=== PATIENT | female | born 1945 | race Caucasian/White ===

== ENCOUNTER 2017-01-15 11:39 | Emergency (ER) | payer OTHER ==
[~2017-01-15] VITALS: Ht 152.4 cm; Wt 73.0 kg
[~2017-01-15 11:39] MED LIST: ATOR-54 PO; BUPR100T13 PO; HYDR25TA4 PO; IBUP600T44 PO; LEVO50TA6 PO; LORA-741 PO; MAGNTAB17 PO; METHPOW PO; MULTTAB58 PO; OMEP20TA PO; POLY335040 PO; RANI150C4 PO
[2017-01-15 11:44] VITALS: TEMP 36.6; Ht 152.4 cm; Wt 73.0 kg
[2017-01-15] MEDS ORDERED: SODIUM CHLORIDE 0.9% 1000ML 1,000 ML IV ONE (12:02)
[2017-01-15] MEDS ORDERED: SODIUM CHLORIDE 0.9% 1000ML 1,000 ML IV STA (12:02)
[2017-01-15] MEDS ORDERED: MECLIZINE HCL 25 MG TAB PO STA (12:07)
[2017-01-15 12:15] LABS: HEMATOCRIT 42.7 % (37-47); MEAN CELL VOLUME 91.2 fL (80-100); MEAN CORPUSCULAR HEMOGLOBIN 31.6 pg (25-34); MEAN CORPUSCULAR HGB CONC 34.7 g/dl (32-36); MEAN PLATELET VOLUME 9.7 fL (7.4-10.4); PLATELET COUNT 268 K/uL (130-400); RED BLOOD COUNT 4.68 M/uL (4.2-5.4); WHITE BLOOD COUNT 12.31 K/uL (4.8-10.8)
[2017-01-15 12:22] LABS: PROTHROMBIN TIME (PATIENT) 10.3 SECONDS (9.0-12.0)
--- NOTE | 2017-01-15 12:23 | DIAGNOSTIC IMAGING REPORT ---
CHEST ONE VIEW PORTABLE CLINICAL HISTORY: CHEST PAIN dyspnea COMPARISON STUDY: No previous studies for comparison. FINDINGS: Fixed lateral hernia. Diaphragms smooth. Lungs are clear. IMPRESSION: Fixed hiatal hernia. Otherwise negative study Electronically signed by: Ángel Lundberg M.D. 01/15/2017 12:21 PM Dictated Date/Time: 01/15/2017 12:20 PM
--- NOTE | 2017-01-15 12:54 | DIAGNOSTIC IMAGING REPORT ---
HEAD CT NONCONTRAST CT DOSE: 614.27 mGy.cm HISTORY: Mental status change castellanos, dizzy TECHNIQUE: Multiaxial CT images of the head were performed without the use of intravenous contrast. Comparison: None. Findings: The paranasal sinuses and mastoid air cells are clear. The calvarium and skull base are intact. The ventricles and sulci are within normal limits. There is no mass, hematoma, midline shift, or acute infarct. Moderate chronic small vessel change in the periventricular and deep white matter regions. Impression: Chronic small vessel change. No acute intracranial abnormality. Electronically signed by: Ángel Lundberg M.D. 01/15/2017 12:52 PM Dictated Date/Time: 01/15/2017 12:51 PM
[2017-01-15 13:01] LABS: ALKALINE PHOSPHATASE 110 U/L (45-117); ALT/SGPT 29 U/L (12-78); BLOOD UREA NITROGEN 16 mg/dl (7-18); BUN/CREATININE RATIO 19.1 (10-20); CALCIUM 9.2 mg/dl (8.5-10.1); CARBON DIOXIDE 28 mmol/L (21-32); CHLORIDE 102 mmol/L (98-107); CREATININE 0.86 mg/dl (0.60-1.20); GLUCOSE 110 mg/dl (70-99)
[2017-01-15 13:05] LABS: POTASSIUM 3.8 mmol/L (3.5-5.1); SODIUM 141 mmol/L (136-145)
[2017-01-15] MEDS ORDERED: ACETAMINOPHEN 325 MG TAB PO STA (13:10)
[2017-01-15 13:14] LABS: AST/SGOT 26 U/L (15-37); CKMB/CK RATIO 1.8 (0-3.0)
[2017-01-15 14:19] LABS: BASO % 0.3 %; BASO ABS # 0.04 K/uL (0-0.2); COMPLETE YES; EOS % 1.3 %; IG% 0.3 %; LYMPH % 50.9 %; LYMPH ABS # 6.27 K/uL (1.2-3.4); NEUT % 42.2 %
[2017-01-15 14:22] LABS: SMUDGE CELLS PRESENT
[2017-01-15] MEDS ORDERED: MECL1TAB42 PO (15:13)
[2017-01-15 15:26] VITALS: BP 131/81; PULSE 92; O2SAT 93
--- NOTE | 2017-01-15 16:11 | EMERGENCY ROOM VISIT NOTE ---
History Report prepared by Sean: Debbie Clark Under the Supervision of: Dr. Jose Hinton M.D. First contact with patient: 11:51 Chief Complaint: NAUSEA Stated Complaint: SWEATING,NAUSEA,EAR RINGING,HEADACHE,DIZZY,SHAKY History of Present Illness The patient is a 71 year old female who presents to the Emergency Room with complaints of persistent dizziness starting earlier today. She states that she was sitting in the waiting room to her doctor's office when the room started distorting visually. She started experiencing diaphoresis. She has not experienced these symptoms before. She reports that her ears have been ringing for several days. She currently has a headache. Yesterday she felt slightly dizzy and had trouble standing up. The dizziness worsens when she bends over. She reports chills. She denies any chest pain, SOB, fever, or urinary symptoms. She denies any history of vertigo. She is not on any blood thinners. Source of History: patient Onset: earlier today Position: other (global) Quality: other (dizziness) Timing: other (persistent) Modifying Factors (Worsening): other (bending over) Associated Symptoms: + chills, + diaphoresis, No SOB, No chest pain, No fevers, No urinary symptoms Note: Pt reports vision changes. Review of Systems See HPI for pertinent positives & negatives. A total of 10 systems reviewed and were otherwise negative. 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 Nurse's notes were reviewed and I agree with. Family History FH: gallbladder disease FH: heart attack FH: heart disease FHx: lung disease Hypertension Social History Smoking Status: Never Smoker Alcohol Use: none Marital Status: Housing Status: lives with significant other Occupation Status: retired Current/Historical Medications Scheduled Atorvastatin (Lipitor), 20 MG PO QPM Bupropion Hcl (Wellbutrin), 100 MG PO BID Hydrochlorothiazide (Hctz), 25 MG PO DAILY Levothyroxine Sodium (Levothyroxine Sodium), 50 MCG PO DAILY Multiple Vitamin (Multivitamin), 1 TAB PO DAILY Omeprazole (Omeprazole), 40 MG PO BID Ranitidine Hcl (Ranitidine Hcl), 150 MG PO QPM Scheduled PRN Ibuprofen (Motrin), 600 MG PO TID PRN for Pain Lorazepam (Ativan), 0.5 MG PO BID PRN Meclizine Hcl (Meclizine Hcl), 1 TAB PO TID PRN for Dizziness or Vertigo Allergies Coded Allergies: Codeine (Verified Adverse Reaction, Unknown, GI UPSET, 01/15/17) Lisinopril (Verified Adverse Reaction, Unknown, COUGH, 01/15/17) Physical Exam Vital Signs Date Time Temp Pulse Resp B/P Pulse Ox O2 Delivery O2 Flow Rate FiO2 01/15/17 15:26 92 18 131/81 93 Room Air 01/15/17 14:47 92 128/76 94 01/15/17 11:44 36.6 106 18 154/90 97 Physical Exam General: Non ill-appearing older female. Well developed well nourished in no acute distress, breathing comfortably on room air. Normal speech HEENT: Normal cephalic atraumatic. Pupils are equal round and reactive to light. Sclera anicteric. Extraocular movements are intact. Oropharynx is pink with moist mucous membranes. No swelling of the mouth lips or tongue. Neck: Supple with a midline trachea. No meningeal signs or stiffness, no JVD or bruits. No Stridor. Chest: Clear to auscultation bilaterally. No wheezes or rhonchi. No increased work of breathing. Heart: regular rate and rhythm. Abdomen: Soft nontender, nondistended without rebound guarding or rigidity. Extremities: No cyanosis clubbing or edema. No calf tenderness or assymetry Spine/Back. Non tender to palpation. No CVA tenderness Skin: Good turgor without rashes. Neurologic exam: Cranial nerves two through 12 are intact. Motor and sensation are intact and symmetrical throughout. Finger to nose intact. No tremor. Medical Decision & Procedures ER Provider Diagnostic Interpretation: X-ray results as stated below per interpretation by me and the radiologist. Radiology results as stated below per my review and radiologist interpretation: CHEST ONE VIEW PORTABLE CLINICAL HISTORY: CHEST PAIN dyspnea COMPARISON STUDY: No previous studies for comparison. FINDINGS: Fixed lateral hernia. Diaphragms smooth. Lungs are clear. IMPRESSION: Fixed hiatal hernia. Otherwise negative study Electronically signed by: Ángel Lundberg M.D. 01/15/2017 12:21 PM Dictated Date/Time: 01/15/2017 12:[address] CT DOSE: 614.27 mGy.cm HISTORY: Mental status change castellanos, dizzy TECHNIQUE: Multiaxial CT images of the head were performed without the use of intravenous contrast. Comparison: None. Findings: The paranasal sinuses and mastoid air cells are clear. The calvarium and skull base are intact. The ventricles and sulci are within normal limits. There is no mass, hematoma, midline shift, or acute infarct. Moderate chronic small vessel change in the periventricular and deep white matter regions. Impression: Chronic small vessel change. No acute intracranial abnormality. Electronically signed by: Ángel Lundberg M.D. 01/15/2017 12:52 PM Dictated Date/Time: 01/15/2017 12:51 PM Laboratory Results 01/15/17 12:00 Red Blood Count 4.68, Mean Corpuscular Volume 91.2, Mean Corpuscular Hemoglobin 31.6, Mean Corpuscular Hemoglobin Concent 34.7, Mean Platelet Volume 9.7, Neutrophils (%) (Auto) 42.2, Lymphocytes (%) (Auto) 50.9, Monocytes (%) (Auto) 5.0, Eosinophils (%) (Auto) 1.3, Basophils (%) (Auto) 0.3, Neutrophils # (Auto) 5.18, Lymphocytes # (Auto) 6.27, Monocytes # (Auto) 0.62, Eosinophils # (Auto) 0.16, Basophils # (Auto) 0.04 01/15/17 12:00 Test 01/15/17 12:00 01/15/17 12:02 White Blood Count 12.31 K/uL (4.8-10.8) Red Blood Count 4.68 M/uL (4.2-5.4) Hemoglobin 14.8 g/dL (12.0-16.0) Hematocrit 42.7 % (37-47) Mean Corpuscular Volume 91.2 fL (80-100) Mean Corpuscular Hemoglobin 31.6 pg (25-34) Mean Corpuscular Hemoglobin Concent 34.7 g/dl (32-36) Platelet Count 268 K/uL (130-400) Mean Platelet Volume 9.7 fL (7.4-10.4) Neutrophils (%) (Auto) 42.2 % Lymphocytes (%) (Auto) 50.9 % Monocytes (%) (Auto) 5.0 % Eosinophils (%) (Auto) 1.3 % Basophils (%) (Auto) 0.3 % Neutrophils # (Auto) 5.18 K/uL (1.4-6.5) Lymphocytes # (Auto) 6.27 K/uL (1.2-3.4) Monocytes # (Auto) 0.62 K/uL (0.11-0.59) Eosinophils # (Auto) 0.16 K/uL (0-0.5) Basophils # (Auto) 0.04 K/uL (0-0.2) RDW Standard Deviation 45.2 fL (36.4-46.3) RDW Coefficient of Variation 13.6 % (11.5-14.5) Immature Granulocyte % (Auto) 0.3 % Immature Granulocyte # (Auto) 0.04 K/uL (0.00-0.02) Smudge Cells PRESENT Blood Smear Review Prothrombin Time 10.3 SECONDS (9.0-12.0) Prothromb Time International Ratio 1.0 (0.9-1.1) Activated Partial Thromboplast Time 25.2 SECONDS (21.0-31.0) Partial Thromboplastin Ratio 1.0 Anion Gap 11.0 mmol/L (3-11) Est Creatinine Clear Calc Drug Dose 52.0 ml/min Estimated GFR () 77.7 Estimated GFR (Non- 67.0 BUN/Creatinine Ratio 19.1 (10-20) Calcium Level 9.2 mg/dl (8.5-10.1) Total Bilirubin 0.6 mg/dl (0.2-1) Direct Bilirubin 0.2 mg/dl (0-0.2) Aspartate Amino Transf (AST/SGOT) 26 U/L (15-37) Alanine Aminotransferase (ALT/SGPT) 29 U/L (12-78) Alkaline Phosphatase 110 U/L (45-117) Total Creatine Kinase 103 U/L (26-192) Creatine Kinase MB 1.9 ng/ml (0.5-3.6) Troponin I < 0.015 ng/ml (0-0.045) Total Protein 7.6 gm/dl (6.4-8.2) Albumin 3.9 gm/dl (3.4-5.0) Lipase 224 U/L (73-393) Thyroid Stimulating Hormone (TSH) 4.430 uIu/ml (0.300-4.500) Creatine Kinase MB Ratio (0-3.0) Laboratory studies as stated above per my review. Medications Administered Medications (Trade) Dose Ordered Sig/Shashank Route Start Time Stop Time Status Last Admin Dose Admin Sodium Chloride 1,000 ml @ 999 mls/hr Q1H1M STAT IV 01/15/17 12:02 01/15/17 13:02 DC 01/15/17 12:15 999 MLS/HR Sodium Chloride (Nss 1000ml) 1,000 ml @ 150 mls/hr Q6H40M ONCE IV 01/15/17 12:02 01/15/17 15:51 DC 01/15/17 12:15 150 MLS/HR Meclizine HCl (Antivert Tab) 12.5 mg NOW STAT PO 01/15/17 12:07 01/15/17 12:09 DC 01/15/17 12:13 12.5 MG Acetaminophen (Tylenol Tab) 650 mg NOW STAT PO 01/15/17 13:10 01/15/17 13:11 DC 01/15/17 13:27 650 MG ECG Indication: weakness Rate (beats per minute): 77 Rhythm: normal sinus Findings: no acute ischemic change, no ectopy, other (LVH) Comparison ECG Date: no prior available ED Course 1159: Past medical records reviewed. The patient was evaluated in room B4, and a complete history and physical examination were performed. 1202: NSS 1000 ml @ 150 mls/hr IV, NSS 1000 ml @ 999 mls/hr IV. 1207: Antivert Tab 12.5 mg PO. 1308: I reevaluated the patient. She has a headache. She will be getting some Tylenol. 1310: Acetaminophen 650 mg PO. 1503: Upon reevaluation, the patient is resting comfortably. I discussed the results and treatment plan with her. She verbalized agreement of the treatment plan. The patient was discharged home. Medical Decision Differential diagnoses: vertigo, CVA, intracranial process, electrolyte or metabolic abnormality. This patient comes in as described above. She was placed in room B4. She is here for treatment and evaluation of dizziness. It is worse with movement and bending over. She's also been having a ringing in her ears for couple days. She has a normal ear exam. She has a normal neurologic exam. IV access established and she was hydrated IV normal saline here and she was given meclizine 12.5 mg by mouth resting comfortably. EKG does not suggest acute or syndrome or arrhythmia. She's had no significant electrolyte or metabolic abnormality. She has nothing to suggest infection. She's had nothing to suggest acute neurologic central process. CAT scan of her head is unremarkable. She is feeling good and desires to go home. Most likely this is peripheral vertigo and it may be related to Mnire's disease with the ear ringing. I will give her a prescription for meclizine 25 mg that she can use every 8 hours as needed she was warned that this can make her drowsy do not take before drinking abdomen, working. She is encouraged to be careful getting up and down follow-up with her regular doctor next 1-2 days for recheck. Family was happy with the plan and she was discharged home Impression Primary Impression: Dizziness Scribe Attestation The scribe's documentation has been prepared under my direction and personally reviewed by me in its entirety. I confirm that the note above accurately reflects all work, treatment, procedures, and medical decision making performed by me. Departure Information Dispostion Home / Self-Care Prescriptions Meclizine Hcl (MECLIZINE HCL) 25 Mg Tab 1 TAB PO TID Y for Dizziness or Vertigo for 4 Days, #12 TAB Prov: Jose Hinton M.D. 01/15/17 Referrals Lucas Mendez M.D. (PCP) Forms HOME CARE DOCUMENTATION FORM, IMPORTANT VISIT INFORMATION Patient Instructions My [facility] Additional Instructions Rest. Drink plenty of fluids. Return if: worsening of symptoms, not tolerating fluids, fever or chills, chest pain, shortness of breath, numbness or weakness, any new problems or concerns. For dizziness if needed may use meclizine 25 mg every 8 hours if needed Meclizine may make you drowsy be careful getting up and down. Follow-up with your doctor in the next couple of days for recheck.
== END 2017-01-15 15:27 | disposition home or self-care (01) ==
LOC: C.EDB 11:41
DX: R42 Dizziness and giddiness (principal); I10 Essential (primary) hypertension; K21.9 Gastro-esophageal reflux disease without esophagitis; K58.9 Irritable bowel syndrome, unspecified; K31.84 Gastroparesis; G47.33 Obstructive sleep apnea (adult) (pediatric); Z85.3 Personal history of malignant neoplasm of breast; Z86.718 Personal history of other venous thrombosis and embolism; Z90.710 Acquired absence of both cervix and uterus; Z98.51 Tubal ligation status; Z88.5 Allergy status to narcotic agent; Z88.8 Allergy status to other drugs, medicaments and biological substances; Z83.79 Family history of other diseases of the digestive system; Z82.49 Family history of ischemic heart disease and other diseases of the circulatory system

== ENCOUNTER → 2018-05-20 | Day surgery (SDC) | payer OTHER ==
[2018-05-03 07:53] VITALS: Ht 152.4 cm; Wt 75.9 kg
[~2018-05-20] VITALS: Ht 152.4 cm; Wt 75.9 kg
[~2018-05-20] MED LIST changes: +500ML BSS 0.3ML EPI 1:1000PF IRRIG ONE; +ACETAMINOPHEN 325 MG TAB PO PRN; +AMVISC PLUS 0.8ML SYRINGE INT OCU ONE; +ATROPINE SULFATE 0.1 MG/ML 5ML SYR IV PRN; +BSS FLUSH ONE; +DIPH1TAB87 PO; +EpINEphrine INJ 1MG/ML AMP 1 MG/ML AMP ONE; +LACTATED RINGER'S 1000ML 500 ML IV SCH; +LIDOCAINE 3.5% OPH GEL PER APPLICATION CHARGE ONE; +LIDOCAINE HCL 1% MPF 2 ML VIAL ONE; -MAGNTAB17 PO; +MECL1TAB40 PO; -METHPOW PO; +MIDAZOLAM HCL 1 MG/ML 2ML VIAL ONE; +OMEP-334 PO; -OMEP20TA PO; -POLY335040 PO; +POVIDONE-IODINE OP SOLN 30 ML BTL ONE; +PROPARACAINE 0.5% OP SOLN PER DROP CHARGE OPR SCH; +TOBRAMYCIN/DEXAMETHASONE OPH OINT PER APPLN CHARGE ONE
[2018-05-20] MEDS: PHENYLEPHRINE HCL 2.5% OP SOLN PER DROP CHARGE OPR SCH ×2 (08:38→08:43)
[2018-05-20] MEDS: TROPICAMIDE 1% OP SOLN PER DROP CHARGE OPR SCH ×2 (08:39→08:44)
[2018-05-20] MEDS: CYCLOPENTOLATE HCL 1% OP SOLN PER DROP CHARGE OPR SCH ×2 (08:40→08:45)
[2018-05-20] MEDS: KETOROLAC 0.5% OP SOLN PER DROP CHARGE OPR SCH ×2 (08:41→08:46)
[2018-05-20] MEDS: GATIFLOXACIN OP SOLN PER DROP CHARGE OPR SCH ×2 (08:42→08:52)
--- NOTE | 2018-05-20 09:14 | History & Physical Bridge - SC ---
H&P Re-Evaluation Bridge Note: I have examined the patient, reviewed the History & Physical and in the interval since the performance of the History & Physical I have noted the following changes of clinical significance: No changes noted
--- NOTE | 2018-05-20 10:03 | [facility] Operative Report ---
Operative Report Date of Service May 20, 2018. Operative Report 1. PREOPERATIVE DIAGNOSIS: Cataract of the right eye. 2. POSTOPERATIVE DIAGNOSIS: Same. 3. PROCEDURE: Phacoemulsification with intraocular lens implantation of the right eye. SURGEON: Dr. Bishop Luna. ANESTHESIA: Topical Lidocaine gel, 1% Non- Preserved intracameral Lidocaine, and monitored intravenous sedation. INDICATIONS FOR THE PROCEDURE: The patient is a 72 - year-old female with a history of cataract of the right eye causing significant visual impairment. The details of the proposed procedure were explained to the patient who asked appropriate questions and following discussion of all risks, benefits and alternatives agreed to have the procedure done. 4. OPERATION AND FINDINGS: DESCRIPTION OF PROCEDURE: After informed consent was obtained, the patient was brought to the Operating Room at the [facility]. The patient was placed in a supine position and then the right eye was prepped and draped in the usual sterile fashion for intraocular surgery. A drop of topical Lidocaine gel was placed in the operative eye. A wire lid speculum was then placed in the fornices. A corneal paracentesis was then created temporally. The Non-Preserved Lidocaine was then instilled into the anterior chamber. The anterior chamber was then pressurized with viscoelastic. A 2.0 mm clear corneal incision was then created temporally. A cystotome was inserted into the anterior chamber and used to create a tear in the anterior lens capsule. This capsular tear was then used to create a small flap and the flap was dragged in a counterclockwise direction in order to create a continuous curvilinear capsulorrhexis. Hydrodissection was accomplished with balanced salt solution. Phacoemulsification of the lens nucleus was then performed in a standard [id number] technique. The phaco time was 17 seconds with an average power of 11 %. The remaining cortical material was removed using irrigation aspiration. The capsular bag was then filled with viscoelastic. A [employer] MI60L +24.5 diopters lens was then loaded into the injector and injected into the capsular bag. The remaining viscoelastic was removed with the irrigation aspiration handpiece. The wound was hydrated and then checked and found to be watertight. The intraocular pressure was checked and found to be adequate. The wire lid speculum was removed and the patient's face was cleaned and dried. TobraDex ointment was placed in the inferior fornix. The patient was discharged to the Recovery Room having tolerated the procedure well. There were no complications. The patient will be seen tomorrow in the office for follow-up. I attest to the content of the Intraoperative Record and any orders documented therein. Any exceptions are noted below.
--- NOTE | 2018-05-20 10:04 | Discharge Instructions-SurgCtr ---
Discharge Instructions Date of Service May 20, 2018. Visit Reason for Visit: Cataract Right Eye Discharge Discharge Diagnosis / Problem: cataract Discharge Goals Goal(s): Improve function Activity Recommendations Activity Limitations: per Instructions/Follow-up section Anesthesia . Post Anesthesia Instructions: If you have had General Anesthesia or IV Sedation: * Do not drive today. * Resume driving when surgeon permits. * Do not make important decisions or sign legal documents today. * Call surgeon for: 1. Temperature elevations greater than 101 degrees F. 2. Uncontrollable pain. 3. Excessive bleeding. 4. Persistent nausea and vomiting. 5. Medication intolerance (nausea, vomiting or rash). * For nausea and vomiting use only clear liquids such as: tea, soda, bouillon until nausea subsides, then gradually increase diet as tolerated. * If you have any concerns or questions, call your surgeon's office. If physician is unavailable and it is an emergency, call 911 or go to the nearest emergency room. . Diet Recommendations Home Diet: resume previous diet Procedures Procedures Performed: Right Cataract Phacoemulsification With Intraocular Lens Implant Pending Studies Studies pending at discharge: no Medical Emergencies . Who to Call and When: Medical Emergencies: If at any time you feel your situation is an emergency, please call 911 immediately. . Non-Emergent Contact Non-Emergency issues call your: [employer] . . "Provider Documentation" section prepared by Bishop Luna. .
[2018-05-20 10:05] VITALS: TEMP 36.5
[2018-05-20 10:35] VITALS: BP 118/75; PULSE 80; O2SAT 95
--- NOTE | 2018-05-20 10:41 | Anesthesia Progress Nt - [facility] ---
Anesthesia Post Op Note Date & Time May 20, 2018 at 10:41 Vital Signs Pain Intensity: 0 Vital Signs Past 12 Hours Date Time Temp Pulse Resp B/P (MAP) Pulse Ox O2 Delivery O2 Flow Rate FiO2 05/20/18 10:35 80 16 118/75 (89) 95 Room Air 05/20/18 10:05 36.5 74 16 132/79 (96) 95 Room Air 05/20/18 08:30 36.8 78 16 141/87 (105) 94 Room Air Notes Mental Status: alert / awake / arousable, participated in evaluation Pt Amnestic to Procedure: Yes Nausea / Vomiting: adequately controlled Pain: adequately controlled Airway Patency, RR, SpO2: stable & adequate BP & HR: stable & adequate Hydration State: stable & adequate Anesthetic Complications: no major complications apparent
== END | disposition home or self-care (01) ==
LOC: X.SURG 08:15
PROVIDERS: ATTEND Ophthalmology
DX: H26.9 Unspecified cataract (principal); E03.9 Hypothyroidism, unspecified; I10 Essential (primary) hypertension; Z79.899 Other long term (current) drug therapy; G47.33 Obstructive sleep apnea (adult) (pediatric); K21.9 Gastro-esophageal reflux disease without esophagitis; F41.9 Anxiety disorder, unspecified; F32.9 Major depressive disorder, single episode, unspecified

== ENCOUNTER 2021-05-03 16:15 | Inpatient (IN) ==
[2021-05-03] MEDS ORDERED: ASPIRIN CHEW 324 MG PO STA (18:29)
--- NOTE | 2021-05-03 18:40 | Emergency Department Note ---
History of Present Illness General Chief Complaint: Shortness of Breath/Dyspnea Stated Complaint: SEVERE ON GOING HEADACHE, SOB Time Seen by Provider: 05/03/21 18:21 History of Present Illness Provider Complaint: shortness of breath Onset (ago): day(s) (3) Severity: moderate Consistency/Duration: + progressively worsening Current Pain Intensity: 0 Relieved By: + other (CPAP) Exacerbated By: not by lying flat, not by exertion, not by new medication, not by movement, not by coughing, not by inspiration, not by stress, not by talking, not by allergies, not by cold air, not by warm air, not by humidity, not by strong odors, not by smoke or not by deep breaths Context: no recent illness, no occurred during exertion, no choking/aspiration, no medication noncompliance, no allergen exposure, no recent travel, no smoke/fume exposure, no anxiety, no trauma/injury, no elevated blood glucose or no CO exposure Known history of: DVT Associated symptoms: no chest pain, no pain with inspiration, no fever, no cough, no wheezing, no sputum production, no orthopnea, no lower extremity pain, no polyuria, no polydipsia, no paresthesias, no palpitations, no carpopedal spasm, no hemoptysis, no diaphoresis, no nausea/vomiting, no syncope, no abdominal pain, no rash, no sense of impending doom or no lightheadedness HPI Narrative: Patient was seen by [facility] and referred to the emergency department due to her symptoms as well as a new left bundle branch block on EKG. Patient also reported having a headache that began 3 days ago and has since resolved. Home Medications Medication Instructions Recorded Confirmed Type atorvastatin 20 mg tablet (Lipitor) 20 mg PO HS 06/29/18 05/03/21 History bupropion HCl 100 mg tablet 100 mg PO BID 06/29/18 05/03/21 History meclizine 25 mg tablet (Motion 25 mg PO TID PRN 06/29/18 05/03/21 History Sickness (meclizine)) multivitamin (Daily Multi-Vitamin) 1 tab PO QAM 06/29/18 05/03/21 History cyclosporine 0.05 % eye drops in a 1 drp OPB Q12H 05/03/21 05/03/21 History dropperette (Restasis) levothyroxine 75 mcg tablet 75 mcg PO DAILYBB 05/03/21 05/03/21 History (Synthroid) Allergies Allergy/AdvReac Type Severity Reaction Status Date / Time codeine AdvReac Unknown GI UPSET Verified 05/03/21 20:14 lisinopril AdvReac Unknown COUGH Verified 05/03/21 20:14 Past Med/Surg History Medical History (Updated 05/03/21 @ 23:43 by Phill Javier) Closed left clavicular fracture DVT (deep venous thrombosis) Zoster Surgical History History of hysterectomy History of tubal ligation Social History Smoking Status: Never smoker Preferred Language: Tajik Feels Safe at Home: Yes Review of Systems A total of 10 systems reviewed and were otherwise negative Physical Exam Vital Signs: Vital Signs - 24 hr 05/03/21 16:32 05/03/21 16:35 05/03/21 18:18 Temperature 36.3 C L Temperature Source Temporal Artery Sc an Pulse Rate 99 H 96 H Pulse Rate [Apical ] Pulse Rate from Sp O2 Sensor 97 H Respiratory Rate 20 21 Respiratory Effort / Characteristics Non-Labored Non-Labored Sponta neous Respiratory Depth Normal Blood Pressure 117/74 132/90 Blood Pressure [Ri ght Arm] Blood Pressure Pau n 88 104 Blood Pressure Pau n [Right Arm] Pulse Oximetry 96 98 Oxygen Delivery Me thod Room Air Room Air Oxygen Flow Rate Sepsis Recent Feve r Within 48 Hours No Sepsis New/Unexpla ined Change in Men bailey Status No Sepsis Action Take n by Nursing No Action Required Oxygen Flow Rate - Titration Pulse Oximetry Pos t Tiitration 05/03/21 18:47 05/03/21 18:48 05/03/21 18:50 Temperature Temperature Source Pulse Rate Pulse Rate [Apical ] 89 Pulse Rate from Sp O2 Sensor Respiratory Rate 18 Respiratory Effort / Characteristics Respiratory Depth Blood Pressure Blood Pressure [Ri ght Arm] 132/90 Blood Pressure Pau n Blood Pressure Pau n [Right Arm] 104 Pulse Oximetry 98 99 95 Oxygen Delivery Me thod Room Air Room Air Room Air Oxygen Flow Rate Sepsis Recent Feve r Within 48 Hours Sepsis New/Unexpla ined Change in Men bailey Status Sepsis Action Take n by Nursing Oxygen Flow Rate - Titration Pulse Oximetry Pos t Tiitration 05/03/21 20:33 05/03/21 21:10 05/03/21 21:15 Temperature Temperature Source Pulse Rate 86 112 H Pulse Rate [Apical ] Pulse Rate from Sp O2 Sensor 89 Respiratory Rate 23 35 H Respiratory Effort / Characteristics Respiratory Depth Blood Pressure 124/84 Blood Pressure [Ri ght Arm] Blood Pressure Pau n 97 Blood Pressure Pau n [Right Arm] Pulse Oximetry 94 89 L Oxygen Delivery Me thod Room Air Room Air Oxygen Flow Rate 0 Sepsis Recent Feve r Within 48 Hours Sepsis New/Unexpla ined Change in Men bailey Status Sepsis Action Take n by Nursing Oxygen Flow Rate - Titration 2 Pulse Oximetry Pos t Tiitration 96 05/03/21 21:25 05/03/21 21:30 05/03/21 22:01 Temperature Temperature Source Pulse Rate 95 H 88 91 H Pulse Rate [Apical ] Pulse Rate from Sp O2 Sensor 95 H 88 91 H Respiratory Rate 22 24 20 Respiratory Effort / Characteristics Respiratory Depth Blood Pressure 125/85 126/84 124/82 Blood Pressure [Ri ght Arm] Blood Pressure Pau n 98 98 96 Blood Pressure Pau n [Right Arm] Pulse Oximetry 97 97 96 Oxygen Delivery Me thod Nasal Cannula Nasal Cannula Nasal Cannula Oxygen Flow Rate 2 2 2 Sepsis Recent Feve r Within 48 Hours Sepsis New/Unexpla ined Change in Men bailey Status Sepsis Action Take n by Nursing Oxygen Flow Rate - Titration Pulse Oximetry Pos t Tiitration 05/03/21 22:30 05/03/21 23:00 Temperature Temperature Source Pulse Rate 97 H Pulse Rate [Apical ] Pulse Rate from Sp O2 Sensor 96 H Respiratory Rate 23 Respiratory Effort / Characteristics Respiratory Depth Blood Pressure 124/99 123/82 Blood Pressure [Ri ght Arm] Blood Pressure Pau n 107 95 Blood Pressure Pau n [Right Arm] Pulse Oximetry 98 Oxygen Delivery Me thod Oxygen Flow Rate Sepsis Recent Feve r Within 48 Hours Sepsis New/Unexpla ined Change in Men bailey Status Sepsis Action Take n by Nursing Oxygen Flow Rate - Titration Pulse Oximetry Pos t Tiitration Physical Exam: Physical Exam GENERAL: She is oriented to person, place, and time. She appears well-developed and well-nourished. She does not appear distressed. HENT: Exam performed. -Head: Normocephalic and atraumatic. -Right Ear: External ear normal. No mastoid tenderness. -Left Ear: External ear normal. No mastoid tenderness. -Mouth/Throat: The oropharynx is clear and moist. No trismus in the jaw. No dental abscesses or uvula swelling. No oropharyngeal exudate or tonsillar abscesses. EYES: Conjunctivae and EOM are normal. Pupils are equal, round, and reactive to light. Right eye exhibits no discharge. Left eye exhibits no discharge. No scleral icterus. NECK: Normal range of motion. Neck supple. No JVD present. No spinous process tenderness present. No carotid bruit present. No rigidity. No tracheal deviation and normal range of motion present. No Brudzinski's sign and no Kernig's sign noted. CV: Normal rate, regular rhythm, normal heart sounds and intact distal pulses. There is no peripheral edema. Palpable radial pulses bue. PULM/CHEST: Effort normal and breath sounds normal. No respiratory distress. No stridor. She has no wheezes. She has no rales. -Chest Wall: She exhibits no tenderness. ABD: The abdomen is soft. Bowel sounds are normal. She has no distension. No mass is present. There is no tenderness. There is no rebound, no guarding, no Durant's sign and no tenderness at McBurney's point. Rovsig negative MUSC/SKEL: Normal range of motion. There is no peripheral edema, tenderness or deformity. LYMPH: No cervical adenopathy. NEURO: She is alert and oriented to person, place, and time. She has normal strength. No cranial nerve deficit or sensory deficit. Coordination and gait normal. GCS eye subscore is 4. GCS verbal subscore is 5. GCS motor subscore is 6. Cerebellar tests wnl. SKIN: Skin is warm and dry. She is not diaphoretic. PSYCH: She has a normal mood and affect. Behavior is normal. Judgment and thought content normal. Course Course 182: The patient was evaluated in room A12. A complete history and physical exam was performed Cardiac monitoring: An order was placed for continuous cardiac monitoring. The monitor shows a rate of 100 with sinus rhythm 1837: EMR reviewed. No previous EKGs on file. [employer] caseworker was able to obtain previous EKG from 2017 which showed no bundle branch block. 2200: Patient became hypoxic on room air. 2 L nasal cannula applied which improved the patient's oxygen saturation. Labs show an elevated proBNP and imaging does show findings was consistent with CHF. No PE. Labs show leukocytosis of 31.58. Patient does have a history of CLL. Given the patient's hypoxia new left bundle branch block the [facility]. Patient continues to report no chest pain. Lasix 40 mg ordered for the patient. Discussed case with Dr. [facility] to agreed to evaluate the patient for admission. Administered Medications Discontinued Medications Aspirin (Aspirin Chew 324 Mg) 324 mg PO NOW STA Stop: 05/03/21 18:30 Last Admin: 05/03/21 18:56 Dose: 324 mg Documented by: [id number] Furosemide (Furosemide 40 Mg/4 Ml Vial) 40 mg IV NOW STA Stop: 05/03/21 22:05 Last Admin: 05/03/21 22:13 Dose: 40 mg Documented by: [id number] Ioversol (Optiray 320 125ml) 116 ml IV ONCE ONE Stop: 05/03/21 21:05 Last Admin: 05/03/21 21:04 Dose: 116 ml Documented by: [id number] Medical Decision Making Laboratory Data Result diagrams: 05/03/21 18:41 05/03/21 18:41 Lab Results 05/03/21 05/03/21 05/03/21 Range/Units 18:41 18:41 18:41 WBC 31.58 H* (4.8-10.8) K/uL RBC 4.55 (4.2-5.4) M/uL Hgb 14.5 (12.0-16.0) g/dL Hct 43.1 (37-47) % MCV 94.7 (80-100) fL MCH 31.9 (25-34) pg MCHC 33.6 (32-36) g/dL RDW Std Deviation 49.8 H (36.4-46.3) fL RDW Coeff of Terri 14.4 (11.5-14.5) % Plt Count 220 (130-400) K/uL MPV 10.4 (7.4-10.4) fL Neutrophils % (Manual) 5.0 % Lymphocytes % (Manual) 90.8 % Monocytes % (Manual) 2.5 % Basophils % (Manual) 1.7 % Neutrophils # (Manual) 1.58 (1.4-6.5) K/uL Total Absolute Neuts 1.58 (1.4-6.5) K/uL Lymphocytes # (Manual) 28.67 H (1.2-3.4) K/uL Total Abs Lymphocytes 28.67 H (1.2-3.4) K/uL Monocytes # (Manual) 0.79 H (0.11-0.59) K/uL Basophils # (Manual) 0.54 H (0-0.2) K/uL RBC Morphology Unremarkable PT 10.2 (9.0-12.0) Seconds INR 1.0 (0.9-1.1) APTT 21.8 (21.0-31.0) Seconds PTT Ratio 0.8 D-Dimer 580 H* (0-500) ug/L FEU Sodium 137 (136-145) mmol/L Potassium 4.1 (3.5-5.1) mmol/L Chloride 108 H (98-107) mmol/L Carbon Dioxide 23 (21-32) mmol/L Anion Gap 6.0 (3-11) BUN 17 (7-18) mg/dl Creatinine 1.03 (0.6-1.2) mg/dl Est Cr Clr Drug Dosing Not Reportable Est GFR ( Amer) 60.7 ml/min Est GFR (Non-Af Amer) 52.4 ml/min BUN/Creatinine Ratio 16.5 (10-20) Glucose 88 (70-99) mg/dl Lactate (0.4-2.0) mmol/L Calcium 9.5 (8.5-10.1) mg/dl Magnesium 2.3 (1.8-2.4) mg/dl Troponin I < 0.015 (0-0.045) ng/ml NT-Pro-B Natriuret Pep 7774 H (0-1800) pg/ml Lipase 191 (73-393) U/L Specimen Hemolysis Urine Color Urine Appearance (Clear) Urine pH (4.5-7.5) Ur Specific [place] (1.000-1.030) Urine Protein (Negative) Urine Glucose (UA) (Negative) Urine Ketones (Negative) Urine Blood (Negative) Urine Nitrite (Negative) Urine Bilirubin (Negative) Urine Urobilinogen (Negative) Ur Leukocyte Esterase (Negative) Urine WBC (Auto) (0-5) /hpf Urine RBC (Auto) (0-4) /hpf U Hyaline Cast (Auto) (0-5) /lpf U Epithel Cells (Auto) (0-5) /lpf Urine Bacteria (Auto) (Negative) COVID-19 Eval Order SARS-CoV-2 (PCR) (Negative) 05/03/21 05/03/21 05/03/21 Range/Units 19:44 19:44 20:12 WBC (4.8-10.8) K/uL RBC (4.2-5.4) M/uL Hgb (12.0-16.0) g/dL Hct (37-47) % MCV (80-100) fL MCH (25-34) pg MCHC (32-36) g/dL RDW Std Deviation (36.4-46.3) fL RDW Coeff of Terri (11.5-14.5) % Plt Count (130-400) K/uL MPV (7.4-10.4) fL Neutrophils % (Manual) % Lymphocytes % (Manual) % Monocytes % (Manual) % Basophils % (Manual) % Neutrophils # (Manual) (1.4-6.5) K/uL Total Absolute Neuts (1.4-6.5) K/uL Lymphocytes # (Manual) (1.2-3.4) K/uL Total Abs Lymphocytes (1.2-3.4) K/uL Monocytes # (Manual) (0.11-0.59) K/uL Basophils # (Manual) (0-0.2) K/uL RBC Morphology PT (9.0-12.0) Seconds INR (0.9-1.1) APTT (21.0-31.0) Seconds PTT Ratio D-Dimer (0-500) ug/L FEU Sodium (136-145) mmol/L Potassium (3.5-5.1) mmol/L Chloride (98-107) mmol/L Carbon Dioxide (21-32) mmol/L Anion Gap (3-11) BUN (7-18) mg/dl Creatinine (0.6-1.2) mg/dl Est Cr Clr Drug Dosing Est GFR ( Amer) ml/min Est GFR (Non-Af Amer) ml/min BUN/Creatinine Ratio (10-20) Glucose (70-99) mg/dl Lactate (0.4-2.0) mmol/L Calcium (8.5-10.1) mg/dl Magnesium (1.8-2.4) mg/dl Troponin I (0-0.045) ng/ml NT-Pro-B Natriuret Pep (0-1800) pg/ml Lipase (73-393) U/L Specimen Hemolysis Urine Color Yellow Urine Appearance Clear (Clear) Urine pH 5.5 (4.5-7.5) Ur Specific [place] 1.013 (1.000-1.030) Urine Protein Negative (Negative) Urine Glucose (UA) Negative (Negative) Urine Ketones 1+ H (Negative) Urine Blood Negative (Negative) Urine Nitrite Negative (Negative) Urine Bilirubin Negative (Negative) Urine Urobilinogen Negative (Negative) Ur Leukocyte Esterase 2+ H (Negative) Urine WBC (Auto) 10-30 H (0-5) /hpf Urine RBC (Auto) 0-4 (0-4) /hpf U Hyaline Cast (Auto) 1-5 (0-5) /lpf U Epithel Cells (Auto) 5-10 H (0-5) /lpf Urine Bacteria (Auto) Negative (Negative) COVID-19 Eval Order Covid19 at [facility] SARS-CoV-2 (PCR) NEGATIVE (Negative) 05/03/21 Range/Units 20:22 WBC (4.8-10.8) K/uL RBC (4.2-5.4) M/uL Hgb (12.0-16.0) g/dL Hct (37-47) % MCV (80-100) fL MCH (25-34) pg MCHC (32-36) g/dL RDW Std Deviation (36.4-46.3) fL RDW Coeff of Terri (11.5-14.5) % Plt Count (130-400) K/uL MPV (7.4-10.4) fL Neutrophils % (Manual) % Lymphocytes % (Manual) % Monocytes % (Manual) % Basophils % (Manual) % Neutrophils # (Manual) (1.4-6.5) K/uL Total Absolute Neuts (1.4-6.5) K/uL Lymphocytes # (Manual) (1.2-3.4) K/uL Total Abs Lymphocytes (1.2-3.4) K/uL Monocytes # (Manual) (0.11-0.59) K/uL Basophils # (Manual) (0-0.2) K/uL RBC Morphology PT (9.0-12.0) Seconds INR (0.9-1.1) APTT (21.0-31.0) Seconds PTT Ratio D-Dimer (0-500) ug/L FEU Sodium (136-145) mmol/L Potassium (3.5-5.1) mmol/L Chloride (98-107) mmol/L Carbon Dioxide (21-32) mmol/L Anion Gap (3-11) BUN (7-18) mg/dl Creatinine (0.6-1.2) mg/dl Est Cr Clr Drug Dosing Est GFR ( Amer) ml/min Est GFR (Non-Af Amer) ml/min BUN/Creatinine Ratio (10-20) Glucose (70-99) mg/dl Lactate 1.1 (0.4-2.0) mmol/L Calcium (8.5-10.1) mg/dl Magnesium (1.8-2.4) mg/dl Troponin I (0-0.045) ng/ml NT-Pro-B Natriuret Pep (0-1800) pg/ml Lipase (73-393) U/L Specimen Hemolysis Urine Color Urine Appearance (Clear) Urine pH (4.5-7.5) Ur Specific [place] (1.000-1.030) Urine Protein (Negative) Urine Glucose (UA) (Negative) Urine Ketones (Negative) Urine Blood (Negative) Urine Nitrite (Negative) Urine Bilirubin (Negative) Urine Urobilinogen (Negative) Ur Leukocyte Esterase (Negative) Urine WBC (Auto) (0-5) /hpf Urine RBC (Auto) (0-4) /hpf U Hyaline Cast (Auto) (0-5) /lpf U Epithel Cells (Auto) (0-5) /lpf Urine Bacteria (Auto) (Negative) COVID-19 Eval Order SARS-CoV-2 (PCR) (Negative) Imaging Data Radiologist's Impression: PreliminaryFindingsOnly See Final Report For Complete Findings CTACHEST: No pulmonaryembolism. Evaluation limited byrespiratorymotion artifact. No thoracic aortic aneurysm. Cardiomegalyand coronaryarteryatherosclerosis. No pericardial effusion. Large hiatal hernia. Small pleural effusions, right greater than left. Bibasilar atelectasis. Pulmonarynodule measuring 3 mmin the right middle lobe (series 2, image 43). Reflux of contrast into the hepatic veins compatible with elevated right heart pressure. No acute osseous findings. Radiologist: Roly Ovalle M.D. Study ready at 21:26 and initial results transmitted at 21:55 ECG Data Interpretation: Sinus rhythm with a rate of 100. LA 148 QRS 146 QTC 523. Left bundle branch block present. Sgarbosa negative MDM Narrative 1821: The patient was evaluated in room A12. A complete history and physical exam was performed Cardiac monitoring: An order was placed for continuous cardiac monitoring. The monitor shows a rate of 100 with sinus rhythm 1838: EMR reviewed. No previous EKGs on file. [employer] caseworker was able to obtain previous EKG from 2016 which showed no bundle branch block. 2200: Patient became hypoxic on room air. 2 L nasal cannula applied which impro kayley the patient's oxygen saturation. Labs show an elevated proBNP and imaging does show findings was consistent with CHF. No PE. Labs show leukocytosis of 31.58. Patient does have a history of CLL. Given the patient's hypoxia new left bundle branch block the [facility]. Patient continues to report no chest pain. Lasix 40 mg ordered for the patient. Discussed case with Dr. [facility] to agreed to evaluate the patient for admission. Impression & Plan Hypoxia, CHF (congestive heart failure), LBBB (left bundle branch block) Critical Care Time Critical Care Time: Yes Total Critical Care Time: 42 I have personally spent greater than 42 minutes of critical care time in the direct management of this patient. This includes bedside care, interpretation of diagnostic studies, and testing, discussion with consultants, patient, and family members, and other required patient management activities. This 42 minutes is in excess of all separately billable procedures. Discharge Plan Visit Data Chief Complaint: Shortness of Breath/Dyspnea Stated Complaint: SEVERE ON GOING HEADACHE, SOB Discharge Problem: Hypoxia, CHF (congestive heart failure), LBBB (left bundle branch block) Patient Disposition: Admitted As Inpatient Forms Stand Alone Forms: [facility] Prescriptions Prescriptions: No Action multivitamin [Daily Multi-Vitamin] Tablet 1 tab PO QAM RF: 0 atorvastatin [Lipitor] 20 mg Tablet 20 mg PO HS RF: 0 bupropion HCl 100 mg Tablet 100 mg PO BID RF: 0 meclizine [Motion Sickness (meclizine)] 25 mg Tablet 25 mg PO TID PRN (Reason: Dizziness) RF: 0 levothyroxine [Synthroid] 75 mcg tablet 75 mcg PO DAILYBB RF: 0 Restasis 0.05 % Dropperette 1 drp OPB Q12H RF: 0 Referrals Referrals: Lucas Mendez MD [Primary Care Provider] -
[2021-05-03 19:12] LABS: Partial Thromboplastin Ratio 0.8; Partial Thromboplastin Time 21.8 Seconds (21.0-31.0); Prothrombin Time 10.2 Seconds (9.0-12.0)
[2021-05-03 19:19] LABS: Hematocrit (blood only) 43.1 % (37-47); Hemoglobin 14.5 g/dL (12.0-16.0); Mean Corpuscular Hemoglobin 31.9 pg (25-34); Mean Corpuscular Hgb Conc 33.6 g/dL (32-36); Mean Corpuscular Volume 94.7 fL (80-100); Mean Platelet Volume 10.4 fL (7.4-10.4); Platelet Count 220 K/uL (130-400); RDW Coefficient of Variation 14.4 % (11.5-14.5); RDW Standard Deviation 49.8 fL (36.4-46.3); Red Blood Count 4.55 M/uL (4.2-5.4); White Blood Count 31.58 K/uL (4.8-10.8)
[2021-05-03 19:22] LABS: BUN Creatinine Ratio 16.5 (10-20); Blood Urea Nitrogen 17 mg/dl (7-18); Calcium 9.5 mg/dl (8.5-10.1); Carbon Dioxide 23 mmol/L (21-32); Chloride 108 mmol/L (98-107); Est GFR (African American) 60.7 ml/min; Est GFR (Non-African American) 52.4 ml/min; Glucose 88 mg/dl (70-99); Lipase 191 U/L (73-393); Magnesium 2.3 mg/dl (1.8-2.4); Potassium 4.1 mmol/L (3.5-5.1); Sodium 137 mmol/L (136-145)
[2021-05-03 19:30] LABS: NT Pro B Type Natriuretic Pept 7774 pg/ml (0-1800); Troponin I < 0.015 ng/ml (0-0.045)
[2021-05-03 20:21] LABS: ALC (manual) 28.67 K/uL (1.2-3.4); ANC (manual) 1.58 K/uL (1.4-6.5); Basophils # (manual) 0.54 K/uL (0-0.2); Basophils % (manual) 1.7 %; Lymphocytes # (manual) 28.67 K/uL (1.2-3.4); Lymphocytes % (manual) 90.8 %; Monocytes # (manual) 0.79 K/uL (0.11-0.59); Monocytes % (manual) 2.5 %; Neutrophils # (manual) 1.58 K/uL (1.4-6.5); RBC Morphology Unremarkable
[2021-05-03 20:36] LABS: D Dimer 580 ug/L FEU (0-500)
[2021-05-03 20:58] LABS: Appearance Urine Clear (Clear); Bacteria Urine Automated Negative (Negative); Bilirubin Urine Negative (Negative); Blood Urine Negative (Negative); Color Urine Yellow; Glucose Urine UA Negative (Negative); Ketones Urine 1+ (Negative); Leukocyte Esterase Urine 2+ (Negative); Nitrite Urine Negative (Negative); Protein Urine Negative (Negative); RBC Urine Automated 0-4 /hpf (0-4); Specific Gravity Urine 1.013 (1.000-1.030); Urobilinogen Urine Negative (Negative); pH Urine 5.5 (4.5-7.5)
--- NOTE | 2021-05-03 20:58 | XRay Report ---
XR chest 1V portable CLINICAL HISTORY: Chest Pain COMPARISON STUDY: Chest radiograph January 15, 2017. FINDINGS: There is no pneumothorax. There are small bilateral pleural effusions with bibasilar opacit ies. A large hiatal hernia is present. Mild pulmonary edema is present. IMPRESSION: 1. Mild interstitial pulmonary edema. 2. Small bilateral pleural effusions with bibasilar opacities that likely reflect atelectasis. Radiog raphic follow-up is recommended to ensure resolution. 3. Large hiatal hernia. ACT 112: Negative or not required by law. Electronically signed by: Mick Mtz M.D. 05/03/2021 8:57 PM
[2021-05-03] MEDS ORDERED: OPTIRAY 320 125ml IV ONE (21:04)
--- NOTE | 2021-05-03 21:09 | CT Scan Report ---
CT head/brain wo con CLINICAL HISTORY: castellanos COMPARISON STUDY: March 29, 2020 TECHNIQUE: Axial CT of the brain is performed from the vertex to the skull base. IV contrast was not administered for this examination. A dose lowering technique was utilized adhering to the principles of ALARA. CT DOSE: 537.48 mGy.cm FINDINGS: No intra or extra-axial mass lesions are visualized. There is no CT evidence of acute cortical infarc tion. There is no evidence of midline shift. There is no acute hemorrhage. No acute depressed calvar ial fractures are visualized. There are patchy white matter hypodensities likely on a small vessel basis. Atrophic changes of brain parenchyma are again seen and associated with ex vacuo dilatation of ventri cles. There is no evidence of acute sinusitis IMPRESSION: No acute intracranial hemorrhage, no midline shift or space occupying lesions. Chronic small vessel ischemia. Atrophic changes of brain parenchyma associated with ex vacuo dilatation of ventricles. ACT 112: Negative or not required by law. The above report was generated using voice recognition software. It may contain grammatical, syntax o r spelling errors. Electronically signed by: Juany Younger DO 05/03/2021 9:08 PM
[2021-05-03] MEDS ORDERED: FUROSEMIDE 40 MG/4 ML VIAL IV STA (22:04)
[2021-05-04] MEDS ORDERED: POLYETHYLENE (MIRALAX) 17 GM PACK PO PRN (00:54)
[2021-05-04] MEDS ORDERED: NITROGLYCERIN SL 0.4 MG/TAB TAB SL PRN (00:54)
[2021-05-04] MEDS ORDERED: ACETAMINOPHEN 325 MG TAB PO PRN (00:54)
[2021-05-04] MEDS ORDERED: MECLIZINE HCL 25 MG TAB PO PRN (01:26)
[2021-05-04] MEDS: cefTRIAXone SODIUM 1,000 MG in DEXTROSE 5% 50 ML IV SCH (02:09)
--- NOTE | 2021-05-04 02:32 | History and Physical Report ---
CHIEF COMPLAINT: Shortness of breath and headache. HISTORY OF PRESENT ILLNESS: This is a 75-year-old female with past medical history significant for hypothyroidism, hyperlipidemia, sleep apnea on CPAP, varicose vein of leg, hypertension, irritable bowel syndrome, gastroparesis, GERD, esophageal stricture, stage III chronic kidney disease, CLL, major depression, who presents with shortness of breath. The patient says since last 2-3 days getting short of breath and headache 2-3 days today sob got more worse and came here. Has occasional cough. Denies any blurred visions, no earache, no runny nose, no sore throat. No nausea. Denies any chest pain. She says orthopnea present. No abdominal pain, normal bowel and bladder movements. Denies any blood in stool or black stools. No hematuria, no burning micturition, no swelling in the legs. She lives with her . Ambulates without any support. Currently, resting comfortably and hemodynamically stable. The patient was saturating 89% on room air, requiring 2 liters oxygen. ALLERGIES: CODEINE, LISINOPRIL. PAST MEDICAL HISTORY: As mentioned above. PAST SURGICAL HISTORY: Colonoscopy, EGD with biopsy, ligation of oviducts, total hysterectomy. MEDICATIONS: The patient is on atorvastatin 20 mg p.o. at bedtime, bupropion 100 mg p.o. b.i.d., Restasis 1 drop ophthalmic b.i.d., levothyroxine 75 mcg p.o. daily, meclizine 25 mg p.o. t.i.d. p.r.n., multivitamins one tablet p.o. daily. FAMILY HISTORY: Significant for brother has CAD, sleep apnea. Father has of [place] plus TB; paternal grandmother young of TB. SOCIAL HISTORY: , no smoking, no alcohol, no drug use. REVIEW OF SYSTEMS: As per HPI. Rest of the review of systems is negative. PHYSICAL EXAMINATION: GENERAL: The patient is moderate build, not in acute distress. VITAL SIGNS: Temperature 36.3, pulse 97, respiratory rate 23, blood pressure 123/82, oxygen 98% on 2 liters. HEENT: Pupils equal, round and reactive to light. Oral mucosa moist. NECK: No JVD, no neck masses. CARDIOVASCULAR: S1 and S2 heard. Regular rate and rhythm. No murmur, no gallop. RESPIRATORY: Normal AP diameter. No accessory muscle use. No wheezing, no crackles. ABDOMEN: Soft, bowel sounds present, nontender, no distention. CENTRAL NERVOUS SYSTEM: Cranial nerves II-XII grossly intact, nonfocal. EXTREMITIES: No edema, no erythema. LABORATORY DATA: WBC 31.5, hemoglobin 14.5, hematocrit 43.1, platelets 220. PT 10.2, INR 1, APTT 21.8. D-dimer 580. Sodium 137, potassium 4.1, chloride 108, bicarbonate 23, BUN 17, creatinine 1.03, serum glucose 88, calcium lactate 1.1, calcium 9.5, magnesium 2.0. Troponin I less than 0.015. BNP 7774. Lipase 191. Urinalysis +2 leukocyte esterase, urine bacteria negative. SARS-CoV-2 PCR negative. IMAGING DATA: Chest x-ray: Mild interstitial pulmonary edema, small bilateral pleural effusion, bibasilar opacities, likely atelectasis. CT of the head, no acute findings. CTA of the chest, no PE, no pericardial effusion, small pleural effusions. EKG: Normal sinus rhythm, rate of 100, left bundle-branch block, QTc of 523. ASSESSMENT AND PLAN: This is a 75-year-old female who presents with shortness of breath and headache. 1. Shortness of breath and headache, requiring 2 liters of oxygen. CXR congestion. CT chest shows preliminary report no PE, mild bilateral pleural effusions and increased right ventricular pressures and also patient has new left bundle-branch block on EKG. The patient has no chest pain. Troponins negative BNP is elevated at 7700. Treating for CHF, received a dose of Lasix IV 40 in the ER, which we will continue with iv Lasix 20 b.i.d. We will get an echocardiogram. Daily weights, I's and O's. Monitor in tele floor. Consult cardiology in a.m. We will keep her n.p.o. until seen by cardiology. 2. Possible urinary tract infection, we will start on Rocephin. We will follow the cultures. 3. History of sleep apnea, CPAP. 4. History of hypertension, currently not on any medication. We will monitor the blood pressures. 5. History of hyperlipidemia, on statin. 6. History of depression, bupropion. 7. History of hypothyroidism, Synthroid. 8. History of chronic kidney disease stage III. Presently a creatinine of 1.03. We will monitor while the patient is getting diuretics. 9. History of CLL, recently diagnosed. Follows with heme/onco-plan to followup in 6 month as per epic 10. Prolonged qt. Avoid qt prolonging drugs. follow repeat ekg.. 11. Deep venous thrombosis prophylaxis: We will place her on heparin subcu. DISPOSITION: Closely monitor in tele floor. Level 1 full code. Expect to discharge home and follow up with family doctor. PT/OT prior to discharge. Social service to help with discharge planning. Job ID: [id number] MTDD
[2021-05-04] MEDS: LEVOTHYROXINE SODIUM 75 MCG TABLET PO SCH (05:55)
[2021-05-04] MEDS: HEPARIN SOD 5,000 UNIT/0.5 ML VIAL SQ SCH ×3 (05:55→20:42)
[2021-05-04 06:21] LABS: Hematocrit (blood only) 43.1 % (37-47); Hemoglobin 14.6 g/dL (12.0-16.0); Mean Corpuscular Hemoglobin 31.9 pg (25-34); Mean Corpuscular Hgb Conc 33.9 g/dL (32-36); Mean Corpuscular Volume 94.1 fL (80-100); Mean Platelet Volume 10.3 fL (7.4-10.4); Platelet Count 211 K/uL (130-400); RDW Coefficient of Variation 14.5 % (11.5-14.5); RDW Standard Deviation 49.4 fL (36.4-46.3); Red Blood Count 4.58 M/uL (4.2-5.4); White Blood Count 30.87 K/uL (4.8-10.8)
[2021-05-04 06:37] LABS: Blood Urea Nitrogen 18 mg/dl (7-18); Calcium 9.1 mg/dl (8.5-10.1); Carbon Dioxide 30 mmol/L (21-32); Chloride 104 mmol/L (98-107); Creatinine Clr Calc Pharmacy 37.6 ml/min; Est GFR (African American) 54.3 ml/min; Est GFR (Non-African American) 46.8 ml/min; Glucose 107 mg/dl (70-99); Magnesium 2.4 mg/dl (1.8-2.4); Potassium 3.5 mmol/L (3.5-5.1); Sodium 138 mmol/L (136-145)
[2021-05-04 06:40] LABS: Troponin I < 0.015 ng/ml (0-0.045)
[2021-05-04 06:48] LABS: ALC (manual) 26.05 K/uL (1.2-3.4); ANC (manual) 4.01 K/uL (1.4-6.5); Lymphocytes # (manual) 26.05 K/uL (1.2-3.4); Lymphocytes % (manual) 84.4 %; Monocytes % (manual) 2.6 %; Neutrophils # (manual) 4.01 K/uL (1.4-6.5)
--- NOTE | 2021-05-04 07:14 | CT Scan Report ---
CT ANGIOGRAM OF THE CHEST CLINICAL HISTORY: ro PE COMPARISON STUDY: February 11, 2014 TECHNIQUE: Following the IV administration of 116 mL of Optiray, CT angiogram of the thorax was perfo rmed from the thoracic inlet to the lung bases utilizing the pulmonary embolus protocol. Images are r eviewed in the axial, sagittal, and coronal planes. IV contrast was administered without complication . MIP imaging was performed. A dose lowering technique was utilized adhering to the principles of AL KIMBERLY. CT DOSE: 246.25 mGy.cm FINDINGS: There is adequate opacification within main pulmonary artery. Evaluation of peripheral branches of th e right and left pulmonary arteries is limited due to motion artifact. No acute pulmonary embolus is seen. Main pulmonary artery is normal in size. No evidence of right hea rt strain. Heart is slightly enlarged, mostly due to dilatation of the left ventricle. No pericardial effusion s een. Mild calcifications of aortic valve and severe calcifications of coronary arteries are seen. Axillary, supra clavicle and internal mammary lymph nodes are not enlarged. 1.5 cm pretracheal lymph node is seen. Overall evaluation for mediastinal lymphadenopathy is limited due to beam hardening art ifact from intravenous contrast within adjacent vasculature. There was no evidence of thoracic aortic dilatation. Tracheobronchial tree is patent. Small bilateral pleural effusion is seen, right more than left. Mild compressive atelectasis is seen within bilateral lower lobes adjacent to the large hiatal hernia. Mi nimal septal thickening is seen within lung bases. -5 mm solid nodule is seen within right lower lobe (4/139 and is not significantly changed since prio r study in 2013. Visualized portion of thyroid gland shows no evidence of focal lesions. An esophagus is patulous. Lar ge hiatal hernia is seen with air-fluid level. Limited evaluation of upper abdominal viscera shows no evidence of acute abnormalities. Osseous structures: Osteopenia and mild degenerative changes of the spine. Anterior syndesmophytes ar e seen within mid thoracic level. IMPRESSION: 1. No acute central pulmonary embolus. Evaluation of peripheral branches of pulmonary artery is limi maritza due to motion artifact. No secondary signs of pulmonary embolus are seen. 2. Peripheral septal thickening which was also seen during prior study might represent mild intersti tial lung disease. 3. Bilateral pleural effusion. 4. Mildly dilated left ventricle. Please correlate above-mentioned findings with history of cardiac abnormalities. 5. Large hiatal hernia. 6. The rest of findings as above. ACT 112: Negative or not required by law. The above report was generated using voice recognition software. It may contain grammatical, syntax o r spelling errors. Electronically signed by: Juany Younger DO 05/04/2021 7:12 AM
[2021-05-04] MEDS: *RESTASIS*ORDER AWAITING ACTION SCH ×3 (08:29→22:50)
[2021-05-04] MEDS: MULTIVITAMIN TAB PO SCH (08:32)
[2021-05-04] MEDS: buPROPion HCl 100 MG TABLET PO SCH ×2 (08:32→20:42)
[2021-05-04] MEDS: FUROSEMIDE 20 MG in SYRINGE 0 ML IV SCH ×2 (08:33→20:42)
[2021-05-04] MEDS ORDERED: FUROSEMIDE 40 MG/4 ML VIAL IV SCH (09:00)
--- NOTE | 2021-05-04 09:32 | Electrocardiogram Report ---
Test Reason : Blood Pressure : / mmHG Vent. Rate : 100 BPM Atrial Rate : 100 BPM P-R Int : 148 ms QRS Dur : 146 ms QT Int : 406 ms P-R-T Axes : 054 -29 097 degrees QTc Int : 523 ms Poor data quality, interpretation may be adversely affected Normal sinus rhythm Left bundle branch block Abnormal ECG When compared with ECG of 15-JAN-2017 12:19, Left bundle branch block is now Present Confirmed by Nikhil Spence ([id number]) on 05/04/2021 9:32:47 AM Referred By: REFERRED SELF Confirmed By:Nikhil Spence
--- NOTE | 2021-05-04 11:44 | Cardiology Consultation ---
Date of Consultation May 04, 2021 Assessment & Plan (1) Acute heart failure with reduced ejection fraction and diastolic d ysfunction: This is a new diagnosis. Recommend IV Lasix 20 mg every 12 hours. Monitor fluid balance, daily weight, GFR, and electrolytes. Initiate evidence-based heart failure therapy. We will begin low-dose beta- tita, metoprolol tartrate 12.5 mg twice daily due to soft blood pressure since admission. Plan to add angiotensin receptor tita in a.m. pending c linical response. Consideration for addition of aldosterone antagonist during hospitalization. Continue telemetry monitoring. (2) LBBB (left bundle branch block): Likely a chronic and contributing to underlying left ventricular systolic dysfunction. No evidence of acute coronary syndrome. Continue heart failure treatment as noted above. Further ischemic evaluation pending clinical response to heart failure treatment. History of Present Illness Reason for Consultation: LBBB, SOB Requesting Physician: Dr. Mack Attending Physician: Jadyn Morgan DO History of Present Illness 75-year-old female presents to the emergency department with dyspnea on exertion. Poor historian due to underlying dementia. History of chronic lymphocytic leukemia, however, has not been treated to date. Patient describes breathlessness and decrease in stamina. Notes symptoms primarily when walking. She sleeps with the head of her bed elevated approximately 30 degrees. Denies orthopnea or paroxysmal nocturnal dyspnea. No lower extremity edema, weight gain, palpitations, lightheadedness, dizziness, syncope, or near syncope. ECG performed on admission demonstrating left bundle branch block. Left bundle branch block is new compared to ECG dated 2016 in the [facility] record. Patient denies personal history of coronary disease, congestive heart failure, diabetes, or hypertension. Elevated BNP and interstitial edema noted on chest x-ray. Treated with 2 doses of IV Lasix since admission. Fluid balance negative more than 1 L. Subjectively patient is feeling better. Hypoxic on admission requiring oxygen supplementation. Allergies Allergy/AdvReac Type Severity Reaction Status Date / Time codeine AdvReac Unknown GI UPSET Verified 05/03/21 20:14 lisinopril AdvReac Unknown COUGH Verified 05/03/21 20:14 Home Medications Medication Instructions Recorded Confirmed Type atorvastatin 20 mg tablet (Lipitor) 20 mg PO HS 06/29/18 05/03/21 History bupropion HCl 100 mg tablet 100 mg PO BID 06/29/18 05/03/21 History meclizine 25 mg tablet (Motion 25 mg PO TID PRN 06/29/18 05/03/21 History Sickness (meclizine)) multivitamin (Daily Multi-Vitamin) 1 tab PO QAM 06/29/18 05/03/21 History cyclosporine 0.05 % eye drops in a 1 drp OPB Q12H 05/03/21 05/03/21 History dropperette (Restasis) levothyroxine 75 mcg tablet 75 mcg PO DAILYBB 05/03/21 05/03/21 History (Synthroid) Patient History Medical History (Updated 05/04/21 @ 23:32 by Jadyn Morgan DO) Closed left clavicular fracture DVT (deep venous thrombosis) Zoster Surgical History History of hysterectomy History of tubal ligation Social History Smoking Status: Never smoker Do You Dip or Chew Tobacco: No; Hx Alcohol Use: No Hx Substance Use: No Preferred Language: Bruneian Communication Ability: Effective Food Preparation Supervisor Required: No Beliefs That Will Affect Care: Hinduism Hinduism Beliefs: Jahova's Wittness Current Living Situation: Alone Other Information That Helps Us Care for You: No Feels Safe at Home: Yes Safety Concerns: Feels Safe At This Time Assistive Devices: CPAP, Denture - Upper and Glasses Assistive Devices Comment: reading glasses Review of Systems Review of Systems: All systems reviewed & are unremarkable except as noted in Subjective Physical Exam Constitutional: well developed and well nourished; no acute distress and not ill appearing Respiratory: no respiratory distress and no labored breathing Auscultation: + diminished lung sounds (Bases bilateral) and + rales (Bases bilateral); no crackles, no rhonchi and no wheezes Cardiovascular: Rate/Rhythm: regular rate and regular rhythm Heart Sounds: normal S1, normal S2 and + murmur (Soft, 1/6 systolic ejection murmur heard best at the right second intercost); no gallop and no cardiac rub Gastrointestinal (Abdomen): Inspection/Auscultation: abdomen normal to inspection and normal bowel sounds; abdomen not distended and no abdominal edema Percussion/Palpation: abdomen soft; abdomen nontender, no guarding and abdomen not rigid Neurologic: CN's II-XI intact bilaterally and moves all extremities; no focal motor deficits Motor/Sensory: no tremor Psychiatric: A+Ox3, euthymic affect Insight: + limited insight Results & Data ([facility]) Vital Signs (Past 12 Hours) Vital Signs Temp Pulse Pulse Resp BP BP Pulse Ox 05/04/21 08:00 36.6 C 89 18 114/62 98 05/04/21 04:59 36.6 C 100 H 16 114/78 95 05/04/21 03:07 78 18 92 05/04/21 01:44 102 H 05/04/21 01:14 91 H 20 95 05/04/21 00:54 05/04/21 00:32 36.5 C 98 H 24 112/75 97 05/04/21 00:01 88 18 101/70 95 Pulse Ox 05/04/21 08:00 05/04/21 04:59 05/04/21 03:07 05/04/21 01:44 05/04/21 01:14 05/04/21 00:54 97 05/04/21 00:32 05/04/21 00:01
[2021-05-04] MEDS: METOPROLOL TARTRATE 25 MG TAB PO SCH ×2 (12:34→20:42)
[2021-05-04] MEDS: ATORVASTATIN 20 MG TAB PO SCH (20:42)
--- NOTE | 2021-05-04 23:27 | Hospitalist Progress Note ---
Date of Service May 04, 2021 Assessment & Plan (1) Acute heart failure with reduced ejection fraction and diastolic dysfun ction: Plan: Cont Lasix q12h and start GDMT as able from a hemodynamics standpoint. . (2) LBBB (left bundle branch block): Plan: 7. History of hypothyroidism, Synthroid. 8. History of chronic kidney disease stage III. Presently a creatinine of 1.03. We will monitor while the patient is getting diuretics. 9. History of CLL, recently diagnosed. Follows with heme/onco-plan to followup in 6 month as per [facility] 10. Prolonged qt. Avoid qt prolonging drugs. follow repeat ekg.. 11. Deep venous thrombosis prophylaxis: We will place her on heparin subcu (3) UTI (urinary tract infection): Plan: cover empirically with Rocephin pending culture results. (4) CLARICE (obstructive sleep apnea): Plan: cont CPAP (5) CLL (chronic lymphocytic leukemia): Plan: WBC 30K. Watchful waiting. (6) Depression: Plan: cont Bupropion per home regimen. (7) Hypothyroidism: Plan: cont Synthroid per home regimen. (8) DVT prophylaxis: Plan: Heparin Full Code Dispo-to home when medically stable DO [facility] Admission and Anticipated Discharge Date Admission Date: May 03, 2021 Results & Data Results & Data ([facility]) Vital Signs (Past 12 Hours) Vital Signs Temp Pulse Pulse Resp BP Pulse Ox Pulse Ox 05/04/21 11:49 36.8 C 102 H 18 108/71 96 05/04/21 08:00 36.6 C 89 18 114/62 98 05/04/21 04:59 36.6 C 100 H 16 114/78 95 05/04/21 03:07 78 18 92 05/04/21 01:44 102 H 05/04/21 01:14 91 H 20 95 05/04/21 00:54 97 Laboratory Results Short CBC 05/04/21 Range/Units 05:28 WBC 30.87 H* (4.8-10.8) K/uL Hgb 14.6 (12.0-16.0) g/dL Hct 43.1 (37-47) % Plt Count 211 (130-400) K/uL BMP 05/04/21 05:28 Sodium 138 Potassium 3.5 Chloride 104 Carbon Dioxide 30 BUN 18 Creatinine 1.13 Glucose 107 H Calcium 9.1 Cardiac Enzymes 05/04/21 Range/Units 05:28 Troponin I < 0.015 (0-0.045) ng/ml Medications Administered Current Inpatient Medications Acetaminophen (Acetaminophen 325 Mg Tab) 650 mg PO Q4H PRN PRN Reason: Pain or Fever Stop: 06/03/21 00:53 Atorvastatin Calcium (Atorvastatin 20 Mg Tab) 20 mg PO HS [facility] Stop: 06/03/21 20:59 Last Admin: 05/04/21 20:42 Dose: 20 mg Documented by: Bupropion HCl (Bupropion Hcl 100 Mg Tablet) 100 mg PO BID [facility] Stop: 06/03/21 08:59 Last Admin: 05/04/21 20:42 Dose: 100 mg Documented by: Heparin Sodium (Porcine) (Heparin Sod 5,000 Unit/0.5 Ml Vial) 5,000 units SQ Q8 [facility] Stop: 06/03/21 05:59 Last Admin: 05/04/21 20:42 Dose: 5,000 units Documented by: Ceftriaxone Sodium 1,000 mg/ (Dextrose) 50 mls @ 100 mls/hr IV Q24H [facility]; Protocol Stop: 05/14/21 01:59 Last Infusion: 05/04/21 03:10 Dose: Infused Documented by: Furosemide 20 mg/ Syringe 2 mls @ 4 mls/min IV BID [facility] Stop: 06/03/21 08:59 Last Admin: 05/04/21 20:42 Dose: 4 mls/min Documented by: Levothyroxine Sodium (Levothyroxine Sodium 75 Mcg Tablet) 75 mcg PO DAILYBB [facility] Stop: 06/03/21 06:29 Last Admin: 05/04/21 05:55 Dose: 75 mcg Documented by: Meclizine HCl (Meclizine Hcl 25 Mg Tab) 25 mg PO TID PRN PRN Reason: Dizziness Stop: 06/03/21 01:25 Metoprolol Tartrate (Metoprolol Tartrate 25 Mg Tab) 12.5 mg PO BID [facility] Stop: 06/03/21 11:44 Last Admin: 05/04/21 20:42 Dose: 12.5 mg Documented by: Miscellaneous (*Restasis*Order Awaiting Action) 1 ea N/A QS [facility] Stop: 06/03/21 07:59 Last Admin: 05/04/21 22:50 Dose: Not Given Documented by: Multivitamins (Multivitamin Tab) 1 tab PO QAM [facility] Stop: 06/03/21 08:59 Last Admin: 05/04/21 08:32 Dose: Not Given Documented by: Nitroglycerin (Nitroglycerin Sl 0.4 Mg/Tab Tab) 0.4 mg SL UD PRN PRN Reason: Chest Pain Stop: 06/03/21 00:53 Polyethylene Glycol (Polyethylene (Miralax) 17 Gm Pack) 17 gm PO DAILY PRN PRN Reason: Constipation Stop: 06/03/21 00:53
[2021-05-05] MEDS: cefTRIAXone SODIUM 1,000 MG in DEXTROSE 5% 50 ML IV SCH (03:14)
[2021-05-05] MEDS: HEPARIN SOD 5,000 UNIT/0.5 ML VIAL SQ SCH ×3 (06:02→20:45)
[2021-05-05] MEDS: LEVOTHYROXINE SODIUM 75 MCG TABLET PO SCH (06:02)
[2021-05-05] MEDS: MULTIVITAMIN TAB PO SCH (07:53)
[2021-05-05 07:54] LABS: BUN Creatinine Ratio 18.7 (10-20); Calcium 8.8 mg/dl (8.5-10.1); Creatinine Clr Calc Pharmacy 31.8 ml/min; Est GFR (Non-African American) 38.8 ml/min; Hemoglobin 14.2 g/dL (12.0-16.0); Mean Corpuscular Hemoglobin 31.6 pg (25-34); Mean Corpuscular Hgb Conc 33.8 g/dL (32-36); Mean Corpuscular Volume 93.5 fL (80-100); Mean Platelet Volume 10.3 fL (7.4-10.4); Platelet Count 208 K/uL (130-400); Potassium 3.4 mmol/L (3.5-5.1); RDW Coefficient of Variation 14.4 % (11.5-14.5); RDW Standard Deviation 48.6 fL (36.4-46.3); Red Blood Count 4.49 M/uL (4.2-5.4); White Blood Count 33.82 K/uL (4.8-10.8)
[2021-05-05] MEDS: buPROPion HCl 100 MG TABLET PO SCH ×2 (07:54→20:45)
[2021-05-05 08:28] LABS: ANC (manual) 2.91 K/uL (1.4-6.5); Eosinophils % (manual) 0.9 %; Lymphocytes % (manual) 89.6 %; Monocytes % (manual) 0.9 %; Neutrophils # (manual) 2.91 K/uL (1.4-6.5); Neutrophils % (manual) 8.6 %; Smudge Cells Present
[2021-05-05] MEDS ORDERED: POTASSIUM CHLORIDE PWD 20 MEQ PACK PO ONE (08:30)
[2021-05-05] MEDS: METOPROLOL TARTRATE 25 MG TAB PO SCH ×3 (08:40→20:45)
--- NOTE | 2021-05-05 11:14 | Electrocardiogram Report ---
Test Reason : Blood Pressure : / mmHG Vent. Rate : 081 BPM Atrial Rate : 081 BPM P-R Int : 152 ms QRS Dur : 158 ms QT Int : 460 ms P-R-T Axes : 044 -26 102 degrees QTc Int : 534 ms Normal sinus rhythm Left bundle branch block Abnormal ECG When compared with ECG of 03-MAY-2021 18:23, No significant change was found Confirmed by Nikhil Spence ([id number]) on 05/05/2021 11:13:33 AM Referred By: REFERRED SELF Confirmed By:Nikhil Spence
[2021-05-05] MEDS: *RESTASIS*ORDER AWAITING ACTION SCH ×2 (11:42→15:11)
--- NOTE | 2021-05-05 13:08 | Cardiology Progress Note ---
Date of Service May 05, 2021 Assessment & Plan (1) Acute heart failure with reduced ejection fraction and diastolic dysfun ction: Plan: Volume and respiratory status improved. Discontinue IV Lasix due to evidence of azotemia and hypotension. Nursing instructed to give patient a.m. dose of metoprolol. Plan addition of low-dose losartan, 12.5 mg daily in the a.m. pending review of basic metabolic panel. Consider addition of aldosterone antagonist during hospital station if blood pressure tolerates. Due to underlying dementia, conservative management recommended at this time. Consideration for outpatient noninvasive ischemic stress testing pending clinical response to medical therapy. Diagnosis, and recommendations discussed at length with patient's daughter, Kiara, via telephone. (2) LBBB (left bundle branch block): Plan: Likely a chronic and contributing to underlying left ventricular systolic dysfunction. No evidence of acute coronary syndrome. Heart failure treatment as noted above. Further ischemic evaluation pending clinical response to heart failure treatment. (3) Acute renal insufficiency: Plan: Likely secondary to diuretic therapy. Discontinue IV Lasix. Hold on addition of ARB today. Consider losartan in a.m. pending review of labs. Admission and Anticipated Discharge Date Admission Date: May 03, 2021 Subjective Patient seen and examined the bedside. Denies chest pain or shortness of breath. Telemetry reveals sinus rhythm with a heart rate ranging from 60-70 bpm. Lasix dose held this a.m. due to elevated creatinine hypotension. Her a.m. dose of metoprolol was also held. Patient is a poor historian due to underlying dementia. She does not recall meeting me yesterday nor does she recall a discussion regarding cardiomyopathy and congestive heart failure. She is pleasant and cooperative. She is no longer wearing supplemental oxygen with adequate room air saturation of 99%. Denies orthopnea or PND. No lower extremity edema. Review of Systems Review of Systems: All systems reviewed & are unremarkable except as noted in Subjective (Poor historian due to dementia) Physical Exam Constitutional: well developed and well nourished; no acute distress and not ill appearing Respiratory: no respiratory distress and no labored breathing Auscultation: + diminished lung sounds (Bases bilateral); no crackles, no rales (Bases bilateral), no rhonchi and no wheezes Cardiovascular: Rate/Rhythm: regular rate and regular rhythm Heart Sounds: normal S1, normal S2 and + murmur (Soft, 1/6 systolic ejection murmur heard best at the right second intercost); no gallop and no cardiac rub Gastrointestinal (Abdomen): Inspection/Auscultation: abdomen normal to inspection and normal bowel sounds; abdomen not distended and no abdominal edema Percussion/Palpation: abdomen soft; abdomen nontender, no guarding and abdomen not rigid Neurologic: CN's II-XI intact bilaterally and moves all extremities; no focal motor deficits Motor/Sensory: no tremor Psychiatric: A+Ox3, euthymic affect Insight: + limited insight Results & Data ([facility]) Vital Signs (Past 12 Hours) Vital Signs Temp Pulse Pulse Resp BP Pulse Ox 05/05/21 12:00 36.8 C 69 18 109/74 99 05/05/21 10:18 69 05/05/21 08:40 95/62 L 05/05/21 07:58 37.0 C 72 18 100 05/05/21 04:00 36.6 C 66 20 84/54 L 92
--- NOTE | 2021-05-05 15:46 | Hospitalist Progress Note ---
Date of Service May 05, 2021 Assessment & Plan (1) Acute heart failure with reduced ejection fraction and diastolic dysfun ction: Plan: Lasix held this morning in light of hypotension and an increased creatinine from 1.13 to 1.32. BNP trended from 7774-->4389. Low dose metoprolol started this admission. Plan for addition of losartan as kidney function allows. BMP in am. (2) LBBB (left bundle branch block): Plan: Per cardiology, this is likely chronic and contributing to her underlying left ventricular systolic dysfunction. There is no evidence of acute coronary syndrome and it is uncertain if further ischemic workup will be considered at this time. Cont to monitor response to therapies. (3) UTI (urinary tract infection): Plan: ruled out, ceftriaxone was stopped. (4) CLARICE (obstructive sleep apnea): Plan: cont CPAP (5) CLL (chronic lymphocytic leukemia): Plan: WBC 33K. Watchful waiting. (6) Depression: Plan: cont Bupropion per home regimen. (7) Hypothyroidism: Plan: cont Synthroid per home regimen. (8) DVT prophylaxis: Plan: Heparin Full Code Dispo-to home when medically stable Jadyn Morgan DO [place] Hospitalist Admission and Anticipated Discharge Date Admission Date: May 03, 2021 Subjective 75 yo F presented with new onset systolic heart failure she is reporting stable breathing at this time and she is up and ambulating about the room independently She is expressing an interest in going home as soon as able. denies chest pain reports tolerating PO Review of Systems Review of Systems: All systems were reviewed and negative except as indicated in HPI above. Physical Exam Physical Exam: CONSTITUTIONAL: WNWD, vitals as above, generally well- appearing EYES: normal conjunctivae, no scleral icterus ENT: external ear and nose normal, MMM RESPIRATORY: clear to auscultation bilaterally, no crackles, rales or wheezes, normal respiratory effort CARDIOVASCULAR: regular rate and rhythm, S1 and 2 heard without murmurs, gallops or rubs, no JVD, no peripheral edema GASTROINTESTINAL: soft, nontender, nondistended MUSCULOSKELETAL: strength 5/5 throughout, head is normocephalic and atraumatic SKIN: warm and dry NEUROLOGIC: CN 2-12 grossly intact, no sensory deficit, normal cognition, normal speech, no tremor PSYCHIATRIC: alert cooperative and oriented to person, place and time. Results & Data Results & Data ([facility]) Vital Signs (Past 12 Hours) Vital Signs Temp Pulse Pulse Resp BP Pulse Ox 05/05/21 15:18 82 05/05/21 12:00 36.8 C 69 18 109/74 99 05/05/21 10:18 69 05/05/21 08:40 95/62 L 05/05/21 07:58 37.0 C 72 18 100 05/05/21 04:00 36.6 C 66 20 84/54 L 92 Laboratory Results Short CBC 05/05/21 Range/Units 07:18 WBC 33.82 H* (4.8-10.8) K/uL Hgb 14.2 (12.0-16.0) g/dL Hct 42.0 (37-47) % Plt Count 208 (130-400) K/uL BMP 05/05/21 07:18 Sodium 137 Potassium 3.4 L Chloride 104 Carbon Dioxide 27 BUN 25 H Creatinine 1.32 H Glucose 97 Calcium 8.8 Medications Administered Current Inpatient Medications Acetaminophen (Acetaminophen 325 Mg Tab) 650 mg PO Q4H PRN PRN Reason: Pain or Fever Stop: 06/03/21 00:53 Atorvastatin Calcium (Atorvastatin 20 Mg Tab) 20 mg PO HS EJ Stop: 06/03/21 20:59 Last Admin: 05/04/21 20:42 Dose: 20 mg Documented by: Bupropion HCl (Bupropion Hcl 100 Mg Tablet) 100 mg PO BID EJ Stop: 06/03/21 08:59 Last Admin: 05/05/21 07:54 Dose: 100 mg Documented by: Heparin Sodium (Porcine) (Heparin Sod 5,000 Unit/0.5 Ml Vial) 5,000 units SQ Q8 EJ Stop: 06/03/21 05:59 Last Admin: 05/05/21 13:30 Dose: 5,000 units Documented by: Ceftriaxone Sodium 1,000 mg/ (Dextrose) 50 mls @ 100 mls/hr IV Q24H EJ; Protocol Stop: 05/14/21 01:59 Last Infusion: 05/05/21 04:21 Dose: Infused Documented by: Furosemide 20 mg/ Syringe 2 mls @ 4 mls/min IV BID EJ Stop: 06/03/21 08:59 Last Admin: 05/04/21 20:42 Dose: 4 mls/min Documented by: Levothyroxine Sodium (Levothyroxine Sodium 75 Mcg Tablet) 75 mcg PO DAILYBB [facility] Stop: 06/03/21 06:29 Last Admin: 05/05/21 06:02 Dose: 75 mcg Documented by: Meclizine HCl (Meclizine Hcl 25 Mg Tab) 25 mg PO TID PRN PRN Reason: Dizziness Stop: 06/03/21 01:25 Last Admin: 05/05/21 07:53 Dose: 25 mg Documented by: Metoprolol Tartrate (Metoprolol Tartrate 25 Mg Tab) 12.5 mg PO BID [facility] Stop: 06/03/21 11:44 Last Admin: 05/05/21 11:43 Dose: 12.5 mg Documented by: Miscellaneous (*Restasis*Order Awaiting Action) 1 ea N/A QS [facility] Stop: 06/03/21 07:59 Last Admin: 05/05/21 15:11 Dose: Not Given Documented by: Multivitamins (Multivitamin Tab) 1 tab PO QAM [facility] Stop: 06/03/21 08:59 Last Admin: 05/05/21 07:53 Dose: 1 tab Documented by: Nitroglycerin (Nitroglycerin Sl 0.4 Mg/Tab Tab) 0.4 mg SL UD PRN PRN Reason: Chest Pain Stop: 06/03/21 00:53 Polyethylene Glycol (Polyethylene (Miralax) 17 Gm Pack) 17 gm PO DAILY PRN PRN Reason: Constipation Stop: 06/03/21 00:53
[2021-05-05] MEDS: ATORVASTATIN 20 MG TAB PO SCH (20:45)
[2021-05-06] MEDS: HEPARIN SOD 5,000 UNIT/0.5 ML VIAL SQ SCH ×3 (06:25→22:00)
[2021-05-06] MEDS: LEVOTHYROXINE SODIUM 75 MCG TABLET PO SCH (06:26)
[2021-05-06] MEDS: MULTIVITAMIN TAB PO SCH (08:02)
[2021-05-06] MEDS: buPROPion HCl 100 MG TABLET PO SCH ×2 (08:02→21:59)
[2021-05-06] MEDS: METOPROLOL TARTRATE 25 MG TAB PO SCH ×2 (08:02→21:59)
[2021-05-06 09:46] LABS: BUN Creatinine Ratio 19.6 (10-20); Creatinine Clr Calc Pharmacy 30.7 ml/min; Est GFR (African American) 42.6 ml/min; Est GFR (Non-African American) 36.8 ml/min; Magnesium 2.2 mg/dl (1.8-2.4); Phosphorus 3.3 mg/dl (2.5-4.9); Potassium 3.7 mmol/L (3.5-5.1)
--- NOTE | 2021-05-06 11:16 | Cardiology Progress Note ---
Date of Service May 06, 2021 Assessment & Plan (1) Acute heart failure with reduced ejection fraction and diastolic dysfun ction: Plan: Volume and respiratory status improved. Appears normovolemic this AM. IV furosemide previously discontinued. Add low dose losartan, 12.5 mg/day this PM. Change metoprolol tartrate to metoprolol succinate. Patient will probably need low dose oral furosemide (20 mg MWF) with supplemental potassium a couple of days per week. Conservative management recommended. Consideration for outpatient noninvasive ischemic stress testing pending clinical response to medical therapy. (2) LBBB (left bundle branch block): Plan: Likely a chronic and contributing to underlying left ventricular systolic dysfunction. No evidence of acute coronary syndrome. Heart failure treatment as noted above. Further ischemic evaluation pending clinical response to heart failure treatment. (3) Acute renal insufficiency: Plan: Stable. See above. Admission and Anticipated Discharge Date Admission Date: May 03, 2021 Supervising Physician Co-Signing Physician Notes Patient was seen and examined, chart, medications, telemetry reviewed. Full assessment and plan as well outlined above. Patient feels notably improved Ultimate goals guideline directed optimal medical regimen Subjective Patient seen and examined in bed. Chart, medications, and telemetry reviewed, revealing sinus in the 60's to 80's. Dyspnea ("I'm no longer panting.") has improved. No chest pain. No orthopnea or PND. No palpitations. No edema. Review of Systems Review of Systems: Chart history of dementia. Complete Review of Systems not obtained. Physical Exam Physical Exam: General: A&O to person and place but not to time. Laying nearly flat. NAD. HENT: Normocephalic. Atraumatic. Eyes: PER. Conjunctiva pink, sclera clear. Neck: No carotid bruits. No JVD. No HJR. Heart: RRR. Soft systolic murmur. No disatolic murmur. No rub. No gallop. Lungs: Clear to auscultation. Abdomen: +BS. Soft. Nontender. No masses or organomegaly. Extremities: No clubbing, cyanosis, or edema. Limited neurological examination is without focal deficits. Pulses: radial=2/4, posterior tibial=2/4. Results & Data ([facility]) Vital Signs (Past 12 Hours) Vital Signs Temp Pulse Pulse Resp BP Pulse Ox 05/06/21 09:00 64 05/06/21 08:00 36.5 C 78 22 121/68 95 05/06/21 03:48 80 22 97 05/06/21 03:46 36.3 C L 80 18 105/78 96 Laboratory Results Laboratory Results - last 24 hr 05/06/21 09:15 Sodium 137 Potassium 3.7 Chloride 104 Carbon Dioxide 28 Anion Gap 5.0 BUN 27 H Creatinine 1.38 H Est Cr Clr Drug Dosing 30.7 Est GFR ( Amer) 42.6 Est GFR (Non-Af Amer) 36.8 BUN/Creatinine Ratio 19.6 Glucose 93 Calcium 9.0 Phosphorus 3.3 Magnesium 2.2
--- NOTE | 2021-05-06 14:18 | Hospitalist Progress Note ---
Date of Service May 06, 2021 Assessment & Plan (1) Acute heart failure with reduced ejection fraction and diastolic dysfun ction: Plan: Compensated and appears euvolemic. Lopressor 12.5mg PO BID chaged to metoprolol succinate per heart failure guidelines. Losartan added. Trend vitals and BMP in am. Consideration given to furosemide MWF on discharge. (2) LBBB (left bundle branch block): Plan: Per cardiology, this is likely chronic and contributing to her underlying left ventricular systolic dysfunction. There is no evidence of acute coronary syndrome and it is uncertain if further ischemic workup will be considered at this time. Cont to monitor response to therapies. (3) CLARICE (obstructive sleep apnea): Plan: cont CPAP (4) CLL (chronic lymphocytic leukemia): Plan: WBC 33K. Watchful waiting. (5) Depression: Plan: cont Bupropion per home regimen. (6) Hypothyroidism: Plan: cont Synthroid per home regimen. (7) DVT prophylaxis: Plan: Heparin Full Code Dispo-to home when medically stable and cleared by Cardiology. [facility] and Anticipated Discharge Date Admission Date: May 03, 2021 Subjective 75 yo F presented with new onset systolic heart failure she is reporting stable breathing at this time and she is up and ambulating about the room independently denies chest pain but reports an episode of chest pressure last night after eating that resolved when she repositioned her bed in a reclined head position. reports tolerating PO Review of Systems Review of Systems: All systems were reviewed and negative except as indicated in HPI above. Physical Exam Physical Exam: CONSTITUTIONAL: WNWD, vitals as above, generally well- appearing EYES: normal conjunctivae, no scleral icterus ENT: external ear and nose normal, MMM RESPIRATORY: clear to auscultation bilaterally, no crackles, rales or wheezes, normal respiratory effort CARDIOVASCULAR: regular rate and rhythm, S1 and 2 heard without murmurs, gallops or rubs, no JVD, no peripheral edema GASTROINTESTINAL: soft, nontender, nondistended MUSCULOSKELETAL: strength 5/5 throughout, head is normocephalic and atraumatic SKIN: warm and dry NEUROLOGIC: CN 2-12 grossly intact, no sensory deficit, normal cognition, normal speech, no tremor PSYCHIATRIC: alert cooperative and oriented to person, place and time. Results & Data Results & Data ([facility]) Vital Signs (Past 12 Hours) Vital Signs Temp Pulse Pulse Resp BP Pulse Ox 05/06/21 12:00 36.5 C 73 16 98/67 L 98 05/06/21 09:00 64 05/06/21 08:00 36.5 C 78 22 121/68 95 05/06/21 03:48 80 22 97 05/06/21 03:46 36.3 C L 80 18 105/78 96 Laboratory Results BMP 05/06/21 09:15 Sodium 137 Potassium 3.7 Chloride 104 Carbon Dioxide 28 BUN 27 H Creatinine 1.38 H Glucose 93 Calcium 9.0 Medications Administered Current Inpatient Medications Acetaminophen (Acetaminophen 325 Mg Tab) 650 mg PO Q4H PRN PRN Reason: Pain or Fever Stop: 06/03/21 00:53 Atorvastatin Calcium (Atorvastatin 20 Mg Tab) 20 mg PO HS [facility] Stop: 06/03/21 20:59 Last Admin: 05/05/21 20:45 Dose: 20 mg Documented by: Bupropion HCl (Bupropion Hcl 100 Mg Tablet) 100 mg PO BID EJ Stop: 06/03/21 08:59 Last Admin: 05/06/21 08:02 Dose: 100 mg Documented by: Heparin Sodium (Porcine) (Heparin Sod 5,000 Unit/0.5 Ml Vial) 5,000 units SQ Q8 EJ Stop: 06/03/21 05:59 Last Admin: 05/06/21 06:25 Dose: 5,000 units Documented by: Levothyroxine Sodium (Levothyroxine Sodium 75 Mcg Tablet) 75 mcg PO DAILYBB EJ Stop: 06/03/21 06:29 Last Admin: 05/06/21 06:26 Dose: 75 mcg Documented by: Losartan Potassium (Losartan Potassium 25 Mg Tab) 12.5 mg PO QPM [facility] Stop: 06/05/21 20:59 Meclizine HCl (Meclizine Hcl 25 Mg Tab) 25 mg PO TID PRN PRN Reason: Dizziness Stop: 06/03/21 01:25 Last Admin: 05/05/21 07:53 Dose: 25 mg Documented by: Metoprolol Succinate (Metoprolol Succ 25mg Ext Rel Tab) 25 mg PO QAM [facility] Stop: 06/06/21 08:59 Metoprolol Tartrate (Metoprolol Tartrate 25 Mg Tab) 12.5 mg PO BID [facility] Stop: 06/03/21 11:44 Last Admin: 05/06/21 08:02 Dose: 12.5 mg Documented by: Multivitamins ([facility]ivitamin Tab) [facility] Stop: 06/03/21 08:59 Last Admin: 05/06/21 08:02 Dose: 1 tab Documented by: Nitroglycerin (Nitroglycerin Sl 0.4 Mg/Tab Tab) 0.4 mg SL UD PRN PRN Reason: Chest Pain Stop: 06/03/21 00:53 Polyethylene Glycol (Polyethylene (Miralax) 17 Gm Pack) 17 gm PO DAILY PRN PRN Reason: Constipation Stop: 06/03/21 00:53
[2021-05-06] MEDS ORDERED: LOSARTAN POTASSIUM 25 MG TAB PO SCH (21:00)
[2021-05-06] MEDS: ATORVASTATIN 20 MG TAB PO SCH (22:00)
[2021-05-07] MEDS: HEPARIN SOD 5,000 UNIT/0.5 ML VIAL SQ SCH ×2 (05:34→14:01)
[2021-05-07] MEDS: LEVOTHYROXINE SODIUM 75 MCG TABLET PO SCH (05:53)
[2021-05-07 06:20] LABS: Calcium 8.5 mg/dl (8.5-10.1); Creatinine Clr Calc Pharmacy 37.5 ml/min; Est GFR (African American) 54.3 ml/min; Est GFR (Non-African American) 46.8 ml/min; Potassium 3.9 mmol/L (3.5-5.1)
[2021-05-07] MEDS: MULTIVITAMIN TAB PO SCH (08:17)
[2021-05-07] MEDS: buPROPion HCl 100 MG TABLET PO SCH (08:17)
[2021-05-07] MEDS ORDERED: METOPROLOL SUCC 25MG EXT REL TAB PO SCH (09:00)
--- NOTE | 2021-05-07 11:13 | Cardiology Progress Note ---
Date of Service May 07, 2021 Assessment & Plan (1) Acute heart failure with reduced ejection fraction and diastolic dysfun ction: Plan: Normovolemic. Continue metoprolol succinate and low dose losartan. Would discharge without oral diuretic though with close outpatient cardiology follow- up, consideration for the initiation of low dose spironolactone versus oral furosemide (20 mg a couple of days per week along with supplemental potassium). Conservative management recommended. Consideration for outpatient noninvasive ischemic stress testing pending clinical response to medical therapy. [facility] is aware of the need for close hospital discharge following and will make the arrangements as requested. (2) LBBB (left bundle branch block): Plan: Likely a chronic and contributing to underlying left ventricular systolic dysfunction. No evidence of acute coronary syndrome. Heart failure treatment as noted above. Further ischemic evaluation pending clinical response to heart failure treatment. (3) Acute renal insufficiency: Plan: Improved. Follow. Admission and Anticipated Discharge Date Admission Date: May 03, 2021 Supervising Physician Co-Signing Physician Notes Patient was seen and examined, chart, medications, telemetry reviewed. Full assessment and plan as well outlined above. Patient feels notably improved Ultimate goals guideline directed optimal medical regimen but pressures trending lower on losartan will hold and reinstitute as an outpatient. Patient anticipates discharge today Subjective Patient seen and examined in bed. Chart, medications, and telemetry reviewed. Telemetry with sinus in the 60's an 70's. Not the best historian. Able to lay relatively flat. Denies dyspnea, cough, congestion, chest pain, orthopnea or PND. No palpitations. No edema. Mild hypotension observed, asymptomatic. Creatinine improved. Review of Systems Review of Systems: Chart history of dementia. Complete Review of Systems not obtained. Physical Exam Physical Exam: General: A&O to person and place but not to time. Laying nearly flat. NAD. HENT: Normocephalic. Atraumatic. Eyes: PER. Conjunctiva pink, sclera clear. Neck: No carotid bruits. No JVD. No HJR. Heart: RRR. Soft systolic murmur. No disatolic murmur. No rub. No gallop. Lungs: Clear to auscultation. Abdomen: +BS. Soft. Nontender. No masses or organomegaly. Extremities: No clubbing, cyanosis, or edema. Limited neurological examination is without focal deficits. Pulses: radial=2/4, posterior tibial=2/4. Results & Data ([facility]) Vital Signs (Past 12 Hours) Vital Signs Temp Pulse Pulse Pulse Resp BP Pulse Ox 05/07/21 08:00 64 05/07/21 07:34 36.3 C L 68 17 93/61 L 95 05/07/21 03:07 36.3 C L 67 18 91/60 L 96 05/07/21 03:00 67 18 96 05/06/21 23:47 36.1 C L 69 18 100/66 96 Laboratory Results Laboratory Results - last 24 hr 05/03/21 05/07/21 18:41 05:48 Blood Smear Review Sodium 137 Potassium 3.9 Chloride 106 Carbon Dioxide 27 Anion Gap 4.0 BUN 26 H Creatinine 1.13 Est Cr Clr Drug Dosing 37.5 Est GFR ( Amer) 54.3 Est GFR (Non-Af Amer) 46.8 BUN/Creatinine Ratio 23.0 H Glucose 90 Calcium 8.5
--- NOTE | 2021-05-07 14:13 | Discharge Summary ---
Date of Service May 07, 2021 Admission HPI Per Admitting Provider HISTORY OF PRESENT ILLNESS: This is a 75-year-old female with past medical history significant for hypothyroidism, hyperlipidemia, sleep apnea on CPAP, varicose vein of leg, hypertension, irritable bowel syndrome, gastroparesis, GERD, esophageal stricture, stage III chronic kidney disease, CLL, major depression, who presents with shortness of breath. The patient says since last 2-3 days getting short of breath and headache 2-3 days today sob got more worse and came here. Has occasional cough. Denies any blurred visions, no earache, no runny nose, no sore throat. No nausea. Denies any chest pain. She says orthopnea present. No abdominal pain, normal bowel and bladder movements. Denies any blood in stool or black stools. No hematuria, no burning micturition, no swelling in the legs. She lives with her . Ambulates without any support. Currently, resting comfortably and hemodynamically stable. The patient was saturating 89% on room air, requiring 2 liters oxygen. Admission Exam Per Admitting Provider PHYSICAL EXAMINATION: GENERAL: The patient is moderate build, not in acute distress. VITAL SIGNS: Temperature 36.3, pulse 97, respiratory rate 23, blood pressure 123/82, oxygen 98% on 2 liters. HEENT: Pupils equal, round and reactive to light. Oral mucosa moist. NECK: No JVD, no neck masses. CARDIOVASCULAR: S1 and S2 heard. Regular rate and rhythm. No murmur, no gallop. RESPIRATORY: Normal AP diameter. No accessory muscle use. No wheezing, no crackles. ABDOMEN: Soft, bowel sounds present, nontender, no distention. CENTRAL NERVOUS SYSTEM: Cranial nerves II-XII grossly intact, nonfocal. EXTREMITIES: No edema, no erythema. Principal Diagnosis Acute heart failure with reduced ejection fraction and diastolic dysfunction Left bundle branch block Acute renal insufficiency-resolved CLL Discharge Exam CONSTITUTIONAL: WNWD, vitals as above, generally well-appearing EYES: normal conjunctivae, no scleral icterus ENT: external ear and nose normal, MMM RESPIRATORY: clear to auscultation bilaterally, no crackles, rales or wheezes, normal respiratory effort CARDIOVASCULAR: regular rate and rhythm, S1 and 2 heard without murmurs, gallops or rubs, no JVD, no peripheral edema GASTROINTESTINAL: soft, nontender, nondistended MUSCULOSKELETAL: strength 5/5 throughout, head is normocephalic and atraumatic SKIN: warm and dry NEUROLOGIC: CN 2-12 grossly intact, no sensory deficit, normal cognition, normal speech, no tremor PSYCHIATRIC: alert cooperative and oriented to person, place and time. Discharge Data Allergies Allergy/AdvReac Type Severity Reaction Status Date / Time codeine AdvReac Unknown GI UPSET Verified 05/03/21 20:14 lisinopril AdvReac Unknown COUGH Verified 05/03/21 20:14 Consultations 05/03/21 22:04 ED Decision to Admit Stat 05/04/21 08:00 Consult Cardiology Routine Ordered Studies Laboratory Results WBC 33.82 K/uL (4.8-10.8) H* 05/05/21 07:18 RBC 4.49 M/uL (4.2-5.4) 05/05/21 07:18 Hgb 14.2 g/dL (12.0-16.0) 05/05/21 07:18 Hct 42.0 % (37-47) 05/05/21 07:18 MCV 93.5 fL (80-100) 05/05/21 07:18 MCH 31.6 pg (25-34) 05/05/21 07:18 MCHC 33.8 g/dL (32-36) 05/05/21 07:18 RDW Std Deviation 48.6 fL (36.4-46.3) H 05/05/21 07:18 RDW Coeff of Terri 14.4 % (11.5-14.5) 05/05/21 07:18 Plt Count 208 K/uL (130-400) 05/05/21 07:18 MPV 10.3 fL (7.4-10.4) 05/05/21 07:18 Neutrophils % (Manual) 8.6 % 05/05/21 07:18 Lymphocytes % (Manual) 89.6 % 05/05/21 07:18 Monocytes % (Manual) 0.9 % 05/05/21 07:18 Eosinophils % (Manual) 0.9 % 05/05/21 07:18 Basophils % (Manual) 1.7 % 05/03/21 18:41 Neutrophils # (Manual) 2.91 K/uL (1.4-6.5) 05/05/21 07:18 Total Absolute Neuts 2.91 K/uL (1.4-6.5) 05/05/21 07:18 Lymphocytes # (Manual) 30.30 K/uL (1.2-3.4) H 05/05/21 07:18 Total Abs Lymphocytes 30.30 K/uL (1.2-3.4) H 05/05/21 07:18 Monocytes # (Manual) 0.30 K/uL (0.11-0.59) 05/05/21 07:18 Eosinophils # (Manual) 0.30 K/uL (0-0.5) 05/05/21 07:18 Basophils # (Manual) 0.54 K/uL (0-0.2) H 05/03/21 18:41 Smudge Cells Present 05/05/21 07:18 Blood Smear Review 05/03/21 18:41 RBC Morphology Unremarkable 05/03/21 18:41 PT 10.2 Seconds (9.0-12.0) 05/03/21 18:41 INR 1.0 (0.9-1.1) 05/03/21 18:41 APTT 21.8 Seconds (21.0-31.0) 05/03/21 18:41 PTT Ratio 0.8 05/03/21 18:41 D-Dimer 580 ug/L FEU (0-500) H* 05/03/21 18:41 Sodium 137 mmol/L (136-145) 05/07/21 05:48 Potassium 3.9 mmol/L (3.5-5.1) 05/07/21 05:48 Chloride 106 mmol/L (98-107) 05/07/21 05:48 Carbon Dioxide 27 mmol/L (21-32) 05/07/21 05:48 Anion Gap 4.0 (3-11) 05/07/21 05:48 BUN 26 mg/dl (7-18) H 05/07/21 05:48 Creatinine 1.13 mg/dl (0.6-1.2) 05/07/21 05:48 Est Cr Clr Drug Dosing 37.5 ml/min 05/07/21 05:48 Est GFR ( Amer) 54.3 ml/min 05/07/21 05:48 Est GFR (Non-Af Amer) 46.8 ml/min 05/07/21 05:48 BUN/Creatinine Ratio 23.0 (10-20) H 05/07/21 05:48 Glucose 90 mg/dl (70-99) 05/07/21 05:48 Lactate 1.1 mmol/L (0.4-2.0) 05/03/21 20:22 Calcium 8.5 mg/dl (8.5-10.1) 05/07/21 05:48 Phosphorus 3.3 mg/dl (2.5-4.9) 05/06/21 09:15 Magnesium 2.2 mg/dl (1.8-2.4) 05/06/21 09:15 Troponin I < 0.015 ng/ml (0-0.045) 05/04/21 05:28 NT-Pro-B Natriuret Pep 4389 pg/ml (0-1800) H 05/05/21 07:18 Lipase 191 U/L (73-393) 05/03/21 18:41 Specimen Hemolysis 05/03/21 18:41 Urine Color Yellow 05/03/21 20:12 Urine Appearance Clear (Clear) 05/03/21 20:12 Urine pH 5.5 (4.5-7.5) 05/03/21 20:12 Ur Specific [place] 1.013 (1.000-1.030) 05/03/21 20:12 Urine Protein Negative (Negative) 05/03/21 20:12 Urine Glucose (UA) Negative (Negative) 05/03/21 20:12 Urine Ketones 1+ (Negative) H 05/03/21 20:12 Urine Blood Negative (Negative) 05/03/21 20:12 Urine Nitrite Negative (Negative) 05/03/21 20:12 Urine Bilirubin Negative (Negative) 05/03/21 20:12 Urine Urobilinogen Negative (Negative) 05/03/21 20:12 Ur Leukocyte Esterase 2+ (Negative) H 05/03/21 20:12 Urine WBC (Auto) 10-30 /hpf (0-5) H 05/03/21 20:12 Urine RBC (Auto) 0-4 /hpf (0-4) 05/03/21 20:12 U Hyaline Cast (Auto) 1-5 /lpf (0-5) 05/03/21 20:12 U Epithel Cells (Auto) 5-10 /lpf (0-5) H 05/03/21 20:12 Urine Bacteria (Auto) Negative (Negative) 05/03/21 20:12 COVID-19 Eval Order Covid19 at [facility] 05/03/21 19:44 SARS-CoV-2 (PCR) NEGATIVE (Negative) 05/03/21 19:44 Impressions Chest X-Ray 05/03/21 18:29 XR chest 1V portable CLINICAL HISTORY: Chest Pain COMPARISON STUDY: Chest radiograph January 15, 2017. FINDINGS: There is no pneumothorax. There are small bilateral pleural effusions with bibasilar opacities. A large hiatal hernia is present. Mild pulmonary edema is present. IMPRESSION: 1. Mild interstitial pulmonary edema. 2. Small bilateral pleural effusions with bibasilar opacities that likely reflect atelectasis. Radiographic follow-up is recommended to ensure resolution. 3. Large hiatal hernia. ACT 112: Negative or not required by law. Electronically signed by: Mick Mtz M.D. 05/03/2021 8:[address] 05/03/21 18:29 CT head/brain wo con CLINICAL HISTORY: castellanos COMPARISON STUDY: March 29, 2020 TECHNIQUE: Axial CT of the brain is performed from the vertex to the skull base. IV contrast was not administered for this examination. A dose lowering technique was utilized adhering to the principles of ALARA. CT DOSE: 537.48 mGy.cm FINDINGS: No intra or extra-axial mass lesions are visualized. There is no CT evidence of acute cortical infarction. There is no evidence of midline shift. There is no acute hemorrhage. No acute depressed calvarial fractures are visualized. There are patchy white matter hypodensities likely on a small vessel basis. Atrophic changes of brain parenchyma are again seen and associated with ex vacuo dilatation of ventricles. There is no evidence of acute sinusitis IMPRESSION: No acute intracranial hemorrhage, no midline shift or space occupying lesions. Chronic small vessel ischemia. Atrophic changes of brain parenchyma associated with ex vacuo dilatation of ventricles. ACT 112: Negative or not required by law. The above report was generated using voice recognition software. It may contain grammatical, syntax or spelling errors. Electronically signed by: Juany Younger DO 05/03/2021 9:08 PM Chest CTA 05/03/21 20:37 CT ANGIOGRAM OF THE CHEST CLINICAL HISTORY: ro PE COMPARISON STUDY: February 11, 2014 TECHNIQUE: Following the IV administration of 116 mL of Optiray, CT angiogram of the thorax was performed from the thoracic inlet to the lung bases utilizing the pulmonary embolus protocol. Images are reviewed in the axial, sagittal, and coronal planes. IV contrast was administered without complication. MIP imaging was performed. A dose lowering technique was utilized adhering to the principles of ALARA. CT DOSE: 246.25 mGy.cm FINDINGS: There is adequate opacification within main pulmonary artery. Evaluation of peripheral branches of the right and left pulmonary arteries is limited due to motion artifact. No acute pulmonary embolus is seen. Main pulmonary artery is normal in size. No evidence of right heart strain. Heart is slightly enlarged, mostly due to dilatation of the left ventricle. No pericardial effusion seen. Mild calcifications of aortic valve and severe calcifications of coronary arteries are seen. Axillary, supra clavicle and internal mammary lymph nodes are not enlarged. 1.5 cm pretracheal lymph node is seen. Overall evaluation for mediastinal lymphadenopathy is limited due to beam hardening artifact from intravenous contrast within adjacent vasculature. There was no evidence of thoracic aortic dilatation. Tracheobronchial tree is patent. Small bilateral pleural effusion is seen, right more than left. Mild compressive atelectasis is seen within bilateral lower lobes adjacent to the large hiatal hernia. Minimal septal thickening is seen within lung bases. -5 mm solid nodule is seen within right lower lobe (4/139 and is not significantly changed since prior study in 2013. Visualized portion of thyroid gland shows no evidence of focal lesions. An esophagus is patulous. Large hiatal hernia is seen with air-fluid level. Limited evaluation of upper abdominal viscera shows no evidence of acute ab normalities. Osseous structures: Osteopenia and mild degenerative changes of the spine. Anterior syndesmophytes are seen within mid thoracic level. IMPRESSION: 1. No acute central pulmonary embolus. Evaluation of peripheral branches of pulmonary artery is limited due to motion artifact. No secondary signs of pulmonary embolus are seen. 2. Peripheral septal thickening which was also seen during prior study might represent mild interstitial lung disease. 3. Bilateral pleural effusion. 4. Mildly dilated left ventricle. Please correlate above-mentioned findings with history of cardiac abnormalities. 5. Large hiatal hernia. 6. The rest of findings as above. ACT 112: Negative or not required by law. The above report was generated using voice recognition software. It may contain grammatical, syntax or spelling errors. Electronically signed by: Juany Younger DO 05/04/2021 7:12 AM Hospital Course (1) Acute heart failure with reduced ejection fraction and diastolic dysfunction: Compensated and appears euvolemic after intravenous diuretic therapy and optimization with medications. Lopressor 12.5mg PO BID chaged to metoprolol succinate per heart failure guidelines. Losartan added, however, she developed hypotension. Will likely need low dose diuretic which may be added during clinic follow-up pending improvement in blood pressure. (2) LBBB (left bundle branch block): Per cardiology, this is likely chronic and contributing to her underlying left ventricular systolic dysfunction. There is no evidence of acute coronary syndrome and it is uncertain if further ischemic workup will be considered at this time. Cont to monitor response to therapies. (3) CLARICE (obstructive sleep apnea): cont CPAP (4) CLL (chronic lymphocytic leukemia): WBC 33K. Watchful waiting. (5) Depression: cont Bupropion per home regimen. (6) Hypothyroidism: cont Synthroid per home regimen. Total Time Total Time Spent Total Time Spent (In Minutes): 60 Discharge Plan Discharge Items Patient Disposition: Home - Self-Care Reason For Visit: SOB Discharge Diagnosis: Acute heart failure with reduced ejection fraction and diastolic dysfunction Left bundle branch block Acute renal insufficiency-resolved CLL Condition on Discharge: Good Activity: Resume your previous activity Non-emergency contact: Primary Care Provider and Arboriculture Teacher Call non-emergency contact if: you have any medication questions and your symptoms worsen Follow-up/Referrals: Lucas Mendez MD [Primary Care Provider] - (Date & Time 05/10/2021 11:00 AM Provider Kristi Meade DO Department [facility] ) Tari Sutherland CRNP [Nurse Practitioner] - (Date & Time 05/14/2021 11:00 AM Provider MELISSA Crowder Department Cardiology, [facility] ) Diet: Low Sodium (2gm) Addtl Attending Provider Instructions: Please take all medications as instructed on discharge list below. You will need additional medical therapy as tolerated, however, only one medication was added to your regimen at this time because your blood pressure was low. A close follow-up in the [facility] Cardiology clinic is recommended for re-evaluation after the hospital stay and consideration of additional medical therapy as tolerated which will help improve your heart's ability to pump well. Please follow all instructions given below regarding heart failure, including checking your weight every day. Close follow-up with your primary care physician in one week is recommended to ensure you are doing well coming out of the hospital and monitor your progress on the new medication. It was a pleasure taking care of you! Please call if you have any questions or problems. You can reach a [facility] hospitalist on duty at [facility] 24 hours a day by calling [phone]. Take care of yourself. Jadyn Morgan, DO [facility] Addtl [employer] Tender Provider Instructions: Call [phone] and go to the Emergency Room if: * You have tightness or pain in your chest that does not go away with rest or Nitroglycerin * You are very short of breath even with rest Call your doctor if any of the following symptoms or problems start or get worse: * Shortness of breath or difficulty breathing * Wake up at night short of breath * Chest pain * Cough * Swelling of your hands, fee, or legs * More fatigued or tired with your normal activity * Palpitations - sudden fast heart beats WEIGHT * Weigh yourself every morning after using the bathroom. * Use the same scale. * Wear the same amount of clothing. * Write your weight down on your chart. * Call your doctor if you gain more than 2-3 pounds in 1-2 days. MEDICATIONS * Use this discharge instruction sheet for instructions. * Take your medications at the time your doctor ordered. * Do not skip a dose of your medicines. * If you miss a dose of medicine, take as soon as possible, but DO NOT DOUBLE A DOSE. * Read your medicine information when you get home. * Know all of the side effects of your medicine. * Call your doctor's office if you have any side effects. * Be sure all of your doctors know what medicine and herbs you take (including cold, flu, and herbal medicine). * Pain Medicine: If you do not get relief from your pain, please call your doctor for help. Take the following with you to your follow-up doctor appointments: * Weight Chart * Medication List * List of questions Do not drink excessive alcohol, beer or wine. Pending Studies at Discharge: No Stand-Alone Forms: My [facility] Medications and DC Order Prescriptions: New metoprolol succinate 25 mg Tablet Extended Release 24 Hr 25 mg PO QAM Qty: 30 RF: 0 Continued multivitamin [Daily Multi-Vitamin] Tablet 1 tab PO QAM RF: 0 atorvastatin [Lipitor] 20 mg Tablet 20 mg PO HS RF: 0 bupropion HCl 100 mg Tablet 100 mg PO BID RF: 0 meclizine [Motion Sickness (meclizine)] 25 mg Tablet 25 mg PO TID PRN (Reason: Dizziness) RF: 0 levothyroxine [Synthroid] 75 mcg tablet 75 mcg PO DAILYBB RF: 0 Restasis 0.05 % Dropperette 1 drp OPB Q12H RF: 0 Discharge Orders: Discharge Order (Routine); Ordered 05/07/21 Ordered By: Jadyn Morgan Admission Data Admit Date/Time: 05/03/21 23:49 Attending Provider: Jadyn Morgan Admit Provider: Ramiro Mack Primary Care Provider: Lucas Mendez Other Providers: Ramiro Mack ; Anirudh Sims ; Shaka Hennessy ; Lalito Sheets ; Nithin Smith ; Alvin Velazquez ; Ángel Vigil ; Deb Martinez ; Kadie Gongora ; Tari Sutherland ; Bart Doyle Other Interventions: Discharge Summary Assessment (RN) Last Done: 05/07/21 14:58
== END 2021-05-07 16:44 | disposition home or self-care (01) | DRG 291 ==
LOC: ED 16:15 → 2S 23:49 → SUATTDRO 23:49 → 2S 05-04 00:13
DX: E78.5 Hyperlipidemia, unspecified; Z88.5 Allergy status to narcotic agent; R09.02 Hypoxemia; Z82.49 Family history of ischemic heart disease and other diseases of the circulatory system; F03.90 Unspecified dementia, unspecified severity, without behavioral disturbance, psychotic disturbance, mood disturbance, and anxiety; G47.33 Obstructive sleep apnea (adult) (pediatric); C91.10 Chronic lymphocytic leukemia of B-cell type not having achieved remission; C91.90 Lymphoid leukemia, unspecified not having achieved remission; I44.7 Left bundle-branch block, unspecified; I50.21 Acute systolic (congestive) heart failure; E03.9 Hypothyroidism, unspecified; N39.0 Urinary tract infection, site not specified; Z86.718 Personal history of other venous thrombosis and embolism; N18.30 Chronic kidney disease, stage 3 unspecified; I13.0 Hypertensive heart and chronic kidney disease with heart failure and stage 1 through stage 4 chronic kidney disease, or unspecified chronic kidney disease

== ENCOUNTER 2023-08-20 13:46 | Inpatient (IN) ==
[2023-08-20 14:40] LABS: Hematocrit (blood only) 30.8 % (37.0-47.0); Hemoglobin 9.9 g/dl (12.0-16.0); Mean Corpuscular Hemoglobin 31.3 pg (25.0-34.0); Mean Corpuscular Hgb Conc 32.1 g/dL (32.0-36.0); Mean Corpuscular Volume 97.5 fL (80.0-100.0); Mean Platelet Volume 10.6 fL (9.4-12.4); Nucleated RBC # (auto) 0.03 K/uL (0.00-0.12); Platelet Count 127 K/uL (130-400); RDW Coefficient of Variation 15.1 % (11.5-14.5); RDW Standard Deviation 52.3 fL (36.4-46.3); Red Blood Count 3.16 M/uL (4.20-5.40); White Blood Count 129.54 K/ul (4.8-10.8)
--- NOTE | 2023-08-20 14:54 | Emergency Department Note ---
Impression & Plan Closed fracture of left hip ED Provider Note NAME: SAMSON ELLISON AGE: 77 SEX: F : 1945 ARRIVES VIA: Ambulance INFORMANT: Patient, ED PROVIDER(S): Adria Castillo MD CHIEF COMPLAINT: Hip pain HPI: This is a 77-year-old female presenting for hip pain. Patient fell after getting out of bed last night on the way to the bathroom. She was picked up by her son and brought back to bed. Today was noticed that her left leg was shortened and rotated. Patient is demented and currently on hospice. Patient notes no current pain. She does not member falling. Unclear if she hit her head. ROS: See above HPI for pertinent positives & negatives. A total of 10 systems reviewed and were otherwise negative. PAST MEDICAL HISTORY: See Below PAST SURGICAL HISTORY: See Below FAMILY HISTORY: See Below SOCIAL HISTORY: See Below HOME MEDICATIONS: See Below ALLERGIES: See Below VITALS: See Below PHYSICAL EXAMINATION: General: Resting comfortable Head: Normocephalic and atraumatic Eyes: Normal inspection, extraocular muscles intact, no conjunctival pallor Ear, nose, throat: Normal external exam Neck: Normal range of motion Respiratory: Patient is in no respiratory distress, lungs clear to auscultation bilaterally Cardiovascular: RRR without murmur appreciated GI: soft, nontender, no guarding or rebound Extremities: Left hip pain to palpation, leg shortened, rotated, 2+ pulses Neuro: The patient awake and alert, appropriately conversive,no focal decifits Skin: Warm, dry, and intact MEDICAL DECISION MAKING: This is a 77-year-old male presenting for hip pain. Patient likely has a hip fracture based on clinical exam, shortened left lower extremity. Hip pain. Could also represent dislocation. Will get x-ray. X-ray reveals a left femoral neck fracture. Discussed this with Dr. Loomis, orthopedic surgery who would operate on this as long as family is comfortable with the risks. Patient does have a leukocytosis to 129 consistent with her leukemia. After extensive conversation with the family, they are leaning towards operation as it would allow her to walk at some point which would be important for quality of life. Otherwise interstimulus will take her off of hospice. Initial comfortable with this plan. Discussed with hospitalist who are will admit the patient for Chest Xray independently interpreted by me showing no pneumothorax, focal opacity, or pleural effusions. Triage Nursing notes reviewed. Prior medical records reviewed Vital Signs: reviewed and remarkable for no significant abnormalities Differential diagnosis: Hip fracture, dislocation ER treatment provided: See below Diagnostics interpreted by me: ECG: ECG independently interpreted by me with atrially paced rhythm at 68, normal AL, left bundle branch block normal QTc, no ST segment elevations consistent with STEMI criteria Cardiac Monitoring: An order was placed for continuous cardiac monitoring. The monitor shows a rate of 64 sinus rhythm Laboratory studies: As stated above and show below. Imaging studies: See below. Radiographic imaging was reviewed by myself Consultation(s): None Past Med/Surg History Medical History (Updated 08/20/23 @ 19:11 by Adria Castillo MD) CAD (coronary artery disease) Presumed prior DC by nuclear stress test 05/2021 Aortic valve stenosis Moderate with moderate MR per recent ECHO and records LBBB (left bundle branch block) CLL (chronic lymphocytic leukemia) Per records Follows with heme- per 08/19/21 office visit- recent WBC ct 36.47- "There is slowly rise in the WBC count which is expected from this disease. Clinically she has no other symptoms" CKD (chronic kidney disease) stage 3, GFR 30-59 ml/min Per records Esophageal stricture Per records Gastroparesis Per records IBS (irritable bowel syndrome) Per records Stress incontinence GERD (gastroesophageal reflux disease) Hypertension Hypothyroidism Dementia Hyperlipidemia Sleep apnea CPAP per records Acute renal insufficiency CLL (chronic lymphocytic leukemia) Hypothyroidism Depression CLARICE (obstructive sleep apnea) UTI (urinary tract infection) DVT prophylaxis LBBB (left bundle branch block) Acute heart failure with reduced ejection fraction and diastolic dysfunction CHF (congestive heart failure) EF 25-29% per 07/2021 ECHO - reason for procedure Ischemic CM per records DVT (deep venous thrombosis) ? DETAILS/"CAN'T REMEMBER" Surgical History History of esophagogastroduodenoscopy (EGD) History of colonoscopy History of herniorrhaphy History of tooth extraction History of cataract surgery RT/LEFT H/O vascular surgery SURGERY FOR VARICOSE VEINS History of tubal ligation History of hysterectomy Family History Other No family history of adverse response to anesthesia Social History (Reviewed 05/04/21 @ 11:39 by VINCENT Young Smoking Status: Never smoker Second Hand Exposure: No; Do You Dip or Chew Tobacco: No; Hx Alcohol Use: No Hx Substance Use: No Preferred Language: Danish Communication Ability: Effective Outcomes Analyst Required: No Beliefs That Will Affect Care: None Current Living Situation: Spouse Feels Safe at Home: Yes Assistive Devices: Denture - Upper, Denture - Lower and Glasses Allergies Allergies Allergy/AdvReac Type Severity Reaction Status Date / Time codeine AdvReac Mild GI UPSET Verified 09/23/21 15:25 lisinopril AdvReac Mild COUGH Verified 09/23/21 15:25 Home Meds Home Medications Medication Instructions Recorded Confirmed atorvastatin 20 mg tablet (Lipitor) 20 mg PO HS 06/29/18 08/20/23 bupropion HCl 100 mg tablet 100 mg PO BID 06/29/18 08/20/23 acetaminophen 325 mg capsule 325 mg PO QID PRN Pain 09/23/21 08/20/23 (Tylenol) metoprolol succinate 50 mg 25 mg PO QAM 09/23/21 08/20/23 tablet,extended release 24 hr baclofen 10 mg PO HS 08/20/23 08/20/23 paroxetine HCl 10 mg tablet 10 mg PO QAM 08/20/23 08/20/23 Results & Data (ED) Vital Signs Vital Signs - 24 hr 08/20/23 13:57 08/20/23 13:57 08/20/23 14:03 Temperature 37 C 37 C Temperature Source Oral Oral Pulse Rate 66 66 Pulse Rate [Right Finger] 66 Pulse Rhythm Regular Pulse Rhythm [Right Finger] Regular Pulse Strength Normal Pulse Strength [Right Finger] Normal Respiratory Rate 16 20 Respiratory Effort / Characteristics Non-Labored Non-Labored Respiratory Depth Normal Normal Respiratory Pattern Regular Regular Blood Pressure 123/64 Blood Pressure [Left Arm] 123/64 Blood Pressure Mean 83 Blood Pressure Mean [Left Arm] 83 Blood Pressure Position [Left Arm] Lying Pulse Oximetry 93 93 Oxygen Delivery Method Room Air Room Air Sepsis Recent Fever Within 48 Hours No Sepsis New/Unexplained Change in Mental Status N/A Sepsis Action Taken by Nursing No Action Required 08/20/23 16:09 Temperature Temperature Source Pulse Rate Pulse Rate [Right Finger] 63 Pulse Rhythm Pulse Rhythm [Right Finger] Regular Pulse Strength Pulse Strength [Right Finger] Normal Respiratory Rate 18 Respiratory Effort / Characteristics Non-Labored Respiratory Depth Normal Respiratory Pattern Regular Blood Pressure Blood Pressure [Left Arm] 121/62 Blood Pressure Mean Blood Pressure Mean [Left Arm] 81 Blood Pressure Position [Left Arm] Lying Pulse Oximetry 94 Oxygen Delivery Method Room Air Sepsis Recent Fever Within 48 Hours Sepsis New/Unexplained Change in Mental Status Sepsis Action Taken by Nursing Laboratory Data 08/20/23 14:12 08/20/23 14:12 Lab Results 08/20/23 Range/Units 14:12 WBC 129.54 H* (4.8-10.8) K/ul RBC 3.16 L (4.20-5.40) M/uL Hgb 9.9 L (12.0-16.0) g/dl Hct 30.8 L (37.0-47.0) % MCV 97.5 (80.0-100.0) fL MCH 31.3 (25.0-34.0) pg MCHC 32.1 (32.0-36.0) g/dL RDW Std Deviation 52.3 H (36.4-46.3) fL RDW Coeff of Terri 15.1 H (11.5-14.5) % Plt Count 127 L (130-400) K/uL MPV 10.6 (9.4-12.4) fL Immature Gran % (Auto) 0.2 % Neut % (Auto) 3.3 % Lymph % (Auto) 89.7 % [place] % (Auto) 6.7 % Eos % (Auto) 0.0 % Baso % (Auto) 0.1 % Neut # (Auto) 4.31 (1.40-6.50) K/uL Lymph # (Auto) 116.26 H (1.20-3.40) K/uL [place] # (Auto) 8.63 H (0.11-0.59) K/uL Eos # (Auto) 0.02 (0.00-0.50) K/uL Baso # (Auto) 0.08 (0.00-0.20) K/uL Immature Gran # (Auto) 0.24 H (0.01-0.20) K/uL Absolute Nucleated RBC 0.03 (0.00-0.12) K/uL Blood Smear Review Cancelled Polychromasia 1+ Ovalocytes 1+ Sodium 137 (136-145) mmol/L Potassium 3.8 (3.5-5.1) mmol/L Chloride 105 (98-107) mmol/L Carbon Dioxide 25 (21-32) mmol/L Anion Gap 7 (3-11) BUN 28 H (6-23) mg/dl Creatinine 1.04 (0.6-1.2) mg/dl Est Cr Clr Drug Dosing 34.7 ml/min Est GFR ( Amer) 59.2 ml/min Est GFR (Non-Af Amer) 51.1 ml/min BUN/Creatinine Ratio 26.9 H (10-20) Glucose 144 H (70-99(Fasting)) mg/dl Calcium 9.3 (8.6-10.3) mg/dl Imaging Data Radiologist's Impression: Hip/Pelvis X-Ray 08/20/23 14:05 XR hip LT 2V w pelvis CLINICAL HISTORY: fall, hip pain, leg shortening TECHNIQUE: 2 views of the left hip and single frontal view of the pelvis were obtained. Comparison: Comparison is made to CT abdomen pelvis 07/11/2023 FINDINGS: There is a fracture of the left femoral neck with overriding of fragments. Soft tissue swelling is seen. IMPRESSION: Left femoral neck fracture with associated soft tissue swelling. ACT 112: Negative or not required by law. Electronically signed by: Francois Johnson M.D. 08/20/2023 3:28 PM Chest X-Ray 08/20/23 14:06 XR chest 1V not portable HISTORY: 77 years-old Female pre-op preoperative exam COMPARISON: Chest CT 07/11/2023 TECHNIQUE: AP view of the chest FINDINGS: Cardiac silhouette is enlarged. Left subclavian pacer/AICD. Large hiatal hernia. No pneumothorax, pleural effusion or overt pulmonary edema. The patient is rotated towards the left. Degenerative changes of the shoulders and spine. IMPRESSION: 1. Cardiomegaly without acute process. 2. Large hiatal hernia. ACT 112: Negative or not required by law. The above report was generated using voice recognition software. It may contain grammatical, syntax or spelling errors. Electronically signed by: Buddy Granados M.D. 08/20/2023 4:04 PM Discharge Plan Visit Data Chief Complaint: Hip Pain ED Provider: Adria Castillo Discharge Problem: Closed fracture of left hip Patient Disposition: Admitted As Inpatient Discharge Instructions Interventions: ED Discharge Assessment Last Done: 08/20/23 18:09
[2023-08-20 14:55] LABS: BUN Creatinine Ratio 26.9 (10-20); Calcium 9.3 mg/dl (8.6-10.3); Creatinine Clr Calc Pharmacy 34.7 ml/min; Est GFR (African American) 59.2 ml/min; Est GFR (Non-African American) 51.1 ml/min; Potassium 3.8 mmol/L (3.5-5.1)
[2023-08-20 15:24] LABS: Basophils # (auto) 0.08 K/uL (0.00-0.20); Basophils % (auto) 0.1 %; Eosinophils # (auto) 0.02 K/uL (0.00-0.50); Immature Granulocytes # (auto) 0.24 K/uL (0.01-0.20); Immature Granulocytes % (auto) 0.2 %; Lymphocytes # (auto) 116.26 K/uL (1.20-3.40); Lymphocytes % (auto) 89.7 %; Monocytes # (auto) 8.63 K/uL (0.11-0.59); Monocytes % (auto) 6.7 %; Neutrophils # (auto) 4.31 K/uL (1.40-6.50); Neutrophils % (auto) 3.3 %; Ovalocytes 1+; Polychromasia 1+
--- NOTE | 2023-08-20 15:29 | XRay Report ---
XR hip LT 2V w pelvis CLINICAL HISTORY: fall, hip pain, leg shortening TECHNIQUE: 2 views of the left hip and single frontal view of the pelvis were obtained. Comparison: Comparison is made to CT abdomen pelvis 07/11/2023 FINDINGS: There is a fracture of the left femoral neck with overriding of fragments. Soft tissue swelling is se en. IMPRESSION: Left femoral neck fracture with associated soft tissue swelling. ACT 112: Negative or not required by law. Electronically signed by: Francois Johnson M.D. 08/20/2023 3:28 PM
--- NOTE | 2023-08-20 16:06 | XRay Report ---
XR chest 1V not portable HISTORY: 77 years-old Female pre-op preoperative exam COMPARISON: Chest CT 07/11/2023 TECHNIQUE: AP view of the chest FINDINGS: Cardiac silhouette is enlarged. Left subclavian pacer/AICD. Large hiatal hernia. No pneumothorax, ple ural effusion or overt pulmonary edema. The patient is rotated towards the left. Degenerative changes of the shoulders and spine. IMPRESSION: 1. Cardiomegaly without acute process. 2. Large hiatal hernia. ACT 112: Negative or not required by law. The above report was generated using voice recognition software. It may contain grammatical, syntax o r spelling errors. Electronically signed by: Buddy Granados M.D. 08/20/2023 4:04 PM
--- NOTE | 2023-08-20 16:31 | History & Physical Report ---
Date of Service August 20, 2023 Assessment & Plan (1) Left displaced femoral neck fracture: Plan: -Admit to MedSurg -EKG for preop clearance -CXR reviewed which is negative for acute findings -Geriatric hip fracture order set completed -Orthopedics consulted, Dr. Maria Guadalupe silva, discussed with him at bedside regarding the plan to proceed with setting up the patient for surgical fixation tomorrow, risks and benefits of proceeding with surgery versus not were discussed at bedside at length. Patient and family expressed understanding that if we did not proceed with surgical fixation that she would suffer reduced quality of life compared to prior to hip fracture as she would not be able to walk, be bedbound, require symptom control with pain medication, versus the intraoperative risks as well as the postoperative risks including but not limited to possible hip dislocation. Patient and family are in agreement to plan for surgery tomorrow. -Type and screen ordered, patient has not previously required blood transfusions -Recent loose stools, history of IBS, bowel regimen -Insert [place], strict I's and O's -Allow diet this evening, n.p.o. at midnight -LR at 80 mL/h now, pt had poor po intake earlier today, MM appear dry. Encourage oral hydration. (2) CLL (chronic lymphocytic leukemia): Plan: -Elevated WBC and lymphocytic count secondary to CLL, Bchronic lymphocytic leukemia, poor prognostic markers, follows with Dr. Rajan with oncology as outpatient -Patient is being treated symptomatically, no current chemotherapy, elected hospice, family is electing to proceed with surgical procedure for the above. -CM to assist with discharge planning, reinitiation of hospice? (3) CAD (coronary artery disease): Plan: -Hx of AICD placement in 2021, - Last Echo from Nov 2022 reviewed showing LVEF of 52%, normal, mild to moderate aortic stenosis, mild MR and TR. -Continue metoprolol succinate 25 mg daily (4) IBS (irritable bowel syndrome): Plan: - Chronically loose stools intermittently - Add probiotic (5) CKD (chronic kidney disease) stage 3, GFR 30-59 ml/min: Plan: - Cr. and BUN appear to be at baseline chronic, stable (6) Hypothyroidism: Plan: - Pt is not longer on levothyroxine due to hospice - Chronic, stable DVT ppx: teds, scds, heparin subq tonight then hold for surgical procedure. Resume 24 hrs after surgical procedure. Lines: 2 PIV FEN/GI: Regular diet, NPO at midnight CODE: Dispo: From home, likely to remain in the hospital x 2 days, CM to assist with dc planning as she was previously on hospice and will need rehab after surgical fixation. History of Present Illness Chief Complaint: fall, hip fx Primary Care Provider: Lucas Mendez MD This is a 77-year-old female with history of CLL currently not on therapy, elected for hospice, dementia, gait disturbance, hypothyroidism, IBS and depression who presents to the hospital after an acute fall she sustained today. Imaging reveals a left femoral neck fracture. The patient , her and daughter are present at bedside. Patient has difficulty explaining how she sustained a fall. Her reports that she was in the bathroom and that he left to go warm up something for supper, and 1 he was in the kitchen and heard a thud, and came back to the bathroom she was on the floor. Denies any injury to the head or LOC. Patient states that her feet just slipped out from underneath her. She does ambulate and uses a walker at baseline. Patient's pain is well controlled presently when she is not moving, however with minimal movement it is significantly painful. Daughter manages her medications and states that she took all her routine things this morning. She also notes that she has not eaten much today, and was not interested in drinking after the fall today. DNR/DNI was discussed and they are in agreement that she is a no code except for within the surgical suite during hip fracture fixation. Allergies Allergy/AdvReac Type Severity Reaction Status Date / Time codeine AdvReac Mild GI UPSET Verified 09/23/21 15:25 lisinopril AdvReac Mild COUGH Verified 09/23/21 15:25 Home Medications Medication Instructions Recorded Confirmed Type atorvastatin 20 mg tablet (Lipitor) 20 mg PO HS 06/29/18 08/20/23 History bupropion HCl 100 mg tablet 100 mg PO BID 06/29/18 08/20/23 History acetaminophen 325 mg capsule 325 mg PO QID PRN Pain 09/23/21 08/20/23 History (Tylenol) metoprolol succinate 50 mg 25 mg PO QAM 09/23/21 08/20/23 History tablet,extended release 24 hr baclofen 10 mg PO HS 08/20/23 08/20/23 History paroxetine HCl 10 mg tablet 10 mg PO QAM 08/20/23 08/20/23 History Past Med/Surg History Medical History (Updated 08/20/23 @ 16:27 by Nadege Granados PA-C) CAD (coronary artery disease) Presumed prior HI by nuclear stress test 05/2021 Aortic valve stenosis Moderate with moderate MR per recent ECHO and records LBBB (left bundle branch block) CLL (chronic lymphocytic leukemia) Per records Follows with heme- per 08/19/21 office visit- recent WBC ct 36.47- "There is slowly rise in the WBC count which is expected from this disease. Clinically she has no other symptoms" CKD (chronic kidney disease) stage 3, GFR 30-59 ml/min Per records Esophageal stricture Per records Gastroparesis Per records IBS (irritable bowel syndrome) Per records Stress incontinence GERD (gastroesophageal reflux disease) Hypertension Hypothyroidism Dementia Hyperlipidemia Sleep apnea CPAP per records Acute renal insufficiency CLL (chronic lymphocytic leukemia) Hypothyroidism Depression CLARICE (obstructive sleep apnea) UTI (urinary tract infection) DVT prophylaxis LBBB (left bundle branch block) Acute heart failure with reduced ejection fraction and diastolic dysfunction CHF (congestive heart failure) EF 25-29% per 07/2021 ECHO - reason for procedure Ischemic CM per records DVT (deep venous thrombosis) ? 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 Beliefs That Will Affect Care: None Current Living Situation: Spouse Feels Safe at Home: Yes Assistive Devices: Denture - Upper, Denture - Lower and Glasses Review of Systems Review of Systems: Constitutional: No fever, sweats or chills Eyes: No diplopia, no worsening or blurred vision ENT: normal hearing, no trouble swallowing Respiratory: No cough, sputum, dyspnea at rest or on exertion Cardiovascular: No chest pain, tightness or palpitations Abdomen: No pain, nausea, vomiting, diarrhea or constipation Musculoskeletal: As per HPI, Lef hip pain with movement, otherwise no joint pain, calf pain, swelling Neurologic: No weakness, numbness/tingling, or balance problems Psychiatric: No anxiety or depression Skin: No rash or itch Physical Exam Physical Exam: General: awake, alert, no apparent distress, elderly white female with BMI of 23 Head: Normocephalic, atraumatic ENT: PERRL, EOMI, no pharyngeal exudate, mucous membranes appear dry Chest: Clear to auscultation, on room air, no adventitious breath sounds Cardiac: Regular rate and rhythm, + loud systolic murmur, no JVD, normal peripheral pulses, good capillary refill Abdominal: NABS x 4 quadrants, soft, nondistended, nontender to palpation, no rebound or guarding Extremities: LLE shortened and externally rotated, normal inspection, no peripheral edema or erythema, calfs nontender to palpation Psych: Normal mood and affect Neuro: AAO x 3, strength intact bilaterally and rated 5/5, no motor deficits, speech is clear, no peripheral sensory deficits Results & Data Results & Data Vital Signs (Past 12 Hours) Vital Signs Temp Pulse Pulse Resp BP BP Pulse Ox 08/20/23 16:09 63 18 121/62 94 08/20/23 14:03 66 08/20/23 13:57 37 C 66 20 123/64 93 08/20/23 13:57 37 C 66 16 123/64 93 O2 Del Method 08/20/23 16:09 Room Air 08/20/23 14:03 08/20/23 13:57 Room Air 08/20/23 13:57 Room Air Laboratory Results 08/20/23 14:12 WBC 129.54 H* RBC 3.16 L Hgb 9.9 L Hct 30.8 L MCV 97.5 MCH 31.3 MCHC 32.1 RDW Std Deviation 52.3 H RDW Coeff of Terri 15.1 H Plt Count 127 L MPV 10.6 Immature Gran % (Auto) 0.2 Neut % (Auto) 3.3 Lymph % (Auto) 89.7 [place] % (Auto) 6.7 Eos % (Auto) 0.0 Baso % (Auto) 0.1 Neut # (Auto) 4.31 Lymph # (Auto) 116.26 H [place] # (Auto) 8.63 H Eos # (Auto) 0.02 Baso # (Auto) 0.08 Immature Gran # (Auto) 0.24 H Absolute Nucleated RBC 0.03 Blood Smear Review Cancelled Polychromasia 1+ Ovalocytes 1+ Sodium 137 Potassium 3.8 Chloride 105 Carbon Dioxide 25 Anion Gap 7 BUN 28 H Creatinine 1.04 Est Cr Clr Drug Dosing 34.7 Est GFR ( Amer) 59.2 Est GFR (Non-Af Amer) 51.1 BUN/Creatinine Ratio 26.9 H Glucose 144 H Calcium 9.3 Diagnostic Findings Hip/Pelvis X-Ray 08/20/23 14:05 XR hip LT 2V w pelvis CLINICAL HISTORY: fall, hip pain, leg shortening TECHNIQUE: 2 views of the left hip and single frontal view of the pelvis were obtained. Comparison: Comparison is made to CT abdomen pelvis 07/11/2023 FINDINGS: There is a fracture of the left femoral neck with overriding of fragments. Soft tissue swelling is seen. IMPRESSION: Left femoral neck fracture with associated soft tissue swelling. ACT 112: Negative or not required by law. Electronically signed by: Francois Johnson M.D. 08/20/2023 3:28 PM Chest X-Ray 08/20/23 14:06 XR chest 1V not portable HISTORY: 77 years-old Female pre-op preoperative exam COMPARISON: Chest CT 07/11/2023 TECHNIQUE: AP view of the chest FINDINGS: Cardiac silhouette is enlarged. Left subclavian pacer/AICD. Large hiatal hernia. No pneumothorax, pleural effusion or overt pulmonary edema. The patient is rotated towards the left. Degenerative changes of the shoulders and spine. IMPRESSION: 1. Cardiomegaly without acute process. 2. Large hiatal hernia. ACT 112: Negative or not required by law. The above report was generated using voice recognition software. It may contain grammatical, syntax or spelling errors. Electronically signed by: Buddy Granados M.D. 08/20/2023 4:04 PM ECG Additional Comments: Code Status & VTE Plan Code Status DNR/DNI-discussed with the patient and her family at bedside Supervising Physician Co-Signing Physician Notes Pt seen and examined by me , care coordinated w/ Nina Granados PA-C, pls refer to her note above for further detail. Pt is a 77 yo F with CLL currently not on therapy (follows w/ Dr. Rajan and therapy was discussed in june - 2 months ago) but pt and her opted out, elected for hospice, hx of dementia, gait disturbance, hypothyroidism, IBS and depression who presents to the hospital after a fall. Imaging reveals a left femoral neck fracture. She does ambulate and uses a walker at baseline. Patient's pain is well controlled presently when she is not moving. Daughter and at the bedside and also provide hx. Pt is currently laying in bed in NAD. Awake and alert, answers simple questions appropriately. Lungs are CTAB, heart sounds regular, + syst. murmur. Abdomen soft, nontender, nondistended, + bowel sounds. She is moving extremities, did not try to move LE d/t known fracture. Surgery discussed in detail at the bedside. Pt and family interested in surgery -then likely rehab and reinstate hospice. MD Annette
--- NOTE | 2023-08-20 17:02 | Orthopedic Consultation ---
Date of Consultation August 20, 2023 Assessment & Plan (1) Left displaced femoral neck fracture: Dr. Chauhan present during the exam and discussed with family findings on imaging as well as prognosis and treatment. Surgical intervention versus nonsurgical management was discussed with patient and family. Surgical option would be a left hip hemiarthroplasty. We discussed risks and benefits including but not limited to bleeding, infection, fracture, implant rejection, wound problems, scarring, neurovascular damage to limb, tendon or ligament damage, dislocation of implant, leg length inequality, wound dehiscence, pulmonary embolism, heart attack, stroke or even . Consent was obtained by patient and spouse. Patient is considering surgical intervention but has some reservations, understandably. Family is agreeable to schedule surgery and if the decision is change they will notify us tomorrow. We discussed post operative care and she will need placement for rehabilitation. Patient will be admitted to hospitalist services She will be n.p.o. at midnight tonight for anticipated surgical procedure tomorrow afternoon. She will be nonweightbearing on the left lower extremity Ancef will be ordered for antibiotic prophylaxis Pain control by medicine Discussed with Dr. Loomis. Internal medicine will be placing her on heparin drip and stopped tonight. Patient and family's questions were answered to their satisfaction and are agreeable with plan. Present on Admission?: Yes Supervising Physician Co-Signing Physician Notes I saw and examined the patient, reviewed her x-rays, conducted the discussion about treatment options and risks and benefits of surgery with the patient and her family members constituting the substantial portion of the visit. Agree with the above note. Patient is on the operating room schedule tomorrow for a left hip cemented hemiarthroplasty. Should she change her mind and decide to pursue nonsurgical management we will respect her wishes and treat her accordingly. History of Present Illness Reason for Consultation: Left femoral neck fracture History of Present Illness Patient is a 77-year-old female who has a history of dementia and chronic lymphocyte leukemia she was seen bedside today with her and daughter present. Orthopedics were asked to consult due to a left femoral neck fracture. Patient's history was obtained from family and ER documentation due to cognitive status. She has the history of being ambulatory and yesterday she had fallen when she was getting out of bed and walking. She was placed back into her bed by her son and in the morning they realized her left leg had been rotated and shortened with complaints of pain which prompted them to bring her to the ER. Family reports prior to the fall she is ambulatory with a walker.. They reports she has a defibrillator/pacemaker. She has been placed on hospice. Per her history she has congestive heart failure, left bundle branch block, Aortic valve stenosis. She has a history of chronic kidney disease hypertension hypothyroidism and hyperlipidemia. She does have a history of sleep apnea and repetitive UTI infections. It is noted that she has a history of a DVT however the history is unsure. and she has a patient reports she is not having any numbness or tingling in the leg or pain anywhere else. She denies hitting her head or any loss of consciousness. Patient and family denies being on any anticoagulation Allergies Allergy/AdvReac Type Severity Reaction Status Date / Time codeine AdvReac Mild GI UPSET Verified 09/23/21 15:25 lisinopril AdvReac Mild COUGH Verified 09/23/21 15:25 Home Medications Medication Instructions Recorded Confirmed Type atorvastatin 20 mg tablet (Lipitor) 20 mg PO HS 06/29/18 08/20/23 History bupropion HCl 100 mg tablet 100 mg PO BID 06/29/18 08/20/23 History acetaminophen 325 mg capsule 325 mg PO QID PRN Pain 09/23/21 08/20/23 History (Tylenol) metoprolol succinate 50 mg 25 mg PO QAM 09/23/21 08/20/23 History tablet,extended release 24 hr baclofen 10 mg PO HS 08/20/23 08/20/23 History paroxetine HCl 10 mg tablet 10 mg PO QAM 08/20/23 08/20/23 History Patient History Medical History (Updated 08/20/23 @ 19:11 by Adria Castillo MD) CAD (coronary artery disease) Presumed prior [place] by nuclear stress test 05/2021 Aortic valve stenosis Moderate with moderate MR per recent ECHO and records LBBB (left bundle branch block) CLL (chronic lymphocytic leukemia) Per records Follows with heme- per 08/19/21 office visit- recent WBC ct 36.47- "There is slowly rise in the WBC count which is expected from this disease. Clinically she has no other symptoms" CKD (chronic kidney disease) stage 3, GFR 30-59 ml/min Per records Esophageal stricture Per records Gastroparesis Per records IBS (irritable bowel syndrome) Per records Stress incontinence GERD (gastroesophageal reflux disease) Hypertension Hypothyroidism Dementia Hyperlipidemia Sleep apnea CPAP per records Acute renal insufficiency CLL (chronic lymphocytic leukemia) Hypothyroidism Depression CLARICE (obstructive sleep apnea) UTI (urinary tract infection) DVT prophylaxis LBBB (left bundle branch block) Acute heart failure with reduced ejection fraction and diastolic dysfunction CHF (congestive heart failure) EF 25-29% per 07/2021 ECHO - reason for procedure Ischemic CM per records DVT (deep venous thrombosis) ? DETAILS/"CAN'T REMEMBER" Surgical History History of esophagogastroduodenoscopy (EGD) History of colonoscopy History of herniorrhaphy History of tooth extraction History of cataract surgery RT/LEFT H/O vascular surgery SURGERY FOR VARICOSE VEINS History of tubal ligation History of hysterectomy Family History Other No family history of adverse response to anesthesia Social History Smoking Status: Never smoker Second Hand Exposure: No; Do You Dip or Chew Tobacco: No; Hx Alcohol Use: No Hx Substance Use: No Preferred Language: Citizen Of [place] Communication Ability: Effective Bow Maker Machine Tender Required: No Beliefs That Will Affect Care: None Current Living Situation: Spouse Feels Safe at Home: Yes Assistive Devices: Denture - Upper, Denture - Lower and Glasses Review of Systems Review of Systems: Unobtainable due to cognitive status Physical Exam Physical Exam: General patient is alert and oriented to person and place. She is able to answer some questions at times when prompted by family she does not appear to be in any distress Integumentary: Skin is normal in color and temperature over the left lower extremity no apparent open areas or ecchymosis at this time no marked edema appreciated Musculoskeletal: Left leg is externally rotated and shortened when compared to the right. She is able to actively dorsiflex and plantarflex ankle. Left hip was not attempted to move. Unable to appreciate dorsal pedis pulse however her posterior tibialis pulse is palpable. Results & Data Vital Signs (Past 12 Hours) Vital Signs Temp Pulse Pulse Resp BP BP Pulse Ox 08/20/23 16:09 63 18 121/62 94 08/20/23 14:03 66 08/20/23 13:57 37 C 66 20 123/64 93 08/20/23 13:57 37 C 66 16 123/64 93 O2 Del Method 08/20/23 16:09 Room Air 08/20/23 14:03 08/20/23 13:57 Room Air 08/20/23 13:57 Room Air Laboratory Results 08/20/23 Range/Units 14:12 WBC 129.54 H* (4.8-10.8) K/ul RBC 3.16 L (4.20-5.40) M/uL Hgb 9.9 L (12.0-16.0) g/dl Hct 30.8 L (37.0-47.0) % MCV 97.5 (80.0-100.0) fL MCH 31.3 (25.0-34.0) pg MCHC 32.1 (32.0-36.0) g/dL RDW Std Deviation 52.3 H (36.4-46.3) fL RDW Coeff of Terri 15.1 H (11.5-14.5) % Plt Count 127 L (130-400) K/uL MPV 10.6 (9.4-12.4) fL Immature Gran % (Auto) 0.2 % Neut % (Auto) 3.3 % Lymph % (Auto) 89.7 % [place] % (Auto) 6.7 % Eos % (Auto) 0.0 % Baso % (Auto) 0.1 % Neut # (Auto) 4.31 (1.40-6.50) K/uL Lymph # (Auto) 116.26 H (1.20-3.40) K/uL [place] # (Auto) 8.63 H (0.11-0.59) K/uL Eos # (Auto) 0.02 (0.00-0.50) K/uL Baso # (Auto) 0.08 (0.00-0.20) K/uL Immature Gran # (Auto) 0.24 H (0.01-0.20) K/uL Absolute Nucleated RBC 0.03 (0.00-0.12) K/uL Blood Smear Review Cancelled Polychromasia 1+ Ovalocytes 1+ Sodium 137 (136-145) mmol/L Potassium 3.8 (3.5-5.1) mmol/L Chloride 105 (98-107) mmol/L Carbon Dioxide 25 (21-32) mmol/L Anion Gap 7 (3-11) BUN 28 H (6-23) mg/dl Creatinine 1.04 (0.6-1.2) mg/dl Est Cr Clr Drug Dosing 34.7 ml/min Est GFR ( Amer) 59.2 ml/min Est GFR (Non-Af Amer) 51.1 ml/min BUN/Creatinine Ratio 26.9 H (10-20) Glucose 144 H (70-99(Fasting)) mg/dl Calcium 9.3 (8.6-10.3) mg/dl Diagnostic Findings Hip/Pelvis X-Ray 08/20/23 14:05 XR hip LT 2V w pelvis CLINICAL HISTORY: fall, hip pain, leg shortening TECHNIQUE: 2 views of the left hip and single frontal view of the pelvis were obtained. Comparison: Comparison is made to CT abdomen pelvis 07/11/2023 FINDINGS: There is a fracture of the left femoral neck with overriding of fragments. Soft tissue swelling is seen. IMPRESSION: Left femoral neck fracture with associated soft tissue swelling. ACT 112: Negative or not required by law. Electronically signed by: Francois Johnson M.D. 08/20/2023 3:28 PM Chest X-Ray 08/20/23 14:06 XR chest 1V not portable HISTORY: 77 years-old Female pre-op preoperative exam COMPARISON: Chest CT 07/11/2023 TECHNIQUE: AP view of the chest FINDINGS: Cardiac silhouette is enlarged. Left subclavian pacer/AICD. Large hiatal hernia. No pneumothorax, pleural effusion or overt pulmonary edema. The patient is rotated towards the left. Degenerative changes of the shoulders and spine. IMPRESSION: 1. Cardiomegaly without acute process. 2. Large hiatal hernia. ACT 112: Negative or not required by law. The above report was generated using voice recognition software. It may contain grammatical, syntax or spelling errors. Electronically signed by: Buddy Granados M.D. 08/20/2023 4:04 PM
[2023-08-20] MEDS ORDERED: LACTATED RINGER'S 1,000 ML IV SCH (17:25)
[2023-08-20] MEDS ORDERED: TRANEXAMIC ACID / 0.7% NACL 1,000 MG/100 ML BAG IV ONE (17:25)
[2023-08-20] MEDS ORDERED: MAGNESIUM HYDROXIDE SUSP 30 ML UDC PO PRN (19:03)
[2023-08-20] MEDS ORDERED: traMADol HCL 50 MG TABLET PO PRN (19:03)
[2023-08-20] MEDS ORDERED: MoRPHine SULFATE 2 MG/ML CARP IV PRN (19:03)
[2023-08-20] MEDS ORDERED: NALOXONE HCL 0.4 MG/1 ML VIAL/CARP IV PRN (19:03)
[2023-08-20] MEDS ORDERED: bisacodyL 10 MG SUPP PR PRN (19:03)
[2023-08-20] MEDS: ATORVASTATIN 20 MG TAB PO SCH (19:40)
[2023-08-20] MEDS: BACLOFEN 10 MG TAB PO SCH (19:40)
[2023-08-20] MEDS: ACETAMINOPHEN 500 MG TAB PO SCH (19:40)
[2023-08-20] MEDS: buPROPion HCl 100 MG TABLET PO SCH (19:40)
[2023-08-20 19:46] LABS: Appearance Urine Turbid (Clear); Bacteria Urine Automated 4+ (Negative); Bilirubin Urine Negative (Negative); Blood Urine 1+ (Negative); Cast Urine Automated 0 /lpf (0-5); Color Urine Dark Yellow; Glucose Urine UA Negative (Negative); Ketones Urine Trace (Negative); Leukocyte Esterase Urine 2+ (Negative); Nitrite Urine Positive (Negative); Protein Urine 1+ (Negative); RBC Urine Automated 0-4 /hpf (0-4); Specific Gravity Urine 1.028 (1.000-1.030); Urobilinogen Urine Negative (Negative); WBC Urine Automated >30 /hpf (0-5); pH Urine 5.5 (4.5-7.5)
[2023-08-20] MEDS ORDERED: HEPARIN SOD 5,000 UNIT/0.5 ML VIAL SQ SCH (21:00)
[2023-08-21] MEDS: ACETAMINOPHEN 500 MG TAB PO SCH ×3 (05:21→22:12)
[2023-08-21] MEDS ORDERED: TRANEXAMIC ACID / 0.7% NACL 1,000 MG/100 ML BAG IV SCH (06:00)
[2023-08-21] MEDS ORDERED: ceFAZolin 2000MG 2,000 MG/15 ML SYR IV SCH ×2 (06:00)
[2023-08-21] MEDS: PARoxetine HCL 10 MG TAB PO SCH (07:30)
[2023-08-21] MEDS: METOPROLOL SUCC 25MG EXT REL TAB PO SCH (07:30)
[2023-08-21] MEDS: buPROPion HCl 100 MG TABLET PO SCH ×3 (07:30→20:08)
--- NOTE | 2023-08-21 09:20 | Orthopedic Progress Note ---
Date of Service August 21, 2023 Assessment & Plan (1) Left displaced femoral neck fracture: Plan: Plan is to perform a left hip cemented hemiarthroplasty later this afternoon. She is n.p.o. currently Due to her history of DVTs we will most likely have her on either Eliquis or Xarelto for prophylaxis Patient will most likely need to be placed for rehab following surgery. Medicine service will serve as the primary provider while in house. Admission and Anticipated Discharge Date Admission Date: August 20, 2023 Subjective This 77-year-old female seen this morning after her initial constant rotation last evening. Patient sustained a left femoral neck fracture after apparently falling on Thursday. She states that yesterday her family took her to the emergency department. Patient is pleasantly confused but understands that her hip is fractured. She would like me to contact her to see if she should have the surgery or not. After speaking with her at [facility], he and his family have agreed for the patient to proceed with surgical intervention to hopefully regain function and ambulatory ability after the surgery. Currently the patient denies chest pain, shortness of breath, chills, sweats, fever, nausea, vomiting or diarrhea. She currently has a urinary catheter in place. Review of Systems Review of Systems: All systems reviewed & are unremarkable except as noted in Subjective Physical Exam Physical Exam: Left lower extremity: Patient has extreme pain with logroll testing. She is able to actively dorsi and plantarflex her foot. She is visibly shortened and externally rotated. She experiences tenderness to palpation in the groin area. She experiences pain with passive extension of her knee to 0 degrees and flexion beyond about 20 degrees. She is neurovascularly intact. Results & Data Vital Signs (Past 12 Hours) Vital Signs Temp Pulse Resp BP Pulse Ox O2 Del Method 08/21/23 07:19 36.8 C 65 16 123/72 93 Room Air Diagnostic Findings Laboratory Results WBC 129.54 K/ul (4.8-10.8) H* 08/20/23 14:12 RBC 3.16 M/uL (4.20-5.40) L 08/20/23 14:12 Hgb 9.9 g/dl (12.0-16.0) L 08/20/23 14:12 Hct 30.8 % (37.0-47.0) L 08/20/23 14:12 MCV 97.5 fL (80.0-100.0) 08/20/23 14:12 MCH 31.3 pg (25.0-34.0) 08/20/23 14:12 MCHC 32.1 g/dL (32.0-36.0) 08/20/23 14:12 RDW Std Deviation 52.3 fL (36.4-46.3) H 08/20/23 14:12 RDW Coeff of Terri 15.1 % (11.5-14.5) H 08/20/23 14:12 Plt Count 127 K/uL (130-400) L 08/20/23 14:12 MPV 10.6 fL (9.4-12.4) 08/20/23 14:12 Immature Gran % (Auto) 0.2 % 08/20/23 14:12 Neut % (Auto) 3.3 % 08/20/23 14:12 Lymph % (Auto) 89.7 % 08/20/23 14:12 [place] % (Auto) 6.7 % 08/20/23 14:12 Eos % (Auto) 0.0 % 08/20/23 14:12 Baso % (Auto) 0.1 % 08/20/23 14:12 Neut # (Auto) 4.31 K/uL (1.40-6.50) 08/20/23 14:12 Lymph # (Auto) 116.26 K/uL (1.20-3.40) H 08/20/23 14:12 Winn # (Auto) 8.63 K/uL (0.11-0.59) H 08/20/23 14:12 Eos # (Auto) 0.02 K/uL (0.00-0.50) 08/20/23 14:12 Baso # (Auto) 0.08 K/uL (0.00-0.20) 08/20/23 14:12 Immature Gran # (Auto) 0.24 K/uL (0.01-0.20) H 08/20/23 14:12 Absolute Nucleated RBC 0.03 K/uL (0.00-0.12) 08/20/23 14:12 Blood Smear Review Cancelled 08/20/23 14:12 Polychromasia 1+ 08/20/23 14:12 Ovalocytes 1+ 08/20/23 14:12 Sodium 137 mmol/L (136-145) 08/20/23 14:12 Potassium 3.8 mmol/L (3.5-5.1) 08/20/23 14:12 Chloride 105 mmol/L (98-107) 08/20/23 14:12 Carbon Dioxide 25 mmol/L (21-32) 08/20/23 14:12 Anion Gap 7 (3-11) 08/20/23 14:12 BUN 28 mg/dl (6-23) H 08/20/23 14:12 Creatinine 1.04 mg/dl (0.6-1.2) 08/20/23 14:12 Est Cr Clr Drug Dosing 34.7 ml/min 08/20/23 14:12 Est GFR ( Amer) 59.2 ml/min 08/20/23 14:12 Est GFR (Non-Af Amer) 51.1 ml/min 08/20/23 14:12 BUN/Creatinine Ratio 26.9 (10-20) H 08/20/23 14:12 Glucose 144 mg/dl (70-99(Fasting)) H 08/20/23 14:12 Calcium 9.3 mg/dl (8.6-10.3) 08/20/23 14:12 Urine Color Dark Yellow 08/20/23 19:25 Urine Appearance Turbid (Clear) A 08/20/23 19:25 Urine pH 5.5 (4.5-7.5) 08/20/23 19:25 Ur Specific [place] 1.028 (1.000-1.030) 08/20/23 19:25 Urine Protein 1+ (Negative) H 08/20/23 19:25 Urine Glucose (UA) Negative (Negative) 08/20/23 19:25 Urine Ketones Trace (Negative) H 08/20/23 19:25 Urine Blood 1+ (Negative) H 08/20/23 19:25 Urine Nitrite Positive (Negative) A 08/20/23 19:25 Urine Bilirubin Negative (Negative) 08/20/23 19:25 Urine Urobilinogen Negative (Negative) 08/20/23 19:25 Ur Leukocyte Esterase 2+ (Negative) H 08/20/23 19:25 Urine WBC (Auto) >30 /hpf (0-5) H 11/09/23 19:25 Urine RBC (Auto) 0-4 /hpf (0-4) 08/20/23 19:25 U Hyaline Cast (Auto) 0 /lpf (0-5) 08/20/23 19:25 U Epithel Cells (Auto) 5-10 /lpf (0-5) H 08/20/23 19:25 Urine Bacteria (Auto) 4+ (Negative) H 08/20/23 19:25 Blood Type A Positive 08/20/23 19:35 Antibody Screen NEGATIVE 08/20/23 19:35 Impressions Hip/Pelvis X-Ray 08/20/23 14:05 XR hip LT 2V w pelvis CLINICAL HISTORY: fall, hip pain, leg shortening TECHNIQUE: 2 views of the left hip and single frontal view of the pelvis were obtained. Comparison: Comparison is made to CT abdomen pelvis 07/11/2023 FINDINGS: There is a fracture of the left femoral neck with overriding of fragments. Soft tissue swelling is seen. IMPRESSION: Left femoral neck fracture with associated soft tissue swelling. ACT 112: Negative or not required by law. Electronically signed by: Francois Johnson M.D. 08/20/2023 3:28 PM Chest X-Ray 08/20/23 14:06 XR chest 1V not portable HISTORY: 77 years-old Female pre-op preoperative exam COMPARISON: Chest CT 07/11/2023 TECHNIQUE: AP view of the chest FINDINGS: Cardiac silhouette is enlarged. Left subclavian pacer/AICD. Large hiatal hernia. No pneumothorax, pleural effusion or overt pulmonary edema. The patient is rotated towards the left. Degenerative changes of the shoulders and spine. IMPRESSION: 1. Cardiomegaly without acute process. 2. Large hiatal hernia. ACT 112: Negative or not required by law. The above report was generated using voice recognition software. It may contain grammatical, syntax or spelling errors. Electronically signed by: Buddy Granados M.D. 08/20/2023 4:04 PM
[2023-08-21] MEDS ORDERED: ROPIVACAINE 0.5% HCL/PF 150 MG, BUPIVACAINE 0.75% MPF 20 ML, EPINEPHrine 0.15 MG, Ketor... INFIL SCH (09:35)
[2023-08-21] MEDS ORDERED: cefTRIAXone SODIUM 2,000 MG in DEXTROSE 5 % MINI-B 50 ML IV SCH (11:30)
--- NOTE | 2023-08-21 12:38 | Anesthesiology Consultation ---
Date of Service August 21, 2023 Assessment & Plan (1) Encounter for pre-operative examination: Chart Review Chart Review: Acceptable Risk for Surgery History Surgery Operation Date: 08/21/23 14:50 Proposed Procedures p Left Femoral Neck Hemiarthroplasty Cemented - Juan Chauhan MD Height/Weight Height: 5 ft 2 in Weight: 58.8 kg Allergies Allergy/AdvReac Type Severity Reaction Status Date / Time codeine AdvReac Mild GI UPSET Verified 09/23/21 15:25 lisinopril AdvReac Mild COUGH Verified 09/23/21 15:25 Medications Home Medications Medication Instructions Recorded Confirmed Last Taken atorvastatin 20 mg tablet (Lipitor) 20 mg PO HS 06/29/18 08/20/23 08/19/23 bupropion HCl 100 mg tablet 100 mg PO BID 06/29/18 08/20/23 08/20/23 acetaminophen 325 mg capsule 325 mg PO QID PRN Pain 09/23/21 08/20/23 Unknown (Tylenol) metoprolol succinate 50 mg 25 mg PO QAM 09/23/21 08/20/23 08/20/23 tablet,extended release 24 hr baclofen 10 mg PO HS 08/20/23 08/20/23 08/19/23 paroxetine HCl 10 mg tablet 10 mg PO QAM 08/20/23 08/20/23 08/19/23 Active Medications Generic Name Dose Route Start Last Admin Trade Name Freq PRN Reason Stop Dose Admin Acetaminophen 1,000 mg 08/20/23 19:30 08/21/23 05:21 Acetaminophen 500 Mg Tab PO 09/19/23 19:29 1,000 mg Q8 EJ Administration Atorvastatin Calcium 20 mg 08/20/23 21:00 08/20/23 19:40 Atorvastatin 20 Mg Tab PO 09/19/23 20:59 20 mg HS EJ Administration Baclofen 10 mg 08/20/23 21:00 08/20/23 19:40 Baclofen 10 Mg Tab PO 09/19/23 20:59 10 mg HS EJ Administration Bupropion HCl 100 mg 08/20/23 21:00 08/21/23 07:38 Bupropion Hcl 100 Mg Tablet PO 09/19/23 20:59 Not Given BID EJ Ceftriaxone Sodium 2,000 mg/ 50 mls @ 100 mls/hr 08/21/23 11:30 08/21/23 12:10 Dextrose IV 08/26/23 11:29 100 mls/hr Q24H EJ Administration Protocol Metoprolol Succinate 25 mg 08/21/23 09:00 08/21/23 07:30 Metoprolol Succ 25mg Ext Rel Tab PO 09/20/23 08:59 25 mg QAM EJ Administration Paroxetine HCl 10 mg 08/21/23 09:00 08/21/23 07:30 Paroxetine Hcl 10 Mg Tab PO 09/20/23 08:59 10 mg QAM EJ Administration Past Medical History Medical History (Updated 08/21/23 @ 12:38 by Silvino Schwartz MD) Hx of cardiac pacemaker AICD CAD (coronary artery disease) Presumed prior [place] by nuclear stress test 05/2021 Aortic valve stenosis Moderate with moderate MR per recent ECHO and records LBBB (left bundle branch block) CLL (chronic lymphocytic leukemia) Per records Follows with heme- per 08/19/21 office visit- recent WBC ct 36.47- "There is slowly rise in the WBC count which is expected from this disease. Clinically she has no other symptoms" CKD (chronic kidney disease) stage 3, GFR 30-59 ml/min Per records Esophageal stricture Per records Gastroparesis Per records IBS (irritable bowel syndrome) Per records Stress incontinence GERD (gastroesophageal reflux disease) Hypertension Hypothyroidism Dementia Hyperlipidemia Sleep apnea CPAP per records Acute renal insufficiency CLL (chronic lymphocytic leukemia) Hypothyroidism Depression CLARICE (obstructive sleep apnea) UTI (urinary tract infection) DVT prophylaxis LBBB (left bundle branch block) Acute heart failure with reduced ejection fraction and diastolic dysfunction CHF (congestive heart failure) EF 25-29% per 07/2021 ECHO - Ischemic CM per records DVT (deep venous thrombosis) ? DETAILS/"CAN'T REMEMBER" Past Family History Family History Other No family history of adverse response to anesthesia Past Surgical History Surgical History (Updated 08/21/23 @ 12:37 by Silvino Schwartz MD) History of automatic internal cardiac defibrillator (AICD) History of esophagogastroduodenoscopy (EGD) History of colonoscopy History of herniorrhaphy History of tooth extraction History of cataract surgery RT/LEFT H/O vascular surgery SURGERY FOR VARICOSE VEINS History of tubal ligation History of hysterectomy Social History Smoking Status: Never smoker Do You Dip or Chew Tobacco: No Hx Alcohol Use: No Hx Substance Use: No substance use type: does not use Physical Exam Vital Signs Last Vital Signs Temp 36.8 C 08/21/23 07:19 Pulse 65 08/21/23 07:19 Resp 16 08/21/23 07:19 BP 123/72 08/21/23 07:19 Pulse Ox 93 08/21/23 07:19 O2 Del Method Room Air 08/21/23 07:19 Testing Laboratory Results 08/20/23 14:12 08/20/23 14:12 Urine Color Dark Yellow 08/20/23 19:25 Urine Appearance Turbid (Clear) A 08/20/23 19:25 Urine pH 5.5 (4.5-7.5) 08/20/23 19:25 Ur Specific [place] 1.028 (1.000-1.030) 08/20/23 19:25 Urine Protein 1+ (Negative) H 08/20/23 19:25 Urine Glucose (UA) Negative (Negative) 08/20/23 19:25 Urine Ketones Trace (Negative) H 08/20/23 19:25 Urine Nitrite Positive (Negative) A 08/20/23 19:25 Ur Leukocyte Esterase 2+ (Negative) H 08/20/23 19:25 Urine WBC (Auto) >30 /hpf (0-5) H 08/20/23 19:25 Urine RBC (Auto) 0-4 /hpf (0-4) 08/20/23 19:25 U Hyaline Cast (Auto) 0 /lpf (0-5) 08/20/23 19:25 U Epithel Cells (Auto) 5-10 /lpf (0-5) H 08/20/23 19:25 Urine Bacteria (Auto) 4+ (Negative) H 08/20/23 19:25 Blood Type A Positive 08/20/23 19:35 Antibody Screen NEGATIVE 08/20/23 19:35 08/20/23 19:25 Urine Culture - Preliminary Urine,Clean Catch Gram negative bacilli Electrocardiogram Date: 08/20/23 paced with rate of 68 Echocardiogram Date: 08/08/21 EF: 25-30% LV Function: dysfunctional (global hypokinesis) Valvular Disease: + (likely moderate) and + MR (moderate) moderate pulmonary htn medicine note describes an echo done in November of 2022 with an EF of 52%, mild to mod but I do not have access to this report
--- NOTE | 2023-08-21 12:58 | Electrocardiogram Report ---
Test Reason : Blood Pressure : / mmHG Vent. Rate : 068 BPM Atrial Rate : 068 BPM P-R Int : 140 ms QRS Dur : 128 ms QT Int : 456 ms P-R-T Axes : 031 007 021 degrees QTc Int : 484 ms Atrial-sensed ventricular-paced rhythm Abnormal ECG When compared with ECG of 11-JUL-2023 20:38, Vent. rate has decreased BY 9 BPM Confirmed by Tom Hanson ([id number]) on 08/21/2023 12:57:40 PM Referred By: REFERRED SELF Confirmed By:Tom Hanson
[2023-08-21] MEDS ORDERED: ORTHO JOINT ANESTHETIC ONE (14:29)
[2023-08-21] MEDS ORDERED: LACTATED RINGER'S 1,000 ML IV SCH (15:00)
[2023-08-21] MEDS ORDERED: fentaNYL citrate PF 100 MCG/2 ML VIAL ONE (15:00)
[2023-08-21] MEDS ORDERED: ePHEDrine sulfate 50 MG/ML AMP IV PRN (15:19)
[2023-08-21] MEDS ORDERED: fentaNYL citrate PF 100 MCG/2 ML VIAL IV PRN (15:19)
[2023-08-21] MEDS ORDERED: ONDANSETRON INJ 2 MG/ML 2 ML VIAL IV PRN ×2 (15:19→18:40)
[2023-08-21] MEDS ORDERED: ATROPINE SULFATE 0.1 MG/ML 10ML SYR IV PRN (15:19)
--- NOTE | 2023-08-21 15:24 | Hospitalist Progress Note ---
Date of Service August 21, 2023 Assessment & Plan (1) Left displaced femoral neck fracture: Plan: Admitted to [facility] Orthopedics consulted, Dr. Chauhan planning for left hip cemented hemiarthroplasty later this afternoon Hernández in place, pre-op abx ordered, IVF, pain control Per ortho for pain control, wound care, anticoagulation and activities post- operatively (2) UTI (urinary tract infection): Plan: UA grossly abnormal, urine cx pending Started on empiric Rocephin, hernández in place for upcoming surgery (3) CLL (chronic lymphocytic leukemia): Plan: Elevated WBC and lymphocytic count secondary to CLL, Bchronic lymphocytic leukemia, poor prognostic markers, follows with Dr. Rajan with oncology as outpatient Patient is being treated symptomatically, no current chemotherapy, elected hospice, family is electing to proceed with surgical procedure for the above CM to assist with discharge planning, reinitiation of hospice following discharge (4) CAD (coronary artery disease): Plan: Hx of AICD placement in 2021 Last Echo from Nov 2022 reviewed showing LVEF of 52%, normal, mild to moderate aortic stenosis, mild MR and TR. Continue metoprolol succinate 25 mg daily (5) IBS (irritable bowel syndrome): Plan: Chronically loose stools intermittently, probiotic added (6) CKD (chronic kidney disease) stage 3, GFR 30-59 ml/min: Plan: Cr. and BUN appear to be at baseline Chronic, stable (7) Hypothyroidism: Plan: Pt is not longer on levothyroxine due to hospice Chronic, stable DVT ppx: teds, scds, post-op anticoag per surgical service CODE: DNR/DNI Dispo:Admitted to [facility] for surgery, then likely rehab and reinstate hospice. Patient seen in collaboration with Dr. Faria. Please see addendum. Admission and Anticipated Discharge Date Admission Date: August 20, 2023 Supervising Physician Co-Signing Physician Notes Patient seen and examined independently. Discussed with the provider. Patient to undergo surgery for hip fracture today. Monitor postop, PT OT. Subjective Seen and examined in [id number]. Denies any pain currently. Alert to person. No F/C, CP, SOB, N/V, abd pain, dysuria, diarrhea or constipation. Review of Systems Review of Systems: At least ten systems reviewed and negative except as noted in the HPI. Physical Exam Physical Exam: Gen: WD/WN, NAD, resting in bed comfortably, A&Ox 1-2 HEENT: Normocephalic, atraumatic, conjunctivae moist, sclerae anicteric, mucous membranes moist Lung: Clear to Auscultation bilaterally, no wheezes/rales/rhonchi Heart: Regular rate, regular rhythm, + systolic murmur Abdomen: Soft, NT, ND +BS x 4 : Hernández Extremities:LLE shortened externally rotated. Some TTP of medial thigh radiating to groin. Distally NVI Skin: Warm, no rash Results & Data Results & Data Vital Signs (Past 12 Hours) Vital Signs Temp Pulse Resp BP Pulse Ox O2 Del Method 08/21/23 14:26 36.3 C L 66 18 126/57 L 95 Room Air 08/21/23 07:19 36.8 C 65 16 123/72 93 Room Air Laboratory Results Urine 08/20/23 Range/Units 19:25 Urine Color Dark Yellow Urine Appearance Turbid A (Clear) Urine pH 5.5 (4.5-7.5) Ur Specific Lyles 1.028 (1.000-1.030) Urine Protein 1+ H (Negative) Urine Glucose (UA) Negative (Negative)
[2023-08-21] MEDS ORDERED: PHENYLEPHRINE 100MCG/ML 10ML SYR IV ONE (15:50)
[2023-08-21] MEDS ORDERED: PROPOFOL IV EMULSION 10 MG/ML 20 ML VIAL IV ONE ×2 (15:50→17:13)
[2023-08-21] MEDS ORDERED: PHENYLEPHRINE HCL 10 MG/ML VIAL ONE (15:50)
[2023-08-21] MEDS ORDERED: LIDOCAINE 2% 2 ML VIAL/AMP(20MG/ML) INFIL ONE (15:50)
--- NOTE | 2023-08-21 17:26 | Operative Report ---
Post Operative Report Pre & Post Diagnosis Operation Date: 08/21/23 14:50 Preoperative diagnosis: Displaced left femoral neck fracture Postoperative diagnosis: displaced Left femoral neck fracture I identified the patient and participated in the time-out.: Yes Procedure Operation Date: 08/21/23 14:50 left hip cemented hemiarthroplasty Surgeon Juan Chauhan MD Traffic Checker Spencer Weaver MD Estimated Blood Loss 100 Findings Consistent with Post-Op Diagnosis Specimens left femoral head Anesthesia Type Spinal MAC Complications none Disposition Disposition: Recovery Room Indications 77-year-old female with medical history significant for leukemia on hospice who fell while at home yesterday. I saw her in the emergency room. She was noted to have a shortened and externally rotated left lower extremity. X-rays demonstrated a displaced left femoral neck fracture. In discussions with the family they are uncertain about how long she has to live, however she has really minimal dementia and does ambulate at baseline. After reviewing the treatment options, risks and benefits of surgery, expected outcomes with surgery, they elected to proceed. All questions were answered. Informed consent was signed. Description of Procedure Patient was identified in the preoperative holding area where her cervix site was marked. She is brought back to the main operating room where anesthesia placed a spinal on the hospital bed. She was then carefully moved onto the operating room table. She was carefully moved into the lateral decubitus position. Axillary roll was placed. All bony promises were padded. Periopera tive antibiotics were administered. She was prepped and draped in the usual sterile fashion. Prior to incision a multidisciplinary timeout was called. All the room were in agreement. I began by making a 10 cm long incision for a posterior approach to the hip. I dissected through subcutaneous tissues to the level of the fascia. The fascia was incised in line with the incision. Charnley bow was placed. Trochanteric bursa was excised. The piriformis and short external rotators were dissected off the posterior aspect of the capsule. A box cut was made in the capsule taking great care to preserve the labrum. The inferior capsule was released off the inferior femoral neck and the extremity was internally rotated to expose the fractured femoral neck. The fracture was quite low on the neck only about 6 to 7 mm above the lesser trochanter. A saw was used to freshen up the femoral neck. Once this was complete we exposed the acetabulum with the fractured femoral head. The femoral head was removed without difficulty. The acetabulum was inspected and her cartilage was in good condition. There were no tears in the labrum. We therefore elected to proceed with a hemiarthroplasty. Next, we reexposed the femur. Box osteotome was used to remove the lateral neck. Intramedullary guide was used followed by the lateralizing reamer. I then sequentially broached her up to a size 3 Hudson cemented stem. We trialed with a +5 head. Her leg lengths were little short and so we atraumatically redislocated her and upsized to a +8.5 head. Now her leg lengths were symmetric. She had a normal shuck test. She was stable in extension and external rotation. Stable in the sleeper position. At 90 degrees hip flexion she could be internally rotated 50 degrees prior to levering out of the acetabulum. I was very happy with the stability exam. Therefore the femoral trial components were removed. The femoral canal was irrigated and dried. A cement restrictor was placed at the appropriate distance from the medial calcar. Cement was mixed on the back table. Once the cement was ready we backfilled the femoral canal starting distally using the cement gun. Once the canal was full I pressurized the cement with my thumbs. the femoral component was then opened up and carefully inserted into the femoral canal. This was situated approximately 15-20 degrees of anteversion, and held there until the cement completely cured. Excess cement was removed. Once the cement was completely hardened we then opened up the bipolar components and impacted these gently onto the trunnion. The hip was atraumatically reduced. The wound was then irrigated out with copious amounts of dilute Betadine solution. this was then irrigated out with normal saline. We then closed the piriformis and short external rotators with the capsule and one flap with #2 Vicryl sutures through bone tunnel in the posterior aspect of the greater trochanter and the proximal limb through the abductor tendon. These were tied down over the bone, Giving us an excellent repair. The Charnley bow was then removed. The fascia was run with a looped #1 PDS. #1 PDS was used for the subcutaneous tissues. 2-0 Vicryl's were used for the deep dermal tissue. A Zipline and Dermabond were used for the skin. Patient was then carefully rolled supine, and transferred to hospital bed. She was then transferred to the recovery room in stable condition. postoperative course: Patient will be readmitted to the internal medicine service. She will be weightbearing as tolerated with posterior hip precautions. Abduction pillow to be worn while she is in bed. Aspirin for DVT prophylaxis. I attest to the content of the Intraoperative Record and any orders documented therein. Any exceptions are noted below.
--- NOTE | 2023-08-21 18:03 | Operative Report ---
Post Operative Report Pre & Post Diagnosis Operation Date: 08/21/23 14:50 Pre-Op Diagnosis: LEFT FEMORAL NECK FRACTURE Post-Op Diagnosis: LEFT FEMORAL NECK FRACTURE I identified the patient and participated in the time-out.: Yes Procedure Operation Date: 08/21/23 14:50 Actual Procedures p Left Femoral Neck Hemiarthroplasty Cemented(Left) - Juan Chauhan MD Surgeon Juan Chauhan MD Senior Sustainability Consultant Spencer Weaver MD Estimated Blood Loss 100 Findings Consistent with Post-Op Diagnosis Same as postoperative diagnosis. Specimens None Description of Procedure Please see detailed operative note. I attest to the content of the Intraoperative Record and any orders documented therein. Any exceptions are noted below.
[2023-08-21] MEDS ORDERED: diphenhydrAMINE Capsule 25 MG CAP PO PRN (18:40)
[2023-08-21] MEDS ORDERED: METOCLOPRAMIDE HCL INJ 5 MG/ML 2 ML VIAL IV PRN (18:40)
[2023-08-21] MEDS ORDERED: HYDROmorphone INJ 1 MG/ML SYRINGE IV PRN (18:40)
[2023-08-21] MEDS ORDERED: bisacodyL 10 MG SUPP PR PRN (18:40)
[2023-08-21] MEDS ORDERED: ALUMINUM/MAGNESIUM SUSP 30 ML UDC PO PRN (18:40)
[2023-08-21] MEDS ORDERED: NALOXONE HCL 0.4 MG/1 ML VIAL/CARP IV PRN (18:40)
[2023-08-21] MEDS ORDERED: MAGNESIUM HYDROXIDE SUSP 30 ML UDC PO PRN (18:40)
--- NOTE | 2023-08-21 18:47 | Anesthesiology Progress Note ---
Date of Service August 21, 2023 Anesthesia Post Procedure Vital Signs Vital Signs: Temp Pulse Pulse Pulse Resp BP BP 08/21/23 18:40 37.3 C 61 18 109/66 08/21/23 18:25 36.6 C 61 17 102/51 L 08/21/23 18:15 60 17 108/57 L 08/21/23 18:05 60 19 112/52 L 08/21/23 17:56 36.9 C 62 12 108/54 L 08/21/23 14:26 36.3 C L 66 18 126/57 L 08/21/23 07:19 36.8 C 65 16 123/72 08/20/23 19:06 36.7 C 64 16 119/66 Pulse Ox O2 Del Method O2 Flow Rate 08/21/23 18:40 94 Room Air 08/21/23 18:25 95 Room Air 08/21/23 18:15 100 Oxymask 2 08/21/23 18:05 100 Oxymask 4 08/21/23 17:56 100 Oxymask 6 08/21/23 14:26 95 Room Air 08/21/23 07:19 93 Room Air 08/20/23 19:06 94 Room Air Pain Intensity Left Leg: Pain Intensity: 8 Transfer of Care Handoff Completed per policy Notes Mental Status: alert / awake / arousable Patient Amnestic to Procedure: Yes Nausea / Vomiting: adequately controlled Pain: adequately controlled Airway Patency, RR, SpO2: stable & adequate BP & HR: stable & adequate Hydration State: stable & adequate Neuraxial Anesthesia: was administered and sensory block is resolving Anesthetic Complications: no major complications apparent and Pt Satisfied with anesthetic care
--- NOTE | 2023-08-21 18:58 | XRay Report ---
SINGLE VIEW PELVIS; SINGLE VIEW LEFT HIP CLINICAL HISTORY: Postoperative examination. FINDINGS: An AP portable view of the hips and pelvis with a crosstable lateral portable view of the l eft hip are compared to study dated 08/20/2023. A left hip arthroplasty is in near-anatomic alignment. No acute fracture is identified. Soft tissue swelling and subcutaneous gas overlying the left hip a re expected postsurgical changes. [id number] arthritic change and joint space narrowing is seen in the right hip. A Kimbrough catheter is in place. IMPRESSION: Expected postoperative findings status post left hip arthroplasty. No acute fracture is s een. ACT 112: Negative or not required by law. Electronically signed by: Baljeet Martini M.D. 08/21/2023 6:57 PM
[2023-08-21] MEDS: SODIUM CHLORIDE 0.9% 1,000 ML IV SCH ×2 (19:31→22:59)
[2023-08-21] MEDS: KETOROLAC TROMETHAMINE 15 MG/ML VIAL IV SCH (19:31)
[2023-08-21] MEDS ORDERED: SODIUM CHLORIDE 0.9% 500 ML IV SCH ×2 (20:00→22:00)
[2023-08-21] MEDS: ATORVASTATIN 20 MG TAB PO SCH (20:08)
[2023-08-21] MEDS: SENNA 8.6 MG TAB PO SCH (22:11)
[2023-08-21] MEDS: DOCUSATE SODIUM 100 MG CAP PO SCH (22:11)
[2023-08-21] MEDS: BACLOFEN 10 MG TAB PO SCH (22:12)
[2023-08-22] MEDS: KETOROLAC TROMETHAMINE 15 MG/ML VIAL IV SCH ×2 (01:02→07:53)
[2023-08-22] MEDS: ceFAZolin 1000MG 1,000 MG/7.5 ML SYR IV SCH ×2 (01:02→07:52)
[2023-08-22] MEDS ORDERED: SODIUM CHLORIDE 0.9% 500 ML IV SCH (03:30)
[2023-08-22] MEDS: ACETAMINOPHEN 500 MG TAB PO SCH ×3 (05:02→19:58)
[2023-08-22] MEDS: PARoxetine HCL 10 MG TAB PO SCH (07:53)
[2023-08-22] MEDS: buPROPion HCl 100 MG TABLET PO SCH ×2 (07:53→19:59)
[2023-08-22] MEDS: DOCUSATE SODIUM 100 MG CAP PO SCH ×2 (07:53→20:00)
[2023-08-22] MEDS: ASCORBIC ACID 500 MG TAB PO SCH ×2 (07:53→17:03)
[2023-08-22] MEDS: FERROUS GLUCONATE 324 MG TAB PO SCH ×2 (07:53→17:04)
[2023-08-22] MEDS: MULTIVITAMIN TAB PO SCH (07:53)
[2023-08-22] MEDS: ASPIRIN 81 MG ECTAB PO SCH ×2 (07:54→19:59)
[2023-08-22 08:50] LABS: BUN Creatinine Ratio 22.9 (10-20); Calcium 8.5 mg/dl (8.6-10.3); Creatinine Clr Calc Pharmacy 37.6 ml/min; Est GFR (African American) 65.2 ml/min; Est GFR (Non-African American) 56.2 ml/min; Potassium 4.1 mmol/L (3.5-5.1)
[2023-08-22 08:55] LABS: Hematocrit (blood only) 23.1 % (37.0-47.0); Hemoglobin 7.3 g/dl (12.0-16.0); Mean Corpuscular Hemoglobin 31.9 pg (25.0-34.0); Mean Corpuscular Hgb Conc 31.6 g/dL (32.0-36.0); Mean Corpuscular Volume 100.9 fL (80.0-100.0); Mean Platelet Volume 10.6 fL (9.4-12.4); Platelet Count 101 K/uL (130-400); RDW Coefficient of Variation 15.6 % (11.5-14.5); RDW Standard Deviation 56.3 fL (36.4-46.3); Red Blood Count 2.29 M/uL (4.20-5.40); White Blood Count 63.71 K/ul (4.8-10.8)
[2023-08-22] MEDS: METOPROLOL SUCC 25MG EXT REL TAB PO SCH (08:58)
[2023-08-22 10:02] LABS: Basophils # (auto) 0.03 K/uL (0.00-0.20); Eosinophils # (auto) 0.02 K/uL (0.00-0.50); Immature Granulocytes # (auto) 0.08 K/uL (0.01-0.20); Immature Granulocytes % (auto) 0.1 %; Lymphocytes # (auto) 57.36 K/uL (1.20-3.40); Monocytes # (auto) 3.08 K/uL (0.11-0.59); Monocytes % (auto) 4.8 %; Neutrophils # (auto) 3.14 K/uL (1.40-6.50); Neutrophils % (auto) 5.1 %; RBC Morphology Unremarkable
--- NOTE | 2023-08-22 12:10 | Hospitalist Progress Note ---
Date of Service August 22, 2023 Assessment & Plan (1) Left displaced femoral neck fracture: Plan: Patient presented to the ED with mechanical fall. Imaging revealed left femoral neck fracture Status post left femoral hemiarthroplasty on August 21, 2023 Continue pain control with Tylenol, oxycodone and Dilaudid PT OT evaluation Aspirin twice daily for DVT prophylaxis Continue Kimbrough for now; trial of void tomorrow as patient is more ambulatory. (2) UTI (urinary tract infection): Plan: UA grossly abnormal, Urine culture growing E. coli; pansensitive Continue Rocephin for next 3 days Blood culture pending (3) CLL (chronic lymphocytic leukemia): Plan: Elevated WBC and lymphocytic count secondary to CLL, Bchronic lymphocytic leukemia, poor prognostic markers, follows with Dr. Rajan with oncology as outpatient Patient is being treated symptomatically, no current chemotherapy, elected hospice, CM to assist with discharge planning, reinitiation of hospice following discharge (4) CAD (coronary artery disease): Plan: Hx of AICD placement in 2021 Last Echo from Nov 2022 reviewed showing LVEF of 52%, normal, mild to moderate aortic stenosis, mild MR and TR. Continue metoprolol succinate 25 mg daily (5) IBS (irritable bowel syndrome): Plan: Chronically loose stools intermittently, probiotic added (6) CKD (chronic kidney disease) stage 3, GFR 30-59 ml/min: Plan: Cr. and BUN appear to be at baseline Chronic, stable (7) Hypothyroidism: Plan: Pt is not longer on levothyroxine due to hospice Chronic, stable DVT ppx: Aspirin twice daily CODE: DNR/DNI Dispo:PT OT eval today; transition over to rehab versus NOE home over the course of next few days. Please note the above document was generated using voice recognition software. It may contain grammatical, syntax or spelling errors. Any formal questions or concerns about the content, text or information contained within the body of this dictation should be directly addressed to the provider for clarification Admission and Anticipated Discharge Date Admission Date: August 20, 2023 Subjective Patient seen and examined. She is lying on the bed comfortably. Denies any ongoing pain on the operated hip. No overnight events. Review of Systems Review of Systems: All systems reviewed & are unremarkable except as noted in Subjective Physical Exam Physical Exam: Gen: WD/WN, NAD, resting in bed comfortably, A&Ox 2 HEENT: Normocephalic, atraumatic, conjunctivae moist, sclerae anicteric, mucous membranes moist Lung: Clear to Auscultation bilaterally, no wheezes/rales/rhonchi Heart: Regular rate, regular rhythm, + systolic murmur Abdomen: Soft, NT, ND +BS x 4 : Kimbrough Kimbrough in place draining clear urine Extremities: Left hip with dressing in place; clean dry and intact. Skin: Warm, no rash Results & Data Results & Data Vital Signs (Past 12 Hours) Vital Signs Temp Pulse Resp BP BP Pulse Ox O2 Del Method 08/22/23 08:58 99/66 L 08/22/23 07:06 36.8 C 62 16 87/52 L 95 Room Air 08/22/23 04:18 95/58 L 08/22/23 03:03 36.8 C 65 14 79/50 L 76/47 L 96 Room Air Laboratory Results Laboratory Results WBC 63.71 K/ul (4.8-10.8) H* 08/22/23 08:05 RBC 2.29 M/uL (4.20-5.40) L 08/22/23 08:05 Hgb 7.3 g/dl (12.0-16.0) L 08/22/23 08:05 Hct 23.1 % (37.0-47.0) L 08/22/23 08:05 MCV 100.9 fL (80.0-100.0) H 08/22/23 08:05 MCH 31.9 pg (25.0-34.0) 08/22/23 08:05 MCHC 31.6 g/dL (32.0-36.0) L 08/22/23 08:05 RDW Std Deviation 56.3 fL (36.4-46.3) H 08/22/23 08:05 RDW Coeff of Terri 15.6 % (11.5-14.5) H 08/22/23 08:05 Plt Count 101 K/uL (130-400) L 08/22/23 08:05 MPV 10.6 fL (9.4-12.4) 08/22/23 08:05 Immature Gran % (Auto) 0.1 % 08/22/23 08:05 Neut % (Auto) 5.1 % 08/22/23 08:05 Lymph % (Auto) 90.0 % 08/22/23 08:05 Preble % (Auto) 4.8 % 08/22/23 08:05 Eos % (Auto) 0.0 % 08/22/23 08:05 Baso % (Auto) 0.0 % 08/22/23 08:05 Neut # (Auto) 3.14 K/uL (1.40-6.50) 08/22/23 08:05 Lymph # (Auto) 57.36 K/uL (1.20-3.40) H 08/22/23 08:05 Preble # (Auto) 3.08 K/uL (0.11-0.59) H 08/22/23 08:05 Eos # (Auto) 0.02 K/uL (0.00-0.50) 08/22/23 08:05 Baso # (Auto) 0.03 K/uL (0.00-0.20) 08/22/23 08:05 Immature Gran # (Auto) 0.08 K/uL (0.01-0.20) 08/22/23 08:05 Absolute Nucleated RBC 0.03 K/uL (0.00-0.12) 08/20/23 14:12 Blood Smear Review Cancelled 08/20/23 14:12 RBC Morphology Unremarkable 08/22/23 08:05 Polychromasia 1+ 08/20/23 14:12 Ovalocytes 1+ 08/20/23 14:12 Sodium 139 mmol/L (136-145) 08/22/23 08:05 Potassium 4.1 mmol/L (3.5-5.1) 08/22/23 08:05 Chloride 109 mmol/L (98-107) H 08/22/23 08:05 Carbon Dioxide 25 mmol/L (21-32) 08/22/23 08:05 Anion Gap 5 (3-11) 08/22/23 08:05 BUN 22 mg/dl (6-23) 08/22/23 08:05 Creatinine 0.96 mg/dl (0.6-1.2) 08/22/23 08:05 Est Cr Clr Drug Dosing 37.6 ml/min 08/22/23 08:05 Est GFR ( Amer) 65.2 ml/min 08/22/23 08:05 Est GFR (Non-Af Amer) 56.2 ml/min 08/22/23 08:05 BUN/Creatinine Ratio 22.9 (10-20) H 08/22/23 08:05 Glucose 115 mg/dl (70-99(Fasting)) H 08/22/23 08:05 Calcium 8.5 mg/dl (8.6-10.3) L 08/22/23 08:05 Urine Color Dark Yellow 08/20/23 19:25 Urine Appearance Turbid (Clear) A 08/20/23 19:25 Urine pH 5.5 (4.5-7.5) 08/20/23 19:25 Ur Specific Dendron 1.028 (1.000-1.030) 08/20/23 19:25 Urine Protein 1+ (Negative) H 08/20/23 19:25 Urine Glucose (UA) Negative (Negative) 08/20/23 19:25 Urine Ketones Trace (Negative) H 08/20/23 19:25 Urine Blood 1+ (Negative) H 08/20/23 19:25 Urine Nitrite Positive (Negative) A 08/20/23 19:25 Urine Bilirubin Negative (Negative) 08/20/23 19:25 Urine Urobilinogen Negative (Negative) 08/20/23 19:25 Ur Leukocyte Esterase 2+ (Negative) H 08/20/23 19:25 Urine WBC (Auto) >30 /hpf (0-5) H 08/20/23 19:25 Urine RBC (Auto) 0-4 /hpf (0-4) 08/20/23 19:25 U Hyaline Cast (Auto) 0 /lpf (0-5) 08/20/23 19:25 U Epithel Cells (Auto) 5-10 /lpf (0-5) H 08/20/23 19:25 Urine Bacteria (Auto) 4+ (Negative) H 08/20/23 19:25 Blood Type A Positive 08/20/23:35 Antibody Screen NEGATIVE 08/20/23 19:35 Impressions Chest X-Ray 08/20/23 14:06 XR chest 1V not portable HISTORY: 77 years-old Female pre-op preoperative exam COMPARISON: Chest CT 07/11/2023 TECHNIQUE: AP view of the chest FINDINGS: Cardiac silhouette is enlarged. Left subclavian pacer/AICD. Large hiatal hernia. No pneumothorax, pleural effusion or overt pulmonary edema. The patient is rotated towards the left. Degenerative changes of the shoulders and spine. IMPRESSION: 1. Cardiomegaly without acute process. 2. Large hiatal hernia. ACT 112: Negative or not required by law. The above report was generated using voice recognition software. It may contain grammatical, syntax or spelling errors. Electronically signed by: Buddy Granados M.D. 08/20/2023 4:04 PM Hip/Pelvis X-Ray 08/21/23 18:13 SINGLE VIEW PELVIS; SINGLE VIEW LEFT HIP CLINICAL HISTORY: Postoperative examination. FINDINGS: An AP portable view of the hips and pelvis with a crosstable lateral portable view of the left hip are compared to study dated 08/20/2023. A left hip arthroplasty is in near-anatomic alignment. No acute fracture is identified. Soft tissue swelling and subcutaneous gas overlying the left hip are expected postsurgical changes. [id number] arthritic change and joint space narrowing is seen in the right hip. A Kimbrough catheter is in place. IMPRESSION: Expected postoperative findings status post left hip arthroplasty. No acute fracture is seen. ACT 112: Negative or not required by law. Electronically signed by: Baljeet Martini M.D. 08/21/2023 6:57 PM
[2023-08-22] MEDS: cefTRIAXone SODIUM 2,000 MG in DEXTROSE 5 % MINI-B 50 ML IV SCH (14:13)
--- NOTE | 2023-08-22 16:06 | Orthopedic Progress Note ---
Date of Service August 22, 2023 Assessment & Plan (1) Left displaced femoral neck fracture: Plan: Ordered nutritional supplements given the patient's age and need for adequate nutrition particularly with her underlying leukemia. Physical therapy and Occupational Therapy daily. May shower with a Silverlon dressing in place. Weightbearing as tolerated with a walker and posterior hip precautions with maximal assist given that she is a fall risk. Pain medications per the internal medicine team. Continue to minimize or eliminate narcotics. DVT prophylaxis per the primary team. Follow-up with GIO De La Rosa PA-C, at [facility] sports medicine 2 weeks after surge ry. Any questions feel free to contact orthopedics. Admission and Anticipated Discharge Date Admission Date: August 20, 2023 Subjective Patient seen and examined on afternoon rounds. She reports her hip pain is well controlled. She worked with physical therapy earlier today and had difficulty getting out of bed. She says she does not have much of an appetite. Denies numbness or tingling in the left lower extremity. Physical Exam Physical Exam: In general she is alert and conversational. No signs of delirium postoperatively. Left hip exam reveals her outer dressing to be clean dry and intact. This is removed and her Silverlon shows no blood through the window. She is distally neurovascularly intact. Results & Data Vital Signs (Past 12 Hours) Vital Signs Temp Pulse Resp BP BP Pulse Ox O2 Del Method 08/22/23 15:07 36.8 C 88 16 116/70 98 Room Air 08/22/23 08:58 99/66 L 08/22/23 07:06 36.8 C 62 16 87/52 L 95 Room Air 08/22/23 04:18 95/58 L Diagnostic Findings Postoperative x-rays show a cemented hemiarthroplasty in good position.
[2023-08-22] MEDS: ATORVASTATIN 20 MG TAB PO SCH (19:58)
[2023-08-22] MEDS: SENNA 8.6 MG TAB PO SCH (19:59)
[2023-08-22] MEDS: BACLOFEN 10 MG TAB PO SCH (20:00)
[2023-08-23] MEDS: ACETAMINOPHEN 500 MG TAB PO SCH ×3 (05:28→23:47)
[2023-08-23] MEDS: buPROPion HCl 100 MG TABLET PO SCH ×2 (08:15→20:40)
[2023-08-23] MEDS: ASPIRIN 81 MG ECTAB PO SCH ×2 (08:15→20:41)
[2023-08-23] MEDS: MULTIVITAMIN TAB PO SCH (08:15)
[2023-08-23] MEDS: DOCUSATE SODIUM 100 MG CAP PO SCH ×2 (08:15→20:40)
[2023-08-23] MEDS: PARoxetine HCL 10 MG TAB PO SCH (08:16)
[2023-08-23] MEDS: ASCORBIC ACID 500 MG TAB PO SCH ×2 (08:16→17:30)
[2023-08-23] MEDS: FERROUS GLUCONATE 324 MG TAB PO SCH ×2 (08:16→17:30)
[2023-08-23 08:26] LABS: Hematocrit (blood only) 21.6 % (37.0-47.0); Hemoglobin 6.8 g/dl (12.0-16.0); Mean Corpuscular Hemoglobin 31.8 pg (25.0-34.0); Mean Corpuscular Hgb Conc 31.5 g/dL (32.0-36.0); Mean Corpuscular Volume 100.9 fL (80.0-100.0); RDW Coefficient of Variation 15.5 % (11.5-14.5); RDW Standard Deviation 56.6 fL (36.4-46.3); Red Blood Count 2.14 M/uL (4.20-5.40); White Blood Count 57.25 K/ul (4.8-10.8)
[2023-08-23] MEDS: METOPROLOL SUCC 25MG EXT REL TAB PO SCH (08:36)
[2023-08-23 08:44] LABS: Mean Platelet Volume 10.3 fL (9.4-12.4); Platelet Count 94 K/uL (130-400)
[2023-08-23 08:46] LABS: BUN Creatinine Ratio 29.9 (10-20); Calcium 8.5 mg/dl (8.6-10.3); Creatinine Clr Calc Pharmacy 41.5 ml/min; Est GFR (African American) 73.4 ml/min; Est GFR (Non-African American) 63.4 ml/min; Potassium 3.6 mmol/L (3.5-5.1)
[2023-08-23] MEDS ORDERED: SODIUM CHLORIDE 0.9% 250 ML IV PRN (09:35)
[2023-08-23] MEDS: PANTOprazole 40 MG TAB PO SCH (11:22)
[2023-08-23] MEDS: cefTRIAXone SODIUM 2,000 MG in DEXTROSE 5 % MINI-B 50 ML IV SCH (14:12)
--- NOTE | 2023-08-23 14:30 | Hospitalist Progress Note ---
Date of Service August 23, 2023 Assessment & Plan (1) Left displaced femoral neck fracture: Plan: Patient presented to the ED with mechanical fall. Imaging revealed left femoral neck fracture Status post left femoral hemiarthroplasty on August 21, 2023 Continue pain control with Tylenol, oxycodone and Dilaudid PT OT evaluation Aspirin twice daily for DVT prophylaxis. Started on Protonix once a day Continue Kimbrough for now; TOV once patient is more ambulatory Acute blood loss anemia Hemoglobin down trended to 6.8. Status post 1 unit of transfusion on August 23, 2023 (2) UTI (urinary tract infection): Plan: UA grossly abnormal, Urine culture growing E. coli; pansensitive Blood culture no growth till date Continue Rocephin for next 3 days (3) CLL (chronic lymphocytic leukemia): Plan: Elevated WBC and lymphocytic count secondary to CLL, Bchronic lymphocytic leukemia, poor prognostic markers, follows with Dr. Rajan with oncology as outpatient Patient is being treated symptomatically, no current chemotherapy, elected hospice, CM to assist with discharge planning, reinitiation of hospice following discharge (4) CAD (coronary artery disease): Plan: Hx of AICD placement in 2021 Last Echo from Nov 2022 reviewed showing LVEF of 52%, normal, mild to moderate aortic stenosis, mild MR and TR. Continue metoprolol succinate 25 mg daily (5) IBS (irritable bowel syndrome): Plan: Chronically loose stools intermittently, probiotic added (6) CKD (chronic kidney disease) stage 3, GFR 30-59 ml/min: Plan: Cr. and BUN appear to be at baseline Chronic, stable (7) Hypothyroidism: Plan: Pt is not longer on levothyroxine due to hospice Chronic, stable DVT ppx: Aspirin twice daily CODE: DNR/DNI Dispo:PT OT eval today; transition over to rehab versus NOE home over the course of next few days. Please note the above document was generated using voice recognition software. It may contain grammatical, syntax or spelling errors. Any formal questions or concerns about the content, text or information contained within the body of this dictation should be directly addressed to the provider for clarification Admission and Anticipated Discharge Date Admission Date: August 20, 2023 Subjective Patient seen and examined at bedside. She is lying in the bed comfortably; not in distress. Reports that pain is well controlled. Review of Systems Review of Systems: All systems reviewed & are unremarkable except as noted in Subjective Physical Exam Physical Exam: Gen: WD/WN, NAD, resting in bed comfortably, A&Ox 2 HEENT: Normocephalic, atraumatic, conjunctivae moist, sclerae anicteric, mucous membranes moist Lung: Clear to Auscultation bilaterally, no wheezes/rales/rhonchi Heart: Regular rate, regular rhythm, + systolic murmur Abdomen: Soft, NT, ND +BS x 4 : Kimbrough Kimbrough in place draining clear urine Extremities: Left hip with dressing in place; clean dry and intact. Skin: Warm, no rash Results & Data Results & Data Vital Signs (Past 12 Hours) Vital Signs Temp Pulse Pulse Resp BP BP Pulse Ox 08/23/23 10:32 36.7 C 92 H 18 96/62 L 95 08/23/23 08:12 36.7 C 93 H 18 98/61 L 95 O2 Del Method 08/23/23 10:32 08/23/23 08:12 Room Air Laboratory Results Laboratory Results WBC 57.25 K/ul (4.8-10.8) H* 08/23/23 08:03 RBC 2.14 M/uL (4.20-5.40) L 08/23/23 08:03 Hgb 6.8 g/dl (12.0-16.0) L* 08/23/23 08:03 Hct 21.6 % (37.0-47.0) L 08/23/23 08:03 MCV 100.9 fL (80.0-100.0) H 08/23/23 08:03 MCH 31.8 pg (25.0-34.0) 08/23/23 08:03 MCHC 31.5 g/dL (32.0-36.0) L 08/23/23 08:03 RDW Std Deviation 56.6 fL (36.4-46.3) H 08/23/23 08:03 RDW Coeff of Terri 15.5 % (11.5-14.5) H 08/23/23 08:03 Plt Count 94 K/uL (130-400) L 08/23/23 08:03 MPV 10.3 fL (9.4-12.4) 08/23/23 08:03 Immature Gran % (Auto) 0.1 % 08/22/23 08:05 Neut % (Auto) 5.1 % 08/22/23 08:05 Lymph % (Auto) 90.0 % 08/22/23 08:05 Vermillion % (Auto) 4.8 % 08/22/23 08:05 Eos % (Auto) 0.0 % 08/22/23 08:05 Baso % (Auto) 0.0 % 08/22/23 08:05 Neut # (Auto) 3.14 K/uL (1.40-6.50) 08/22/23 08:05 Lymph # (Auto) 57.36 K/uL (1.20-3.40) H 08/22/23 08:05 Vermillion # (Auto) 3.08 K/uL (0.11-0.59) H 08/22/23 08:05 Eos # (Auto) 0.02 K/uL (0.00-0.50) 08/22/23 08:05 Baso # (Auto) 0.03 K/uL (0.00-0.20) 08/22/23 08:05 Immature Gran # (Auto) 0.08 K/uL (0.01-0.20) 08/22/23 08:05 Absolute Nucleated RBC 0.03 K/uL (0.00-0.12) 08/20/23 14:12 Blood Smear Review Cancelled 08/20/23 14:12 RBC Morphology Unremarkable 08/22/23 08:05 Polychromasia 1+ 08/20/23 14:12 Ovalocytes 1+ 08/20/23 14:12 Sodium 137 mmol/L (136-145) 08/23/23 08:03 Potassium 3.6 mmol/L (3.5-5.1) 08/23/23 08:03 Chloride 108 mmol/L (98-107) H 08/23/23 08:03 Carbon Dioxide 24 mmol/L (21-32) 08/23/23 08:03 Anion Gap 5 (3-11) 08/23/23 08:03 BUN 26 mg/dl (6-23) H 08/23/23 08:03 Creatinine 0.87 mg/dl (0.6-1.2) 08/23/23 08:03 Est Cr Clr Drug Dosing 41.5 ml/min 08/23/23 08:03 Est GFR ( Amer) 73.4 ml/min 08/23/23 08:03 Est GFR (Non-Af Amer) 63.4 ml/min 08/23/23 08:03 BUN/Creatinine Ratio 29.9 (10-20) H 08/23/23 08:03 Glucose 108 mg/dl (70-99(Fasting)) H 08/23/23 08:03 Calcium 8.5 mg/dl (8.6-10.3) L 08/23/23 08:03 Urine Color Dark Yellow 08/20/23 19:25 Urine Appearance Turbid (Clear) A 08/20/23 19:25 Urine pH 5.5 (4.5-7.5) 08/20/23 19:25 Ur Specific [place] 1.028 (1.000-1.030) 08/20/23 19:25 Urine Protein 1+ (Negative) H 08/20/23 19:25 Urine Glucose (UA) Negative (Negative) 08/20/23 19:25 Urine Ketones Trace (Negative) H 08/20/23 19:25 Urine Blood 1+ (Negative) H 08/20/23 19:25 Urine Nitrite Positive (Negative) A 08/20/23 19: Urine Bilirubin Negative (Negative) 08/20/23 19:25 Urine Urobilinogen Negative (Negative) 08/20/23 19:25 Ur Leukocyte Esterase 2+ (Negative) H 08/20/23 19:25 Urine WBC (Auto) >30 /hpf (0-5) H 08/20/23 19:25 Urine RBC (Auto) 0-4 /hpf (0-4) 08/20/23 19:25 U Hyaline Cast (Auto) 0 /lpf (0-5) 08/20/23 19:25 U Epithel Cells (Auto) 5-10 /lpf (0-5) H 08/20/23 19:25 Urine Bacteria (Auto) 4+ (Negative) H 08/20/23 19:25 Blood Type A Positive 08/20/23 19:35 Blood Type Recheck A Positive 08/23/23 08:03 Antibody Screen NEGATIVE 08/20/23 19:35 Crossmatch See Detail 08/20/23 19:35 Impressions Chest X-Ray 08/20/23 14:06 XR chest 1V not portable HISTORY: 77 years-old Female pre-op preoperative exam COMPARISON: Chest CT 07/11/2023 TECHNIQUE: AP view of the chest FINDINGS: Cardiac silhouette is enlarged. Left subclavian pacer/AICD. Large hiatal hernia. No pneumothorax, pleural effusion or overt pulmonary edema. The patient is rotated towards the left. Degenerative changes of the shoulders and spine. IMPRESSION: 1. Cardiomegaly without acute process. 2. Large hiatal hernia. ACT 112: Negative or not required by law. The above report was generated using voice recognition software. It may contain grammatical, syntax or spelling errors. Electronically signed by: Buddy Granados M.D. 08/20/2023 4:04 PM Hip/Pelvis X-Ray 08/21/23 18:13 SINGLE VIEW PELVIS; SINGLE VIEW LEFT HIP CLINICAL HISTORY: Postoperative examination. FINDINGS: An AP portable view of the hips and pelvis with a crosstable lateral portable view of the left hip are compared to study dated 08/20/2023. A left hip arthroplasty is in near-anatomic alignment. No acute fracture is identified. Soft tissue swelling and subcutaneous gas overlying the left hip are expected postsurgical changes. [id number] arthritic change and joint space narrowing is seen in the right hip. A Kimbrough catheter is in place. IMPRESSION: Expected postoperative findings status post left hip arthroplasty. No acute fracture is seen. ACT 112: Negative or not required by law. Electronically signed by: Baljeet Martini M.D. 08/21/2023 6:57 PM
[2023-08-23] MEDS: oxyCODONE HCL IR 5 MG TAB (IMMEDIATE RELEASE) PO PRN (15:09)
[2023-08-23] MEDS: SENNA 8.6 MG TAB PO SCH (20:40)
[2023-08-23] MEDS: ATORVASTATIN 20 MG TAB PO SCH (20:40)
[2023-08-23] MEDS: BACLOFEN 10 MG TAB PO SCH (20:41)
[2023-08-24] MEDS ORDERED: Nursing to Pharmacy Communication SCH (05:15)
[2023-08-24] MEDS: oxyCODONE HCL IR 5 MG TAB (IMMEDIATE RELEASE) PO PRN (06:31)
[2023-08-24 09:05] LABS: Hematocrit (blood only) 25.8 % (37.0-47.0); Hemoglobin 8.2 g/dl (12.0-16.0); Mean Corpuscular Hemoglobin 31.1 pg (25.0-34.0); Mean Corpuscular Hgb Conc 31.8 g/dL (32.0-36.0); Mean Corpuscular Volume 97.7 fL (80.0-100.0); Mean Platelet Volume 10.2 fL (9.4-12.4); Platelet Count 112 K/uL (130-400); RDW Coefficient of Variation 17.3 % (11.5-14.5); Red Blood Count 2.64 M/uL (4.20-5.40); White Blood Count 79.23 K/ul (4.8-10.8)
[2023-08-24 09:06] LABS: BUN Creatinine Ratio 24.2 (10-20); Calcium 8.6 mg/dl (8.6-10.3); Creatinine Clr Calc Pharmacy 53.9 ml/min; Est GFR (African American) 97.4 ml/min; Potassium 3.9 mmol/L (3.5-5.1)
[2023-08-24] MEDS: ACETAMINOPHEN 500 MG TAB PO SCH ×3 (10:09→22:32)
[2023-08-24] MEDS: buPROPion HCl 100 MG TABLET PO SCH ×2 (10:14→22:31)
[2023-08-24] MEDS: ASCORBIC ACID 500 MG TAB PO SCH ×2 (10:14→17:18)
[2023-08-24] MEDS: FERROUS GLUCONATE 324 MG TAB PO SCH ×2 (10:14→17:18)
[2023-08-24] MEDS: PANTOprazole 40 MG TAB PO SCH (10:14)
[2023-08-24] MEDS: METOPROLOL SUCC 25MG EXT REL TAB PO SCH (10:14)
[2023-08-24] MEDS: ASPIRIN 81 MG ECTAB PO SCH ×2 (10:14→22:33)
[2023-08-24] MEDS: DOCUSATE SODIUM 100 MG CAP PO SCH ×2 (10:15→22:33)
[2023-08-24] MEDS: MULTIVITAMIN TAB PO SCH (10:15)
[2023-08-24] MEDS: PARoxetine HCL 10 MG TAB PO SCH (10:16)
--- NOTE | 2023-08-24 10:39 | Orthopedic Progress Note ---
Date of Service August 24, 2023 Assessment & Plan (1) Left displaced femoral neck fracture: Plan: Mutritional supplements given the patient's age and need for adequate nutrition particularly with her underlying leukemia. Physical therapy and Occupational Therapy daily. May shower with a Silverlon dressing in place. Weightbearing as tolerated with a walker and posterior hip precautions with maximal assist given that she is a fall risk. Pain medications per the internal medicine team. Continue to minimize or eliminate narcotics. DVT prophylaxis per the primary team. Follow-up as scheduled with GIO De La Rosa PA-C, at [facility] sports medicine Any questions feel free to contact orthopedics. Admission and Anticipated Discharge Date Admission Date: August 20, 2023 Yamilka Meredith is sitting up eating breakfast. She says that she is doing okay. She has pain off and on but is manageable. She says that she feels lazy. She says physical therapy has not gotten her up much to move around. She denies any numbness or tingling or any calf pain. She has no further questions or concerns this morning. Physical Exam Physical Exam: Patient is awake, alert and oriented. She is sitting up eating breakfast. Dressing is clean, dry and intact. Thigh and calf are supple. She is able to wiggle her toes and pump her ankle up and down. Results & Data Vital Signs (Past 12 Hours) Vital Signs Temp Pulse Resp BP Pulse Ox O2 Del Method 08/24/23 07:11 36.7 C 77 16 116/64 95 Room Air
[2023-08-24] MEDS: cefTRIAXone SODIUM 2,000 MG in DEXTROSE 5 % MINI-B 50 ML IV SCH (13:56)
--- OUTSIDE RECORDS SUMMARY | 2023-08-24 14:59 | External Medical Summary | Summary of Care ---
Author Name Unknown Organization [facility] Address [address] [place] [address] Phone [phone] Care Team Providers Care Grievance And Appeals Specialist Name Role Phone Lucas Mendez MD Primary Care Provider [phone] Reason for Visit * Reason Comments Status Check Encounter Details Date Type Department Care Team Description 06/19/2023 Office Visit [facility] [address] [place] [address] Lucas Mendez MD [address] [place] [address] Hypothyroidism, unspecified type*; Type 2 diabetes mellitus with hemoglobin A1c goal of less than 7.0% ([facility]); Dyslipidemia, goal LDL below 130; CLARICE on CPAP; Coronary artery disease involving hoopa coronary artery of hoopa heart without angina pectoris; HTN, goal below 140/90; Chronic heart failure with reduced ejection fraction and diastolic dysfunction ([facility]); CLL (chronic lymphocytic leukemia) ([facility]) Allergies Active Allergy Reactions Severity Noted Date Comments Codeine Nausea/vomiting 2011 Empagliflozin 05/27/2023 UTIs Lisinopril 03/07/2008 Cough documented as of this encounter (statuses as of 07/06/2023) Medications Medication Sig Dispensed Refills Start Date End Date Status MULTIPLE VITAMIN PO TABSIndications:Ost eoporosis Take 1 each day 30 11 9 Active Acetaminophen 325 MG Oral Tablet (Tylenol) Take 1 Tablet by mouth every 6 hours as needed for Pain, Mild. 30 Tablet 0 1 Active Levothyroxine Sodium 75 MCG Oral Tablet (Levoxyl)Indication s:Acquired hypothyroidism take one tablet by mouth daily at least 30 minutes before breakfast and other medications 90 Tablet 3 2 Active Atorvastatin Calcium 80 MG Oral Tablet (Lipitor)Indication s:Dyslipidemia, goal LDL below 130 TAKE ONE TABLET BY MOUTH DAILY 90 Tablet 3 2 Active Polyethylene Glycol 3350 17 GM Oral Packet Take 1 Packet by mouth in the morning. 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 90 Tablet 3 3 Active PARoxetine HCl 10 MG Oral Tablet (pAXil)Indications: Poor appetite TAKE 1 TABLET BY MOUTH EVERY MORNING 30 Tablet 3 3 Active Benzonatate 100 MG Oral Capsule (Tessalon Perles)Indications: Bronchitis, complicated Take 1 Capsule by mouth 3 times a day as needed for Cough. Do not cut, crush, or chew. 50 Capsule 1 3 Active buPROPion HCl ER (SR) 100 MG Oral Tablet Extended Release 12 Hour (Wellbutrin SR)Indications:Depr ession with anxiety TAKE 1 TABLET BY MOUTH TWICE DAILY 180 Tablet 3 2 06/20/20 23 Discontinued documented as of this encounter (statuses as of 07/06/2023) Active Problems Problem Noted Date Type 2 diabetes mellitus with hemoglobin A1c goal of less than 7.0% 12/02/2022 AICD (automatic cardioverter/defibrillat or) present 07/24/2022 Chronic kidney disease, stage 3b 022 Overview: Per CKD protocol Ischemic cardiomyopathy 08/15/2021 LBBB (left bundle branch block) 08/15/20 21 Chronic heart failure with r educed ejection fraction and diastolic dysfunction 08/15/2021 Coronary artery disease invo lving hoopa coronary artery of hoopa heart without angina pectoris 08/15/2021 Moderate mitral regurgitation 08/15/2021 Pulmonary HTN 08/15/2021 CLL (chronic lymphocytic leukemia) 05/02 CLARICE on CPAP 08/04/2014 Overview: CPAP 8 cwp 2013 PSG -- AHI 8.7, 15 mins <89% 2009 PSG -- AHI 10.1 AHP Dyslipidemia, goal LDL below 130 013 Esophageal stricture 10/19/2010 GERD (gastroesophageal reflux disease) 1 10/20/2009 Gastroparesis 08/08/2009 HTN, goal below 140/90 10/26/2006 Irritable bowel syndrome 04/30/2004 Hypothyroidism 12/17/1999 Major depressive disorder Overview: ICD-10 update of inactive term Varicose vein of leg documented as of this encounter (statuses as of 07/06/2023) Resolved Problems Problem Noted Date Resolved Date Dementia without behavioral disturbance 10/14/19 22 01/27/2023 Major depressive disorder wi th single episode, in full remission 10/14/2021 01/27/2023 Stage 3a chronic kidney disease 08/20/2020 11/27/2021 Overview: Per CKD protocol - Per CKD protocol Kidney disease, chronic, stage III (GFR 30-59 ml /min) 08/22/2019 08/23/2020 Overview: Per CKD protocol Special screening for malignant neoplasms, colon 2011 08/21/2017 Dysphagia 10/19/2010 08/21/2017 Overview: ICD-10 update of inactive term Esophageal stricture 08/08/2009 08/21/2017 ADVANCE DIRECTIVE INFORMATION 02/02/2006 Overview: Yes, Copy scanned at patient level in the electronic medical record.(Go to Action, Patient File to view) Patient aware they must notify their healthcare provider of changes. 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 02/18/2018 Tension headache 02/11/2000 08/21/2017 Need for prophylactic hormon e replacement therapy (postmenopausal) 08/21/2017 Urinary incontinence 08/21/2017 Overview: ICD-10 update of inactive term documented as of this encounter (statuses as of 07/06/2023) Immunizations Name Administration Dates Next Due Pneumococcal Conjugate Vacc, 13 Valent (Prevnar) 11/07/2015 Pneumococcal Polysaccharide PPV23 (Pneumovax) 10/31/2008 Seasonal Influenza, PF, 6 mo ns & Above, IM , (Flulaval) 08/25/2018,08/21/2017 Seasonal Influenza, Quadriva lent Hd (Fluzone Hd) 08/19/2021 Seasonal Influenza, Quadriva lent, No Preserve, IM 07/26/2016,07/16/2015 Seasonal Influenza, Split, I IV3, With Preserve, Inj 07/29/2014,06/27/2013,08/25/2012,07/12,07/23/2010,08/04/2009,10/31/19 09 07/29/2015 Seasonal Influenza, Trivalen t, Adjuvanted, 65+ yrs 08/30/2019 Varicella Zoster Vaccine (Adult) 02/08/2013 Zoster Vaccine Recombinant (Shingrix) 06/08/2019 ,12/09/2018 documented as of this encounter Social History Tobacco Use Types Packs/Day Years Used Date Smoking Tobacco: Never Smokeless Tobacco: Never Tobacco Cessation:Counseling Given: Not Answered Alcohol Use Standard Drinks/Week Comments No 0 (1 standard drink = 0.6 oz pur e alcohol) Food Insecurity Answer Date Recorded Within the past 12 months, y ou worried that your food would run out before you got money to buy more. Never true 04/11/2020 Within the past 12 months, t he food you bought just didn't last and you didn't have money to get more. Never true 04/11/2020 Sex Assigned at Date Recorded Female 02/24/2019 10:07 AM EDT Job Start Date Occupation Industry Not on file Not on file Not on file documented as of this encounter Last Filed Vital Signs Vital Sign Reading Time Taken Comments Blood Pressure 112/64 06/19/2023 2:41 PM EDT Pulse 69 06/19/2023 2:41 PM EDT Temperature 36.2 C (97.1 F) 06/19/2023 2:41 PM ED T Respiratory Rate 18 06/19/2023 2:41 PM EDT Oxygen Saturation 100% 06/19/2023 2:41 PM EDT Inhaled Oxygen Concentration - - Weight 55.3 kg (122 lb) 06/19/2023 2:41 PM EDT Height - - Body Mass Index 22.31 12/12/2022 11:32 AM EST documented in this encounter Progress Notes * Lucas Mendez MD - 07/06/2023 10:51 PM EDT Subjective: Viri Rose is a 77 year old female here today for Chief Complaint Patient presents with Status Check Past Medical History: Diagnosis Date Depressive disorder, not elsewhere classified Depression Diaphragmatic hernia Dyslipidemia, goal to be determined ESOPHAGEAL REFLUX 02/02/2006 Hypothyroidism Irritable bowel syndrome Need for prophylactic hormone replacement therapy (postmenopausal) Hormone Therapy Relacement Unspecified urinary incontinence Past Surgical History: Procedure Laterality Date COLONOSCOPY, GI REFERRAL OP 01/13 Neg to Hepatic flexure - needs ACBE COLORECTAL CANCER SCREEN; NOT AT RISK 11/21/11 wnl repeat in 10 yrs EGD, FLEXIBLE, DIAGNOSTIC 07/27/2013 UPPER GI ENDOSCOPY DIAGNOSTIC performed by Tom Astudillo MD at ENDOSCOPY [facility] EGD, FLEXIBLE, DIAGNOSTIC 09/08/2018 eso stenosis, hiatal hernia, gastritis/ESOPHAGOGASTRODUODENOSCOPY (EGD), FLEXIBLE, TRANSORAL, DIAGNOSTIC performed by Tom Astudillo MD at ENDOSCOPY [facility] EGD, FLEXIBLE, INSERT WIRE, PASS DILATOR 07/06/09 done hiatal hernia, benign appearing esophageal stricture, dilated to 16 mm EGD, FLEXIBLE, W/BIOPSY 07/06/09 done mild gastric irritation LIGATE/CUT OVIDUCT(S) 1969 Tubal Ligation,Non Laparoscopic TOTAL HYSTERECTOMY 1986 MICHAEL (Total Abdominal Hysterectomy) UPPER ENDOSCOPY GI REFERRAL OP 2002 Felicia Villanueva Review of patient's allergies indicates: Allergen Reactions Codeine Nausea/vomiting Jardiance [Empagliflozin] UTIs Lisinopril Cough Current Outpatient Medications Medication Sig Dispense Refill MULTIPLE VITAMIN PO TABS Take 1 each day 30 11 Acetaminophen 325 MG Oral Tablet (Tylenol) Take 1 Tablet by mouth every 6 hours as needed for Pain,Mild. 30 Tablet 0 Levothyroxine Sodium 75 MCG Oral Tablet (Levoxyl) take one tablet by mouth daily at least 30 minutes before breakfast and other medications 90 Tablet 3 Atorvastatin Calcium 80 MG Oral Tablet (Lipitor) TAKE ONE TABLET BY MOUTH DAILY 90 Tablet 3 Polyethylene Glycol 3350 17 GM Oral Packet Take 1 Packet by mouth in the morning. Metoprolol Succinate ER 50 MG Oral Tablet Extended Release 24 Hour (toPROL XL) Take 0.5 Tablets by mouth in the morning. 90 Tablet 3 PARoxetine HCl 10 MG Oral Tablet (pAXil) TAKE 1 TABLET BY MOUTH EVERY MORNING 30 Tablet 3 Benzonatate 100 MG Oral Capsule (Tessalon Perles) Take 1 Capsule by mouth 3 times a day as needed for Cough. Do not cut, crush, or chew. 50 Capsule 1 buPROPion HCl ER (SR) 100 MG Oral Tablet Extended Release 12 Hour (Wellbutrin SR) TAKE 1 TABLET BY MOUTH TWICE DAILY 180 Tablet 3 No current facility-administered medications for this visit. Objective: BP 112/64 | Pulse 69 | Temp 36.2 C (97.1 F) (Infrared ) | Resp 18 | Wt 55.3 kg (122 lb) | SpO2 100% | BMI 22.31 kg/m | BSA 1.56 m GEN: NAD HEENT: Benign NECK: Supple with no LAD, TM, JVD CHEST: CTA B CV: RRR ABD: Soft, NT/ND, No HSM, NABS EXT: No c,c,e Assessment and Plan: Hypothyroidism, unspecified type (Primary) - TSH WITH FREE T4 IF INDICATED; Future; Expected date: 06/19/2023 Type 2 diabetes mellitus with hemoglobin A1c goal of less than 7.0% (HCC) Dyslipidemia, goal LDL below 130 CLARICE on CPAP Coronary artery disease involving hoopa coronary artery of hoopa heart without angina pectoris HTN, goal below 140/90 Chronic heart failure with reduced ejection fraction and diastolic dysfunction (HCC) CLL (chronic lymphocytic leukemia) (HCC) Follow Up: Return in about 5 months (around 11/19/2023) for recheck. | For: recheck 25 min with pt and chart review Lucas Mendez MD documented in this encounter Nursing Notes * Iveth Cooper LPN - 06/19/2023 2:41 PM EDT The patient has been properly identified by confirmation of name and date of . Chief Complaint Patient presents with Status Check Return visit documented in this encounter Plan of Treatment Upcoming Encounters Date Type Specialty Care Team Description 07/30/2023 Laboratory Laboratory [place] [address] [place] [address] 10/22/2023 Office Visit Cardiology Nithin Smith, DO [address] [place] [address] 12/01/2023 Office Visit Family Medicine Lucas Mendez MD [address], [place] [id number] 12/16/2023 Laboratory Laboratory [place] [address], [place] [id number] 12/23/2023 Office Visit Hematology Oncology Zenia Rajan MD [address] [place] [address] Scheduled Orders Name Type Priority Associated Diagnoses Orde r Schedule TSH WITH FREE T4 IF INDICATED Lab Routine Hypothyroidism, unspecified type Expected: 06/19/2023 (Approximate), Expires: 06/18/2024 Scheduled Procedures Name Priority Associated Diagnoses Date/Ti me COLONOSCOPY FLEXIBLE PROXIMA L DIAGNOSTIC Recall Special screening for malignant neoplasms, colon Health Maintenance Due Date Last Done Comments DIABETES-EYE EXAM 1961 Diabetic Foot Exam 1963 Hepatitis C Screening 1963 DTaP,Tdap,and Td Vaccines (1 - Tdap) 02/13/2004 02/12/2004, 06/12/1994 COVID-19 Vaccine (3 - Pfizer risk series) 01/18/2021 12/21/2020, 11/30/2020 CKD PHOS USE SMARTSET 18650 02/05/2021 02/06/2020, 0 12/20/2008 Depression Screening 04/11/2021 04/11/2020 DXA Scan 04/02/2023 04/02/2016, 04/0 11/2013, 01/11/2014, Additional history exists Influenza Vaccine (FLU shot) (#1) 2023 08/19/2021, 08/30/2019, 08/30/2019, Additional history exists HbA1c 06/14/2023 12/12/2022, 07/12, 01/27/2022 TSH 10/24/2023 10/24/2022, 09/12, 04/11/2020, Additional history exists GFR 12/10/2023 06/09/2023, 04/13, 03/02/2023, Additional history exists Albumin/Creatinine Ratio 12/13/2023 12/12/2022 CKD HGB USE SMARTSET 60570 06/09/202406/09, 06/09/2023, 05/11/2023, Additional history exists Pneumococcal Vaccine: 65+ Years Completed 11/07/2015, 10/31/2008 Zoster Vaccines Completed 06/08/2019, 11/13, 02/08/2013 GARDASIL-HPV IMMUNIZATION SERIES Aged Out No longer eligible based on patient's age to complete this topic Hepatitis B Aged Out No longer eligi ble based on patient's age to complete this topic MENINGOCOCCAL (MENACTRA/MENVEO) Aged Out No longer eligible based on patient's age to complete this topic documented as of this encounter Medical Devices Not on filedocumented as of this encounter Visit Diagnoses Diagnosis Hypothyroidism, unspecified type- Primary Type 2 diabetes mellitus with hemoglobin A1c goal of less than 7.0% (HCC) Dyslipidemia, goal LDL below 130 Other and unspecified hyperlipidemia CALRICE on CPAP Obstructive sleep apnea (adult) (pediatric) Coronary artery disease involving hoopa coronary artery of hoopa heart without angina pectoris HTN, goal below 140/90 Unspecified essential hypertension Chronic heart failure with reduced ejection fraction and diastolic dysfunction (HCC) CLL (chronic lymphocytic leukemia) (HCC) Chronic lymphoid leukemia, without mention of having achieved remission documented in this encounter Care Teams Grievance And Appeals Specialist Relationship Specialty Start Date End Date Lucas Mendez MD [address] [place] [address] PCP - General 07/12/00 documented as of this encounter"
--- OUTSIDE RECORDS SUMMARY | 2023-08-24 14:59 | External Medical Summary | Summary of Care ---
Author Name Unknown Organization [facility] Address [address] [facility] [facility] [place] [address] Phone [phone] Care Team Providers Care Evidence Custodian Name Role Phone Lucas Mendez MD Primary Care Provider [phone]- [phone] Reason for Visit * Reason Comments Follow Up 3m Encounter Details Date Type Department Care Team Description 06/24/2023 Office Visit Hematology/Oncology [place] Faisal Vargas [address] [place] [address] Zenia Rajan MD [address] [place] [address] CLL (chronic lymphocytic leukemia) (FORMERLY [facility])* Allergies Active Allergy Reactions Severity Noted Date Comments Codeine Nausea/vomiting 2011 Empagliflozin 05/27/2023 UTIs Lisinopril 03/07/2008 Cough documented as of this encounter (statuses as of 06/24/2023) Medications Medication Sig Dispensed Refills Start Date End Date Status MULTIPLE VITAMIN PO TABSIndications:Oste oporosis Take 1 each day 30 11 01/09/2009 Active Acetaminophen 325 MG Oral Tablet (Tylenol) Take 1 Tablet by mouth every 6 hours as needed for Pain, Mild. 30 Tablet 0 08/23/2021 Active Levothyroxine Sodium 75 MCG Oral Tablet (Levoxyl)Indications :Acquired hypothyroidism take one tablet by mouth daily at least 30 minutes before breakfast and other medications 90 Tablet 3 12/27/2021 Active Atorvastatin Calcium 80 MG Oral Tablet (Lipitor)Indications :Dyslipidemia, goal LDL below 130 TAKE ONE TABLET BY MOUTH DAILY 90 Tablet 3 09/12/2022 Active Polyethylene Glycol 3350 17 GM Oral Packet Take 1 Packet by mouth in the morning. 0 Active Metoprolol Succinate ER 50 MG Oral Tablet Extended Release 24 Hour (toPROL XL)Indications:Chron ic heart failure with reduced ejection fraction and diastolic dysfunction (HCC),Ischemic cardiomyopathy,Prese nce of automatic cardioverter/defibri llator (AICD),HTN, goal below 140/90,LBBB (left bundle branch block),Dyslipidemia, goal LDL below 70,CLARICE on CPAP,Chronic systolic heart failure (HCC) Take 0.5 Tablets by mouth in the morning. 90 Tablet 3 01/27/2023 Active PARoxetine HCl 10 MG Oral Tablet (pAXil)Indications:P oor appetite TAKE 1 TABLET BY MOUTH EVERY MORNING 30 Tablet 3 05/25/2023 Active Benzonatate 100 MG Oral Capsule (Tessalon Perles)Indications:B ronchitis, complicated Take 1 Capsule by mouth 3 times a day as needed for Cough. Do not cut, crush, or chew. 50 Capsule 1 05/28/2023 Active buPROPion HCl ER (SR) 100 MG Oral Tablet Extended Release 12 Hour (Wellbutrin SR)Indications:Depre ssion with anxiety TAKE 1 TABLET BY MOUTH TWICE DAILY 180 Tablet 3 06/20/2023 Active documented as of this encounter (statuses as of 06/24/2023) Active Problems Problem Noted Date Type 2 diabetes mellitus with hemoglobin A1c goal of less than 7.0% 12/02/2022 AICD (automatic cardioverter/defibrillat or) present 07/24/2022 Chronic kidney disease, stage 3b 022 Overview: Per CKD protocol Ischemic cardiomyopathy 08/15/2021 LBBB (left bundle branch block) 08/15/20 21 Chronic heart failure with r educed ejection fraction and diastolic dysfunction 08/15/2021 Coronary artery disease invo lving [place] coronary artery of [place] heart without angina pectoris 08/15/2021 Moderate mitral [...] as of this encounter (statuses as of 06/24/2023) Resolved Problems Problem Noted Date Resolved Date [...] as of this encounter (statuses as of 06/24/2023) Immunizations Name Administration Dates Next Due Pneumococcal [...] Sign Reading Time Taken Comments Blood Pressure 116/73 06/24/2023 2:48 PM EDT Pulse 79 06/24/2023 2:48 PM EDT Temperature - - Respiratory Rate 16 06/24/2023 2:48 PM EDT Oxygen Saturation 95% 06/24/2023 2:48 PM EDT Inhaled Oxygen Concentration - - Weight 57 kg (125 lb 11.2 oz) 06/24/2023 2:48 PM EDT Height - - Body Mass Index 22.99 12/12/2022 11:32 AM EST documented in this encounter Progress Notes * Zenia Rajan MD - 06/24/2023 3:05 PM EDT Images from the original note were not included. Outpatient Consult Note Data Source: Patient, Epic record. Data Source: Patient, Epic record. 06/24/2023 3:05 PM Viri Rose [id number] 77 year old Patient Encounter: HEMATOLOGY/ONCOLOGY [facility] Cancer Diagnosis: Chronic lymphocytic leukemia Current Treatment: Observation Previous Treatment: None Oncologic History : 77-year-old female was recently found to have leukocytosis. Further workup done and confirmed the diagnosis of chronic lymphocytic leukemia. She was referred to me for further management. Patient denies any fever, chills, night sweats, headache, dizziness, chest pain, palpitation, shortness of breath, abdominal pain or distention, weight loss. Her past medical history significant for depression, hypothyroidism, irritable bowel syndrome. CBC done on 03/25/2019 shows WBC count of 18.10 hemoglobin 14.9 and platelet count 223 differentialshows 38% neutrophil and 57% lymphocytes. Peripheral blood flow cytometry was done and shows: The flow data from the peripheral blood specimen demonstrates a population of monotypic B cells, immunophenotypic features consistent with B-chronic lymphocytic leukemia (CLL) or small lymphocyticlymphoma (SLL) in leukemia phase. The prognostic markers, [place]-70 and CD38, are both positive, which is the least favorable prognosticcategory. CAREN type analysis was done for CLL and shows as follow: Social history patient denies any smoking or drinking. Family history not significant for any hematologic oncology problem Interval History: She denies any fever, night sweats, headache, dizziness, blurred vision, chest pain palpitation pain or distention, bleeding, bruising, nausea, vomiting change in the bowel habits. LABS/IMAGING: Results for orders placed or performed in visit on 06/09/23 COMPREHENSIVE METABOLIC PANEL Result Value Ref Range BUN 23 (H) 6 - 20 mg/dL Creatinine 1.1 (H) 0.5 - 1.0 mg/dL Estimated Glomerular Filtration Rate 49 (L) >=60 mL/min Sodium 142 135 - 146 mmol/L Potassium 3.5 3.5 - 5.1 mmol/L Chloride 107 98 - 107 mmol/L CO2 25 22 - 32 mmol/L Anion Gap 10 7 - 15 mmol/L Glucose 118 70 - 120 mg/dL Albumin 4.3 3.8 - 5.0 g/dL AST 36 (H) 10 - 35 U/L Alkaline Phosphatase 128 35 - 130 U/L Bilirubin, Total 0.4 <=1.2 mg/dL Calcium 9.2 8.4 - 10.2 mg/dL Protein 6.3 6.0 - 8.3 g/dL ALT 27 10 - 35 U/L LD Result Value Ref Range LD 315 (H) <=250 U/L CBC Result Value Ref Range WBC 190.48 (HH) 4.00 - 10.80 K/uL RBC 3.37 3.85 - 5.15 M/uL HGB 10.8 (L) 12.0 - 15.3 g/dL HCT 36.9 36.0 - 45.2 % MCV 109.5 81.5 - 97.5 fL MCH 32.0 27.0 - 34.0 pg MCHC 29.3 32.0 - 36.0 g/dL RDW 15.8 11.5 - 15.5 % PLT 111 (L) 140 - 400 K/uL MPV 10.6 6.6 - 11.1 fL nRBCs 0 <=0 /100 WBCs DIFFERENTIAL, TECHNOLOGIST REVIEW Result Value Ref Range WBC 190.48 (HH) 4.00 - 10.80 K/uL Neutrophils % 4.5 (L) 40.0 - 75.0 % Lymphocytes % 92.5 (H) 18.0 - 42.0 % Monocytes % 3.0 1.0 - 11.0 % Absolute Neutrophils 8.57 (H) 1.80 - 7.70 K/uL Absolute Lymphocytes 176.19 (H) 1.00 - 4.80 K/uL Absolute Monocytes 5.71 (H) 0.00 - 1.10 K/uL Elliptocytes Moderate (A) None Seen Reactive Lymphocytes Present (A) None Seen *Note: Due to a large number of results and/or encounters for the requested time period, some results have not been displayed. A complete set of results can be found in Results Review. There is increase in the WBC count with decreased hemoglobin and platelet counts. LDH is also high. REVIEW OF SYSTEMS: General: No Fever, chills, night sweats HEENT: No change in visual acuity, blurred or double vision. No epistaxis, facial pain, nasal discharge or change in hearing. Denies dysphagia, no muscosal ulceration, or sores noted. Cardiovascular: No chest pain, DUNN, or palpitations Respiratory: No shortness of breath, cough, hemoptysis, or pleuritic chest pain Gastrointestinal: No abdominal pain, nausea, vomiting, diarrhea, rectal pain or bleeding Genitourinary: Denies Hematuria or dysuria Musculoskeletal: Generalized weakness and fatigue Skin: No skin rash or lesions noted Psychiatric: No vegetative signs of depression Endocrine: No symptoms of hypothyroidism or hyperglycemia Hematologic: No bleeding or lymph nodes noted As mentioned above, all of the systems were reviewed in full and are unremarkable. Past Medical History: Diagnosis Date Depressive disorder, not elsewhere classified Depression Diaphragmatic hernia Dyslipidemia, goal to be determined ESOPHAGEAL REFLUX 02/02/2006 Hypothyroidism Irritable bowel syndrome Need for prophylactic hormone replacement therapy (postmenopausal) Hormone Therapy Relacement Unspecified urinary incontinence Current Outpatient Medications Medication Sig Dispense Refill [...] No current facility-administered medications for this visit. Social History Tobacco Use Smoking status: Never Smokeless tobacco: Never Substance Use Topics Alcohol use: No Drug use: No Review of patient's allergies indicates: Allergen Reactions Codeine Nausea/vomiting Jardiance [Empagliflozin] UTIs Lisinopril Cough PHYSICAL EXAMINATION: General Appearance: Healthy appearing patient in no acute distress BP 116/73 (BP Site: Left Arm, BP Position: Sitting, BP Cuff Size: Pediatric) | Pulse 79 | Resp 16 |Wt 57 kg (125 lb 11.2 oz) | SpO2 95% | BMI 22.99 kg/m | BSA 1.58 m Vitals reviewed. HEENT: No oral or pharyngeal masses, ulceration or thrush noted, no sinus tenderness. Neck is supple with no thyromegaly or JVD noted. Lymph Nodes: No lymphadenopathy noted in the occipital, pre and post auricular, cervical, supra andinfraclavicular, axillary, epitrochlear, inguinal, and popliteal region. Lungs/Thorax: Clear to auscultation, no accessory muscles of respiration being used. Heart: Regular rate and rhythm, normal S1, S2 Abdomen: Soft, nontender, bowel sounds present, no appreciable hepatosplenomegaly, no palpable masses Extremeties: Good pulses bilaterally, no peripheral edema. Skin: Normal skin tone with no rash, petechiae, ecchymosis noted. Musculoskeletal: No pain on palpation over bony prominence, no edema, no evidence of gout, no jointor bony deformity ASSESSMENT: 77-year-old female with history of chronic lymphocytic leukemia currently under observation. On the recent blood test there is increase in the WBC count with lymphocytosis and decrease in the hemoglobin and platelet count. Most likely these changes are indicated of disease progression. Overall clinically she is stable without any new symptoms complain. There are no palpable lymph nodes on physical examination. Because of the increasing WBC count, on May 11, 2023 options of treatment were discussed and she agreed to proceed with the acalabrutinib. Subsequently she and her decided against any treatment. She continues to have rise in the WBC count. Reviewed all the available blood test result with the patient and . She is high-risk disease. Discussed with the patient in detail about the diagnosis prognosis again. After detailed discussion they decided against any treatment and want to be followed clinically. They were made aware of the diagnosis and prognosis. PLAN: Return to clinic in 6 months with CBC and CMP. The patient voiced understanding of all of the above. All questions and concerns were addressed in an apparently satisfactory manner. Zenia Rajan MD (This note was completed using the dictation program Fluency Direct. As such, there may be misspellings, word substitutions, or other variations that should not change the essence of the clinical content of this encounter note. If there is need for further clarification, please direct questions to me.) documented in this encounter Nursing Notes * Davina Zambrano CMA - 06/24/2023 2:49 PM EDT Patient identifed by name and birthdate Do you have any concerns about pain management for today's visit? No Living Will or Advance Directive for Health Care as noted on the problem list. [facility] is a way you can talk to your provider on line through e-mail. Would you like to sign up? I can activate it for you? ALREADY ACTIVE Filed Vitals: 06/24/23 1448 BP: 116/73 Pulse: 79 Resp: 16 SpO2: 95% Weight: 57 kg (125 lb 11.2 oz) Patient was instructed to not get up on the exam table/exam chair until directed and assisted by their provider; patient is to remain seated in the chair/ wheelchair/ exam table/ exam chair for fall prevention and safety reasons. Patient is aware to have assistance to step down off exam table/exam chair with personnel. Patient voiced full comprehension of instructions. documented in this encounter Plan of Treatment Upcoming Encounters Date Type Specialty Care Team Description 07/30/2023 Laboratory Laboratory Jasiel Blankenship [address] [place] [place] [address] 10/22/2023 Office Visit Cardiology Nithin Smith DO [address] [place] [address] 12/01/2023 Office Visit Family Medicine Lucas Mendez MD [address] [place] [place] [address] 12/16/2023 Laboratory Laboratory [place] [address] [place] [address] 12/23/2023 Office Visit Hematology Oncology Zenia Rajan MD [address] [place] [address] Scheduled Orders Name Type Priority Associated Diagnoses Orde r Schedule CBC WITH WBC DIFFERENTIAL Lab Routine CLL (chronic lymphocytic leukemia) (HCC) Expected: 12/21/2023, Expires: 06/01/2024 COMPREHENSIVE METABOLIC PANEL Lab Routine CLL (chronic lymphocytic leukemia) (HCC) Expected: 12/21/2023, Expires: 06/01/2024 Scheduled Procedures Name Priority Associated Diagnoses Date/Ti me COLONOSCOPY FLEXIBLE PROXIMA L DIAGNOSTIC Recall Special screening for malignant neoplasms, colon Health Maintenance Due Date Last Done Comments DIABETES-EYE EXAM 1963 Diabetic Foot Exam 1963 Hepatitis C Screening 1963 DTaP,Tdap,and Td Vaccines (1 - Tdap) 02/13/2004 02/12/2004, 06/12/1994 COVID-19 Vaccine (3 - Pfizer risk series) 01/18/2021 12/21/2020, 11/30/2020 CKD PHOS USE SMARTSET 21896 02/05/2021 02/06/2020, 0 12/20/2008 Depression Screening 04/11/2021 04/11/2020 DXA Scan 04/02/2023 04/02/2016, 04/0 11/2013, 01/11/2014, Additional history exists Influenza Vaccine (FLU shot) (#1) 2023 08/19/2021, 08/30/2019, 08/30/2019, Additional history exists HbA1c 06/14/2023 12/12/2022, 07/12, 01/27/2022 TSH 10/24/2023 10/24/2022, 1212/2020, 04/11/2020, Additional history exists GFR 12/10/2023 06/09/2023, 04/13, 03/02/2023, Additional history exists Albumin/Creatinine Ratio 12/13/2023 12/12/2022 CKD HGB USE SMARTSET 61908 06/09/202406/09, 06/09/2023, 05/11/2023, Additional history exists Pneumococcal [...] as of this encounter Visit Diagnoses Diagnosis CLL (chronic lymphocytic leukemia) (HCC)- Primary Chronic lymphoid leukemia, without mention of having achieved remission documented in this encounter Care Teams Evidence Custodian Relationship Specialty Start Date End Date Lucas Mendez MD [address] [place] [address] PCP - General 07/12/00 documented as of this encounter"
--- OUTSIDE RECORDS SUMMARY | 2023-08-24 14:59 | External Medical Summary ---
Author Name Unknown Address Unknown Organization [id number][place] [place] [address] [facility] [place] [address] Laboratory Report Ordering Provider Test Date Status LOU CLAUDIO 06/09/2023 13:48:07 Final Observation Date Value Abnormality Reference (Units ) Status BUN 06/09/2023 13:48:07 23 Above high normal 6-20 (mg/dL) Final Creatinine 06/09/2023 13:48:07 1.1 Above high normal 0.5-1.0 (mg/dL) Final Glomerular filtration rate/1.73 sq M.predicted [Volume Rate/Area] in Serum, Plasma or Blood by Creatinine-based formula (CKD-EPI) 06/09/2023 13:48:07 49 Below low normal >=60 (mL/min) Final eGFR is calculated based on the CKD-EPI 2020 equation SODIUM 06/09/2023 13:48:07 142 135-146 (m mol/L) Final Potassium 06/09/2023 13:48:07 3.5 3.5-5.1 (m mol/L) Final Cl 06/09/2023 13:48:07 107 98-107 (mm ol/L) Final CO2 06/09/2023 13:48:07 25 22-32 (mmo l/L) Final Anion gap 06/09/2023 13:48:07 10 7-15 (mmol /L) Final Glucose 06/09/2023 13:48:07 118 70-120 (mg /dL) Final Albumin 06/09/2023 13:48:07 4.3 3.8-5.0 (g /dL) Final AST (Aspartate aminotransferase) 06/09/2023 13:48:07 36 Above high normal 10-35 (U/L) Final Alk Phos 06/09/2023 13:48:07 128 35-130 (U/ L) Final Bilirubin, Total 06/09/2023 13:48:07 0.4 <=1 .2 (mg/dL) Final Calcium 06/09/2023 13:48:07 9.2 8.4-10.2 ( mg/dL) Final Protein 06/09/2023 13:48:07 6.3 6.0-8.3 (g /dL) Final ALT (Alanine aminotransferase) 06/09/2023 13:48:07 27 10-35 (U/L) Delmer lira Performing Location [facility] [place] [address] [facility] [address]
--- OUTSIDE RECORDS SUMMARY | 2023-08-24 14:59 | External Medical Summary ---
Author Name Unknown Address Unknown Organization K01[place] [place] [address] [place] [address] Laboratory Report Ordering Provider Test Date Status MIRIAM GONZALEZ 07/17/2023 14:13:01 Final Observation Date Value Abnormality Reference (Units ) Status TSH 07/17/2023 14:13:01 8.67 Above high normal 0. 27-4.20 (uIU/mL) Final Performing Location [facility] [place] [address] [place] [address]
--- OUTSIDE RECORDS SUMMARY | 2023-08-24 14:59 | External Medical Summary | Summary of Care ---
Author Name Unknown Organization [facility] Address [address] [facility] [place] [address] Phone [phone] Care Team Providers Care Resource Recovery Specialist Name Role Phone Lucas Mendez MD Primary Care Provider [phone]- [phone] Reason for Visit * Reason Onset Date Comments FYI 07/13/2023 Encounter Details Date Type Department Care Team Description 07/13/[address] [facility] [address] [place] [address] Lucas Mendez MD [address] [place] [address] FYI Allergies Active Allergy Reactions Severity Noted Date Comments Codeine Nausea/vomiting 2011 Empagliflozin 05/27/2023 UTIs Lisinopril 03/07/2008 Cough documented as of this encounter (statuses as of 07/16/2023) Medications Medication Sig Dispensed Refills Start Date End Date Status MULTIPLE VITAMIN PO TABSIndications:Oste oporosis Take 1 each day 30 01/09/2009 Active Acetaminophen 325 MG Oral Tablet [...] as of this encounter (statuses as of 07/16/2023) Active Problems Problem Noted Date Type 2 diabetes mellitus with hemoglobin A1c goal of less than 7.0% 12/02/2022 AICD (automatic cardioverter/defibrillat or) present 07/24/2022 Chronic kidney disease, stage 3b 022 Overview: Per CKD protocol Ischemic cardiomyopathy 08/15/2021 LBBB (left bundle branch block) 08/15/20 Chronic heart failure with r educed ejection fraction and diastolic dysfunction 08/15/2021 Coronary artery disease invo lving [place] coronary artery of [place] heart without angina pectoris 08/15/2021 Moderate mitral [...] as of this encounter (statuses as of 07/16/2023) Resolved Problems Problem Noted Date Resolved Date [...] as of this encounter (statuses as of 07/16/2023) Immunizations Name Administration Dates Next Due Pneumococcal Conjugate Vacc, 13 Valent (Prevnar) 11/07/2015 Pneumococcal Polysaccharide PPV23 (Pneumovax) 10/31/2008 SEASONAL INFLUENZA, PF, 6 M & Above, IM , (FLULAVAL or FLUZONE) 08/25/2018,08/21/2017 Seasonal Influenza, Quadriva lent Hd (Fluzone [...] Date Smoking Tobacco: Never Smokeless Tobacco: Never Alcohol Use Standard Drinks/Week Comments No 0 [...] on file documented as of this encounter Miscellaneous Notes * Telephone Encounter - CLARICE Hughes - 07/16/2023 11:48 AM EDT Scheduled. 07/16/2023 * Telephone Encounter - Mariann Mckeon LPN - 07/16/2023 9:29 AM EDT Called and spoke with pt's spouse - he would like pt to be seen here Scheduling - Please assist pt with scheduling appt * Telephone Encounter - Lucas Mendez MD - 07/15/2023 3:10 PM EDT Given several falls since last ov, can offer return visit here. Can also offer PT eval for ambulatory dysfunction/fall prevention. * Telephone Encounter - CLARICE Matias - 07/13/2023 3:47 PM EDT Notifying pcp that pt had 2 falls on 07/11, 1 on 07/12, and 1 on 07/13. After 2nd fall on 07/11 she was taken to er after hitting her head. documented in this encounter Plan of Treatment Upcoming Encounters Date Type Specialty Care Team Description 07/17/2023 Office Visit Family Medicine Jenn King MD [address] [facility] [place] [address] 07/30/2023 Laboratory Laboratory [facility] [address] [facility] [place] [address] 10/22/2023 Office Visit Cardiology Nithin Smith, DO [address] [place] [address] 12/01/2023 Office Visit Family Medicine Lucas Mendez MD [address] [place] [address] 12/16/2023 Laboratory Laboratory [facility] [address] [place] [facility] [place] [address] 12/23/2023 Office Visit Hematology Oncology Zenia Rajan MD [address] [place] [address] Scheduled Procedures Name Priority Associated Diagnoses Date/Ti me COLONOSCOPY FLEXIBLE PROXIMA L DIAGNOSTIC Recall Special screening for malignant neoplasms, colon Health Maintenance Due Date Last Done Comments DIABETES-EYE EXAM 1961 Diabetic Foot Exam 1961 Hepatitis C Screening 1963 DTaP,Tdap,and Td Vaccines (1 - Tdap) 02/13/2004 02/12/2004, 06/12/1994 COVID-19 Vaccine (3 - Pfizer risk series) 01/18/2021 12/21/2020, 11/30/2020 CKD PHOS USE SMARTSET 03246 02/05/2021 02/06/2020, 0 12/20/2008 Depression Screening 04/11/2021 04/11/2020 DXA Scan 04/02/2023 04/02/2016, 11/2013, 01/11/2014, Additional history exists Influenza Vaccine (FLU shot) (#1) 2023 08/19/2021, 08/30/2019, 08/30/2019, Additional history exists HbA1c 06/14/2023 12/12/2022, 07/12, 01/27/2022 TSH 10/24/2023 10/24/2022, 09/12, 04/11/2020, Additional history exists GFR 12/10/2023 06/09/2023, 04/13, 03/02/2023, Additional history exists Albumin/Creatinine Ratio 12/13/2023 12/12/2022 CKD HGB USE SMARTSET 70405 06/09/202406/09, 06/09/2023, 05/11/2023, Additional history exists Pneumococcal [...] Not on filedocumented as of this encounter Care Teams Resource Recovery Specialist Relationship Specialty Start Date End Date Lucas Mendez MD [address] [place] [address] PCP - General 07/12/00 documented as of this encounter
--- OUTSIDE RECORDS SUMMARY | 2023-08-24 14:59 | External Medical Summary | Summary of Care ---
Author Name Unknown Organization [facility] Address [address] [facility] [place] [address] Phone [phone] Care Team Providers Care Transportation Officer Name Role Phone Lucas Mendez MD Primary Care Provider +1- [phone] Reason for Visit * Reason Comments Outpatient Testing Encounter Details Date Type Department Care Team Description 06/09/2023 Laboratory Laboratory, [place] [address] [place] [address] [place] [address] [place] [address] CLL (chronic lymphocytic leukemia) ([facility]) Allergies Active Allergy Reactions Severity Noted Date Comments Codeine Nausea/vomiting 2011 Empagliflozin 05/27/2023 UTIs Lisinopril 03/07/2008 Cough documented as of this encounter (statuses as of 06/09/2023) Medications Medication Sig Dispensed Refills Start Date [...] other medications 90 Tablet 3 12/27/2021 Active buPROPion HCl ER (SR) 100 MG Oral Tablet Extended Release 12 Hour (Wellbutrin SR)Indications:Depre ssion with anxiety TAKE 1 TABLET BY MOUTH TWICE DAILY 180 Tablet 3 06/19/2022 Active Atorvastatin Calcium 80 MG Oral Tablet [...] or chew. 50 Capsule 1 05/28/2023 Active documented as of this encounter (statuses as of 06/09/2023) Active Problems Problem Noted Date Type 2 diabetes mellitus with hemoglobin A1c goal of less than 7.0% 12/02/2022 AICD (automatic cardioverter/defibrillat or) present 07/24/2022 Chronic kidney disease, stage 3b 022 Overview: Per CKD protocol Ischemic cardiomyopathy 08/15/2021 LBBB (left bundle branch block) 08/15/20 21 Chronic heart failure with r educed ejection fraction and diastolic dysfunction 08/15/2021 Coronary artery disease invo lving [place] coronary artery of [place] heart without angina pectoris 08/15/2021 Moderate mitral [...] as of this encounter (statuses as of 06/09/2023) Resolved Problems Problem Noted Date Resolved Date [...] as of this encounter (statuses as of 06/09/2023) Immunizations Name Administration Dates Next Due Pneumococcal [...] on file documented as of this encounter Plan of Treatment Upcoming Encounters Date Type Specialty Care Team Description 06/19/2023 Office Visit Family Medicine Lucas Mendez MD [address] [facility] [place] [address] 06/24/2023 Office Visit Hematology Oncology Zenia Rajan MD [address] [place], [place] [id number] 07/30/2023 Laboratory Laboratory [place], [facility] [address] [place] [address] 10/22/2023 Office Visit Cardiology Nithin Smith, DO [address] [place] [address] Pending Results Name Type Priority Associated Diagnoses Date /Time CBC WITH WBC DIFFERENTIAL Lab STAT CLL (chronic lymphocytic leukemia) ([facility]) 06/09/2023 1:48 PM EDT COMPREHENSIVE METABOLIC PANEL Lab STAT CLL (chronic lymphocytic leukemia) ([facility]) 06/09/2023 1:48 PM EDT LD Lab STAT CLL (chronic lymphocytic leukemia) ([facility]) 06/09/2023 1:48 PM EDT CBC Lab STAT CLL (chronic lymphocytic leukemia) ([facility]) 06/09/2023 1:48 PM EDT DIFFERENTIAL, AUTOMATED Lab STAT CLL (chronic lymphocytic leukemia) ([facility]) 06/09/2023 1:48 PM EDT Scheduled Procedures Name Priority Associated Diagnoses Date/Ti me COLONOSCOPY FLEXIBLE PROXIMA L DIAGNOSTIC Recall Special screening for malignant neoplasms, colon Health Maintenance Due Date Last Done Comments DIABETES-EYE EXAM 1963 DIABETES-FOOT EXAM 1963 Hepatitis C Screening 1963 DTaP,Tdap,and Td Vaccines (1 - Tdap) 02/13/2004 02/12/2004, 06/12/1994 COVID-19 Vaccine (3 - Pfizer risk series) 01/18/2021 12/21/2020, 11/30/2020 CKD PHOS USE SMARTSET [id number] 02/05/2021 02/06/2020, 0 12/20/2008 Depression Screening, Annual for Pts 12 and Over 04/11/2021 04/11/2020 DXA Scan 04/02/2023 04/02/2016, 04/0 11/2013, 01/11/2014, Additional history exists Influenza Vaccine (FLU shot) (#1) 2023 08/19/2021, 08/30/2019, 08/30/2019, Additional history exists HbA1c 06/14/2023 12/12/2022, 1012/2021, 01/27/2022 TSH 10/24/2023 10/24/2022, 09/12, 04/11/2020, Additional history exists GFR 11/11/2023 05/11/2023, 02/10, 01/28/2023, Additional history exists Albumin/Creatinine Ratio 12/13/2023 12/12/2022 CKD HGB USE SMARTSET [id number] 05/11/202405/11, 05/11/2023, 04/23/2023, Additional history exists Pneumococcal Vaccine: 65+ Years [...] Visit Diagnoses Diagnosis CLL (chronic lymphocytic leukemia) (HCC) Chronic lymphoid leukemia, without mention of having achieved remission documented in this encounter Care Teams Transportation Officer Relationship Specialty Start Date End Date Lucas Mendez MD [address] [place] [address] PCP - General 07/12/00 documented as of this encounter
--- OUTSIDE RECORDS SUMMARY | 2023-08-24 14:59 | External Medical Summary | Summary of Care ---
Author Name Unknown Organization [facility] Address [address] [place] [address] Phone [phone] Care Team Providers Care Light Out Examiner Name Role Phone Lucas Mendez MD Primary Care Provider +1- [phone] Reason for Visit * Reason Comments Emergency Department Follow-Up Encounter Details Date Type Department Care Team Description 07/17/2023 Office Visit [facility] [address] [place] [address] Jenn King MD [address] [place] [address] Injury of head, initial encounter*; Neck pain; Unstable gait; CLL (chronic lymphocytic leukemia) ([facility]); Type 2 diabetes mellitus with hemoglobin A1c goal of less than 7.0% ([facility]) Allergies Active Allergy Reactions Severity Noted Date Comments Codeine Nausea/vomiting 2011 Empagliflozin 05/27/2023 UTIs Lisinopril 03/07/2008 Cough documented as of this encounter (statuses as of 07/17/2023) Medications Medication Sig Dispensed Refills Start Date [...] TWICE DAILY 180 Tablet 3 06/20/2023 Active Baclofen 10 MG Oral Tablet (Lioresal) Take 1 Tablet by mouth in the morning and 1 Tablet before bedtime. 60 Tablet 1 07/17/2023 Active documented as of this encounter (statuses as of 07/17/2023) Active Problems Problem Noted Date Type 2 diabetes mellitus with hemoglobin A1c goal of less than 7.0% 12/02/2022 AICD (automatic cardioverter/defibrillat or) present 07/24/2022 Chronic kidney disease, stage 3b 022 Overview: Per CKD protocol Ischemic cardiomyopathy 08/15/2021 LBBB (left bundle branch block) 08/15/20 21 Chronic heart failure with r educed ejection fraction and diastolic dysfunction 08/15/2021 Coronary artery disease invo lving [place] coronary artery of [place] heart without angina pectoris 08/15/2021 Moderate mitral [...] as of this encounter (statuses as of 07/17/2023) Resolved Problems Problem Noted Date Resolved Date [...] as of this encounter (statuses as of 07/17/2023) Immunizations Name Administration Dates Next Due Pneumococcal [...] Packs/Day Years Used Date Smoking Tobacco: Never Passive Smoke Exposure: Never Smokeless Tobacco: Never Tobacco Cessation:Counseling Given: [...] Sign Reading Time Taken Comments Blood Pressure 98/62 07/17/2023 1:33 PM EDT Pulse 71 07/17/2023 1:33 PM EDT Temperature 35.8 C (96.4 F) 07/17/2023 1:33 PM ED T Respiratory Rate 22 07/17/2023 1:33 PM EDT Oxygen Saturation 98% 07/17/2023 1:33 PM EDT Inhaled Oxygen Concentration - - Weight 55.7 kg (122 lb 14.4 oz) 07/17/2023 1:33 PM EDT Height - - Body Mass Index 22.48 12/12/2022 11:32 AM EST documented in this encounter Progress Notes * Jenn King MD - 07/17/2023 1:51 PM EDT Subjective Viri Rose is a 77 year old female. Chief Complaint Patient presents with Emergency Department Follow-Up HPI: Here for ER f/u - on Jul 11 Fall backward , lost balance Known chronic balance issue with generalized weakness, back , arthritis issues Should use a walker Encouraged to use all the time Wearing back brace currently Fortunately no head injury based on CT , xrays Has soreness pain on neck and upper back , worse at night on the bed Will order baclofen Known CLL - which has been worse F/u with oncology - pt declined treatment but I discussed again about considering CLL treatment WBC 190K in ER Hx of type 2 DM, but recent hba1c 5.6 Weight loss, poor appetite Takign thyroid med, f/u with PCP Will get blood tests PMH: Patient Active Problem List Diagnosis Code Major depressive disorder F32.9 Hypothyroidism E03.9 Varicose vein of leg I83.90 Irritable bowel syndrome K58.9 HTN, goal below 140/90 I10 Gastroparesis K31.84 GERD (gastroesophageal reflux disease) K21.9 Esophageal stricture K22.2 Dyslipidemia, goal LDL below 130 E78.5 CLARICE on CPAP G47.33 CLL (chronic lymphocytic leukemia) (HCC) C91.10 Ischemic cardiomyopathy I25.5 LBBB (left bundle branch block) I44.7 Chronic heart failure with reduced ejection fraction and diastolic dysfunction (HCC) I50.42 Coronary artery disease involving [place] coronary artery of [place] heart without angina pectoris I25.10 Moderate mitral regurgitation I34.0 Pulmonary HTN (HCC) I27.20 Chronic kidney disease, stage 3b (HCC) N18.32 AICD (automatic cardioverter/defibrillator) present Z95.810 Type 2 diabetes mellitus with hemoglobin A1c goal of less than 7.0% ([facility]) E11.9 Current Outpatient Medications Medication Sig Dispense Refill Acetaminophen 325 MG Oral Tablet (Tylenol) Take 1 Tablet by mouth every 6 hours as needed for Pain,Mild. 30 Tablet 0 Baclofen 10 MG Oral Tablet (Lioresal) Take 1 Tablet by mouth in the morning and 1 Tablet before bedtime. 60 Tablet 1 MULTIPLE VITAMIN PO TABS Take 1 each day 30 11 Levothyroxine Sodium 75 MCG Oral Tablet (Levoxyl) [...] No current facility-administered medications for this visit. Past Medical History: Diagnosis Date Depressive disorder, [...] by Tom Astudillo MD at ENDOSCOPY [facility] EGD, FLEXIBLE, DIAGNOSTIC 09/08/2018 eso stenosis, hiatal hernia, gastritis/ESOPHAGOGASTRODUODENOSCOPY (EGD), FLEXIBLE, TRANSORAL, DIAGNOSTIC performed by Tom Astudillo MD at ENDOSCOPY [facility] EGD, FLEXIBLE, INSERT WIRE, PASS DILATOR 07/06/09 done hiatal hernia, benign appearing esophageal stricture, dilated to 16 mm EGD, FLEXIBLE, W/BIOPSY 07/06/09 done mild gastric irritation LIGATE/CUT OVIDUCT(S) 1968 Tubal Ligation,Non Laparoscopic TOTAL HYSTERECTOMY 1986 MICHAEL (Total Abdominal Hysterectomy) UPPER ENDOSCOPY GI REFERRAL OP 2002 [place] Review of patient's allergies indicates: Allergen Reactions Codeine Nausea/vomiting Jardiance [Empagliflozin] UTIs Lisinopril Cough Family History Problem Relation Age of Onset Musculo-skeletal Disorder Mother osteoarth Heart Disorder Father 55 SD Lung Disorder Father TB No Past Hx Grandfather (Paternal) lived to be very old Lung Disorder Grandmother (Paternal) young of TB Heart Disorder Brother CAD Lung Disorder Brother severe sleep apnea Other (PVD) Other No Past Hx Son No Past Hx Son No Past Hx Daughter Family Status Relation Status Mo Alive Fa at age 55 SD Sis Alive Bro Alive Bro Alive Bro Alive Alec Alive Son Alive Son Alive PGFA (Not Specified) PGMA (Not Specified) Bro (Not Specified) Other (Not Specified) Son (Not Specified) Son (Not Specified) Alce (Not Specified) Social History Socioeconomic History Marital status: Spouse name: Not on file Number of children: Not on file Years of education: Not on file Highest education level: Not on file Occupational History 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 [employer] Tobacco Use Smoking status: Never Passive exposure: Never Smokeless tobacco: Never Substance and Sexual Activity Alcohol use: No Drug use: No Sexual activity: Yes Partners: Male Other Topics Concern Service Not Asked Blood Transfusions No Caffeine Concern Not Asked Occupational Exposure Not Asked Hobby Hazards Not Asked Sleep Concern Not Asked Stress Concern Not Asked Weight Concern Not Asked Special Diet No Back Care Not Asked Exercise Not Asked Bike Helmet Not Asked Seat Belt Yes Self-Exams Not Asked Social History Narrative 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 Negative for appetite change, chills, diaphoresis, fever and unexpected weight change. Eyes: Negative for visual disturbance. Respiratory: Negative for cough, chest tightness, shortness of breath and wheezing. Cardiovascular: Negative for chest pain, palpitations and leg swelling. Endocrine: Negative. Musculoskeletal: Positive for arthralgias, back pain, gait problem, neck pain and neck stiffness. Allergic/Immunologic: Positive for immunocompromised state. Neurological: Positive for dizziness, weakness (generalized), light-headedness, numbness and headaches. Psychiatric/Behavioral: Positive for dysphoric mood and sleep disturbance (neck upper back pain). Negative for agitation and behavioral problems. The patient is nervous/anxious. Objective BP 98/62 | Pulse 71 | Temp 35.8 C (96.4 F) (Infrared ) | Resp 22 | Wt 55.7 kg (122 lb 14.4 oz) | SpO2 98% | BMI 22.48 kg/m | BSA 1.56 m Physical Exam Constitutional: General: She is not in acute distress. Appearance: She is not ill-appearing, toxic-appearing or diaphoretic. Comments: Fragile elderly HENT: Head: Normocephalic and atraumatic. Nose: Nose normal. Eyes: Extraocular Movements: Extraocular movements intact. Pupils: Pupils are equal, round, and reactive to light. Cardiovascular: Rate and Rhythm: Normal rate and regular rhythm. Pulmonary: Effort: Pulmonary effort is normal. No respiratory distress. Musculoskeletal: General: Tenderness present. Cervical back: Tenderness present. Right lower leg: No edema. Left lower leg: No edema. Neurological: Mental Status: She is alert. Motor: Weakness (generalized) present. Gait: Gait abnormal. ASSESSMENT/PLAN: Injury of head, initial encounter (Primary) Neck pain Unstable gait CLL (chronic lymphocytic leukemia) ([facility]) Type 2 diabetes mellitus with hemoglobin A1c goal of less than 7.0% ([facility]) Other orders - Baclofen 10 MG Oral Tablet (Lioresal); Take 1 Tablet by mouth in the morning and 1 Tablet before bedtime. Baclofen F/u with PCP F/u with oncology Jenn King MD documented in this encounter Nursing Notes * Ashly Low LPN - 07/17/2023 1:31 PM EDT Chief Complaint Patient presents with Emergency Department Follow-Up documented in this encounter Plan of Treatment Upcoming Encounters Date Type Specialty Care Team Description 07/17/2023 Laboratory [facility] [place] [address] [place] [address] Hypothyroidism, unspecified type 10/22/2023 Office Visit Cardiology Nithin Smith, DO [address] [place] [address] 12/01/2023 Office Visit Family Medicine Lucas Mendez MD [address] [place] [facility] [place] [address] 12/16/2023 Laboratory [facility] [place] [facility] [address] [place], [place] [id number] 12/23/2023 Office Visit Hematology Oncology Zenia Rajan MD [address] [facility] [place] [address] Scheduled Procedures Name Priority Associated Diagnoses Date/Ti me COLONOSCOPY FLEXIBLE PROXIMA L DIAGNOSTIC Recall Special screening for malignant neoplasms, colon Health Maintenance Due Date Last Done Comments DIABETES-EYE EXAM 1963 Diabetic Foot Exam 1963 Hepatitis C Screening 1963 DTaP,Tdap,and Td Vaccines (1 - Tdap) 02/13/2004 02/12/2004, 06/12/1994 COVID-19 Vaccine (3 - Pfizer risk series) 01/18/2021 12/21/2020, 11/30/2020 CKD PHOS USE SMARTSET [id number] 02/05/2021 02/06/2020, 0 12/20/2008 Depression Screening 04/11/2021 04/11/2020 DXA Scan 04/02/2023 04/02/2016, 04/0 11/2013, 01/11/2014, Additional history exists Influenza Vaccine (FLU shot) (#1) 2023 08/19/2021, 08/30/2019, 08/30/2019, Additional history exists HbA1c 06/14/2023 12/12/2022, 07/12, 01/27/2022 TSH 10/24/2023 10/24/2022, 09/12, 04/11/2020, Additional history exists GFR 12/10/2023 06/09/2023, 04/13, 03/02/2023, Additional history exists Albumin/Creatinine Ratio 12/13/2023 12/12/2022 CKD HGB USE SMARTSET [id number] 06/09/202406/09, 06/09/2023, 05/11/2023, Additional history exists Pneumococcal [...] as of this encounter Visit Diagnoses Diagnosis Injury of head, initial encounter- Primary Neck pain Cervicalgia Unstable gait Abnormality of gait CLL (chronic lymphocytic leukemia) (HCC) Chronic lymphoid leukemia, without mention of having achieved remission Type 2 diabetes mellitus with hemoglobin A1c goal of less than 7.0% (HCC) Hypothyroidism, unspecified type documented in this encounter Care Teams Light Out Examiner Relationship Specialty Start Date End Date Lucas Mendez MD [address] [place] [address] PCP - General 07/12/00 documented as of this encounter"
--- OUTSIDE RECORDS SUMMARY | 2023-08-24 14:59 | External Medical Summary | Summary of Care ---
Author Name Unknown Organization [facility] Address [address] [place] [address] Phone [phone] Care Team Providers Care Natural Resource Specialist Name Role Phone Lucas Pineda MD Primary Care Provider +1- [phone] Reason for Visit * Reason Comments eRx-Medication Refill Encounter Details Date Type Department Care Team Description 06/19/2023 Refill [facility] [address] [place] [address] Lucas Pineda MD [address] [place] [address] Depression with anxiety Allergies Active Allergy Reactions Severity Noted Date Comments Codeine Nausea/vomiting 2011 Empagliflozin 05/27/2023 UTIs Lisinopril 03/07/2008 Cough documented as of this encounter (statuses as of 06/20/2023) Medications Medication Sig Dispensed Refills Start Date [...] Oral Tablet Extended Release 24 Hour (toPROL XL)Indications:Maintenance Advisor brittany heart failure with reduced ejection fraction [...] BY MOUTH TWICE DAILY 180 Tablet 3 3 Active buPROPion HCl ER (SR) 100 MG Oral Tablet Extended Release 12 Hour (Wellbutrin SR)Indications:Depr ession with anxiety TAKE 1 TABLET BY MOUTH TWICE DAILY 180 Tablet 3 2 06/20/20 23 Discontinued documented as of this encounter (statuses as of 06/20/2023) Active Problems Problem Noted Date Type 2 diabetes mellitus with hemoglobin A1c goal of less than 7.0% 12/02/2022 AICD (automatic cardioverter/defibrillat or) present 07/24/2022 Chronic kidney disease, stage 3b 022 Overview: Per CKD protocol Ischemic cardiomyopathy 08/15/2021 LBBB (left bundle branch block) 08/15/20 21 Chronic heart failure with r educed ejection fraction and diastolic dysfunction 08/15/2021 Coronary artery disease invo lving [place] coronary artery of [place] heart without angina pectoris 08/15/2021 Moderate mitral [...] as of this encounter (statuses as of 06/20/2023) Resolved Problems Problem Noted Date Resolved Date [...] as of this encounter (statuses as of 06/20/2023) Immunizations Name Administration Dates Next Due Pneumococcal [...] encounter Miscellaneous Notes * Telephone Encounter - Juan Landis, [facility] - 06/20/2023 9:56 AM EDT Signed Prescriptions: Disp Refills buPROPion HCl ER (SR) 100 MG Oral Tablet E*180 Ta*3 Sig: TAKE 1 TABLET BY MOUTH TWICE DAILYAuthorizing Provider: LUCAS PINEDA User: JUAN LANDIS documented in this encounter Plan of Treatment Upcoming Encounters Date Type Specialty Care Team Description 06/24/2023 Office Visit Hematology Oncology Zenia Rajan MD [address] [place], [place] [phone] 07/30/2023 Laboratory Laboratory [facility] [address] [place], [place] [id number] 10/22/2023 Office Visit Cardiology Nithin Smith DO [address] [place] [address] 12/01/2023 Office Visit Family Medicine Lucas Pineda MD [address] [place], [place] [phone] Scheduled Procedures Name Priority Associated Diagnoses Date/Ti me COLONOSCOPY FLEXIBLE PROXIMA L DIAGNOSTIC Recall Special screening for malignant neoplasms, colon Health Maintenance Due Date Last Done Comments DIABETES-EYE EXAM 1963 Diabetic Foot Exam 1961 Hepatitis C Screening 1963 DTaP,Tdap,and Td Vaccines (1 - Tdap) 02/13/2004 02/12/2004, 06/12/1994 COVID-19 Vaccine (3 - Pfizer risk series) 01/18/2021 12/21/2020, 11/30/2020 CKD PHOS USE SMARTSET [id number] 02/05/2021 02/06/2020, 0 12/20/2008 Depression Screening 04/11/2021 04/11/2020 DXA Scan 04/02/2023 04/02/2016, 0411/2013, 01/11/2014, Additional history exists Influenza Vaccine (FLU shot) (#1) 2023 08/19/2021, 08/30/2019, 08/30/2019, Additional history exists HbA1c 06/14/2023 12/12/2022, 07/12, 01/27/2022 TSH 10/24/2023 10/24/2022, 09/12, 04/11/2020, Additional history exists GFR 12/10/2023 06/09/2023, 04/13, 03/02/2023, Additional history exists Albumin/Creatinine Ratio 12/13/2023 12/12/2022 CKD HGB USE SMARTSET [id number] 06/09/202406/09, 06/09/2023, 05/11/2023, Additional history exists Pneumococcal [...] as of this encounter Visit Diagnoses Diagnosis Depression with anxiety Dysthymic disorder documented in this encounter Care Teams Natural Resource Specialist Relationship Specialty Start Date End Date Lucas Pineda MD [address] [place] [address] PCP - General 07/12/00 documented as of this encounter
--- OUTSIDE RECORDS SUMMARY | 2023-08-24 14:59 | External Medical Summary | Summary of Care ---
Author Name Unknown Organization [facility] Address [address] [place] [address] Phone [phone] Care Team Providers Care Measurement And Verification Engineer Name Role Phone Lucas Pineda MD Primary Care Provider [phone]- [phone] Reason for Visit * Reason Onset Date Comments Medication Refill 05/28/2023 Encounter Details Date Type Department Care Team Description 05/28/2023 Refill [facility] [address] [place] [address] Lucas Pineda MD [address] [place] [address] Bronchitis, complicated Allergies Active Allergy Reactions Severity Noted Date Comments Codeine Nausea/vomiting 2011 Empagliflozin 05/27/2023 UTIs Lisinopril 03/07/2008 Cough documented as of this encounter (statuses as of 05/28/2023) Medications Medication Sig Dispensed Refills Start Date End Date Status MULTIPLE VITAMIN PO TABSIndications:Ost eoporosis Take 1 each day 30 01/09/2009 Active [...] Oral Tablet Extended Release 24 Hour (toPROL XL)Indications:Report Programmer brittany heart failure with reduced ejection fraction [...] or chew. 50 Capsule 1 05/28/2023 Active Benzonatate 100 MG Oral Capsule (Tessalon Perles)Indications: Bronchitis, complicated Take 1 Capsule by mouth 3 times a day as needed for Cough. Do not cut, crush, or chew. 50 Capsule 1 12/02/2022 3 Discontinu ed(Refill) documented as of this encounter (statuses as of 05/28/2023) Active Problems Problem Noted Date Type 2 diabetes mellitus with hemoglobin A1c goal of less than 7.0% 12/02/2022 AICD (automatic cardioverter/defibrillat or) present 07/24/2022 Chronic kidney disease, stage 3b 022 Overview: Per CKD protocol Ischemic cardiomyopathy 08/15/2021 LBBB (left bundle branch block) 08/15/20 21 Chronic heart failure with r educed ejection fraction and diastolic dysfunction 08/15/2021 Coronary artery disease invo lving [place] coronary artery of [place] heart without angina pectoris 08/15/2021 Moderate mitral [...] as of this encounter (statuses as of 05/28/2023) Resolved Problems Problem Noted Date Resolved Date [...] as of this encounter (statuses as of 05/28/2023) Immunizations Name Administration Dates Next Due Pneumococcal Conjugate Vacc, 13 Valent (Prevnar) 11/07/2015 Pneumococcal Polysaccharide PPV23 (Pneumovax) 10/31/2008 Seasonal Influenza, Quadriva lent Hd (Fluzone Hd) 08/19/2021 Seasonal Influenza, Quadriva lent, No Preserve, 6 Mons & Above, IM 08/25/2018,08/21/2017 Seasonal Influenza, Quadriva lent, No Preserve, IM [...] encounter Miscellaneous Notes * Telephone Encounter - Lucas Pineda MD - 05/28/2023 4:30 PM EDTSigned Prescriptions: Disp Refills Benzonatate 100 MG Oral Capsule (Tessalon *50 Cap*1 Sig: Take 1 Capsule by mouth 3 times a day as needed for Cough. Do not cut, crush, or chew.Authorizing Provider:LUCAS PINEDA * Telephone Encounter - Orin Deshpande, commercial analyst - 05/28/2023 4:00 PM EDT Did you pend patient's preferred pharmacy and medication before forwarding?yes Pharmacy: [id number] [place] Pending Prescriptions: Disp Refills Benzonatate 100 MG Oral Capsule (Tessalon*50 Cap*1 Sig: Take 1 Capsule by mouth 3 times a day as needed for Cough. Do not cut, crush, or chew. Last Visit: 12/12/2022 (in office), 01/27/2023 (telemedicine) Next Visit: 06/19/2023 If no future appointments scheduled, and last appointment is greater than a year ago, please schedule patient for a follow-up appointment Last date the medication was ordered: 12/02/2022 Is this request for a controlled substance?No Urine Drug Screen:No results found. However, due to the size of the patient record, not all encounters were searched. Please check Results Review for a complete set of results. Patient Phone Numbers Labs: Lab Results Component Value Date/Time CREAT 1.1 (H) 05/11/2023 12:00 PM CREAT 1.1 (H) 08/15/2020 03:47 PM POTASSIUM 4.4 05/11/2023 12:00 PM POTASSIUM 4.5 08/15/2020 03:47 PM TSH 11.90 (H) 10/24/2022 03:01 PM TSH 1.56 04/11/2020 01:03 PM LDLCALC 97 01/27/2022 01:55 PM LDLCALC 103 04/11/2020 01:03 PM LDLDIRECT NOT APPLICABLE 04/11/2020 01:03 PM LDLDIRECT 123 08/25/2018 10:50 AM ALT 15 05/11/2023 12:00 PM ALT 23 08/15/2020 03:47 PM HGBA1C 5.6 12/12/2022 12:27 PM documented in this encounter Plan of Treatment Upcoming Encounters Date Type Specialty Care Team Description 06/09/2023 Laboratory [facility] [place] [address] [place] [address] 06/19/2023 Office Visit Family Medicine Lucas Pineda MD [address] [place] [facility] [place] [address] 06/24/2023 Office Visit Hematology Oncology Zenia Rajan MD [address] [place] [address] 06/24/2023 Office Visit Hematology Oncology Zenia Rajan MD [address] [place] [address] 07/30/2023 Laboratory [facility] [place] [address] [place] [address] 10/22/2023 Office Visit Cardiology Nithin Smith, [address] [place] [address] Scheduled Procedures Name Priority Associated Diagnoses Date/Ti me COLONOSCOPY FLEXIBLE PROXIMA L DIAGNOSTIC Recall Special screening for malignant neoplasms, colon Health Maintenance Due Date Last Done Comments DIABETES-EYE EXAM 1963 DIABETES-FOOT EXAM 1963 Hepatitis C Screening 1963 DTaP,Tdap,and Td Vaccines (1 - Tdap) 02/13/2004 02/12/2004, 06/12/1994 COVID-19 Vaccine (3 - Pfizer risk series) 01/18/2021 12/21/2020, 11/30/2020 CKD PHOS USE SMARTSET 86088 02/05/2021 02/06/2020, 0 12/20/2008 Depression Screening, Annual for Pts 12 and Over 04/11/2021 04/11/2020 DXA Scan 04/02/2023 04/02/2016, 11/2013, 01/11/2014, Additional history exists Influenza Vaccine (FLU shot) (#1) 2023 08/19/2021, 08/30/2019, 08/30/2019, Additional history exists HbA1c 06/14/2023 12/12/2022, 07/12, 01/27/2022 TSH 10/24/2023 10/24/2022, 09/12, 04/11/2020, Additional history exists GFR 11/11/2023 05/11/2023, 02/10, 01/28/2023, Additional history exists Albumin/Creatinine Ratio 12/13/2023 12/12/2022 CKD HGB USE SMARTSET 27554 05/11/202405/11, 05/11/2023, 04/23/2023, Additional history exists Pneumococcal [...] as of this encounter Visit Diagnoses Diagnosis Bronchitis, complicated Bronchitis, not specified as acute or chronic documented in this encounter Care Teams Measurement And Verification Engineer Relationship Specialty Start Date End Date Lucas Pineda MD [address] [place] [address] PCP - General 07/12/00 documented as of this encounter
--- OUTSIDE RECORDS SUMMARY | 2023-08-24 14:59 | External Medical Summary ---
Author Name Unknown Address Unknown Organization K01:[facility] - [address] [place] [address] Laboratory Report Ordering Provider Test Date Status MIRIAM GONZALEZ 07/17/2023 14:13:01 Final Observation Date Value Abnormality Reference (Units ) Status T4, Free 07/17/2023 14:13:01 0.9 0.9-1.7 (n g/dL) Final Performing Location [facility] - [address] [place] [address]
--- OUTSIDE RECORDS SUMMARY | 2023-08-24 14:59 | External Medical Summary | Summary of Care ---
Author Name Unknown Organization [facility] Address [address] [place] [address] Phone [phone] Care Team Providers Care Mine Safety Manager Name Role Phone Lucas Mendez MD Primary Care Provider +1- [phone] Reason for Visit * Reason Comments Outpatient Testing Encounter Details Date Type Department Care Team Description 07/17/2023 Laboratory [facility] [place] [address] [place] [address] [facility] [address] [place] [address] Hypothyroidism, unspecified type Allergies Active Allergy Reactions Severity Noted Date [...] dysfunction 08/15/2021 Coronary artery disease invo lving [place] coronary artery of [place] heart without angina pectoris 08/15/2021 Moderate mitral [...] Passive Smoke Exposure: Never Smokeless Tobacco: Never Alcohol Use Standard [...] Encounters Date Type Specialty Care Team Description 10/22/2023 Office Visit Cardiology Nithin Smith DO [address] [place] [address] 12/01/2023 Office Visit Family Medicine Lucas Mendez MD [address] [place] [address] 12/16/2023 Laboratory Laboratory [facility] [address] [place] [address] 12/23/2023 Office Visit Hematology Oncology Zenia Rajan MD [address] [place] [address] Pending Results Name Type Priority Associated Diagnoses Date /Time TSH WITH FREE T4 IF INDICATED Lab Routine Hypothyroidism, unspecified type 07/17/2023 2:13 PM EDT Scheduled Procedures Name Priority Associated Diagnoses Date/Ti me COLONOSCOPY FLEXIBLE PROXIMA L DIAGNOSTIC Recall Special screening for malignant neoplasms, colon Health Maintenance Due Date Last Done Comments DIABETES-EYE EXAM 1963 Diabetic Foot Exam 1963 Hepatitis C Screening 1963 DTaP,Tdap,and Td Vaccines (1 - Tdap) 02/13/2004 02/12/2004, 06/12/1994 COVID-19 Vaccine (3 - Pfizer risk series) 01/18/2021 12/21/2020, 11/30/2020 CKD PHOS USE SMARTSET 83345 02/05/2021 02/06/2020, 0 12/20/2008 Depression Screening 04/11/2021 04/11/2020 DXA Scan 04/02/2023 04/02/2016, 04/0 11/2013, 01/11/2014, Additional history exists Influenza Vaccine (FLU shot) (#1) 2023 08/19/2021, 08/30/2019, 08/30/2019, Additional history exists HbA1c 06/14/2023 12/12/2022, 07/12, 01/27/2022 TSH 10/24/2023 10/24/2022, 09/12, 04/11/2020, Additional history exists GFR 12/10/2023 06/09/2023, 04/13, 03/02/2023, Additional history exists Albumin/Creatinine Ratio 12/13/2023 12/12/2022 CKD HGB USE SMARTSET 49083 06/09/202406/09, 06/09/2023, 05/11/2023, Additional history exists Pneumococcal [...] this encounter Visit Diagnoses Diagnosis Hypothyroidism, unspecified type documented in this encounter Care Teams Mine Safety Manager Relationship Specialty Start Date End Date Lucas Mendez MD [address], [place] [id number] PCP - General 07/12/00 documented as of this encounter
--- OUTSIDE RECORDS SUMMARY | 2023-08-24 14:59 | External Medical Summary ---
Author Name Unknown Address Unknown Organization K01:[facility] [place] [address] [facility] [address] Laboratory Report Ordering Provider Test Date Status LOU CLAUDIO 06/09/2023 13:48:07 Final Observation Date Value Abnormality Reference (Units ) Status SYNC LEUKOCYTES IN BLOOD BY AUTOMATED COUNT 06/09/2023 13:48:07 190.48 Above upper panic limits 4.00-10.80 (K/uL) Final Neutrophils/100 leukocytes in Blood by Manual count 06/09/2023 13:48:07 4.5 Below low normal 40.0-75.0 (%) Final Lymphocytes/100 leukocytes in Blood by Manual count 06/09/2023 13:48:07 92.5 Above high normal 18.0-42.0 (%) Final Monocytes/100 leukocytes in Blood by Manual count 06/09/2023 13:48:07 3.0 1.0-11.0 (%) Final Neutrophils [#/volume] in Blood by Manual count 06/09/2023 13:48:07 8.57 Above high normal 1.80-7.70 (K/uL) Final Lymphocytes [#/volume] in Blood by Manual count 06/09/2023 13:48:07 176.19 Above high normal 1.00-4.80 (K/uL) Final Monocytes [#/volume] in Blood by Manual count 06/09/2023 13:48:07 5.71 Above high normal 0.00-1.10 (K/uL) Final Elliptocytes [Presence] in Blood by Light microscopy 06/09/2023 13:48:07 Moderate Abnormal None Seen Final Variant lymphocytes [Presence] in Blood by Light microscopy 06/09/2023 13:48:07 Present Abnormal None Seen Final Performing Location [facility] - [address] [facility] [address]
--- OUTSIDE RECORDS SUMMARY | 2023-08-24 14:59 | External Medical Summary ---
Author Name Unknown Address Unknown Organization K01:[facility] [place] [address] [place] [address] Laboratory Report Ordering Provider Test Date Status LOU CLAUDIO 06/09/2023 13:48:07 Final Observation Date Value Abnormality Reference (Units ) Status WBC, Total 06/09/2023 13:48:07 190.48 Above upper panic limits 4.00-10.80 (K/uL) Final Run on dilution.
null RBC 06/09/2023 13:48:07 3.37 3.85-5.15 (M/uL) Final Hemoglobin 06/09/2023 13:48:07 10.8 Below low normal 12 .0-15.3 (g/dL) Final Results rechecked.
null HCT 06/09/2023 13:48:07 36.9 36.0-45.2 (%) Final MCV 06/09/2023 13:48:07 109.5 81.5-97.5 (fL) Final MCH 06/09/2023 13:48:07 32.0 27.0-34.0 (pg) Final MCHC 06/09/2023 13:48:07 29.3 32.0-36.0 (g/dL) Final RDW 06/09/2023 13:48:07 15.8 11.5-15.5 (%) Final Platelets 06/09/2023 13:48:07 111 Below low normal 140 -400 (K/uL) Final MPV 06/09/2023 13:48:07 10.6 6.6-11.1 ( fL) Final Nucleated erythrocytes/100 leukocytes [Ratio] in Blood by Automated count 06/09/2023 13:48:07 0 <=0 (/100 WBCs) Fi nal Performing Location [facility] - [address] [place] [address]
--- OUTSIDE RECORDS SUMMARY | 2023-08-24 14:59 | External Medical Summary | Summary of Care ---
Author Name Unknown Organization [facility] Address [address] [facility] [place] [address] Phone [phone] Care Team Providers Care Tire Spotter Name Role Phone Lucas Mendez MD Primary Care Provider +1- [phone] Reason for Visit * Reason Onset Date Comments Patient Assistance Program 05/19/2023 CAROLE DANG APPROVED Encounter Details Date Type Department Care Team (Late st Contact Info) Description 05/19/2023 Telephone Hematology/Oncology [facility] [address] [place] [address] Zenia Rajan MD [address] [place] [address] Patient Assistance Program (CAROLE ANGLIN... Allergies Active Allergy Reactions Criticality Noted Date Comments Codeine Nausea/vomiting 2011 Empagliflozin 05/27/2023 UTIs Lisinopril 03/07/2008 Cough documented as of this encounter (statuses as of 08/18/2023) Medications Medication Sig Dispensed Refills Start Date End Date Status MULTIPLE VITAMIN PO TABSIndications:Osteo porosis Take 1 each day 30 11 01/09/2009 Active Acetaminophen 325 MG Oral Tablet (Tylenol) Take 1 Tablet by mouth every 6 hours as needed for Pain, Mild. 30 Tablet 0 08/23/2021 Active Levothyroxine Sodium 75 MCG Oral Tablet (Levoxyl)Indications: Acquired hypothyroidism take one tablet by mouth daily at least 30 minutes before breakfast and other medications 90 Tablet 3 12/27/2021 Active Atorvastatin Calcium 80 MG Oral Tablet (Lipitor)Indications: Dyslipidemia, goal LDL below 130 TAKE ONE TABLET BY MOUTH DAILY 90 Tablet 3 09/12/2022 Active Polyethylene Glycol 3350 17 GM Oral Packet Take 1 Packet by mouth in the morning. 0 Active Metoprolol Succinate ER 50 MG Oral Tablet Extended Release 24 Hour (toPROL XL)Indications:Chroni c heart failure with reduced ejection fraction and diastolic dysfunction (HCC),Ischemic cardiomyopathy,Presen ce of automatic cardioverter/defibril lator (AICD),HTN, goal below 140/90,LBBB (left bundle branch block),Dyslipidemia, goal LDL below 70,CLARICE on CPAP,Chronic systolic heart failure (HCC) Take 0.5 Tablets by mouth in the morning. 90 Tablet 3 01/27/2023 Active documented as of this encounter (statuses as of 08/18/2023) Active Problems Problem Noted Date Diagnosed Date Type 2 diabetes mellitus wit h hemoglobin A1c goal of less than 7.0% 12/02/2022 AICD (automatic cardioverter/defibrillator) pres ent 07/24/2022 Chronic kidney disease, stage 3b 11/25/2021 Overview: Per CKD protocol Ischemic cardiomyopathy 08/15/2021 LBBB (left bundle branch block) 08/15/2021 Chronic heart failure with r educed ejection fraction and diastolic dysfunction 08/15/2021 Coronary artery disease invo lving [place] coronary artery of [place] heart without angina pectoris 08/15/2021 Moderate mitral regurgitation 08/15/2021 Pulmonary HTN 08/15/2021 CLL (chronic lymphocytic leukemia) 05/02/2019 CLARICE on CPAP 08/04/2014 Overview: CPAP 8 cwp 2013 PSG -- AHI 8.7, 15 mins <89% 2009 PSG -- AHI 10.1 AHP Dyslipidemia, goal LDL below 130 09/14/2013 Esophageal stricture 10/19/2010 GERD (gastroesophageal reflux disease) 0 Gastroparesis 08/08/2009 HTN, goal below 140/90 10/26/2006 Irritable bowel syndrome 04/30/2004 Hypothyroidism 12/17/1999 Major depressive disorder Overview: ICD-10 update of inactive term Varicose vein of leg documented as of this encounter (statuses as of 08/18/2023) Resolved Problems Problem Noted Date Diagnosed Date Resolved Date Dementia without behavioral disturbance 10/14/2021 01/27/2023 Major depressive disorder wi th single episode, in full remission 10/14/2021 01/27/2023 Stage 3a chronic kidney disease 08/20/2020 11/27/2021 Overview: Per CKD protocol - Per CKD protocol Kidney disease, chronic, sta ge III (GFR 30-59 ml/min) 08/22/2019 08/23/2020 Overview: Per CKD protocol Special screening for malign ant neoplasms, colon 2011 08/21/2017 Dysphagia 10/19/2010 08/21/2017 Overview: ICD-10 update of inactive term Esophageal stricture 08/08/2009 017 ADVANCE DIRECTIVE INFORMATION 02/02/2006 08/21/2017 Overview: Yes, Copy scanned at patient level in the electronic medical record.(Go to Action, Patient File to view) Patient aware they must notify their healthcare provider of changes. 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 02/18/2018 Tension headache 02/11/2000 08/21/2017 Need for prophylactic hormon e replacement therapy (postmenopausal) 08/21/2017 Urinary incontinence 017 Overview: ICD-10 update of inactive term documented as of this encounter (statuses as of 08/18/2023) Immunizations Name Administration Dates Next Due Pneumococcal [...] drink = 0.6 oz pur e alcohol) PHQ-2 Answer Date Recorded PHQ-2 Score -1 07/01/2020 Hunger Vital Sign Answer Date Recorded Worried About Running Out of Food in the Last Ye ar Never true 04/11/2020 Ran Out of Food in the Last Year Never true 04/11/2020 Sex and Gender Information Value Date Recorded Sex Assigned at Female 02/24/2019 10:07 AM EDT Gender Identity Female 02/24/2019 10:07 AM EDT Sexual Orientation Straight 02/24/2019 10 :07 AM EDT Job Start Date Occupation Industry Not on file Not on file Not on file documented as of this encounter Miscellaneous Notes * Telephone Encounter - Ashly Sprague OSA - 05/19/2023 3:01 PM EDT Patient Assistance Name of Medication: Brukinsa 80MG capsules Was patient spoken to: : YES - patients Type of assistance: [facility] DANG [facility] Card ID:[id number] Group: [id number] BIN: [id number] PCN:[id number] Balance [id number] 02/18/2023-05/18/2024 Applications mailed: : NO Follow up: 5 months to check mono Sprague [employer] Apparel Machinery Instructor 05/19/23,2:48 PM * Telephone Encounter - Anirudh Roca, health coach - 05/19/2023 2:26 PM EDT [facility] Patient Assistance Request: Medication name: Mike Insurance? medicare d Co-pay amount: 14 Action needed: new funding inquiry Target ship date (if applicable): na Confirm this encounter is routed to [phone] or [phone]: Yes In-Clinic/POM (non hem/onc) routed [place] [phone] Confirm encounter department selected is for prescribing physician: Yes If URGENT: Send TEAMS message to appropriate supervisor throwing department (see "Assistance Guide 2021" in "Processes- pt asst" folder on shared drive): [] Urgent message sent to: na Thank you, Anirudh Roca, health coach [facility] 05/19/2023,2:27 PM documented in this encounter Plan of Treatment Upcoming Encounters Date Type Department Care Team (Late st Contact Info) Description 10/22/2023 2:30 PM EST Office Visit Cardiology, [facility] [address] [place] [address] Nithin Smith, [address] [place] [address] 12/01/2023 4:00 PM EST Office Visit [place] [address] [place] [facility] [place] [id number] Lucas Mendez MD [address] [place] [facility] [place] [address] 12/16/2023 2:30 PM EST Laboratory Laboratory, [place] [address] [place] [facility] [place] [address] [facility] [address] [place] [facility] [place] [address] 12/23/2023 2:30 PM EDT Office Visit Hematology/Oncology [facility] [place] [address] [place] [address] Zenia Rajan MD [address] [place] [address] Scheduled Procedures Name Priority Associated Diagnoses Date/Ti me COLONOSCOPY FLEXIBLE PROXIMA L DIAGNOSTIC Recall Special screening for malignant neoplasms, colon Health Maintenance Due Date Last Done Comments Diabetic Eye Exam 1961 Diabetic Foot Exam 1961 Hepatitis C Screening 1963 Hepatitis B (1 of 3 - Risk 3-dose series) 2003 DTaP,Tdap,and Td Vaccines (1 - Tdap) 02/13/2004 02/12/2004, 06/12/1994 COVID-19 Vaccine (3 - Pfizer risk series) 01/18/2021 12/21/2020, 11/30/2020 CKD PHOS USE SMARTSET 20088 02/05/2021 02/06/2020, 0 12/20/2008 Depression Screening 04/11/2021 04/11/2020 DXA Scan 04/02/2023 04/02/2016, 11/2013, 01/11/2014, Additional history exists Influenza Vaccine (FLU shot) (#1) 2023 08/19/2021, 08/30/2019, 08/30/2019, Additional history exists HbA1c 06/14/2023 12/12/2022, 07/12, 01/27/2022 GFR 12/10/2023 06/09/2023, 04/13, 03/02/2023, Additional history exists Albumin/Creatinine Ratio 12/13/2023 12/12/2022 CKD HGB USE SMARTSET 82678 06/09/202406/09, 06/09/2023, 05/11/2023, Additional history exists TSH 07/17/2024 07/17/2023, 10/12, 10/03/2021, Additional history exists Pneumococcal Vaccine: 65+ Years Completed 11/07/2015, 10/31/2008 Zoster Vaccines Completed 06/08/2019, 11/13, 02/08/2013 GARDASIL-HPV IMMUNIZATION SERIES Aged Out No longer eligible based on patient's age to complete this topic MENINGOCOCCAL (MENACTRA/MENVEO) Aged Out No longer eligible based on patient's age to complete this topic documented as of this encounter Medical Devices Not on filedocumented as of this encounter Care Teams Tire Spotter Relationship Specialty Start Date End Date Lucas Mendez MD [address] [place] [address] PCP - General 07/12/00 documented as of this encounter
--- OUTSIDE RECORDS SUMMARY | 2023-08-24 15:00 | External Medical Summary | Summary of Care ---
Author Name Unknown Organization [facility] Address [address] [facility] [place] [id number] Phone [phone] Care Team Providers Care Lending Manager Name Role Phone Lucas Mendez MD Primary Care Provider [phone]- [phone] Reason for Visit * Reason Onset Date Comments Medication Question 05/21/2023 Encounter Details Date Type Department Care Team Description 05/21/2023 Telephone Hematology/Oncology [facility] [place] [address] [facility] [place] [address] Zenia Rajan MD [address] [facility] [place] [address] Medication Question Allergies Active Allergy Reactions Severity Noted Date Comments Codeine Nausea/vomiting 2011 Lisinopril 03/07/2008 Cough documented as of this encounter (statuses as of 05/22/2023) Medications Medication Sig Dispensed Refills Start Date [...] MOUTH DAILY 90 Tablet 3 09/12/2022 Active PARoxetine HCl 10 MG Oral Tablet (pAXil)Indications:P oor appetite Take 1 Tablet by mouth in the morning. 30 Tablet 5 12/02/2022 Active Benzonatate 100 MG Oral Capsule (Tessalon Perles)Indications:B ronchitis, complicated Take 1 Capsule by mouth 3 times a day as needed for Cough. Do not cut, crush, or chew. 50 Capsule 1 12/02/2022 Active Polyethylene Glycol 3350 17 GM Oral Packet (MiraLax) Take 1 Packet by mouth in the [...] the morning. 90 Tablet 3 01/27/2023 Active Allopurinol 100 MG Oral Tablet (Zyloprim)Indication s:CLL (chronic lymphocytic leukemia) (HCC) Take 1 Tablet by mouth in the morning. 30 Tablet 5 05/19/2023 Active Zanubrutinib 80 MG Oral CapsuleIndications:C LL (chronic lymphocytic leukemia) (HCC) Take 4 capsules by mouth in the morning. 120 Capsule 5 05/19/2023 Active documented as of this encounter (statuses as of 05/22/2023) Active Problems Problem Noted Date Type 2 diabetes mellitus with hemoglobin A1c goal of less than 7.0% 12/02/2022 AICD (automatic cardioverter/defibrillat or) present 07/24/2022 Chronic kidney disease, stage 3b 022 Overview: Per CKD protocol Ischemic cardiomyopathy 08/15/2021 LBBB (left bundle branch block) 08/15/20 21 Chronic heart failure with r educed ejection fraction and diastolic dysfunction 08/15/2021 Coronary artery disease invo lving [place] coronary artery of [place] heart without angina pectoris 08/15/2021 Moderate mitral [...] as of this encounter (statuses as of 05/22/2023) Resolved Problems Problem Noted Date Resolved Date [...] as of this encounter (statuses as of 05/22/2023) Immunizations Name Administration Dates Next Due Pneumococcal Conjugate Vacc, 13 Valent (Prevnar) 11/07/2015 Pneumococcal Polysaccharide PPV23 (Pneumovax) 10/31/2008 Seasonal Influenza Virus Vac cine, Unspecified Formulation 07/26/1998 Seasonal Influenza, Quadriva lent Hd (Fluzone Hd) 08/19/2021 Seasonal Influenza, Quadriva lent, No Preserve, 6 Mons & Above, IM 08/25/2018,08/21/2017 Seasonal Influenza, Quadriva lent, No Preserve, IM 07/26/2016,07/16/2015 Seasonal Influenza, Split, I IV3, With Preserve, Inj 07/29/2014,06/27/2013,08/25/2012,07/12,07/23/2010,08/04/2009,10/31/19 09,08/29/2003 07/29/2015 Seasonal Influenza, Trivalen t, Adjuvanted, 65+ yrs 08/30/2019 TD - Tetanus/Diptheria (ADULT) 02/12/2004,1993 Varicella Zoster Vaccine (Adult) 02/08/2013 Zoster Vaccine [...] encounter Miscellaneous Notes * Telephone Encounter - Silvia Chaudhary RN - 05/22/2023 2:30 PM EDT Multiple attempts were made earlier this week to connect Dr Rajan to patient to do telephone consent for medication. Will try to connect patient with Dr Rajan Thursday. * Telephone Encounter - CLARICE Dominguez - 05/22/2023 2:04 PM EDT PT's daughter is calling in regards to the previous messages. She states that her dad and brother are discussing the oral treatment and whether or not they should do it. They want to know if it is going to benefit her, or cure her and if it isn't going to if they should go ahead with having her take it. Please advise: [phone] * Telephone Encounter - Mayuri Boswell [facility] - 05/21/2023 1:[address] Rajan: Please follow up with pt and family to discuss their concerns and goals. Thanks * Telephone Encounter - Marsha Sales [facility] - 05/21/2023 12:52 PM EDT Evan Soliz received a new rx for Viri for Brukinsa. I just spoke to Viri's and went over the medication with him. At the end of the call, he stated he does not know if she should be starting the medication. He thought their kids and Viri were against starting the medication. He would like someone to call him to discuss Viri's treatment, as he did not attend her last appt so he is unsure what is going on. He also wants to talk to their kids about starting the Brukinsa before [facility] ships anything. [facility] will keep the rx on file in the event the pt is to start the medication Please advise Thank you, Marsha Sales, JesseniaD Specialty Pharmacist [facility] 05/21/2023, 12:56 PM documented in this encounter Plan of Treatment Upcoming Encounters Date Type Specialty Care Team Description 05/27/2023 Pharmacy Pharmacy [facility] [place], [facility] Hem/Onc [address] [place] [address] 05/27/2023 Office Visit Cardiology Tari Sutherland CRNP [address] [place] [address] 06/09/2023 Laboratory Laboratory [facility] [address] [place] [address] 06/19/2023 Office Visit Family Medicine Lucas Mendez MD [address] [place] [address] 06/24/2023 Office Visit Hematology Oncology Zenia Rajan MD [address] [place] [address] 06/24/2023 Office Visit Hematology Oncology Zenia Rajan MD [address] [place] [address] 07/30/2023 Laboratory Laboratory [place] [address] [place] [address] 10/22/2023 Office Visit Cardiology Nithin Smith DO [address] [place] [address] Scheduled Procedures Name Priority Associated Diagnoses Date/Ti me COLONOSCOPY FLEXIBLE PROXIMA L DIAGNOSTIC Recall Special screening for malignant neoplasms, colon Health Maintenance Due Date Last Done Comments DIABETES-EYE EXAM 1961 DIABETES-FOOT EXAM 1961 Hepatitis C Screening 1961 DTaP,Tdap,and Td Vaccines (1 - Tdap) 02/13/2004 02/12/2004, 06/12/1994 COVID-19 Vaccine (3 - Pfizer risk series) 01/18/2021 12/21/2020, 11/30/2020 CKD PHOS USE SMARTSET 04417 02/05/2021 02/06/2020, 0 12/20/2008 Depression Screening, Annual [...] Ratio 12/13/2023 12/12/2022 CKD HGB USE SMARTSET 27103 05/11/202405/11, 05/11/2023, 04/23/2023, Additional history exists Pneumococcal [...] filedocumented as of this encounter Care Teams Lending Manager Relationship Specialty Start Date End Date Lucas Mendez MD [address] [place] [address] PCP - General 07/12/00 documented as of this encounter
--- OUTSIDE RECORDS SUMMARY | 2023-08-24 15:00 | External Medical Summary | Summary of Care ---
Author Name Unknown Organization [facility] Address [address] [place] [address] Phone [phone] Care Team Providers Care Hog Cutter Name Role Phone Lucas Mendez MD Primary Care Provider +1- [phone] Reason for Visit * Reason Comments Medication Management Encounter Details Date Type Department Care Team Description 05/27/2023 Pharmacy Pharmacy Hematology Oncology [facility] [address], [place] [id number] [facility] [place] Hem/Onc [address] [place] [address] CLL (chronic lymphocytic leukemia) ([facility])* Allergies Active Allergy Reactions Severity Noted Date Comments Codeine Nausea/vomiting 2011 Lisinopril 03/07/2008 Cough documented as of this encounter (statuses as of 05/25/2023) Medications Medication Sig Dispensed Refills Start Date [...] other medications 90 Tablet 3 2 Active buPROPion HCl ER (SR) 100 MG Oral Tablet Extended Release 12 Hour (Wellbutrin SR)Indications:Depr ession with anxiety TAKE 1 TABLET BY MOUTH TWICE DAILY 180 Tablet 3 2 Active Atorvastatin Calcium 80 MG Oral Tablet (Lipitor)Indication s:Dyslipidemia, goal LDL below 130 TAKE ONE TABLET BY MOUTH DAILY 90 Tablet 3 2 Active PARoxetine HCl 10 MG Oral Tablet (pAXil)Indications: Poor appetite Take 1 Tablet by mouth in the morning. 30 Tablet 5 3 Active Benzonatate 100 MG Oral Capsule (Tessalon Perles)Indications: Bronchitis, complicated Take 1 Capsule by mouth 3 times a day as needed for Cough. Do not cut, crush, or chew. 50 Capsule 1 3 Active Polyethylene Glycol 3350 17 GM Oral Packet (MiraLax) Take 1 Packet by mouth in the morning. 0 Active Metoprolol Succinate ER 50 MG Oral Tablet Extended Release 24 Hour (toPROL XL)Indications:Blanket [place] Helper brittany heart failure with reduced ejection fraction and diastolic dysfunction (HCC),Ischemic cardiomyopathy,Pres ence of automatic cardioverter/defibr illator (AICD),HTN, goal below 140/90,LBBB (left bundle branch block),Dyslipidemia , goal LDL below 70,CLARICE on CPAP,Chronic systolic heart failure (HCC) Take 0.5 Tablets by mouth in the morning. 90 Tablet 3 3 Active Allopurinol 100 MG Oral Tablet (Zyloprim)Indicatio ns:CLL (chronic lymphocytic leukemia) (HCC) Take 1 Tablet by mouth in the morning. 30 Tablet 5 3 05/25/20 23 Discontinued Zanubrutinib 80 MG Oral CapsuleIndications: CLL (chronic lymphocytic leukemia) (HCC) Take 4 capsules by mouth in the morning. 120 Capsule 5 3 05/25/20 23 Discontinued documented as of this encounter (statuses as of 05/25/2023) Active Problems Problem Noted Date Type 2 diabetes mellitus with hemoglobin A1c goal of less than 7.0% 12/02/2022 AICD (automatic cardioverter/defibrillat or) present 07/24/2022 Chronic kidney disease, stage 3b 022 Overview: Per CKD protocol Ischemic cardiomyopathy 08/15/2021 LBBB (left bundle branch block) 11/04/20 21 Chronic heart failure with r educed ejection fraction and diastolic dysfunction 08/15/2021 Coronary artery disease invo lving [place] coronary artery of [place] heart without angina pectoris 08/15/2021 Moderate mitral [...] as of this encounter (statuses as of 05/25/2023) Resolved Problems Problem Noted Date Resolved Date [...] as of this encounter (statuses as of 05/25/2023) Immunizations Name Administration Dates Next Due Pneumococcal [...] on file documented as of this encounter Progress Notes * Mayuri Boswell, [facility] - 05/25/2023 8:45 AM EDT MEDICATION THERAPY MANAGEMENT ZANUBRUTINIB TREATMENT STATUS NOTE Viri Rose [phone] Patient Phone Numbers Communication: Chart review Treatment: Medication: Zanubrutinib (Brukinsa) Indication/Staging/Diagnosis Code: CLL / C91.10 Dose: 320mg daily Administration: +/- food Start Date: TBD Primary Child Nutrition Director/Oncologist: Dr. Rajan Supportive Care Meds: None Prophylactic Meds: Metoprolol ER 25mg daily Allopurinol 100mg daily (to be ordered in [facility] plan) Assessment and Plan: Per TE 05/22/23 addendum 05/25/23 and discussion with FELICIANO Vega, pt and family do not want to proceed with zanubrutinib treatment MTM to discharge pt from clinic Mayuri Boswell, PharmD, BCOP Clinical Pharmacist, [facility] Oral Chemotherapy [facility] 05/25/2023, 8:47 AM Time Spent on Encounter: 6 - 10 minutes Encounter Group: Hematology Encounter Interventions Item Category: Oral Chemotherapy Zanubrutinib Problem/Rationale: Indication: Unnecessary medication therapy - No medical indication at this time Pharmacist Intervention(s): Discussed patient with nursing, Medication discontinued and Medication reconciliation Magnitude of Intervention: Modification of medication for asymtomatic patients (Level 2) documented in this encounter Plan of Treatment Upcoming Encounters Date Type Specialty Care Team Description 05/27/2023 Office Visit Cardiology Tari Sutherland CRNP [address] [place] [address] 06/09/2023 Laboratory Laboratory [facility] [address] [place] [facility] [place] [address] 06/19/2023 Office Visit Family Medicine Lucas Mendez MD [address] [place] [address] 06/24/2023 Office Visit Hematology Oncology Zenia Rajan MD [address] [place] [address] 06/24/2023 Office Visit Hematology Oncology Zenia Rajan MD [address] [place], [place] [address] 07/30/2023 Laboratory Laboratory [address] [address] 10/22/2023 Office Visit Cardiology Nithin Smith, DO [address] [place] [address] Scheduled Procedures Name Priority Associated Diagnoses Date/Ti me COLONOSCOPY FLEXIBLE PROXIMA L DIAGNOSTIC Recall Special screening for malignant neoplasms, colon Health Maintenance Due Date Last Done Comments DIABETES-EYE EXAM 1963 DIABETES-FOOT EXAM 1961 Hepatitis C Screening 1963 DTaP,Tdap,and Td Vaccines (1 - Tdap) 02/13/2004 02/12/2004, 06/12/1994 COVID-19 Vaccine (3 - Pfizer risk series) 01/18/2021 12/21/2020, 11/30/2020 CKD PHOS USE SMARTSET [id number] 02/05/2021 02/06/2020, 0 12/20/2008 Depression Screening, Annual for Pts 12 and Over 04/11/2021 04/11/2020 DXA Scan 04/02/2023 04/02/2016, 04/0 11/2013, 01/11/2014, Additional history exists Influenza Vaccine (FLU shot) (#1) 2023 08/19/2021, 08/30/2019, 08/30/2019, Additional history exists HbA1c 06/14/2023 12/12/2022, 1012/2021, 01/27/2022 TSH 10/24/2023 10/24/2022, 12/2 12/2020, 04/11/2020, Additional history exists GFR 11/11/2023 05/11/2023, 02/10, 01/28/2023, Additional history exists Albumin/Creatinine Ratio 12/13/2023 12/12/2022 CKD HGB USE SMARTSET [id number] 05/11/202405/11, 05/11/2023, 04/23/2023, Additional history exists Pneumococcal [...] remission documented in this encounter Care Teams Hog Cutter Relationship Specialty Start Date End Date Lucas Mendez MD [address] [place] [address] PCP - General 07/12/00 documented as of this encounter
--- OUTSIDE RECORDS SUMMARY | 2023-08-24 15:00 | External Medical Summary | Summary of Care ---
Author Name Unknown Organization [facility] Address [address] [facility] [place] [address] Phone [phone] Care Team Providers Care Pollution Control Chemist Name Role Phone Lucas Mendez MD Primary Care Provider [phone] Reason for Visit * Reason Comments Follow Up Encounter Details Date Type Department Care Team Description 05/27/2023 Office Visit Cardiology, [facility] [address] [place] [address] Tari Sutherland CRNP [address] [place] [address] Chronic heart failure with reduced ejection fraction and diastolic dysfunction (HCC)*; Ischemic cardiomyopathy; Presence of biventricular cardiac pacemaker; Hypotension, unspecified hypotension type; Dyslipidemia, goal LDL below 70 Allergies Active Allergy Reactions Severity Noted Date Comments Codeine Nausea/vomiting 2011 Empagliflozin 05/27/2023 UTIs Lisinopril 03/07/2008 Cough documented as of this encounter (statuses as of 05/27/2023) Medications Medication Sig Dispensed Refills Start Date [...] MOUTH DAILY 90 Tablet 3 09/12/2022 Active Benzonatate 100 MG Oral Capsule (Tessalon [...] EVERY MORNING 30 Tablet 3 05/25/2023 Active documented as of this encounter (statuses as of 05/27/2023) Active Problems Problem Noted Date Type 2 diabetes mellitus with hemoglobin A1c goal of less than 7.0% 12/02/2022 AICD (automatic cardioverter/defibrillat or) present 07/24/2022 Chronic kidney disease, stage 3b 022 Overview: Per CKD protocol Ischemic cardiomyopathy 08/15/2021 LBBB (left bundle branch block) 08/15/20 21 Chronic heart failure with r educed ejection fraction and diastolic dysfunction 08/15/2021 Coronary artery disease invo lving [place] coronary artery of [place] heart without angina pectoris 08/15/2021 Moderate mitral [...] as of this encounter (statuses as of 05/27/2023) Resolved Problems Problem Noted Date Resolved Date [...] as of this encounter (statuses as of 05/27/2023) Immunizations Name Administration Dates Next Due Pneumococcal [...] Sign Reading Time Taken Comments Blood Pressure 104/60 05/27/2023 1:55 PM EDT Pulse 72 05/27/2023 1:55 PM EDT Temperature - - Respiratory Rate 16 05/27/2023 1:55 PM EDT Oxygen Saturation 98% 05/27/2023 1:55 PM EDT Inhaled Oxygen Concentration - - Weight 55.5 kg (122 lb 4 oz) 05/27/2023 1:55 PM EDT Height - - Body Mass Index 22.36 12/12/2022 11:32 AM EST documented in this encounter Progress Notes * MELISSA Crowder - 05/27/2023 2:30 PM EDT Cardiology Outpatient Visit 05/27/2023 Primary Financial Sales Consultant: Dr. Smith Past Medical History ASCVD Combined systolic and diastolic CHF, LVEF 25-30% echo 04/2021, 25-29% 07/2021, 52% 11/2022 Ischemic cardiomyopathy with infarct noted on nuclear stress test but no active ischemia, 06/12/2021 NYHA class 3 S/p BiV-ICD, 09/25/[address] Gongora Hyperlipidemia, LDL goal below 70 Hypertension GERD CKD stage 3 Hypothyroidism Mild Dementia CLARICE, on CPAP Chronic lymphocytic leukemia, following with Hematology/Oncology HPI Very pleasant 77-year-old female presenting to the cardiology office today routine follow-up. Was last evaluated by the undersigned approximately 4 months ago. Over the last year patient has been having concerns regarding a low functional capacity and admits to overall decline. She is been having hypotension and goal- directed medical therapy has been de-escalated including discontinuation of Aldactone, Jardiance, and Entresto. Metoprolol succinate has also been reduced. Most recent echo with an improved LVEF of 52%. Today the patient presents independently- waiting out in the car. No acute concerns today. Since reduction in medications she is felt less lightheaded, noticed increase in energy as well as her appetite. No chest pain, shortness of breath, palpitations. No orthopnea, PND, or increased lower extremity edema. No fever, chills, cough, hematochezia, melena, or hemoptysis. She states she is compliant with all medications and offers no side effects. Daughter helps manage medications. Cardiac History: Patient was recently admitted to [facility] from 05/03/2021 to 05/07/21 due to dyspnea on exertion and decrease in stamina. Was also found to have a new left bundle branch block when compared to previous EKG in 2017. Patient saw Dr. Smith while in hospital. Elevated BNP and interstitial edema noted on chest x-ray. Treated with 2 doses of IV Lasix since admission. Fluid balance negative more than 1 L.Hypoxic on admission requiring oxygen supplementation. Current Outpatient Medications Medication Sig Dispense Refill MULTIPLE VITAMIN PO TABS Take 1 each day 30 11 Acetaminophen 325 MG Oral Tablet (Tylenol) Take 1 Tablet by mouth every 6 hours as needed for Pain,Mild. 30 Tablet 0 Levothyroxine Sodium 75 MCG Oral Tablet (Levoxyl) take one tablet by mouth daily at least 30 minutes before breakfast and other medications 90 Tablet 3 buPROPion HCl ER (SR) 100 MG Oral Tablet Extended Release 12 Hour (Wellbutrin SR) TAKE 1 TABLET BY MOUTH TWICE DAILY 180 Tablet 3 Atorvastatin Calcium 80 MG Oral Tablet (Lipitor) TAKE ONE TABLET BY MOUTH DAILY 90 Tablet 3 Benzonatate 100 MG Oral Capsule (Tessalon Perles) Take 1 Capsule by mouth 3 times a day as needed for Cough. Do not cut, crush, or chew. 50 Capsule 1 Polyethylene Glycol 3350 17 GM Oral Packet Take 1 Packet by mouth in the morning. Metoprolol Succinate ER 50 MG Oral Tablet Extended Release 24 Hour (toPROL XL) Take 0.5 Tablets by mouth in the morning. 90 Tablet 3 PARoxetine HCl 10 MG Oral Tablet (pAXil) TAKE 1 TABLET BY MOUTH EVERY MORNING 30 Tablet 3 No current facility-administered medications for [...] performed by Tom Astudillo MD at ENDOSCOPY [facility] EGD, FLEXIBLE, DIAGNOSTIC 09/08/2018 eso stenosis, hiatal hernia, gastritis/ESOPHAGOGASTRODUODENOSCOPY (EGD), FLEXIBLE, TRANSORAL, DIAGNOSTIC performed by Tom Astudillo MD at ENDOSCOPY [facility] EGD, FLEXIBLE, INSERT WIRE, PASS DILATOR 07/06/09 done hiatal hernia, benign appearing esophageal stricture, dilated to 16 mm EGD, FLEXIBLE, W/BIOPSY 07/06/09 done mild gastric irritation LIGATE/CUT OVIDUCT(S) 1969 Tubal Ligation,Non Laparoscopic TOTAL HYSTERECTOMY 1986 MICHAEL (Total Abdominal Hysterectomy) UPPER ENDOSCOPY GI REFERRAL OP 2003 Felicia Villanueva Social History Tobacco Use Smoking status: Never Smokeless tobacco: Never Substance Use Topics Alcohol use: No Drug use: No Review of patient's allergies indicates: Allergen Reactions Codeine Nausea/vomiting Jardiance [Empagliflozin] UTIs Lisinopril Cough Review of Systems: See HPI for pertinent positives. All others negative, other than those noted in HPI. Physical Exam BP 104/60 (BP Site: Left Arm, BP Position: Sitting, BP Cuff Size: Regular) | Pulse 72 | Resp 16 | Wt 55.5 kg (122 lb 4 oz) | SpO2 98% | BMI 22.36 kg/m | BSA 1.56 m General: No acute distress. A+Ox3. HEENT: Normocephalic. Atraumatic. Conjunctiva and sclera clear. NECK: No carotid bruits. No JVD. Carotid upstrokes are brisk. Heart: RRR. S1 and S2 noted without murmur, rubs, gallops. PMI non displaced. Lungs: Clear lung sounds bilaterally, no wheezing, rhonchi, rales. Abdomen: Normal bowel sounds. Soft. Nontender. No masses or organomegaly. No abdominal bruits. Extremities: No edema. No clubbing or cyanosis. Pulses: radial=2/4, posterior tibial=2/4, dorsalis pedis = 2/4. NEURO: No focal deficits. PSYCH: Normal. Lab data/imaging study review: Echo 02/17/2022 The examination is adequate to evaluate the referral indication. The LV wall thickness is mildly increased (concentric). There is a subtle degree of residual dyssynchrony of the interventricular septum. Overall, the left ventricular wall motion is normal. Calculated LV ejection Fraction = 52% (three dimensional volumes). Mild to moderate aortic valve stenosis is present. Mild mitral regurgitation is present. Mild tricuspid regurgitation is present. Compared to the previous study performed 08/08/2021, there has been an interval improvement in the left ventricular systolic function (left ventricular ejection fraction 25-29 % on the previous study as compared to 52% on the present study). There has been an interval improvement in the degree of mitral regurgitation. Echo 08/08/2021 The examination is adequate to evaluate the referral indication. The left ventricular cavity size is moderately enlarged. The septal motion is abnormal and consistent with conduction abnormality. There is moderate to severe diffuse global hypokinesis otherwise, with focal akinesis of the inferior wall. The qualitative LV ejection fraction is 25-29% (severely reduced). The left atrium is mildly enlarged. The left ventricular diastolic function is moderately abnormal (grade II). The aortic valve is moderately calcified. Assessment of aortic valve stenosis by 2D imaging and Doppler interrogation are discordant. By 2D assessment, had least moderate aortic valve stenosis is present, but Doppler velocities are more consistent with mild aortic valve stenosis. Moderate aortic valve stenosis versus pseudo aortic stenosis in setting of reduced ejection fraction suspected. Moderate mitral regurgitation is present. The mitral regurgitation is due to ischemic cardiomyopathy. Mild tricuspid regurgitation is present. Moderate pulmonary hypertension is present. The estimated pulmonary artery systolic pressure is 53 mm Hg. Findings are compatible with an ischemic cardiomyopathy with superimposed left bundle branch block. Compared to the report of the prior study performed at [facility] on 05/04/2021, there has been no significant interval change. Echo 06/26/2021 The examination is adequate to evaluate the referral indication. The left ventricular cavity size is moderately enlarged. The septal motion is abnormal and consistent with conduction abnormality. There is moderate to severe diffuse global hypokinesis otherwise, with focal akinesis of the inferior wall. The qualitative LV ejection fraction is 25-29% (severely reduced). The left atrium is mildly enlarged. The left ventricular diastolic function is moderately abnormal (grade II). The aortic valve is moderately calcified. Assessment of aortic valve stenosis by 2D imaging and Doppler interrogation are discordant. By 2D assessment, had least moderate aortic valve stenosis is present, but Doppler velocities are more consistent with mild aortic valve stenosis. Moderate aortic valve stenosis versus pseudo aortic stenosis in setting of reduced ejection fraction suspected. Moderate mitral regurgitation is present. The mitral regurgitation is due to ischemic cardiomyopathy. Mild tricuspid regurgitation is present. Moderate pulmonary hypertension is present. The estimated pulmonary artery systolic pressure is 53 mm Hg. Findings are compatible with an ischemic cardiomyopathy with superimposed left bundle branch block. Compared to the report of the prior study performed at [facility] on 05/04/2021, there has been no significant interval change. Nuclear stress 06/12/2021 Gated analysis reveals dilation of the left ventricle both at rest and post stress. There is severehypokinesis of the distal anterior, distal septal, apical, inferior and inferior basilar myocardium. The estimated left ventricular ejection fraction is 41%. Overall this pharmacologic nuclear stresstest reveals nontransmural infarcts of the distal anterior, distal septal, apical, inferior and inferior basilar myocardial segments and no active ischemia. Echo 05/04/2021 at [facility] LVEF severely reduced, 25-30% Septum appears thin Septal motion is abnormal consistent with underlying conduction abnormality LV myocardial wall segments are moderately to severe hypokinetic Left atrium is moderately dilated Aortic valve is trileaflet Aortic valve is mild to moderately calcified Aortic valve opening appears reduced 2D imaging and Doppler interrogation of the aortic valve were discordant, moderate aortic valve stenosis versus pseudo aortic stenosis in the setting of reduced EF suspected Moderate MR Mild tricuspid regurg Estimated systolic pulmonary pressure 41 mmHg Trivial circumferential pericardial effusion with mild organization There is no echo graphic indication of cardiac tamponade Diastolic dysfunction, grade 2, consistent with elevated left atrial pressure EKG 05/03/2021 Normal sinus rhythm, left bundle branch block, 81 beats per minute Impression/Plan: 1. Chronic systolic CHF (congestive heart failure), NYHA class 3 ([facility]) 2. Ischemic cardiomyopathy 3. Presence of biventricular pacemaker -Presumed ischemic cardiomyopathy abnormal nuclear stress 06/2021 revealing infarct with no active ischemia. -Improvement in her LVEF to 52% on last echo, 11/2022. -Goal-directed medical therapy limited due to hypotension. -Euvolemic on exam. 1. Continue evidence based beta tita, metoprolol succinate 25 mg daily 2. Not on ASA due to thrombocytopenia 3. Pacemaker with appropriate function and a 99.9% Bi V pacing burden. No AFib. 4. Chronic Hypotension -GDMT limited, intolerant to aldactone, Entresto, and Jardiance. 5. Dyslipidemia, goal LDL below 70 Uncontrolled. LDL 97 1. Continue atorvastatin 80 mg daily- future considerations of adding Zetia. There are no Patient Instructions on file for this visit. The patient agrees to the above plan and will call with additional questions or concerns. ER with all emergencies advised. Check-out note: Follow up as scheduled with KARLA I spent a total of 40 minutes on the date of service in preparation, delivery, and documentation ofthe care provided to Viri Rose excluding any time spent in the performance of separately billedservices. MELISSA Aguirre, Department of Cardiology This chart was completed in part utilizing Fluency Speech Voice Recognition Software. Grammatical errors, random word insertions, prounoun errors, and incomplete sentences are an occasional consequence of this system due to software limitations, ambient noise, and hardware issues. Any formal questions or concerns about the content, text, or information contained within the body of this dictation should be directly addressed to the provider for clarification. documented in this encounter Nursing Notes * Monalisa Tinsley CMA - 05/27/2023 1:51 PM EDT Examination Room: 4 Name: Viri Rose Date of : (1945). Reason for Visit: 4M f/u Interim Hospitalization(s): none Problems/Concerns: denies Chest Pain/SOB: denies [facility] Discussed: Not applicable [facility] is a way you can talk to your provider online through e-mail. Would you like to sign up? I can activate it for you? ALREADY ACTIVE Patient was instructed to not get up on the exam table until directed and assisted by their provider; patient is to remain seated in the chair/ wheelchair/ exam table for fall prevention and safety reasons. Patient is aware to have assistance to step down off exam table with personnel. Patient voiced full comprehension of instructions. documented in this encounter Plan of Treatment Upcoming Encounters Date Type Specialty Care Team Description 06/09/2023 Laboratory [facility] [address] [place] [address] 06/19/2023 Office Visit Family Medicine Lucas Mendez MD [address] [place] [address] 06/24/2023 Office Visit Hematology Oncology Zenia Rajan MD [address] [place] [id number] 06/24/2023 Office Visit Hematology Oncology Zenia Rajan MD [address] [place] [address] 07/30/2023 Laboratory Laboratory [place] [address] [place] [address] 10/22/2023 Office Visit Cardiology Nithin Smith, [address] [place] [address] Scheduled Procedures Name Priority Associated Diagnoses Date/Ti me COLONOSCOPY FLEXIBLE PROXIMA L DIAGNOSTIC Recall Special screening for malignant neoplasms, colon Health Maintenance Due Date Last Done Comments DIABETES-EYE EXAM 1963 DIABETES-FOOT EXAM 1963 Hepatitis C Screening 1963 DTaP,Tdap,and Td Vaccines (1 - Tdap) 02/13/2004 02/12/2004, 06/12/1994 COVID-19 Vaccine (3 - Pfizer risk series) 01/18/2021 12/21/2020, 11/30/2020 CKD PHOS USE SMARTSET 18715 02/05/2021 02/06/2020, 0 12/20/2008 Depression Screening, Annual [...] Ratio 12/13/2023 12/12/2022 CKD HGB USE SMARTSET 22081 05/11/202405/11, 05/11/2023, 04/23/2023, Additional history exists Pneumococcal [...] as of this encounter Visit Diagnoses Diagnosis Chronic heart failure with reduced ejection fraction and diastolic dysfunction (HCC)- Primary Ischemic cardiomyopathy Other specified forms of chronic ischemic heart disease Presence of biventricular cardiac pacemaker Cardiac pacemaker in situ Hypotension, unspecified hypotension type Dyslipidemia, goal LDL below 70 Other and unspecified hyperlipidemia documented in this encounter Care Teams Pollution Control Chemist Relationship Specialty Start Date End Date Lucas Mendez MD [address] [place] [address] PCP - General 07/12/00 documented as of this encounter"
--- OUTSIDE RECORDS SUMMARY | 2023-08-24 15:00 | External Medical Summary | Summary of Care ---
Author Name Unknown Organization [facility] Address [address] [place] [address] Phone [phone] Care Team Providers Care Organ Builder Name Role Phone Lucas Mendez MD Primary Care Provider +1- [phone] Reason for Visit * Reason Onset Date Comments Precert Future 05/11/2023 Zanubrutinib Encounter Details Date Type Department Care Team Description 05/11/2023 Telephone Hematology/Oncology Treatment, [place] [address] [place] [id number] Zenia Rajan MD [address] [place] [address] Precert Future (Zanubrutinib) Allergies Active Allergy Reactions Severity Noted Date [...] dysfunction 08/15/2021 Coronary artery disease invo lving [place] coronary artery of [place] heart without angina pectoris 08/15/2021 Moderate mitral [...] Telephone Encounter - Silvia Chaudhary RN - 05/25/2023 8:45 AM EDT Received message in other encounter- patient/ have been discussing medication and patient does not want to move forward with treatment. Offered sooner follow up with Dr Rajan to discuss, patients declined, states that they are ok with waiting until next appt 06/24/[address]an. Dr Rajan/ MTM: FYI * Telephone Encounter - Silvia Chaudhary RN - 05/20/2023 9:55 AM EDT Attempted to call patient- no answer. Patients alternate number is her daughters home number. * Telephone Encounter - Silvia Chaudhary RN - 05/19/2023 3:21 PM EDT Attempted to call patient again for telephone consent. No answer. * Telephone Encounter - Silvia Chaudhary RN - 05/19/2023 1:03 PM EDT Attempted to call patient to do phone consent with Dr Rajan. No answer. * Telephone Encounter - Silvia Chaudhary RN - 05/19/2023 8:50 AM EDT Referral entered 05/15; however, no update from [facility] on whether they can fill this. [facility]: are you able to fill medication? * Telephone Encounter - Silvia Chaudhary RN - 05/14/2023 11:50 AM EDT Reviewed with Dr Rajan- he will consent patient by phone, would like to do this Thursday. Called and spoke to patients , he verbalized understanding. Information on zabeckiubrutinib mailed to home address. * Telephone Encounter - Silvia Chaudhary RN - 05/14/2023 10:[address] Rajan's routing comment: "We can change it to zanubrutinib. I will put the alteration" Called and spoke to patient/ . Patient has a difficult time getting around, it is a hardshipfor her to come into the office for consent of new medication. She is agreeable to switching medications. * Telephone Encounter - Silvia Chaudhary RN - 05/13/2023 3:50 PM EDT Per denial, patient must have intolerance or contraindication to zanubrutinib or ibrutinib in orderfor calquence to be approved. Dr Rajan: please advise. * Telephone Encounter - CLARICE Hernández - 05/13/2023 1:48 PM EDT Calquence denied, denial letter scanned. * Telephone Encounter - Silvia Chaudhary RN - 05/11/2023 11:23 AM EDT Order received for acalabrutinib (calquence). [place] aware to build beacon plan. Waiting for auth/ pharmacy. Patient will need hep B labs. Nurse education done after office visit 05/11/23. documented in this encounter Plan of Treatment Upcoming Encounters Date Type Specialty Care Team Description 05/27/2023 Pharmacy Pharmacy [facility] [place]c [address] [place] [address] 05/27/2023 Office Visit Cardiology Tari Sutherland CRNP [address] [place] [address] 06/09/2023 Laboratory Laboratory [facility] [address] [place] [address] 06/19/2023 Office Visit Family Medicine Lucas Mendez MD [address] [place] [address] 06/24/2023 Office Visit Hematology Oncology Zenia Rajan MD [address] [place] [address] 06/24/2023 Office Visit Hematology Oncology Zeina Rajan MD [address] [place] [address] 07/30/2023 Laboratory Laboratory [facility] [address] [place] [address] 10/22/2023 Office Visit Cardiology Nithin Smith DO [address] [place] [address] Scheduled Procedures Name Priority Associated Diagnoses Date/Ti me COLONOSCOPY FLEXIBLE PROXIMA L DIAGNOSTIC Recall Special screening for malignant neoplasms, colon Health Maintenance Due Date Last Done Comments DIABETES-EYE EXAM 1963 DIABETES-FOOT EXAM 1963 Hepatitis C Screening 1963 DTaP,Tdap,and Td Vaccines (1 - Tdap) 02/13/2004 02/12/2004, 06/12/1994 COVID-19 Vaccine (3 - Pfizer risk series) 01/18/2021 12/21/2020, 11/30/2020 CKD PHOS USE SMARTSET 22881 02/05/2021 02/06/2020, 0 12/20/2008 Depression Screening, Annual for Pts 12 and Over 04/11/2021 04/11/2020 DXA Scan 04/02/2023 04/02/2016, 0411/2013, 01/11/2014, Additional history exists Influenza Vaccine (FLU shot) (#1) 2023 08/19/2021, 08/30/2019, 08/30/2019, Additional history exists HbA1c 06/14/2023 12/12/2022, 07/12, 01/27/2022 TSH 10/24/2023 10/24/2022, 09/12, 04/11/2020, Additional history exists GFR 11/11/2023 05/11/2023, 02/10, 01/28/2023, Additional history exists Albumin/Creatinine Ratio 12/13/2023 12/12/2022 CKD HGB USE SMARTSET 63416 05/11/202405/11, 05/11/2023, 04/23/2023, Additional history exists Pneumococcal [...] Not on filedocumented as of this encounter Results * (ABNORMAL) COMPREHENSIVE METABOLIC PANEL (05/11/2023 12:00 PM EDT) BUN 25(H) 6 - 20 mg/dL 05/11/2023 12:32 PM EDT [facility] Creatinine 1.1(H) 0.5 - 1.0 mg/dL 05/11/2023 12:32 PM EDT [facility] Estimated Glomerular Filtration Rate 50(L) >=60 mL/min 05/11/2023 12:32 PM EDT [facility] [place] 56-02 Comment:eGFR is calculated b ased on the CKD-EPI 2020 equation Sodium 140 135 - 146 mmol/L 05/11/2023 12:[address]T [address] Potassium 4.4 3.5 - 5.1 mmol/L 05/11/2023 12:[address] Chloride 106 98 - 107 mmol/L 05/11/2023 12:[address] CO2 26 22 - 32 mmol/L 05/11/2023 12:32 [address] Anion Gap 8 7 - 15 mmol/L 05/11/2023 12:[address] Glucose 106 70 - 120 mg/dL 05/11/2023 12:32 PM [address] Albumin 4.2 3.8 - 5.0 g/dL 05/11/2023 12:32 PM EDT [place] [address] AST 25 10 - 35 U/L 05/11/2023 12:[address] Alkaline Phosphatase 109 35 - 130 U/L 05/11/2023 12:[address] Bilirubin, Total 0.6 <=1.2 mg/dL 05/11/2023 12:[address] Calcium 9.2 8.4 - 10.2 mg/dL 05/11/2023 12:32 PM EDT [place] [address] Protein 6.6 6.0 - 8.3 g/dL 05/11/2023 12:32 PM EDT [place] [address] ALT 15 10 - 35 U/L 05/11/2023 12:32 PM EDT [place] [address] Blood Venous blood specimen / Unknown Venipuncture / Unknown 05/11/2023 12:00 PM EDT 05/11/2023 12:00 PM EDT Zenia Rajan MD LAB BLOOD [place] [facility] [address] [place] [address] * HEPATITIS B CORE ANTIBODIES IGG AND IGM (05/11/2023 12:00 PM EDT) Pathologist [facility] Hepatitis B Core Antibodies IgG and IgM Negative Negative 05/11/2023 9:37 PM EDT LAB[facility]ATORY [facility] Blood Venous blood specimen / Unknown Venipuncture / Unknown 05/11/2023 12:00 PM EDT 05/11/2023 12:00 PM EDT Zenia Rajan MD LAB BLOOD [facility] Performing Organization Address City/[facility] Co de Phone Number LABORATORY [place] [address] [place] [address] * HEPATITIS B SURFACE ANTIGEN (05/11/2023 12:00 PM EDT) Pathologist [facility] Hepatitis B Surface Antigen Negative Negative 05/11/2023 9:37 PM EDT LAB[facility]ATORY [facility] Blood Venous blood specimen / Unknown Venipuncture / Unknown 05/11/2023 12:00 PM EDT 05/11/2023 12:00 PM EDT Zenia Rajan MD LAB BLOOD [facility] Performing Organization Address [facility] de Phone Number LABORATORY [address] [address] * HEPATITIS B SURFACE ANTIBODY (05/11/2023 12:00 PM EDT) Pathologist [facility] Hepatitis B Surface Antibody, Quantitative <3.5 mIU/mL 05/11/2023 9:37 PM EDT LABORATORY [facility] Hepatitis B Surface Antibody, Qualitative Negative 05/11/2023 9:37 PM EDT LABORATORY [facility] Hepatitis B Surface Antibody, Interpretation NOT immune to Hepatitis B Virus 05/11/2023 9:37 PM EDT LABORATORY [facility] Comment: POSITIVE: >=11.5 mIU/mL INDETERMINATE: 8.5-<11.5 mIU/mL NEGATIVE: <8.5 mIU/mL Blood Venous blood specimen / Unknown Venipuncture / Unknown 05/11/2023 12:00 PM EDT 05/11/2023 12:00 PM EDT Zenia Rajan MD LAB BLOOD [facility] [address] [place] [address] documented in this encounter Visit Diagnoses Diagnosis CLL (chronic lymphocytic leukemia) (HCC)- Primary Chronic lymphoid leukemia, without mention of having achieved remission Encounter for screening for viral disease documented in this encounter Care Teams Organ Builder Relationship Specialty Start Date End Date Lucas Mendez MD [address] [place] [address] PCP - General 07/12/00 documented as of this encounter
--- OUTSIDE RECORDS SUMMARY | 2023-08-24 15:00 | External Medical Summary | Summary of Care ---
Author Name Unknown Organization [facility] Address [address] [facility] [place] [address] Phone [phone] Care Team Providers Care Toddler Lead Teacher Name Role Phone Lucas Mendez MD Primary Care Provider +1- [phone] Reason for Visit * Reason Onset Date Comments Medication Question 05/21/2023 Encounter Details Date Type Department Care Team Description 05/21/2023 Telephone Hematology/Oncology [facility] [place] [address] [facility] [place] [address] Zenia Rajan MD [address] [facility] [place] [address] Medication Question Allergies Active Allergy Reactions Severity [...] dysfunction 08/15/2021 Coronary artery disease invo lving [place] coronary artery of [place] heart without angina pectoris 08/15/2021 Moderate mitral regurgitation 08/15/2021 Pulmonary HTN 08/15/2021 CLL (chronic lymphocytic leukemia) 05/02 CLARIEC on CPAP 08/04/2014 Overview: CPAP 8 cwp [...] Miscellaneous Notes * Telephone Encounter - CLARICE Talley - 05/22/2023 3:42 PM EDT Patients called in regarding this medication and he advised that there is so many side effects the pt does not want to take this and would like this canceled. Please contact Elijah at [phone]. Thank you. * Telephone Encounter - Silvia Chaudhary RN [...] with having her take it. Please advise: [phone] * Telephone Encounter - Mayuri Boswell [facility] - 05/21/2023 1:[address] Rajan: Please follow up with pt and family to discuss their concerns and goals. Thanks * Telephone Encounter - Marsha Sales [facility] - 05/21/2023 12:52 PM EDT Evan Soliz [...] their kids about starting the Brukinsa before [facility] ships anything. [facility] will keep the rx on file in the event the pt is to start the medication Please advise Thank you, Marsha Sales, Anshu Specialty Pharmacist [facility] 05/21/2023, 12:56 PM documented in this encounter Plan of Treatment Upcoming Encounters Date Type Specialty Care Team Description 05/27/2023 Pharmacy Pharmacy [facility] [place] Hem/Onc [address] [place] [address] 05/27/2023 Office Visit Cardiology Tari Sutherland CRNP [address] [place] [address] 06/09/2023 Laboratory [facility] [address] [place] [address] 06/19/2023 Office Visit Family Medicine Lucas Mendez MD [address] [place] [address] 06/24/2023 Office Visit Hematology Oncology Zenia Rajan MD [address] [place] [address] 06/24/2023 Office Visit Hematology Oncology Zenia Rajan MD [address] [place] [address] 07/30/2023 Laboratory Laboratory [place], [facility] [address] [facility] [place] [address] 10/22/2023 Office Visit Cardiology Nithin Smith, DO [address] [place] [address] Scheduled Procedures Name Priority Associated Diagnoses Date/Ti me COLONOSCOPY FLEXIBLE PROXIMA L DIAGNOSTIC Recall Special screening for malignant neoplasms, colon Health Maintenance Due Date Last Done Comments DIABETES-EYE EXAM 1961 DIABETES-FOOT EXAM 1961 Hepatitis C Screening 1961 DTaP,Tdap,and Td Vaccines (1 - Tdap) 02/13/2004 02/12/2004, 06/12/1994 COVID-19 Vaccine (3 - Pfizer risk series) 01/18/2021 12/21/2020, 11/30/2020 CKD PHOS USE SMARTSET 40187 02/05/2021 02/06/2020, 0 12/20/2008 Depression Screening, Annual for Pts 12 and Over 04/11/2021 04/11/2020 DXA Scan 04/02/2023 04/02/2016, 040 11/2013, 01/11/2014, Additional history exists Influenza Vaccine (FLU shot) (#1) 2023 08/19/2021, 08/30/2019, 08/30/2019, Additional history exists HbA1c 06/14/2023 12/12/2022, 07/12, 01/27/2022 TSH 10/24/2023 10/24/2022, 09/12, 04/11/2020, Additional history exists GFR 11/11/2023 05/11/2023, 02/10, 01/28/2023, Additional history exists Albumin/Creatinine Ratio 12/13/2023 12/12/2022 CKD HGB USE SMARTSET 59513 05/11/202405/11, 05/11/2023, 04/23/2023, Additional history exists Pneumococcal [...] filedocumented as of this encounter Care Teams Toddler Lead Teacher Relationship Specialty Start Date End Date Lucas Mendez MD [address] [place] [address] PCP - General 07/12/00 documented as of this encounter
--- OUTSIDE RECORDS SUMMARY | 2023-08-24 15:00 | External Medical Summary | Summary of Care ---
Author Name Unknown Organization [facility] Address [address] [facility] [place] [address] Phone [phone] Care Team Providers Care Chemistry Physics Teacher Name Role Phone Lucas Mendez MD Primary Care Provider +1- [phone] Reason for Visit * Reason Onset Date Comments FYI 01/28/2023 Encounter Details Date Type Department Care Team Description 01/28/[address] [facility] [address] [place] [address] Lucas Mendez MD [address] [place] [address] FYI (/) Allergies Active Allergy Reactions Severity Noted Date [...] dysfunction 08/15/2021 Coronary artery disease invo lving [place] coronary artery of [place] heart without angina pectoris 08/15/2021 Moderate mitral [...] Miscellaneous Notes * Telephone Encounter - CLARICE Boykin - 01/28/2023 4:34 PM EDT Mariela is the RN from [facility] wanting to let that the pt was admitted to their care. Thank you, CLARICE Boykin documented in this encounter Plan of Treatment Upcoming Encounters Date Type Specialty Care Team Description 05/27/2023 Office Visit Cardiology Ena, MELISSA Hogan [address] [place] [address] Chronic heart failure with reduced ejection fraction and diastolic dysfunction (HCC)*; Ischemic cardiomyopathy; Presence of biventricular cardiac pacemaker; Hypotension, unspecified hypotension type 06/09/2023 Laboratory Laboratory [place], Laboratory [address] [place] [address] 06/19/2023 Office Visit Family Medicine Lucas Mendez MD [address] [place] [address] 06/24/2023 Office Visit Hematology Oncology Zenia Rajan MD [address] [place] [address] 06/24/2023 Office Visit Hematology Oncology Zenia Rajan MD [address] [place] [address] 07/30/2023 Laboratory Laboratory [place], Laboratory [address] [place] [address] 10/22/2023 Office Visit Cardiology Nithin Smith, DO [address] [place] [address] Scheduled Procedures Name Priority Associated Diagnoses Date/Ti me COLONOSCOPY FLEXIBLE PROXIMA L DIAGNOSTIC Recall Special screening for malignant neoplasms, colon Health Maintenance Due Date Last Done Comments DIABETES-EYE EXAM 1961 DIABETES-FOOT EXAM 1961 Hepatitis C Screening 1961 DTaP,Tdap,and Td Vaccines (1 - Tdap) 02/13/2004 02/12/2004, 06/12/1994 COVID-19 Vaccine (3 - Pfizer risk series) 01/18/2021 12/21/2020, 11/30/2020 CKD PHOS USE SMARTSET 08859 02/05/2021 02/06/2020, 0 12/20/2008 Depression Screening, Annual [...] Ratio 12/13/2023 12/12/2022 CKD HGB USE SMARTSET 97484 05/11/202405/11, 05/11/2023, 04/23/2023, Additional history exists Pneumococcal [...] filedocumented as of this encounter Care Teams Chemistry Physics Teacher Relationship Specialty Start Date End Date Lucas Mendez MD [address] [place] [address] PCP - General 07/12/00 documented as of this encounter
--- OUTSIDE RECORDS SUMMARY | 2023-08-24 15:00 | External Medical Summary | Summary of Care ---
Author Name Unknown Organization [facility] Address [address] [facility] [place] [address] Phone [phone] Care Team Providers Care Customer Support Advisor Name Role Phone Lucas Mendez MD Primary Care Provider +1- [phone] Reason for Visit * Reason Onset Date Comments Medication Question 05/21/2023 Encounter Details Date Type Department Care Team Description 05/21/2023 Telephone Hematology/Oncology [facility] [place] [address] [facility] [place] [address] Zenia Rajan MD [address] [facility] [place] [address] Medication Question Allergies Active Allergy Reactions Severity [...] Oral Tablet Extended Release 24 Hour (toPROL XL)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 Please contact Elijah at [phone]. Thank you. * Telephone Encounter - Silvia [...] with having her take it. Please advise: [phone] * Telephone Encounter - Mayuri Boswell [facility] - 05/21/2023 1:[address] Rajan: Please follow up with pt and family to discuss their concerns and goals. Thanks * Telephone Encounter - Marsha Sales RP - 05/21/2023 12:52 PM EDT Hey[facility] received a new rx for Viri for [...] their kids about starting the Brukinsa before [facility] ships anything. [facility] will keep the rx on file in the event the pt is to start the medication Please advise Thank you, Marsha Sales, PharmD Specialty Pharmacist [facility] 05/21/2023, 12:56 PM documented in this encounter Plan of Treatment Upcoming Encounters Date Type Specialty Care Team Description 05/27/2023 Pharmacy Pharmacy [facility] [place], [facility] Hem/Onc [address] [place] [address] CLL (chronic lymphocytic leukemia) (HCC)* 05/27/2023 Office Visit Cardiology Tari Sutherland CRNP [address] [place] [address] 06/09/2023 Laboratory Laboratory [facility] Laboratory [address] [place] [address] 06/19/2023 Office Visit Family Medicine Lucas Mendez MD [address] [place] [address] 06/24/2023 Office Visit Hematology Oncology Zenia Rajan MD [address] [facility] [place], [place] [address] 06/24/2023 Office Visit Hematology Oncology Zenia Rajan MD [address] [place] [address] 07/30/2023 Laboratory Laboratory [address] [place] [address] 10/22/2023 Office Visit Cardiology Nithin Smith, DO [address] [place] [address] Scheduled Procedures Name Priority Associated Diagnoses Date/Ti me COLONOSCOPY FLEXIBLE PROXIMA L DIAGNOSTIC Recall Special screening for malignant neoplasms, colon Health Maintenance Due Date Last Done Comments DIABETES-EYE EXAM 1961 DIABETES-FOOT EXAM 1961 Hepatitis C Screening 1961 DTaP,Tdap,and Td Vaccines (1 - Tdap) 02/13/2004 02/12/2004, 06/12/1994 COVID-19 Vaccine (3 - Pfizer risk series) 01/18/2021 12/21/2020, 11/30/2020 CKD PHOS USE SMARTSET [id number] 02/05/2021 02/06/2020, 0 12/20/2008 Depression Screening, Annual [...] Ratio 12/13/2023 12/12/2022 CKD HGB USE SMARTSET 05639 05/11/202405/11, 05/11/2023, 04/23/2023, Additional history exists Pneumococcal [...] filedocumented as of this encounter Care Teams Customer Support Advisor Relationship Specialty Start Date End Date Lucas Mendez MD [address] [place] [address] PCP - General 07/12/00 documented as of this encounter
--- OUTSIDE RECORDS SUMMARY | 2023-08-24 15:00 | External Medical Summary | Summary of Care ---
Author Name Unknown Organization [facility] Address [address] [facility] [place] [address] Phone [phone] Care Team Providers Care Softball Player Name Role Phone Lucas Mendez MD Primary Care Provider +1- [phone] Reason for Visit * Reason Comments eRx-Medication Refill Encounter Details Date Type Department Care Team Description 05/25/[address] [facility] [address] [place] [address] Trudy Sung PA-C [address] [place] [address] Poor appetite Allergies Active Allergy Reactions Severity Noted Date [...] MOUTH DAILY 90 Tablet 3 2 Active Benzonatate 100 MG Oral Capsule (Tessalon [...] Oral Tablet Extended Release 24 Hour (toPROL XL)Indications:Presentation Team Member brittany heart failure with reduced ejection fraction [...] EVERY MORNING 30 Tablet 3 3 Active PARoxetine HCl 10 MG Oral Tablet (pAXil)Indications: Poor appetite Take 1 Tablet by mouth in the morning. 30 Tablet 5 3 05/25/20 23 Discontinued documented as [...] dysfunction 08/15/2021 Coronary artery disease invo lving [place] coronary artery of [place] heart without angina pectoris 08/15/2021 Moderate mitral [...] encounter Miscellaneous Notes * Telephone Encounter - Tahira Arias stella - 05/25/2023 6:40 PM EDTSigned Prescriptions: Disp Refills PARoxetine HCl 10 MG Oral Tablet (pAXil) 30 Tab*3 Sig: TAKE 1 TABLET BY MOUTH EVERY MORNINGAuthorizing Provider: TRUDY SUNG AOrdering User: TAHIRA ARIAS IE documented in this encounter Plan of Treatment Upcoming Encounters Date Type Specialty Care Team Description 05/27/2023 Pharmacy Pharmacy [facility] [place], [facility] Hem/Onc [address] [place] [address] CLL (chronic lymphocytic leukemia) (HCC)* 05/27/2023 Office Visit Cardiology Tari Sutherland CRNP [address] [place] [address] 06/09/2023 Laboratory Laboratory [facility] [address] [place] [address] 06/19/2023 Office Visit Family Medicine GuiterLucas owens MD [facility] [place] [address] 06/24/2023 Office Visit Hematology Oncology Zenia Rajan MD [address] [place] [address] 06/24/2023 Office Visit Hematology Oncology Zenia Rajan MD [address] [place] [address] 07/30/2023 Laboratory Laboratory [facility] Laboratory [address] [place] [address] 10/22/2023 Office Visit Cardiology Nithin Smith DO [address] [place] [address] Scheduled Procedures Name Priority Associated Diagnoses Date/Ti me COLONOSCOPY FLEXIBLE PROXIMA L DIAGNOSTIC Recall Special screening for malignant neoplasms, colon Health Maintenance Due Date Last Done Comments DIABETES-EYE EXAM 1961 DIABETES-FOOT EXAM 1961 Hepatitis C Screening 1961 DTaP,Tdap,and Td Vaccines (1 - Tdap) 02/13/2004 02/12/2004, 06/12/1994 COVID-19 Vaccine (3 - Pfizer risk series) 01/18/2021 12/21/2020, 11/30/2020 CKD PHOS USE SMARTSET 49680 02/05/2021 02/06/2020, 0 12/20/2008 Depression Screening, Annual [...] Ratio 12/13/2023 12/12/2022 CKD HGB USE SMARTSET 72336 05/11/202405/11, 05/11/2023, 04/23/2023, Additional history exists Pneumococcal [...] as of this encounter Visit Diagnoses Diagnosis Poor appetite Anorexia CLL (chronic lymphocytic leukemia) (HCC)- Primary Chronic lymphoid leukemia, without mention of having achieved remission documented in this encounter Care Teams Softball Player Relationship Specialty Start Date End Date Lucas Mendez MD [address] [place] [address] PCP - General 07/12/00 documented as of this encounter
--- OUTSIDE RECORDS SUMMARY | 2023-08-24 15:01 | External Medical Summary | Summary of Care ---
Author Name Unknown Organization [facility] Address [address] [facility] [place] [address] Phone [phone] Care Team Providers Care Developer Automatic Name Role Phone Lucas Mendez MD Primary Care Provider +1- [phone] Reason for Visit * Reason Onset Date Comments Medication Question 05/21/2023 Encounter Details Date Type Department Care Team Description 05/21/2023 Telephone Hematology/Oncology [facility] Theodora [place]askins [address] [facility] [place] [address] Zenia aRjan MD [address] [facility] [place] [address] Medication Question Allergies Active Allergy Reactions Severity [...] dysfunction 08/15/2021 Coronary artery disease invo lving nav[place] coronary artery of [place] heart without angina pectoris 08/15/2021 Moderate mitral [...] Miscellaneous Notes * Telephone Encounter - CLARICE Dominguez - [...] with having her take it. Please advise: [phone] * Telephone Encounter - Mayuri Boswell [facility] - 05/21/2023 1:[address] Rajan: Please follow up with pt and family to discuss their concerns and goals. Thanks * Telephone Encounter - Marsha Sales [facility] - 05/21/2023 12:52 PM EDT Heydi jeremy received a new rx for Viri for [...] their kids about starting the Brukinsa before [facility] ships anything. [facility] will keep the rx on file in the event the pt is to start the medication Please advise Thank you, Marsha Sales, PharmD Specialty Pharmacist [facility] 05/21/2023, 12:56 PM documented in this encounter Plan of Treatment Upcoming Encounters Date Type Specialty Care Team Description 05/27/2023 Pharmacy Pharmacy [facility], [facility] Hem/Onc [address] [place] [address] 05/27/2023 Office Visit Cardiology Tari Sutherland CRNP [address] [place] [address] 06/09/2023 Laboratory Laboratory [facility] Laboratory [address] [place] [address] 06/19/2023 Office Visit Family Medicine Lucas Mendez MD [address] [place] [address] 06/24/2023 Office Visit Hematology Oncology Zenia Rajan MD [address] [place] [address] 06/24/2023 Office Visit Hematology Oncology Zenia Rajan MD [address] [place] [address] 07/30/2023 Laboratory Laboratory [facility] Laboratory [address] [place] [address] 10/22/2023 Office Visit Cardiology Nithin Smith DO [address] [place] [address] Scheduled Procedures Name Priority Associated Diagnoses Date/Ti me COLONOSCOPY FLEXIBLE PROXIMA L DIAGNOSTIC Recall Special screening for malignant neoplasms, colon Health Maintenance Due Date Last Done Comments DIABETES-EYE EXAM 1963 DIABETES-FOOT EXAM 1963 Hepatitis C Screening 1963 DTaP,Tdap,and Td Vaccines (1 - Tdap) 02/13/2004 02/12/2004, 06/12/1994 COVID-19 Vaccine (3 - Pfizer risk series) 01/18/2021 12/21/2020, 11/30/2020 CKD PHOS USE SMARTSET 26132 02/05/2021 02/06/2020, 0 12/20/2008 Depression Screening, Annual [...] Ratio 12/13/2023 12/12/2022 CKD HGB USE SMARTSET 24810 05/11/202405/11, 05/11/2023, 04/23/2023, Additional history exists Pneumococcal [...] filedocumented as of this encounter Care Teams Developer Automatic Relationship Specialty Start Date End Date Lucas Mendez MD [address] [place] [address] PCP - General 07/12/00 documented as of this encounter
--- OUTSIDE RECORDS SUMMARY | 2023-08-24 15:01 | External Medical Summary | Summary of Care ---
Author Name Unknown Organization [facility] [address] [place] [address] Phone [phone] Care Team Providers Care Menswear Salesperson Name Role Phone Lucas Mendez MD Primary Care Provider +1- [phone] Reason for Visit * Reason Onset Date Comments Precert Future 05/11/2023 Zanubrutinib Encounter Details Date Type Department Care Team Description 05/11/2023 Telephone Hematology/Oncology Treatment, [place] [address] [place] [id number] Zenia Rajan MD [address] [place] [address] Precert Future (Zanubrutinib) Allergies Active Allergy Reactions Severity Noted Date Comments Codeine Nausea/vomiting 2011 Lisinopril 03/07/2008 Cough documented as of this encounter (statuses as of 05/19/2023) Medications Medication Sig Dispensed Refills Start Date [...] as of this encounter (statuses as of 05/19/2023) Active Problems Problem Noted Date Type 2 diabetes mellitus with hemoglobin A1c goal of less than 7.0% 12/02/2022 AICD (automatic cardioverter/defibrillat or) present 07/24/2022 Chronic kidney disease, stage 3b 022 Overview: Per CKD protocol Ischemic cardiomyopathy 08/15/2021 LBBB (left bundle branch block) 08/15/20 Chronic heart failure with r educed ejection fraction and diastolic dysfunction 08/15/2021 Coronary artery disease invo lving [place] coronary artery of [place] heart without angina pectoris 08/15/2021 Moderate mitral [...] as of this encounter (statuses as of 05/19/2023) Resolved Problems Problem Noted Date Resolved Date [...] as of this encounter (statuses as of 05/19/2023) Immunizations Name Administration Dates Next Due Pneumococcal [...] Referral entered 05/15; however, no update from [facility] on whether they can fill this. [facility]: are you able to fill medication? * Telephone Encounter - Silvia Chaudhary RN - 05/14/2023 11:50 AM EDT Reviewed with Dr Rajan- he will consent patient by phone, would like to do this Thursday. Called and spoke to patients , he verbalized understanding. Information on zanubrutinib mailed to home address. * Telephone Encounter [...] AM EDT Order received for acalabrutinib (calquence). [facility] aware to build beacon plan. Waiting for auth/ pharmacy. Patient will need hep B labs. Nurse education done after office visit 05/11/23. documented in this encounter Plan of Treatment Upcoming Encounters Date Type Specialty Care Team Description 05/27/2023 Office Visit Cardiology Tari Sutherland CRNP [address] [place] [address] 06/09/2023 Laboratory Laboratory [facility] [address] [place] [address] 06/19/2023 Office Visit Family Medicine Lucas Mendez MD [address] [place] [address] 06/24/2023 Office Visit Hematology Oncology Zenia Rajan MD [address] [place] [address] 06/24/2023 Office Visit Hematology Oncology Zenia Rajan MD [address] [place] [address] 07/30/2023 Laboratory Laboratory [place], [facility] [address] [place] [facility] [place] [address] 10/22/2023 Office Visit Cardiology Nithin Smith, DO [address] [place] [address] Scheduled Procedures Name Priority Associated Diagnoses Date/Ti me COLONOSCOPY FLEXIBLE PROXIMA L DIAGNOSTIC Recall Special screening for malignant neoplasms, colon Health Maintenance Due Date Last Done Comments DIABETES-EYE EXAM 1961 DIABETES-FOOT EXAM 1961 Hepatitis C Screening 1961 DTaP,Tdap,and Td Vaccines (1 - Tdap) 02/13/2004 02/12/2004, 06/12/1994 COVID-19 Vaccine (3 - Pfizer risk series) 01/18/2021 12/21/2020, 11/30/2020 CKD PHOS USE SMARTSET 89668 02/05/2021 02/06/2020, 0 12/20/2008 Depression Screening, Annual [...] Ratio 12/13/2023 12/12/2022 CKD HGB USE SMARTSET 58156 05/11/202405/11, 05/11/2023, 04/23/2023, Additional history exists Pneumococcal [...] - 20 mg/dL 05/11/2023 12:32 PM EDT [place] [address] Creatinine 1.1(H) 0.5 - 1.0 mg/dL 05/11/2023 12:32 PM EDT [place] [address] Estimated Glomerular Filtration Rate 50(L) >=60 mL/min 05/11/2023 12:32 PM EDT [facility] Comment:eGFR is calculated b ased on the CKD-EPI 2020 equation Sodium 140 135 - 146 mmol/L 05/11/2023 12:32 PM EDT [facility] 56 Potassium 4.4 3.5 - 5.1 mmol/L 05/11/2023 12:32 PM EDT [facility] 56- Chloride 106 98 - 107 mmol/L 05/11/2023 12:32 PM EDT [facility] 56- CO2 26 22 - 32 mmol/L 05/11/2023 12:32 PM EDT [facility] 56 Anion Gap 8 7 - 15 mmol/L 05/11/2023 12:32 PM EDT [facility] 56 Glucose 106 70 - 120 mg/dL 05/11/2023 12:32 PM EDT [facility] 56 Albumin 4.2 3.8 - 5.0 g/dL 05/11/2023 12:32 PM EDT [facility] 56- AST 25 10 - 35 U/L 05/11/2023 12:32 PM EDT [facility] 56 Alkaline Phosphatase 109 35 - 130 U/L 05/11/2023 12:32 PM EDT [facility] 56 Bilirubin, Total 0.6 <=1.2 mg/dL 05/11/2023 12:32 PM EDT [facility] [place] 56-02 Calcium 9.2 8.4 - 10.2 mg/dL 05/11/2023 12:32 PM EDT [facility] [place] 5602 Protein 6.6 6.0 - 8.3 g/dL 05/11/2023 12:32 PM EDT [facility] 5602 ALT 15 10 - 35 U/L 05/11/2023 12:32 PM EDT [facility] 5602 Blood Venous blood specimen / Unknown Venipuncture / Unknown 05/11/2023 12:00 PM EDT 05/11/2023 12:00 PM EDT Zenia Rajan MD LAB BLOOD ORDERA BLES [facility] [address] [place] [address] * HEPATITIS B CORE ANTIBODIES IGG AND IGM (05/11/2023 12:00 PM EDT) Hepatitis B Core Antibodies IgG and IgM Negative Negative 05/11/2023 9:37 PM EDT LABORATORY [facility] Blood Venous blood specimen / Unknown Venipuncture / Unknown 05/11/2023 12:00 PM EDT 05/11/2023 12:00 PM EDT Zenia Rajan MD LAB BLOOD ORDERA BLES LAB[facility] [address] [place] [address] * HEPATITIS B SURFACE ANTIGEN (05/11/2023 12:00 PM EDT) Hepatitis B Surface Antigen Negative Negative 05/11/2023 9:37 PM EDT LABORATORY [facility] Blood Venous blood specimen / Unknown Venipuncture / Unknown 05/11/2023 12:00 PM EDT 05/11/2023 12:00 PM EDT Zenia Rajan MD LAB BLOOD ORDERA BLES Performing Organization Address [facility] de Phone Number LABORATORY [facility] [address] [place] [address] * HEPATITIS B SURFACE ANTIBODY (05/11/2023 12:00 PM EDT) Hepatitis B Surface Antibody, Quantitative <3.5 mIU/mL 05/11/2023 9:37 PM EDT [facility] Hepatitis B Surface Antibody, Qualitative Negative 05/11/2023 9:37 PM EDT [facility] Hepatitis B Surface Antibody, Interpretation NOT immune to Hepatitis B Virus 05/11/2023 9:37 PM EDT LABORATORY [facility] Comment: POSITIVE: >=11.5 mIU/mL INDETERMINATE: 8.5-<11.5 mIU/mL NEGATIVE: <8.5 mIU/mL Blood Venous blood specimen / Unknown Venipuncture / Unknown 05/11/2023 12:00 PM EDT 05/11/2023 12:00 PM EDT Zenia Rajan MD LAB BLOOD ORDERA BLES Performing Organization Address [facility] de Phone Number LABORATORY [facility] [address] [place] [address] documented in this encounter Visit Diagnoses Diagnosis CLL (chronic lymphocytic leukemia) (HCC)- Primary Chronic lymphoid leukemia, without mention of having achieved remission Encounter for screening for viral disease documented in this encounter Care Teams Menswear Salesperson Relationship Specialty Start Date End Date Lucas Mendez MD [address] [place] [id number] PCP - General 07/12/00 documented as of this encounter
--- OUTSIDE RECORDS SUMMARY | 2023-08-24 15:01 | External Medical Summary | Summary of Care ---
Author Name Unknown Organization [facility] Address [address] [facility] [place] [address] Phone [phone] Care Team Providers Care Quebracho Tanner Name Role Phone Lucas Mendez MD Primary Care Provider +1- [phone] Reason for Visit * Reason Onset Date Comments Medication Question 05/21/2023 Encounter Details Date Type Department Care Team Description 05/21/2023 Telephone Hematology/Oncology [facility] [place] [address] [facility] [place] [address] Zenia Rajan MD [address] [facility] [place] [address] Medication Question Allergies Active Allergy Reactions Severity Noted Date Comments Codeine Nausea/vomiting 2011 Lisinopril 03/07/2008 Cough documented as of this encounter (statuses as of 05/21/2023) Medications Medication Sig Dispensed Refills Start Date [...] as of this encounter (statuses as of 05/21/2023) Active Problems Problem Noted Date Type 2 [...] as of this encounter (statuses as of 05/21/2023) Resolved Problems Problem Noted Date Resolved Date [...] as of this encounter (statuses as of 05/21/2023) Immunizations Name Administration Dates Next Due Pneumococcal [...] encounter Miscellaneous Notes * Telephone Encounter - Marsha Sales [facility] - 05/21/2023 12:52 PM EDT [facility] received a new rx for Viri for [...] their kids about starting the Brukinsa before [facility] ships anything. [facility] will keep the rx on file in the event the pt is to start the medication Please advise Thank you, Marsha Sales, Anshu Specialty Pharmacist [facility] 05/21/2023, 12:56 PM documented in this encounter Plan of Treatment Upcoming Encounters Date Type Specialty Care Team Description 05/22/2023 Pharmacy Pharmacy [facility] Hem/Onc [address] [place] [address] 05/27/2023 Office Visit Cardiology Tari Sutherland CRNP [address] [place] [address] 06/09/2023 Laboratory Laboratory [facility] [address] [place] [address] 06/19/2023 Office Visit Family Medicine Lucas Mendez MD [address] [place] [address] 06/24/2023 Office Visit Hematology Oncology Zenia Rajan MD [address] [place], [place] [address] 06/24/2023 Office Visit Hematology Oncology Zenia Rajan MD [address] [place] [address] 07/30/2023 Laboratory Laboratory [facility] [address] [facility] [place] [address] 10/22/2023 Office Visit Cardiology Nithin Smith, DO [address] [place] [address] Scheduled Procedures Name Priority Associated Diagnoses Date/Ti me COLONOSCOPY FLEXIBLE PROXIMA L DIAGNOSTIC Recall Special screening for malignant neoplasms, colon Health Maintenance Due Date Last Done Comments DIABETES-EYE EXAM 1963 DIABETES-FOOT EXAM 1961 Hepatitis C Screening 1963 DTaP,Tdap,and Td Vaccines (1 - Tdap) 02/13/2004 02/12/2004, 06/12/1994 COVID-19 Vaccine (3 - Pfizer risk series) 01/18/2021 12/21/2020, 11/30/2020 CKD PHOS USE SMARTSET 71879 02/05/2021 02/06/2020, 0 12/20/2008 Depression Screening, Annual [...] Ratio 12/13/2023 12/12/2022 CKD HGB USE SMARTSET 67931 05/11/202405/11, 05/11/2023, 04/23/2023, Additional history exists Pneumococcal [...] filedocumented as of this encounter Care Teams Quebracho Tanner Relationship Specialty Start Date End Date Lucas Mendez MD [address], [place] [id number] PCP - General 07/12/00 documented as of this encounter
--- OUTSIDE RECORDS SUMMARY | 2023-08-24 15:01 | External Medical Summary | Summary of Care ---
Author Name Unknown Organization [facility] [address] [facility] [place] [address] Phone [phone] Care Team Providers Care Manager Of Digital Name Role Phone Lucas Mendez MD Primary Care Provider +1- [phone] Reason for Visit * Reason Onset Date Comments Precert Future 05/11/2023 Zanubrutinib Encounter Details Date Type Department Care Team Description 05/11/2023 Telephone Hematology/Oncology Treatment, [place] [address] [place] [id number] Zenia Rajan MD [address] [place] [address] Precert Future (Zanubrutinib) Allergies Active Allergy Reactions Severity Noted Date Comments Codeine Nausea/vomiting 2011 Lisinopril 03/07/2008 Cough documented as of this encounter (statuses as of 05/20/2023) Medications Medication Sig Dispensed Refills Start Date [...] as of this encounter (statuses as of 05/20/2023) Active Problems Problem Noted Date Type 2 [...] as of this encounter (statuses as of 05/20/2023) Resolved Problems Problem Noted Date Resolved Date [...] as of this encounter (statuses as of 05/20/2023) Immunizations Name Administration Dates Next Due Pneumococcal [...] RN - 05/14/2023 10:[address] aRjan's routing comment: "We can change it to [...] AM EDT Order received for acalabrutinib (calquence). [facility] aware to build beacon plan. Waiting for auth/ pharmacy. Patient will need hep B labs. Nurse education done after office visit 05/11/23. documented in this encounter Plan of Treatment Upcoming Encounters Date Type Specialty Care Team Description 05/22/2023 Pharmacy Pharmacy [facility] Hem/Onc [address] [place] [address] 05/27/2023 Office Visit Cardiology Tari Sutherland CRNP [address] [place] [address] 06/09/2023 Laboratory Laboratory [facility] [address] [place] [address] 06/19/2023 Office Visit Family Medicine Lucas Mendez MD [address] [place] [address] 06/24/2023 Office Visit Hematology Oncology Zenia Rajan MD [address] [place] [address] 06/24/2023 Office Visit Hematology Oncology Zenia Rajan MD [address] [place] [address] 07/30/2023 Laboratory Laboratory [facility] [address] [place] [address] 10/22/2023 Office Visit Cardiology Nithin Smith DO [address] [place] [address] Scheduled Procedures Name Priority Associated Diagnoses Date/Ti me COLONOSCOPY FLEXIBLE PROXIMA L DIAGNOSTIC Recall Special screening for malignant neoplasms, colon Health Maintenance Due Date Last Done Comments DIABETES-EYE EXAM 1961 DIABETES-FOOT EXAM 1961 Hepatitis C Screening 1961 DTaP,Tdap,and Td Vaccines (1 - Tdap) 02/13/2004 02/12/2004, 06/12/1994 COVID-19 Vaccine (3 - Pfizer risk series) 01/18/2021 12/21/2020, 11/30/2020 CKD PHOS USE SMARTSET 90440 02/05/2021 02/06/2020, 0 12/20/2008 Depression Screening, Annual [...] Ratio 12/13/2023 12/12/2022 CKD HGB USE SMARTSET 35820 05/11/202405/11, 05/11/2023, 04/23/2023, Additional history exists Pneumococcal [...] - 20 mg/dL 05/11/2023 12:32 PM EDT [facility] 56-02 Creatinine 1.1(H) 0.5 - 1.0 mg/dL 05/11/2023 12:32 PM EDT [facility] 56-02 Estimated Glomerular Filtration Rate 50(L) >=60 mL/min 05/11/2023 12:32 PM EDT [facility] 56-02 Comment:eGFR is calculated b ased on the CKD-EPI 2020 equation Sodium 140 135 - 146 mmol/L 05/11/2023 12:32 PM EDT [facility] [place] 56-02 Potassium 4.4 3.5 - 5.1 mmol/L 05/11/2023 12:32 PM EDT [facility] 56-02 Chloride 106 98 - 107 mmol/L 05/11/2023 12:32 PM EDT [facility] 56-02 CO2 26 22 - 32 mmol/L 05/11/2023 12:32 PM EDT [facility] 56-02 Anion Gap 8 7 - 15 mmol/L 05/11/2023 12:32 PM EDT [place] [address] Glucose 106 70 - 120 mg/dL 05/11/2023 12:[address] Albumin 4.2 3.8 - 5.0 g/dL 05/11/2023 12:[address] AST 25 10 - 35 U/L 05/11/2023 12:[address] Alkaline Phosphatase 109 35 - 130 U/L 05/11/2023 12:32 [address]T [address] Bilirubin, Total 0.6 <=1.2 mg/dL 05/11/2023 12:32 PM EDT [place] [address] Calcium 9.2 8.4 - 10.2 mg/dL 05/11/2023 12:32 PM EDT [place] [address] Protein 6.6 6.0 - 8.3 g/dL 05/11/2023 12:32 PM EDT [place] [address] ALT 15 10 - 35 U/L 05/11/2023 12:32 PM EDT [place] [address] Blood Venous blood specimen / Unknown Venipuncture / Unknown 05/11/2023 12:00 PM EDT 05/11/2023 12:00 PM EDT Zenia Rajan MD LAB BLOOD ORDERA BLES [facility] [address] [place], [place] [id number] * HEPATITIS B CORE ANTIBODIES IGG AND IGM (05/11/2023 12:00 PM EDT) Hepatitis B Core Antibodies IgG and IgM Negative Negative 05/11/2023 9:37 PM EDT LABORATORY [facility] Blood Venous blood specimen / Unknown Venipuncture / Unknown 05/11/2023 12:00 PM EDT 05/11/2023 12:00 PM EDT Zenia Rajan MD LAB BLOOD ORDERA BLES LABORATORY [facility] [address] [place] [address] * HEPATITIS B SURFACE ANTIGEN (05/11/2023 12:00 PM EDT) Hepatitis B Surface Antigen Negative Negative 05/11/2023 9:37 PM EDT LABORATORY [facility] Blood Venous blood specimen / Unknown Venipuncture / Unknown 05/11/2023 12:00 PM EDT 05/11/2023 12:00 PM EDT Zenia Rajan MD LAB BLOOD ORDERA BLES LABORATORY [facility] [address] [place] [address] * HEPATITIS B SURFACE ANTIBODY (05/11/2023 12:00 PM EDT) Hepatitis B Surface Antibody, Quantitative <3.5 mIU/mL 05/11/2023 9:37 PM EDT LABORATORY [facility] Hepatitis B Surface Antibody, Qualitative Negative 05/11/2023 9:37 PM EDT LABORATORY [facility] Hepatitis B Surface Antibody, Interpretation NOT immune to Hepatitis B Virus 05/11/2023 9:37 PM EDT LABORATORY [facility] Comment: POSITIVE: >=11.5 mIU/mL INDETERMINATE: 8.5-<11.5 mIU/mL NEGATIVE: <8.5 mIU/mL Blood Venous blood specimen / Unknown Venipuncture / Unknown 05/11/2023 12:00 PM EDT 05/11/2023 12:00 PM EDT Zenia Rajan MD LAB BLOOD ORDERA BLES LABORATORY [facility] [address] [place] [address] documented in this encounter Visit Diagnoses Diagnosis CLL (chronic lymphocytic leukemia) (HCC)- Primary Chronic lymphoid leukemia, without mention of having achieved remission Encounter for screening for viral disease documented in this encounter Care Teams Manager Of Digital Relationship Specialty Start Date End Date Lucas Mendez MD [facility] [place] [address] PCP - General 07/12/00 documented as of this encounter
--- OUTSIDE RECORDS SUMMARY | 2023-08-24 15:01 | External Medical Summary | Summary of Care ---
Author Name Unknown Organization [facility] Address [address] [facility] [place] [address] Phone [phone] Care Team Providers Care Dairy Clerk Name Role Phone Lucas Mendez MD Primary Care Provider +1- [phone] Reason for Visit * Reason Onset Date Comments Medication Question 05/21/2023 Encounter Details Date Type Department Care Team Description 05/21/2023 Telephone Hematology/Oncology [facility] Theodora [place] [address] [facility] [place] [address] Zenia Rajan MD [address] [facility] [place] [address] Medication Question Allergies Active Allergy Reactions Severity [...] Coronary artery disease invo lving [place] coronary artery of [place] heart without angina pectoris 08/15/2021 Moderate mitral [...] encounter Miscellaneous Notes * Telephone Encounter - Mayuri Boswell [facility] - 05/21/2023 1:[address] Rajan: Please follow up with pt and family to discuss their concerns and goals. Thanks * Telephone Encounter - Marsha Sales [facility] - 05/21/2023 12:52 PM EDT Heydi [facility] received a new rx for Viri for [...] kids about starting the Brukinsa before [facility] ships anything. [facility] will keep the rx on file in the event the pt is to start the medication Please advise Thank you, Marsha Sales, PharmD Specialty Pharmacist [facility] 05/21/2023, 12:56 PM documented in this encounter Plan of Treatment Upcoming Encounters Date Type Specialty Care Team Description 05/22/2023 Pharmacy Pharmacy [facility] [place] [address] [facility] [address] 05/27/2023 Office Visit Cardiology [facility] Sutherland CRNP [address] [facility] [address] 06/09/2023 Laboratory Laboratory [address] [address] 06/19/2023 Office Visit Family Medicine Lucas Mendez MD [address] [place] [address] 06/24/2023 Office Visit Hematology Oncology Zenia Rajan MD [address] [facility] [address] 06/24/2023 Office Visit Hematology Oncology Zenia Rajan MD [address] [facility] [place], [place] [address] 07/30/2023 Laboratory Laboratory [place] [facility] [address] [place] [address] 10/22/2023 Office Visit Cardiology Nithin Smith, [address] [place] [address] Scheduled Procedures Name Priority Associated Diagnoses Date/Ti me COLONOSCOPY FLEXIBLE PROXIMA L DIAGNOSTIC Recall Special screening for malignant neoplasms, colon Health Maintenance Due Date Last Done Comments DIABETES-EYE EXAM 1963 DIABETES-FOOT EXAM 1963 Hepatitis C Screening 1963 DTaP,Tdap,and Td Vaccines (1 - Tdap) 02/13/2004 02/12/2004, 06/12/1994 COVID-19 Vaccine (3 - Pfizer risk series) 01/18/2021 12/21/2020, 11/30/2020 CKD PHOS USE SMARTSET 68729 02/05/2021 02/06/2020, 0 12/20/2008 Depression Screening, Annual [...] Ratio 12/13/2023 12/12/2022 CKD HGB USE SMARTSET 60067 05/11/202405/11, 05/11/2023, 04/23/2023, Additional history exists Pneumococcal [...] filedocumented as of this encounter Care Teams Dairy Clerk Relationship Specialty Start Date End Date Lucas Mendez MD [address] [place] [address] PCP - General 07/12/00 documented as of this encounter
--- OUTSIDE RECORDS SUMMARY | 2023-08-24 15:01 | External Medical Summary | Summary of Care ---
Author Name Unknown Organization [facility] Address [address] [facility] [place] [address] Phone [phone] Care Team Providers Care Director Of Health Education Name Role Phone Lucas Mendez MD Primary Care Provider +1- [phone] Reason for Referral * Evaluate & Treat - Unlimited Visits (Within 10 days (routine)) - Authorized Specialty Diagnoses / Procedures Referred By Elizabet yao Referred To Contact Pharmacist / Pharmacy Diagnoses CLL (chronic lymphocytic leukemia) (HCC) Mayuri Baez, [facility] [address] [place] [address] Referral ID Status Reason Start Date Expiration Date Visits Requested Visits Authorized [id number] Authorized Specialty Services Required 05/19/2023 99 99 Question Answer Referral Priority Within 10 days (routine) Department: Specialist Specialty: Heme/Onc Reason for Referral: Oral Chemo Has consent been obtained for new oral chemo agent(s)? No, I will obtain consent prior to prescribing Comments Pharmacist Medication Therapy Management: Minimum frequency patient should be seen in person for medication management: as appropriate per clinical condition and patient status By my signature, I understand that my patient Viri Rose will have her medication therapy managed by the [facility] Medication Therapy Disease Management Clinic ([facility]) per established policies, procedures, and protocols. I also certify that this referral may serve as an initiation of service for the management of drug therapy in the above noted patient. [facility] providers will be responsible for scheduling patient visits, obtaining appropriate laboratory studies, and adjusting medication management therapy per patient's need, in addition to those roles spelled out in the clinic policy, procedures, and drug management protocols. I understand that the service provided by the [facility] is voluntary and have informed patient that they can refuse the service at their discretion. I am aware that the [facility] Clinic will provide me with a copy of the patient encounter via [facility]. I authorize the [facility] to carry out these activities on my behalf. I consider this program to be a necessary part of the patient's medical care. Mayuri Baez [facility] Encounter Details Date Type Department Care Team Description 05/14/2023 Orders Only Hematology/Oncology [facility] [address] [place] [address] Zenia Rajan MD [address] [place] [address] CLL (chronic lymphocytic leukemia) ([facility])* Allergies Active Allergy Reactions Severity Noted [...] CapsuleIndications:C LL (chronic lymphocytic leukemia) (HCC) Take 320 mg by mouth in the morning. 120 Capsule [...] dysfunction 08/15/2021 Coronary artery disease invo lving [place] coronary artery of [place] heart without angina pectoris 08/15/2021 Moderate mitral [...] as of this encounter Miscellaneous Notes * Addendum Note - Mayuri Baez RPh - 05/19/2023 3:40 PM EDTAddended by: MAYURI BAEZ on: 05/19/2023 03:40 PM Modules accepted: Orders documented in this encounter Plan of Treatment Upcoming Encounters Date Type Specialty Care Team Description 05/27/2023 Office Visit Cardiology Tari Sutherland CRNP [address] [place] [address] 06/09/2023 Laboratory Laboratory [facility] Laboratory [address] [place] [address] 06/19/2023 Office Visit Family Medicine Lucas Mendez MD [address] [place] [address] 06/24/2023 Office Visit Hematology Oncology Zenia Rajan MD [address] [place] [address] 06/24/2023 Office Visit Hematology Oncology Zenia Rajan MD 200 [place] [address] 07/30/2023 Laboratory Laboratory [place] [address] [place] [address] 10/22/2023 Office Visit Cardiology Nithin Smith DO [address] [place] [address] Scheduled Orders Name Type Priority Associated Diagnoses Orde r Schedule CBC WITH WBC DIFFERENTIAL Lab STAT CLL (chronic lymphocytic leukemia) (HCC) Every Week for 52 Occurrences starting 05/19/2023 until 05/19/2024 COMPREHENSIVE METABOLIC PANEL Lab STAT CLL (chronic lymphocytic leukemia) (HCC) Every Week for 52 Occurrences starting 05/19/2023 until 05/19/2024 LD Lab Routine CLL (chronic lymphocytic leukemia) (HCC) Every Week for 52 Occurrences starting 05/19/2023 until 05/19/2024 URIC ACID Lab Routine CLL (chronic lymphocytic leukemia) ([facility]) Every Week for 52 Occurrences starting 05/19/2023 until 05/19/2024 Scheduled Procedures Name Priority Associated Diagnoses Date/Ti me COLONOSCOPY FLEXIBLE PROXIMA L DIAGNOSTIC Recall Special screening for malignant neoplasms, colon Scheduled Referrals Name Type Priority Associated Diagnoses Orde r Schedule PHARMACIST MEDS THERAPY MGMT REFERRAL OP Referral Within 10 days (routine) CLL (chronic lymphocytic leukemia) ([facility]) Ordered: 05/19/2023 Health Maintenance Due Date Last Done Comments DIABETES-EYE EXAM 1961 DIABETES-FOOT EXAM 1961 Hepatitis C Screening 1963 DTaP,Tdap,and Td Vaccines (1 - Tdap) 02/13/2004 02/12/2004, 06/12/1994 COVID-19 Vaccine (3 - Pfizer risk series) 01/18/2021 12/21/2020, 11/30/2020 CKD PHOS USE SMARTSET [id number] 02/05/2021 02/06/2020, 0 12/20/2008 Depression Screening, Annual [...] Ratio 12/13/2023 12/12/2022 CKD HGB USE SMARTSET 31498 05/11/202405/11, 05/11/2023, 04/23/2023, Additional history exists Pneumococcal [...] remission documented in this encounter Care Teams Director Of Health Education Relationship Specialty Start Date End Date Lucas Mendez MD [address] [place] [address] PCP - General 07/12/00 documented as of this encounter
--- OUTSIDE RECORDS SUMMARY | 2023-08-24 15:01 | External Medical Summary | Summary of Care ---
Author Name Unknown Organization [facility] Address [address] [facility] [place] [address] Phone [phone] Care Team Providers Care Air Quality Engineer Name Role Phone Lucas Mendez MD Primary Care Provider +1- [phone] Reason for Visit * Reason Onset Date Comments Medication Question 05/21/2023 Encounter Details Date Type Department Care Team Description 05/21/2023 Telephone Hematology/Oncology [facility] Theodora [place] [address] [facility] [place] [address] Zenia Rajan MD [address] [facility] [place] [address] Medication Question Allergies Active Allergy Reactions Severity [...] dysfunction 08/15/2021 Coronary artery disease invo lving [place] coronary artery of [place] heart without angina pectoris 08/15/2021 Moderate mitral [...] with having her take it. Please advise: [phone] * Telephone Encounter - Mayuri Boswell [facility] - 05/21/2023 1:[address] Rajan: Please follow up with pt and family to discuss their concerns and goals. Thanks * Telephone Encounter - Marsha Sales [facility] - 05/21/2023 12:52 PM EDT Heydi jeremy [...] kids about starting the Brukinsa before [facility] ships anything. [facility] will keep the rx on file in the event the pt is to start the medication Please advise Thank you, Marsha Sales, PharmD Specialty Pharmacist [facility] 05/21/2023, 12:56 PM documented in this encounter Plan of Treatment Upcoming Encounters Date Type Specialty Care Team Description 05/27/2023 Pharmacy Pharmacy [facility] [place], [facility] Hem/Onc [address] [place] [address] 05/27/2023 Office Visit Cardiology Tari Sutherland CRNP [address] [place] [address] 06/09/2023 Laboratory Laboratory [facility] Laboratory [address] [place] [address] 06/19/2023 Office Visit Family Medicine Lucas Mendez MD [address] [place] [address] 06/24/2023 Office Visit Hematology Oncology Zenia Rajan MD [address] [place] [address] 06/24/2023 Office Visit Hematology Oncology Zenia Rajan MD [address] [place] [address] 07/30/2023 Laboratory Laboratory [facility] Laboratory [address] [place] [address] 10/22/2023 Office Visit Cardiology Nithin Smith DO [address] [place] [address] Scheduled Procedures Name Priority Associated Diagnoses Date/Ti me COLONOSCOPY FLEXIBLE PROXIMA L DIAGNOSTIC Recall Special screening for malignant neoplasms, colon Health Maintenance Due Date Last Done Comments DIABETES-EYE EXAM 1963 DIABETES-FOOT EXAM 1961 Hepatitis C Screening 1961 DTaP,Tdap,and Td Vaccines (1 - Tdap) 02/13/2004 02/12/2004, 06/12/1994 COVID-19 Vaccine (3 - Pfizer risk series) 01/18/2021 12/21/2020, 11/30/2020 CKD PHOS USE SMARTSET 11525 02/05/2021 02/06/2020, 0 12/20/2008 Depression Screening, Annual [...] Ratio 12/13/2023 12/12/2022 CKD HGB USE SMARTSET 62198 05/11/202405/11, 05/11/2023, 04/23/2023, Additional history exists Pneumococcal [...] filedocumented as of this encounter Care Teams Air Quality Engineer Relationship Specialty Start Date End Date Lucas Mendez MD [address] [place] [address] PCP - General 07/12/00 documented as of this encounter
--- OUTSIDE RECORDS SUMMARY | 2023-08-24 15:01 | External Medical Summary | Summary of Care ---
Author Name Unknown Organization [facility] Address [address] [place] [address] Phone [phone] Care Team Providers Care Glassworker Name Role Phone Lucas Mendez MD Primary Care Provider +1- [phone] Reason for Visit * Reason Comments Medication Management * Evaluate & Treat - Unlimited Visits (Within 10 days (routine)) - Authorized Specialty Diagnoses / Procedures Referred By Elizabet yao Referred To Contact Pharmacist / Pharmacy Diagnoses CLL (chronic lymphocytic leukemia) (HCC) Mayuri Boswell, [facility] [address] [place] [address] Referral ID Status Reason Start Date Expiration Date Visits Requested Visits Authorized [id number] Authorized Specialty Services Required 05/19/2023 99 99 Encounter Details Date Type Department Care Team Description 05/22/2023 Pharmacy Pharmacy Hematology Oncology [facility] [address] [place] [address] [facility] [place], [facility] Hem/Onc [address] [place] [address] CLL (chronic lymphocytic leukemia) ([facility])* Allergies Active Allergy Reactions Severity Noted Date [...] Active Benzonatate 100 MG Oral Capsule (Tessalon Perlgalen)Indications:B ronchitis, complicated Take 1 Capsule by mouth [...] Coronary artery disease invo lving [place] coronary artery of [place] heart without angina pectoris 08/15/2021 Moderate mitral [...] as of this encounter Progress Notes * Nickie Pitt CPhT - 05/22/2023 1:45 PM EDT MEDICATION THERAPY MANAGEMENT ZANUBRUTINIB TREATMENT STATUS NOTE Viri Rose [phone] Patient Phone Numbers Communication: Chart review Treatment: Medication:Zanubrutinib (Brukinsa) Indication/Staging/Diagnosis Code:CLL / C91.10 Dose:320mg daily Administration:+/- food Start Date:TBD Primary Vending Machine Repairer/Oncologist:Dr. Rajan Supportive Care Meds: None Prophylactic Meds: Metoprolol ER 25mg daily Allopurinol 100mg daily (to be ordered in beacon plan) Assessment and Plan: Yes/no Date Action Taken [place] plan entered? Yes 05/14/23 Consent completed? Yes 05/19/23 Intro/med rec completed? Precert completed? Yes 05/15/23 Approved Test claim completed? Yes 05/19/23 [facility] can fill $2003.14 co-payment Financial assistance needed? Yes 05/19/23 Approved - [facility] Balance = $9700.00 Physician signature? Yes 05/14/23 Rx released? Yes 05/22/23 To [facility] Education completed? Will follow up in 3 days to check on patient treatment decision status. [facility] will contact patient once med shipped/received to complete medication education ? Please refer to initial intake note for detailed review of regimen and patient-specific educationpoints Nickie Pitt Clerk Of Scales III [facility] 05/22/2023, 12:30 PM Time Spent on Encounter: 6 - 10 minutes * Mayuri Boswell RP - 05/22/2023 12:42 PM EDT Per MALLORY 05/21/23, pt and family unsure if pt should start therapy. TE forwarded to Dr. Rajan requesting pt and family follow up to discuss goals of treatment MTM to follow up in one week to assess treatment status and provide medication education if appropriate Mayuri Boswell, JesseniaD, OP Clinical Pharmacist, MTDM Oral Chemotherapy [facility] 05/22/2023, 12:44 PM documented in this encounter Plan of Treatment Upcoming Encounters Date Type Specialty Care Team Description 05/27/2023 Office Visit Cardiology Tari Sutherland CRNP [address] [place] [address] 06/09/2023 Laboratory Laboratory [place] Laboratory [address] [place] [address] 06/19/2023 Office Visit Family Medicine Lucas Mendez MD [address] [place] [address] 06/24/2023 Office Visit Hematology Oncology Zenia Rajan MD [address] [place] [address] 06/24/2023 Office Visit Hematology Oncology Zenia Rajan MD [address] [place] [address] 07/30/2023 Laboratory Laboratory [place] Laboratory [address] [place] [address] 10/22/2023 Office Visit Cardiology Nithin Smith DO [address] [place] [address] Scheduled Procedures Name Priority Associated Diagnoses Date/Ti me COLONOSCOPY FLEXIBLE PROXIMA L DIAGNOSTIC Recall Special screening for malignant neoplasms, colon Scheduled Referrals Name Type Priority Associated Diagnoses Orde r Schedule PHARMACIST MEDS THERAPY MGMT REFERRAL OP Referral Within 10 days (routine) CLL (chronic lymphocytic leukemia) (HCC) Ordered: 05/19/2023 Health Maintenance Due Date Last Done Comments DIABETES-EYE EXAM 1963 DIABETES-FOOT EXAM 1963 Hepatitis C Screening 1963 DTaP,Tdap,and Td Vaccines (1 - Tdap) 02/13/2004 02/12/2004, 06/12/1994 COVID-19 Vaccine (3 - Pfizer risk series) 01/18/2021 12/21/2020, 11/30/2020 CKD PHOS USE SMARTSET 75289 02/05/2021 02/06/2020, 0 12/20/2008 Depression Screening, Annual for Pts 12 and Over 04/11/2021 04/11/2020 DXA Scan 04/02/2023 04/02/2016, 0 11/2013, 01/11/2014, Additional history exists Influenza Vaccine (FLU shot) (#1) 2023 08/19/2021, 08/30/2019, 08/30/2019, Additional history exists HbA1c 06/14/2023 12/12/2022, 07/12, 01/27/2022 TSH 10/24/2023 10/24/2022, 09/12, 04/11/2020, Additional history exists GFR 11/11/2023 05/11/2023, 02/10, 01/28/2023, Additional history exists Albumin/Creatinine Ratio 12/13/2023 12/12/2022 CKD HGB USE SMARTSET 51528 05/11/202405/11, 05/11/2023, 04/23/2023, Additional history exists Pneumococcal [...] remission documented in this encounter Care Teams Glassworker Relationship Specialty Start Date End Date Lucas Mendez MD [address] [place] [address] PCP - General 07/12/00 documented as of this encounter
--- OUTSIDE RECORDS SUMMARY | 2023-08-24 15:01 | External Medical Summary | Summary of Care ---
Author Name Unknown Organization [facility] Address [address] [place] [address] Phone [phone] Care Team Providers Care Program Research Specialist Name Role Phone uLcas Mendez MD Primary Care Provider +1- [phone] Reason for Visit * Reason Comments Medication Management Encounter Details Date Type Department Care Team Description 05/19/2023 Pharmacy Pharmacy Hematology Oncology [facility] [address] [place], [place] [id number] [facility] [place] [facility] Hem/Onc [address] [place] [address] CLL (chronic lymphocytic leukemia) ([facility])* Allergies Active Allergy Reactions Severity Noted Date [...] dysfunction 08/15/2021 Coronary artery disease invo lving [place] coronary artery of [place] heart without angina pectoris 08/15/2021 Moderate mitral [...] encounter Progress Notes * Mayuri Boswell, [facility] - 05/19/2023 3:39 PM EDT Per discussion with FELICIANO Vega, pt gave verbal consent for zanubrutinib treatment Zanubrutinib RX sent to [facility] Allopurinol RX sent to Cassidy Boswell, JesseniaD, BCOP Clinical Pharmacist, [facility] Oral Chemotherapy [facility] 05/19/2023, 3:40 PM Time Spent on Encounter: 6 - 10 minutes Encounter Group: Hematology Encounter Interventions Item Category: Oral Chemotherapy Zanibrutinib Problem/Rationale: [place] Plan Review: Clinical Review Pharmacist Intervention(s): Discussed patient with nursing and Medication prescribed Magnitude of Intervention: Modification of medication for asymtomatic patients (Level 2) * Nickie Pitt CPhT - 05/19/2023 1:30 PM EDT MEDICATION THERAPY MANAGEMENT ZANUBRUTINIB TREATMENT STATUS NOTE Viri Rose [phone] Patient Phone Numbers Communication: Chart review Treatment: Medication: Zanubrutinib (Brukinsa) Indication/Staging/Diagnosis Code: CLL / C91.10 Dose: 320mg daily Administration: +/- food Start Date: TBD Primary Foundry Hand/Oncologist: Dr. Rajan Supportive Care Meds: None Prophylactic Meds: Metoprolol ER 25mg daily Allopurinol 100mg daily (to be ordered in beacon plan) Assessment and Plan: Yes/no Date Action Taken [place] plan entered? Yes 05/14/23 Consent completed? No 05/19/23 Unable to complete via telephone Intro/med rec completed? Precert completed? Yes 05/15/23 Approved Test claim completed? Yes 05/19/23 [facility] can fill $2003.14 co-payment Financial assistance needed? Yes 05/19/23 CM to review for assistance Physician signature? Yes 05/14/23 Rx released? Education completed? Will follow up in 3 days to check on consent and patient assistance. [facility] will contact patient once med shipped/received to complete medication education o Please refer to initial intake note for detailed review of regimen and patient-specific educationpoints Nickie Pitt Load Mixer III [facility] 05/19/2023, 2:32 PM Time Spent on Encounter: 6 - 10 minutes documented in this encounter Plan of Treatment Upcoming Encounters Date Type Specialty Care Team Description 05/22/2023 Pharmacy Pharmacy [facility] [place] [facility] Hem/Onc [address] [place] [address] 05/27/2023 Office Visit Cardiology Tari Sutherland CRNP [address] [place] [address] 06/09/2023 Laboratory Laboratory [facility] Laboratory [address] [place] [address] 06/19/2023 Office Visit Family Medicine Lucas Mendez MD [address] [place] [address] 06/24/2023 Office Visit Hematology Oncology Zenia Rajan MD [address] [place] [address] 06/24/2023 Office Visit Hematology Oncology Zenia Rajan MD [address] [place] [address] 07/30/2023 Laboratory Laboratory [facility] Laboratory [address] [place] [address] 10/22/2023 Office Visit Cardiology Nithin Smith DO [address] [place] [address] Scheduled Procedures Name Priority Associated Diagnoses Date/Ti me COLONOSCOPY FLEXIBLE PROXIMA L DIAGNOSTIC Recall Special screening for malignant neoplasms, colon Health Maintenance Due Date Last Done Comments DIABETES-EYE EXAM 1963 DIABETES-FOOT EXAM 1961 Hepatitis C Screening 1963 DTaP,Tdap,and Td Vaccines (1 - Tdap) 02/13/2004 02/12/2004, 06/12/1994 COVID-19 Vaccine (3 - Pfizer risk series) 01/18/2021 12/21/2020, 11/30/2020 CKD PHOS USE SMARTSET 56127 02/05/2021 02/06/2020, 0 12/20/2008 Depression Screening, Annual [...] Ratio 12/13/2023 12/12/2022 CKD HGB USE SMARTSET 76616 05/11/202405/11, 05/11/2023, 04/23/2023, Additional history exists Pneumococcal [...] remission documented in this encounter Care Teams Program Research Specialist Relationship Specialty Start Date End Date Lucas Mendez MD [address] [place], [place] [id number] PCP - General 07/12/00 documented as of this encounter
--- OUTSIDE RECORDS SUMMARY | 2023-08-24 15:02 | External Medical Summary | Summary of Care ---
Author Name Unknown Organization [facility] Address [address] [facility] [address] Phone [phone] Care Team Providers Care Scrap Metal Burner Name Role Phone Lucas Mendez MD Primary Care Provider +1- [phone] Encounter Details Date Type Department Care Team Description 05/14/2023 Orders Only Hematology/Oncology, [facility] [address] [facility] [place] [address] [facility] [address] Allergies Active Allergy Reactions Severity Noted Date Comments Codeine Nausea/vomiting 2011 Lisinopril 03/07/2008 Cough documented as of this encounter (statuses as of 05/14/2023) Medications Medication Sig Dispensed Refills Start Date [...] as of this encounter (statuses as of 05/14/2023) Active Problems Problem Noted Date Type 2 diabetes mellitus with hemoglobin A1c goal of less than 7.0% 12/02/2022 AICD (automatic cardioverter/defibrillat or) present 07/24/2022 Chronic kidney disease, stage 3b 022 Overview: Per CKD protocol Ischemic cardiomyopathy 08/15/2021 LBBB (left bundle branch block) 08/15/20 Chronic heart failure with r educed ejection fraction and diastolic dysfunction 08/15/2021 Coronary artery disease invo lving [place] coronary artery of [place] heart without angina pectoris 08/15/2021 Moderate mitral [...] as of this encounter (statuses as of 05/14/2023) Resolved Problems Problem Noted Date Resolved Date [...] as of this encounter (statuses as of 05/14/2023) Immunizations Name Administration Dates Next Due Pneumococcal [...] Encounters Date Type Specialty Care Team Description 05/19/2023 Pharmacy [facility] [address] [facility] [place] [address] 05/27/2023 Office Visit Cardiology Tari Sutherland CRNP [address] [place] [address] 06/09/2023 Laboratory Laboratory [address] [place] [address] 06/19/2023 Office Visit Family Medicine Lucas Mendez MD [address] [place] [address] 06/24/2023 Office Visit Hematology Oncology Zenia Rajan MD [address] [place] [address] 06/24/2023 Office Visit Hematology Oncology Zenia Rajan MD 200 [facility] [place] [address] 07/30/2023 Laboratory Laboratory [facility] Laboratory [address] [place] [address] 10/22/2023 Office Visit Cardiology Nithin Smith, DO [address] [place] [address] Scheduled Procedures Name Priority Associated Diagnoses Date/Ti me COLONOSCOPY FLEXIBLE PROXIMA L DIAGNOSTIC Recall Special screening for malignant neoplasms, colon Health Maintenance Due Date Last Done Comments DIABETES-EYE EXAM 1963 DIABETES-FOOT EXAM 1963 Hepatitis C Screening 1963 DTaP,Tdap,and Td Vaccines (1 - Tdap) 02/13/2004 02/12/2004, 06/12/1994 COVID-19 Vaccine (3 - Pfizer risk series) 01/18/2021 12/21/2020, 11/30/2020 CKD PHOS USE SMARTSET 71573 02/05/2021 02/06/2020, 0 12/20/2008 Depression Screening, Annual [...] Ratio 12/13/2023 12/12/2022 CKD HGB USE SMARTSET 31763 05/11/202405/11, 05/11/2023, 04/23/2023, Additional history exists Pneumococcal [...] filedocumented as of this encounter Care Teams Scrap Metal Burner Relationship Specialty Start Date End Date Lucas Mendez MD [address] [place] [address] PCP - General 07/12/00 documented as of this encounter
--- OUTSIDE RECORDS SUMMARY | 2023-08-24 15:02 | External Medical Summary | Summary of Care ---
Author Name Unknown Organization [facility] Address [address] [facility] [place] [address] Phone [phone] Care Team Providers Care Electric Operator Name Role Phone Lucas Mendez MD Primary Care Provider +1- [phone] Encounter Details Date Type Department Care Team Description 05/14/2023 Orders Only Hematology/Oncology [place] [facility] 200 [facility] [address] [place] [address] Zenia Rajan MD 200 [facility] [place] [address] Allergies Active Allergy Reactions Severity Noted Date [...] dysfunction 08/15/2021 Coronary artery disease invo lving [place] coronary artery of [place] heart without angina pectoris 08/15/2021 Moderate mitral [...] Encounters Date Type Specialty Care Team Description 05/14/2023 Pharmacy Pharmacy [facility] [address] [facility] [place] [address] CLL (chronic lymphocytic leukemia) (HCC)* 05/27/2023 Office Visit Cardiology Tari Sutherland CRNP [address] [place] [address] 06/09/2023 Laboratory Laboratory [address] [place] [address] 06/19/2023 Office Visit Family Medicine Lucas Mendez MD [address] [place] [address] 06/24/2023 Office Visit Hematology Oncology Zenia Rajan MD [address] [place] [address] 06/24/2023 Office Visit Hematology Oncology Zenia Rajan MD 200 [facility] [place] [place] [address] 07/30/20[address] Laboratory [address] [facility] Laboratory [address] [place] [address] 10/22/2023 Office Visit Cardiology Nithin Smith, [address] [place] [address] Scheduled Procedures Name Priority Associated Diagnoses Date/Ti me COLONOSCOPY FLEXIBLE PROXIMA L DIAGNOSTIC Recall Special screening for malignant neoplasms, colon Health Maintenance Due Date Last Done Comments DIABETES-EYE EXAM 1961 DIABETES-FOOT EXAM 1961 Hepatitis C Screening 1961 DTaP,Tdap,and Td Vaccines (1 - Tdap) 02/13/2004 02/12/2004, 06/12/1994 COVID-19 Vaccine (3 - Pfizer risk series) 01/18/2021 12/21/2020, 11/30/2020 CKD PHOS USE SMARTSET 11174 02/05/2021 02/06/2020, 0 12/20/2008 Depression Screening, Annual [...] Ratio 12/13/2023 12/12/2022 CKD HGB USE SMARTSET 48223 05/11/202405/11, 05/11/2023, 04/23/2023, Additional history exists Pneumococcal [...] filedocumented as of this encounter Care Teams Electric Operator Relationship Specialty Start Date End Date Lucas Mendez MD [address] [place] [address] PCP - General 07/12/00 documented as of this encounter
--- OUTSIDE RECORDS SUMMARY | 2023-08-24 15:02 | External Medical Summary | Summary of Care ---
Author Name Unknown Organization [facility] Address [address] [facility] [place] [address] Phone [phone] Care Team Providers Care Veterinarian Laboratory Animal Care Name Role Phone Lucas Mendez MD Primary Care Provider +1- [phone] Reason for Visit * Reason Onset Date Comments Precert Future 05/11/2023 Zanubrutinib Encounter Details Date Type Department Care Team Description 05/11/2023 Telephone Hematology/Oncology Treatment, [place] [address] [place] [id number] Zenia Rajan MD [address] [place] [address] Precert Future (Zanubrutinib) Allergies Active Allergy Reactions [...] dysfunction 08/15/2021 Coronary artery disease invo lving [place] coronary artery of [place] heart without angina pectoris 08/15/2021 Moderate mitral [...] Specialty Care Team Description 05/19/2023 Pharmacy Pharmacy [facility] Hem/Onc [address] [place] [address] 05/27/2023 Office Visit Cardiology Tari Sutherland CRNP [address] [place] [address] 06/09/[address] [facility] Laboratory [address] [place] [address] 06/19/2023 Office Visit Family Medicine Lucas Mendez MD [address] [place] [address] 06/24/2023 Office Visit Hematology Oncology Zenia Rajan MD [address] [place] [address] 06/24/2023 Office Visit Hematology Oncology Zenia Rajan MD [address] [place] [address] 07/30/2023 Laboratory Laboratory [place], Laboratory [address] [place] [address] 10/22/2023 Office Visit Cardiology Nithin Smith DO [address] [place] [address] Scheduled Procedures Name Priority Associated Diagnoses Date/Ti me COLONOSCOPY FLEXIBLE PROXIMA L DIAGNOSTIC Recall Special screening for malignant neoplasms, colon Health Maintenance Due Date Last Done Comments DIABETES-EYE EXAM 1961 DIABETES-FOOT EXAM 1961 Hepatitis C Screening 1961 DTaP,Tdap,and Td Vaccines (1 - Tdap) 02/13/2004 02/12/2004, 06/12/1994 COVID-19 Vaccine (3 - Pfizer risk series) 01/18/2021 12/21/2020, 11/30/2020 CKD PHOS USE SMARTSET 39722 02/05/2021 02/06/2020, 0 12/20/2008 Depression Screening, Annual [...] Ratio 12/13/2023 12/12/2022 CKD HGB USE SMARTSET 05372 05/11/202405/11, 05/11/2023, 04/23/2023, Additional history exists Pneumococcal [...] - 20 mg/dL 05/11/2023 12:32 PM EDT [place] [address] Creatinine 1.1(H) 0.5 - 1.0 mg/dL 05/11/2023 12:32 PM EDT [place] [address] Estimated Glomerular Filtration Rate 50(L) >=60 mL/min 05/11/2023 12:[address] Comment:eGFR is calculated b ased on the CKD-EPI 2020 equation Sodium 140 135 - 146 mmol/L 05/11/2023 12:32 PM EDT [place] [address] Potassium 4.4 3.5 - 5.1 mmol/L 05/11/2023 12:[address] Chloride 106 98 - 107 mmol/L 05/11/2023 12:[address] CO2 26 22 - 32 mmol/L 05/11/2023 12:32 PM EDT [place] [address] Anion Gap 8 7 - 15 mmol/L 05/11/2023 12:32 PM EDT [place] [address] Glucose 106 70 - 120 mg/dL 05/11/2023 12:[address] Albumin 4.2 3.8 - 5.0 g/dL 05/11/2023 12:[address] AST 25 10 - 35 U/L 05/11/2023 12:[address] Alkaline Phosphatase 109 35 - 130 U/L 05/11/2023 12:[address] Bilirubin, Total 0.6 <=1.2 mg/dL 05/11/2023 12:[address] Calcium 9.2 8.4 - 10.2 mg/dL 05/11/2023 12:[address] Protein 6.6 6.0 - 8.3 g/dL 05/11/2023 12:32 PM EDT [facility] 56 ALT 15 10 - 35 U/L 05/11/2023 12:32 PM EDT [facility] [place] 56-02 Blood Venous blood specimen / Unknown Venipuncture / Unknown 05/11/2023 12:00 PM EDT 05/11/2023 12:00 PM EDT Zenia Rajan MD LAB BLOOD ORDERA BLES LAB[facility]ORY [place] 56-[address] [place] [address] * HEPATITIS B CORE ANTIBODIES IGG AND IGM (05/11/2023 12:00 PM EDT) Hepatitis B Core Antibodies IgG and IgM Negative Negative 05/11/2023 9:37 PM EDT LAB[facility]ATORY [facility] Blood Venous blood specimen / Unknown Venipuncture / Unknown 05/11/2023 12:00 PM EDT 05/11/2023 12:00 PM EDT Zenia Rajan MD LAB BLOOD ORDERA BLES Performing Organization Address City/[facility]/ZIP Co de Phone Number LABORATORY [facility] [address] [place] [address] * HEPATITIS B SURFACE ANTIGEN (05/11/2023 12:00 PM EDT) Pathologist [facility] Hepatitis B Surface Antigen Negative Negative 05/11/2023 9:37 PM EDT LABORATORY [facility] Blood Venous blood specimen / Unknown Venipuncture / Unknown 05/11/2023 12:00 PM EDT 05/11/2023 12:00 PM EDT Zenia Rajan MD LAB BLOOD ORDER[place] BLES Performing Organization Address City/[facility]/ZIP Co de Phone Number LABORATORY [facility] [address] [place] [address] * HEPATITIS B SURFACE ANTIBODY (05/11/2023 12:00 PM EDT) Hepatitis B Surface Antibody, Quantitative <3.5 mIU/mL 05/11/2023 9:37 PM EDT LABORATORY [facility] Hepatitis B Surface Antibody, Qualitative Negative 05/11/2023 9:37 PM EDT LAB[facility] Hepatitis B Surface Antibody, Interpretation NOT immune to Hepatitis B Virus 05/11/2023 9:37 PM EDT [facility] Comment: POSITIVE: >=11.5 mIU/mL INDETERMINATE: 8.5-<11.5 mIU/mL NEGATIVE: <8.5 mIU/mL Blood Venous blood specimen / Unknown Venipuncture / Unknown 05/11/2023 12:00 PM EDT 05/11/2023 12:00 PM EDT Zenia Rajan MD LAB BLOOD ORDERA BLES LABORATORY [facility] [address] [place] [address] documented in this encounter Visit Diagnoses Diagnosis CLL (chronic lymphocytic leukemia) (HCC)- Primary Chronic lymphoid leukemia, without mention of having achieved remission Encounter for screening for viral disease documented in this encounter Care Teams Veterinarian Laboratory Animal Care Relationship Specialty Start Date End Date Lucas Mendez MD [address] [place] [address] PCP - General 07/12/00 documented as of this encounter
--- OUTSIDE RECORDS SUMMARY | 2023-08-24 15:02 | External Medical Summary | Summary of Care ---
Author Name Unknown Organization [facility] Address [address] [facility] [place] [address] Phone [phone] Care Team Providers Care Ship Scraper Name Role Phone Lucas Mendez MD Primary Care Provider +1- [phone] Reason for Visit * Reason Onset Date Comments Precert Future 05/11/2023 Zanubrutinib Encounter Details Date Type Department Care Team Description 05/11/2023 Telephone Hematology/Oncology Treatment, [place] [address] [place] [phone] Zenia Rajan MD [address] [place] [address] Precert Future (Zanubrutinib) Allergies Active Allergy Reactions Severity Noted Date Comments Codeine Nausea/vomiting 2011 Lisinopril 03/07/2008 Cough documented as of this encounter (statuses as of 05/15/2023) Medications Medication Sig Dispensed Refills Start Date [...] as of this encounter (statuses as of 05/15/2023) Active Problems Problem Noted Date Type 2 diabetes mellitus with hemoglobin A1c goal of less than 7.0% 12/02/2022 AICD (automatic cardioverter/defibrillat or) present 07/24/2022 Chronic kidney disease, stage 3b 022 Overview: Per CKD protocol Ischemic cardiomyopathy 08/15/2021 LBBB (left bundle branch block) 08/15/20 Chronic heart failure with r educed ejection fraction and diastolic dysfunction 08/15/2021 Coronary artery disease invo lving [place] coronary artery of [place] heart without angina pectoris 08/15/2021 Moderate mitral [...] as of this encounter (statuses as of 05/15/2023) Resolved Problems Problem Noted Date Resolved Date [...] as of this encounter (statuses as of 05/15/2023) Immunizations Name Administration Dates Next Due Pneumococcal [...] Specialty Care Team Description 05/19/2023 Pharmacy Pharmacy [facility] [address] [place] [address] 05/27/2023 Office Visit Cardiology Tari Sutherland CRNP [address] [place] [address] 06/09/2023 Laboratory Laboratory [facility] [address] [place] [address] 06/19/2023 Office Visit Family Medicine Lucas Mendez MD [address] [place] [address] 06/24/2023 Office Visit Hematology Oncology Zenia Rajan MD [address] [place] [address] 06/24/2023 Office Visit Hematology Oncology Zenia Rajan MD [address] [place] [address] 07/30/2023 Laboratory Laboratory [facility] Laboratory [address] [place] [address] 10/22/2023 Office Visit Cardiology Nithin Smith DO [address] [place] [address] Scheduled Procedures Name Priority Associated Diagnoses Date/Ti me COLONOSCOPY FLEXIBLE PROXIMA L DIAGNOSTIC Recall Special screening for malignant neoplasms, colon Health Maintenance Due Date Last Done Comments DIABETES-EYE EXAM 1961 DIABETES-FOOT EXAM 1961 Hepatitis C Screening 1961 DTaP,Tdap,and Td Vaccines (1 - Tdap) 02/13/2004 02/12/2004, 06/12/1994 COVID-19 Vaccine (3 - Pfizer risk series) 01/18/2021 12/21/2020, 11/30/2020 CKD PHOS USE SMARTSET 10709 02/05/2021 02/06/2020, 0 12/20/2008 Depression Screening, Annual [...] Ratio 12/13/2023 12/12/2022 CKD HGB USE SMARTSET 31765 05/11/202405/11, 05/11/2023, 04/23/2023, Additional history exists Pneumococcal [...] mg/dL 05/11/2023 12:32 PM EDT [facility] 56-02 Creatinine 1.1(H) 0.5 - 1.0 mg/dL 05/11/2023 12:32 PM EDT LABORATORY [place] 56-02 Estimated Glomerular Filtration Rate 50(L) >=60 mL/min 05/11/2023 12:32 PM EDT [facility] 56 Comment:eGFR is calculated b ased on the CKD-EPI 2020 equation Sodium 140 135 - 146 mmol/L 05/11/2023 12:[address] Potassium 4.4 3.5 - 5.1 mmol/L 05/11/2023 12:[address] Chloride 106 98 - 107 mmol/L 05/11/2023 12:[address] CO2 26 22 - 32 mmol/L 05/11/2023 12:32 PM EDT [place] [address] Anion Gap 8 7 - 15 mmol/L 05/11/2023 12:[address] Glucose 106 70 - 120 mg/dL 05/11/2023 12:32 PM EDT [place] [address] Albumin 4.2 3.8 - 5.0 g/dL 05/11/2023 12:[address] AST 25 10 - 35 U/L 05/11/2023 12:[address] Alkaline Phosphatase 109 35 - 130 U/L 05/11/2023 12:[address] Bilirubin, Total 0.6 <=1.2 mg/dL 05/11/2023 12:[address] Calcium 9.2 8.4 - 10.2 mg/dL 05/11/2023 12:32 PM EDT [place] [address] Protein 6.6 6.0 - 8.3 g/dL 05/11/2023 12:32 PM EDT [place] [address] ALT 15 10 - 35 U/L 05/11/2023 12:[address] Blood Venous blood specimen / Unknown Venipuncture / Unknown 05/11/2023 12:00 PM EDT 05/11/2023 12:00 PM EDT Zenia Rajan MD LAB BLOOD [place] [address] [place] [address] * HEPATITIS B CORE ANTIBODIES IGG AND IGM (05/11/2023 12:00 PM EDT) Pathologist [facility] Hepatitis B Core Antibodies IgG and IgM Negative Negative 05/11/2023 9:37 PM EDT LABORATORY [facility] Blood Venous blood specimen / Unknown Venipuncture / Unknown 05/11/2023 12:00 PM EDT 05/11/2023 12:00 PM EDT Zenia Rajan MD LAB BLOOD ORDERA BLES Performing Organization Address [facility]/ZIP Co de Phone Number LABORATORY [place] [address] [place] [address] * HEPATITIS B SURFACE ANTIGEN (05/11/2023 12:00 PM EDT) Pathologist [facility] Hepatitis B Surface Antigen Negative Negative 05/11/2023 9:37 PM EDT LABORATORY [facility] Blood Venous blood specimen / Unknown Venipuncture / Unknown 05/11/2023 12:00 PM EDT 05/11/2023 12:00 PM EDT Zenia Rajan MD LAB BLOOD ORDERA BLES Performing Organization Address [facility] Co de Phone Number LABORATORY [facility] [address] [place] [address] * HEPATITIS B SURFACE ANTIBODY (05/11/2023 12:00 PM EDT) Pathologist [facility] Hepatitis B Surface Antibody, Quantitative <3.5 mIU/mL 05/11/2023 9:37 PM EDT LABORATORY [facility] Hepatitis B Surface Antibody, Qualitative Negative 05/11/2023 9:37 PM EDT LABORATORY [facility] Hepatitis B Surface Antibody, Interpretation NOT immune to Hepatitis B Virus 05/11/2023 9:37 PM EDT LABORATORY [facility] Comment: POSITIVE: >=11.5 mIU/mL INDETERMINATE: 8.5-<11.5 mIU/mL NEGATIVE: <8.5 mIU/mL Blood Venous blood specimen / Unknown Venipuncture / Unknown 05/11/2023 12:00 PM EDT 05/11/2023 12:00 PM EDT Zenia Rajan MD LAB BLOOD ORDERA BLES LABORATORY [facility] [address] [place] [address] documented in this encounter Visit Diagnoses Diagnosis CLL (chronic lymphocytic leukemia) (HCC)- Primary Chronic lymphoid leukemia, without mention of having achieved remission Encounter for screening for viral disease documented in this encounter Care Teams Ship Scraper Relationship Specialty Start Date End Date Lucas Mendez MD [facility] [place] [address] PCP - General 07/12/00 documented as of this encounter
--- OUTSIDE RECORDS SUMMARY | 2023-08-24 15:02 | External Medical Summary | Summary of Care ---
Author Name Unknown Organization [facility] Address [address] [facility] [place] [address] Phone [phone] Care Team Providers Care Electronics Specialist Name Role Phone Lucas Mendez MD Primary Care Provider +1- [phone] Reason for Visit * Reason Onset Date Comments Precert Future 05/11/2023 Zanubrutinib Encounter Details Date Type Department Care Team Description 05/11/2023 Telephone Hematology/Oncology Treatment, [place] [address] [place] [id number] Zenia Rajan MD [address] [place] [address] Precert Future (Zanubrutinib) Allergies Active Allergy Reactions [...] dysfunction 08/15/2021 Coronary artery disease invo lving [place] coronary artery of [place] heart without angina pectoris 08/15/2021 Moderate mitral [...] Specialty Care Team Description 05/19/2023 Pharmacy Pharmacy [facility], [facility] Hem/Onc [address] [place] [address] 05/27/2023 Office Visit Cardiology Tari Sutherland CRNP [address] [place] [address] 06/09/2023 Laboratory Laboratory [facility] Laboratory [address] [place] [address] 06/19/2023 Office Visit Family Medicine Lucas Mendez MD [address] [place] [address] 06/24/2023 Office Visit Hematology Oncology Zenia Rajan MD [address] [place] [address] 06/24/2023 Office Visit Hematology Oncology Zenia Rajan MD [address] [place] [address] 07/30/2023 Laboratory Laboratory [place], Laboratory [address] [place] [address] 10/22/2023 Office Visit Cardiology Nithin Smith DO [address] [place] [address] Scheduled Procedures Name Priority Associated Diagnoses Date/Ti me COLONOSCOPY FLEXIBLE PROXIMA L DIAGNOSTIC Recall Special screening for malignant neoplasms, colon Health Maintenance Due Date Last Done Comments DIABETES-EYE EXAM 1963 DIABETES-FOOT EXAM 1963 Hepatitis C Screening 1963 DTaP,Tdap,and Td Vaccines (1 - Tdap) 02/13/2004 02/12/2004, 06/12/1994 COVID-19 Vaccine (3 - Pfizer risk series) 01/18/2021 12/21/2020, 11/30/2020 CKD PHOS USE SMARTSET 78414 02/05/2021 02/06/2020, 0 12/20/2008 Depression Screening, Annual [...] Ratio 12/13/2023 12/12/2022 CKD HGB USE SMARTSET 18583 05/11/202405/11, 05/11/2023, 04/23/2023, Additional history exists Pneumococcal [...] - 20 mg/dL 05/11/2023 12:32 PM EDT [place] [address] Creatinine 1.1(H) 0.5 - 1.0 mg/dL 05/11/2023 12:32 PM EDT [place] [address] Estimated Glomerular Filtration Rate 50(L) >=60 mL/min 05/11/2023 12:32 PM EDT [address] Comment:eGFR is calculated b ased on the CKD-EPI 2020 equation Sodium 140 135 - 146 mmol/L 05/11/2023 12:32 PM EDT [place] [address] Potassium 4.4 3.5 - 5.1 mmol/L 05/11/2023 12:32 PM EDT [address] Chloride 106 98 - 107 mmol/L 05/11/2023 12:32 PM EDT [address] CO2 26 22 - 32 mmol/L 05/11/2023 12:32 PM EDT [place] [address] Anion Gap 8 7 - 15 mmol/L 05/11/2023 12:32 PM EDT [place] [address] Glucose 106 70 - 120 mg/dL 05/11/2023 12:[address] Albumin 4.2 3.8 - 5.0 g/dL 05/11/2023 12:32 PM EDT [address] AST 25 10 - 35 U/L 05/11/2023 12:32 PM EDT [address] Alkaline Phosphatase 109 35 - 130 U/L 05/11/2023 12:32 PM EDT [address] Bilirubin, Total 0.6 <=1.2 mg/dL 05/11/2023 12:32 PM EDT [address] Calcium 9.2 8.4 - 10.2 mg/dL 05/11/2023 12:[address] PM [address] Protein 6.6 6.0 - 8.3 g/dL 05/11/2023 12:32 PM EDT [facility] 56 ALT 15 10 - 35 U/L 05/11/2023 12:32 PM EDT [facility] [place] 56-02 Blood Venous blood specimen / Unknown Venipuncture / Unknown 05/11/2023 12:00 PM EDT 05/11/2023 12:00 PM EDT Zenia Rajan MD LAB BLOOD [place] [place] [address] [place] [address] * HEPATITIS B CORE ANTIBODIES IGG AND IGM (05/11/2023 12:00 PM EDT) Hepatitis B Core Antibodies IgG and IgM Negative Negative 05/11/2023 9:37 PM EDT LABORATORY [facility] Blood Venous blood specimen / Unknown Venipuncture / Unknown 05/11/2023 12:00 PM EDT 05/11/2023 12:00 PM EDT Zenia Rjaan MD LAB BLOOD ORDERA BLES Performing Organization Address City/[facility]/ZIP Co de Phone Number LABORATORY [facility] [address] [place] [address] * HEPATITIS B SURFACE ANTIGEN (05/11/2023 12:00 PM EDT) Pathologist [facility] Hepatitis B Surface Antigen Negative Negative 05/11/2023 9:37 PM EDT LABORATORY [facility] Blood Venous blood specimen / Unknown Venipuncture / Unknown 05/11/2023 12:00 PM EDT 05/11/2023 12:00 PM EDT Zenia Rajan MD LAB BLOOD ORDER[place] BLES Performing Organization Address City/[facility]/ZIP Co de Phone Number LABORATORY [facility] [address] [place] [address] * HEPATITIS B SURFACE ANTIBODY (05/11/2023 12:00 [...] [facility] [address] [place] [address] documented in this encounter Visit Diagnoses Diagnosis CLL (chronic lymphocytic leukemia) (HCC)- Primary Chronic lymphoid leukemia, without mention of having achieved remission Encounter for screening for viral disease documented in this encounter Care Teams Electronics Specialist Relationship Specialty Start Date End Date Lucas Mendez MD [address] [place] [address] PCP - General 07/12/00 documented as of this encounter
--- OUTSIDE RECORDS SUMMARY | 2023-08-24 15:02 | External Medical Summary | Summary of Care ---
Author Name Unknown Organization [facility] Address [address] [facility] [place] [address] Phone [phone] Care Team Providers Care Packaging Sales Consultant Name Role Phone Lucas Mendez MD Primary Care Provider +1- [phone] Reason for Visit * Reason Onset Date Comments Precert Future 05/11/2023 Zanubrutinib Encounter Details Date Type Department Care Team Description 05/11/2023 Telephone Hematology/Oncology Treatment, [place] [address] [place] [phone] Zenia Rajan MD [address] [place] [address] Precert Future (Zanubrutinib) Allergies Active Allergy Reactions [...] dysfunction 08/15/2021 Coronary artery disease invo lving [place] coronary artery of [place] heart without angina pectoris 08/15/2021 Moderate mitral [...] Referral entered 05/15; however, no update from [facility] on whether they can fill this. [facility]: are you able to fill medication? * [...] Care Team Description 05/19/2023 Pharmacy Pharmacy [facility], [facility] Hem/Onc [address] [place] [address] 05/27/2023 Office Visit Cardiology Ena, MELISSA Hogan [address] [facility] [address] 06/09/2023 Laboratory Laboratory [facility] Laboratory [address] [place] [address] 06/19/2023 Office Visit Family Medicine Lucas Mendez MD [address] [place] [address] 06/24/2023 Office Visit Hematology Oncology Zenia Rajan MD [address] [place] [address] 06/24/2023 Office Visit Hematology Oncology Zenia Rajan MD [address] [place] [address] 07/30/2023 Laboratory Laboratory [place], Laboratory [address] [place] [address] 10/22/2023 Office Visit Cardiology Nithin Smith O, DO [address] [place] [address] Scheduled Procedures Name Priority Associated Diagnoses Date/Ti me COLONOSCOPY FLEXIBLE PROXIMA L DIAGNOSTIC Recall Special screening for malignant neoplasms, colon Health Maintenance Due Date Last Done Comments DIABETES-EYE EXAM 1961 DIABETES-FOOT EXAM 1961 Hepatitis C Screening 1961 DTaP,Tdap,and Td Vaccines (1 - Tdap) 02/13/2004 02/12/2004, 06/12/1994 COVID-19 Vaccine (3 - Pfizer risk series) 01/18/2021 12/21/2020, 11/30/2020 CKD PHOS USE SMARTSET 33406 02/05/2021 02/06/2020, 0 12/20/2008 Depression Screening, Annual [...] Ratio 12/13/2023 12/12/2022 CKD HGB USE SMARTSET 10793 05/11/202405/11, 05/11/2023, 04/23/2023, Additional history exists Pneumococcal [...] 20 mg/dL 05/11/2023 12:32 PM EDT LAB[facility]ATORY [place] [address] Creatinine 1.1(H) 0.5 - 1.0 mg/dL 05/11/2023 12:32 PM EDT [place] [address] Estimated Glomerular Filtration Rate 50(L) >=60 mL/min 05/11/2023 12:32 PM EDT [facility] Comment:eGFR is calculated b ased on the CKD-EPI 2020 equation Sodium 140 135 - 146 mmol/L 05/11/2023 12:32 PM EDT [facility] 56 Potassium 4.4 3.5 - 5.1 mmol/L 05/11/2023 12:32 PM EDT [facility] 56 Chloride 106 98 - 107 mmol/L 05/11/2023 12:32 PM EDT [facility] 56 CO2 26 22 - 32 mmol/L 05/11/2023 12:32 PM EDT [facility] 56 Anion Gap 8 7 - 15 mmol/L 05/11/2023 12:32 PM EDT [facility] 56 Glucose 106 70 - 120 mg/dL 05/11/2023 12:32 PM EDT [facility] 56 Albumin 4.2 3.8 - 5.0 g/dL 05/11/2023 12:32 PM EDT [facility] [place] 56 AST 25 10 - 35 U/L 05/11/2023 12:32 PM EDT [facility] 56 Alkaline Phosphatase 109 35 - 130 U/L 05/11/2023 12:32 PM EDT [facility] 56 Bilirubin, Total 0.6 <=1.2 mg/dL 05/11/2023 12:32 PM EDT [facility] 56 Calcium 9.2 8.4 - 10.2 mg/dL 05/11/2023 12:32 PM EDT [facility] 56- Protein 6.6 6.0 - 8.3 g/dL 05/11/2023 12:32 PM EDT LAB[facility] [place] 5602 ALT 15 10 - 35 U/L 05/11/2023 12:32 PM EDT [facility] 5602 Blood Venous blood specimen / Unknown Venipuncture / Unknown 05/11/2023 12:00 PM EDT 05/11/2023 12:00 PM EDT Zenia Rajan MD LAB BLOOD ORDERA [place]ES [facility] [address] [place] [address] * HEPATITIS B CORE ANTIBODIES IGG AND IGM (05/11/2023 12:00 PM EDT) Hepatitis B Core Antibodies IgG and IgM Negative Negative 05/11/2023 9:37 PM EDT LABORATORY [facility] Blood Venous blood specimen / Unknown Venipuncture / Unknown 05/11/2023 12:00 PM EDT 05/11/2023 12:00 PM EDT Zenia Rajan MD LAB BLOOD ORDERA BLES Performing Organization Address City/[facility]/ZIP Co de Phone Number LABORATORY [facility] [address] [place] [address] * HEPATITIS B SURFACE ANTIGEN (05/11/2023 12:00 PM EDT) Hepatitis B Surface Antigen Negative Negative 05/11/2023 9:37 PM EDT LABORATORY [facility] Blood Venous blood specimen / Unknown Venipuncture / Unknown 05/11/2023 12:00 PM EDT 05/11/2023 12:00 PM EDT Zenia Rajan MD LAB BLOOD [place] [place] LABORATORY [facility] [address] [place] [address] * HEPATITIS B SURFACE ANTIBODY (05/11/2023 12:00 PM EDT) Hepatitis B Surface Antibody, Quantitative <3.5 mIU/mL 05/11/2023 9:37 PM EDT LABORATORY [facility] Hepatitis B Surface Antibody, Qualitative Negative 05/11/2023 9:37 PM EDT LABORATORY [facility] Hepatitis B Surface Antibody, Interpretation NOT immune to Hepatitis B Virus 05/11/2023 9:37 PM EDT LABORATORY [facility] Comment: POSITIVE: >=11.5 mIU/mL INDETERMINATE: 8.5-<11.5 mIU/mL NEGATIVE: <8.5 mIU/mL Blood Venous blood specimen / Unknown Venipuncture / Unknown 05/11/2023 12:00 PM EDT 05/11/2023 12:00 PM EDT Zenia Rajan MD LAB BLOOD [facility] [place] LABORATORY [facility] [address] [place] [address] documented in this encounter Visit Diagnoses Diagnosis CLL (chronic lymphocytic leukemia) (HCC)- Primary Chronic lymphoid leukemia, without mention of having achieved remission Encounter for screening for viral disease documented in this encounter Care Teams Packaging Sales Consultant Relationship Specialty Start Date End Date Lucas Mendez MD [address] [place] [address] PCP - General 07/12/00 documented as of this encounter
--- OUTSIDE RECORDS SUMMARY | 2023-08-24 15:02 | External Medical Summary | Summary of Care ---
Author Name Unknown Organization [facility] Address [address] [facility] [place] [address] Phone [phone] Care Team Providers Care Representative Phlebotomy Services Name Role Phone Lucas Mendez MD Primary Care Provider +1- [phone] Reason for Visit * Reason Onset Date Comments Advice 05/19/2023 Dr. Rajan Encounter Details Date Type Department Care Team Description 05/19/2023 [facility] [place] [address] Zenia Rajan MD [address] [place] [address] Advice (Dr. Rajan) Allergies Active Allergy Reactions Severity Noted Date [...] Chaudhary RN - 05/19/2023 8:50 AM EDT Called Elijah. This prescription has not been sent to a pharmacy to assess for copay yet. Once it has, if patient has a high copay, it will be reviewed by a PRC at that specialty pharmacy. Elijah verbalized understanding. * Telephone Encounter - CLARICE Gatica - 05/19/2023 8:21 AM EDT Pts spouse Elijah called in stating that they had an appt with Dr. Rajan and was told they were going to put her on this medication due to her white blood count. He stated that he called and that medication is going to cost him a little over $900 a month and he just can not afford that. They are asking to please not send in the pill as they can not afford to pick it up but also would like someone to call and discuss different options. They are asking for a return call as soon as possible [phone] documented in this encounter Plan of Treatment Upcoming Encounters Date Type Specialty Care Team Description 05/19/2023 Pharmacy Pharmacy [facility] Hem/Onc [address] [place] [address] 05/27/2023 Office Visit Cardiology Tari Sutherland CRNP [address] [place] [address] 06/09/2023 Laboratory Laboratory [facility] [address] [place] [address] 06/19/2023 Office Visit Family Medicine Lucas Mendez MD [address] [place] [address] 06/24/2023 Office Visit Hematology Oncology Zenia Rajan MD [address] [place], [place] [address] 06/24/2023 Office Visit Hematology Oncology Zenia Rajan MD [address] [place] [address] 07/30/2023 Laboratory Laboratory [place], [facility] [address] [place] [facility] [place] [address] 10/22/2023 Office Visit Cardiology Nithin Smith, [address] [place] [address] Scheduled Procedures Name Priority Associated Diagnoses Date/Ti me COLONOSCOPY FLEXIBLE PROXIMA L DIAGNOSTIC Recall Special screening for malignant neoplasms, colon Health Maintenance Due Date Last Done Comments DIABETES-EYE EXAM 1961 DIABETES-FOOT EXAM 1961 Hepatitis C Screening 1963 DTaP,Tdap,and Td Vaccines (1 - Tdap) 02/13/2004 02/12/2004, 06/12/1994 COVID-19 Vaccine (3 - Pfizer risk series) 01/18/2021 12/21/2020, 11/30/2020 CKD PHOS USE SMARTSET 85452 02/05/2021 02/06/2020, 0 12/20/2008 Depression Screening, Annual [...] Ratio 12/13/2023 12/12/2022 CKD HGB USE SMARTSET 13510 05/11/202405/11, 05/11/2023, 04/23/2023, Additional history exists Pneumococcal [...] filedocumented as of this encounter Care Teams Representative Phlebotomy Services Relationship Specialty Start Date End Date Lucas Mendez MD [address] [place] [address] PCP - General 07/12/00 documented as of this encounter
--- OUTSIDE RECORDS SUMMARY | 2023-08-24 15:02 | External Medical Summary | Summary of Care ---
Author Name Unknown Organization [facility] Address [address] [place] [address] Phone [phone] Care Team Providers Care Net Manager Name Role Phone Lucas Mendez MD Primary Care Provider +1- [phone] Reason for Visit * Reason Comments Medication Management Encounter Details Date Type Department Care Team Description 05/14/2023 Pharmacy Pharmacy Hematology Oncology [facility] [address] [place], [place] [id number] [facility] Hem/Onc [address] [place] [address] CLL (chronic lymphocytic leukemia) ([facility])* Allergies Active Allergy Reactions Severity Noted [...] dysfunction 08/15/2021 Coronary artery disease invo lving [place] coronary artery of [place] heart without angina pectoris 08/15/2021 Moderate mitral [...] Mayuri Boswell, [facility] - 05/14/2023 11:52 AM EDT MEDICATION THERAPY MANAGEMENT ZANUBRUTINIB INITIAL INTAKE NOTE Viri Rose [phone] Patient Phone Numbers Communication: Chart review Treatment: Medication: Zanubrutinib (Brukinsa) Indication/Staging/Diagnosis Code: CLL / C91.10 Dose: 320mg daily Administration: +/- food Start Date: TBD Primary Motor Vehicles Inspector/Oncologist: Dr. Rajan Supportive Care Meds: None Prophylactic Meds: Metoprolol ER 25mg daily Allopurinol 100mg daily (to be ordered in beacon plan) Review of therapy: Line of therapy: first Previous therapy: none Reviewed dosage prescribed for appropriateness (based on indication, hepatic function,renal function, etc): no changes Are appropriate supportive care medications prescribed? No, none needed Are appropriate prophylactic medications prescribed? No, TLS ppx to be ordered in beacon plan Have baseline labs/tests been obtained? Yes Has hepatitis B screening been completed? Yes Potential drug-drug drug-herbal, drug-food, drug-disease interactions: Yes, Paroxetine / Zanubrutinib: Zanubrutinib may enhance the antiplatelet effect of Agents with Antiplatelet Properties o Recommendation: Monitor patients for signs and symptoms of bleeding if zanubrutinib and agents with antiplatelet properties are used concomitantly o Action: Will relocation counselor pt on DDI and monitor for increased bleeding and bruising The Hematology/Oncology Oral Chemotherapy Clinic will assess medication compliance at each patient encounter Assessment and Plan: Per TE 05/11/23 addendum 05/13/23, pt insurance denied acalabrutinib as pt needs to fail zanubrutinib or ibrutinib [place] plan uploaded and sent to Dr. Rajan for signature MT to follow up 05/19 to assess treatment consent, beacon plan signature, and auth status Yes/no Date Action Taken [place] plan entered? yes 05/14/23 Consent completed? no To be completed 05/18 with NS education Intro/med rec completed? Precert completed? Test claim completed? Financial assistance needed? Physician signature? Rx released? Education completed? Follow up: 05/19 Mayuri Boswell, PharmD, BCOP Clinical Pharmacist, [facility] Oral Chemotherapy [facility] 05/14/2023, 12:12 PM Monitoring Parameters: Estimated CrCl Serum creatinine: 1.1 mg/dL (H) 05/11/23 1200 Estimated creatinine clearance: 32.8 mL/min (A) Hepatitis panel Latest Reference Range & Units 05/11/23 12:00 Hepatitis B Surface Antigen Negative Negative Hepatitis B Surface Antibody, Quantitative mIU/mL <3.5 HEPATITIS B SURFACE ANTIBODY Rpt Hepatitis B Surface Antibody, Interpretation NOT immune to Hepatitis B Virus Hepatitis B Surface Antibody, Qualitative Negative Hepatitis B Core Antibodies IgG and IgM Negative Negative test N/A Suggested lab monitoring Suggested Labs: CBCd monthly, baseline CMP and as needed Treatment Parameters Neutropenic fever, grade 3 or 4 Neutrophil count decreased to <500/mm3 lasting >10 consecutive days Platelet count decreased to 25,000 to 50,000/mm3 with significant bleeding Platelet count decreased to <25,000/mm3 lasting >10 consecutive days Pertinent labs: Latest Reference Range & Units 05/11/23 11:17 WBC 4.00 - 10.80 K/uL 109.22 (HH) HGB 12.0 - 15.3 g/dL 10.2 (L) HCT 36.0 - 45.2 % 33.0 (L) MCV 81.5 - 97.5 fL 104.4 PLT 140 - 400 K/uL 112 (L) Absolute Neutrophils 1.80 - 7.70 K/uL 2.18 Absolute Lymphocytes 1.00 - 4.80 K/uL 104.85 (H) Latest Reference Range & Units 05/11/23 12:00 LD <=250 U/L 268 (H) Uric Acid 2.4 - 5.7 mg/dL 4.2 Latest Reference Range & Units 05/11/23 12:00 Albumin 3.8 - 5.0 g/dL 4.2 AST 10 - 35 U/L 25 ALT 10 - 35 U/L 15 Alkaline Phosphatase 35 - 130 U/L 109 Bilirubin, Total <=1.2 mg/dL 0.6 Time Spent on Encounter: 16 - 20 minutes Encounter Group: Hematology Encounter Interventions Item Category: Oral Chemotherapy Acalabrutinib Problem/Rationale: Indication: Unnecessary medication therapy - No medical indication at this time Pharmacist Intervention(s): Medication discontinued Magnitude of Intervention: Modification of medication for asymtomatic patients (Level 2) Second Item Second Item Category: Oral Chemotherapy Zanibrutinib Problem/Rationale: Indication: Needs additional medication therapy - Untreated condition [place] Plan Review:Initial Plan/upload Pharmacist Intervention(s): Drug Interaction Screen, Lab monitoring and Referral review Magnitude of Intervention: Monitoring with direction (Level 1) documented in this encounter Plan of Treatment Upcoming Encounters Date Type Specialty Care Team Description 05/27/2023 Office Visit Cardiology Ena, MELISSA Hogan [address] [place] [address] 06/09/2023 Laboratory Laboratory [facility] Laboratory [address] [place] [address] 06/19/2023 Office Visit Family Medicine Lucas Mendez MD [address] [place] [address] 06/24/2023 Office Visit Hematology Oncology Zenia Rajan MD [address] [place] [address] 06/24/2023 Office Visit Hematology Oncology Zenia Rajan MD [address] [place] [address] 07/30/2023 Laboratory Laboratory [facility] Laboratory [address] [place] [address] 10/22/2023 Office Visit Cardiology Nithin Smith, DO [address] [place] [address] Scheduled Procedures Name Priority Associated Diagnoses Date/Ti me COLONOSCOPY FLEXIBLE PROXIMA L DIAGNOSTIC Recall Special screening for malignant neoplasms, colon Health Maintenance Due Date Last Done Comments DIABETES-EYE EXAM 1963 DIABETES-FOOT EXAM 1961 Hepatitis C Screening 1963 DTaP,Tdap,and Td Vaccines (1 - Tdap) 02/13/2004 02/12/2004, 06/12/1994 COVID-19 Vaccine (3 - Pfizer risk series) 01/18/2021 12/21/2020, 11/30/2020 CKD PHOS USE SMARTSET 37236 02/05/2021 02/06/2020, 0 12/20/2008 Depression Screening, Annual [...] Ratio 12/13/2023 12/12/2022 CKD HGB USE SMARTSET 01522 05/11/202405/11, 05/11/2023, 04/23/2023, Additional history exists Pneumococcal [...] remission documented in this encounter Care Teams Net Manager Relationship Specialty Start Date End Date Lucas Mendez MD [address], [place] [id number] PCP - General 07/12/00 documented as of this encounter
--- OUTSIDE RECORDS SUMMARY | 2023-08-24 15:02 | External Medical Summary | Summary of Care ---
Author Name Unknown Organization [facility] Address [address] [facility] [place] [address] Phone [phone] Care Team Providers Care Dry Pan Feeder Name Role Phone Lucas Mendez MD Primary Care Provider [phone]- [phone] Reason for Visit * Reason Onset Date Comments Precert Future 05/11/2023 Zanubrutinib Encounter Details Date Type Department Care Team Description 05/11/2023 Telephone Hematology/Oncology Treatment, [place] [address] [place] [phone] Zenia Rajan MD [address] [place] [address] Precert Future (Zanubrutinib) Allergies Active Allergy Reactions [...] dysfunction 08/15/2021 Coronary artery disease invo lving [place] coronary artery of [place] heart without angina pectoris 08/15/2021 Moderate mitral [...] Specialty Care Team Description 05/14/2023 Pharmacy Pharmacy [facility] [address] [place] [address] MEDICATION THERAPY MANAGEMENT (insert drug name) 05/27/2023 Office Visit Cardiology Tari Sutherland CRNP [address] [place] [address] 06/09/2023 Laboratory Laboratory [facility] Laboratory [address] [place] [address] 06/19/2023 Office Visit Family Medicine Lucas Mendez MD [address] [place] [address] 06/24/2023 Office Visit Hematology Oncology Zenia Rajan MD [address] [place] [address] 06/24/2023 Office Visit Hematology Oncology Zenia Rajan MD [address] [place] [address] 07/30/2023 Laboratory Laboratory [facility] Laboratory [address] [place] [address] 10/22/2023 Office Visit Cardiology Nithin Smith DO [address] [place] [address] Scheduled Procedures Name Priority Associated Diagnoses Date/Ti me COLONOSCOPY FLEXIBLE PROXIMA L DIAGNOSTIC Recall Special screening for malignant neoplasms, colon Health Maintenance Due Date Last Done Comments DIABETES-EYE EXAM 1963 DIABETES-FOOT EXAM 1963 Hepatitis C Screening 1963 DTaP,Tdap,and Td Vaccines (1 - Tdap) 02/13/2004 02/12/2004, 06/12/1994 COVID-19 Vaccine (3 - Pfizer risk series) 01/18/2021 12/21/2020, 11/30/2020 CKD PHOS USE SMARTSET 20327 02/05/2021 02/06/2020, 0 12/20/2008 Depression Screening, Annual [...] Ratio 12/13/2023 12/12/2022 CKD HGB USE SMARTSET 59758 05/11/202405/11, 05/11/2023, 04/23/2023, Additional history exists Pneumococcal [...] 20 mg/dL 05/11/2023 12:32 PM EDT [facility] [place] 56-02 Creatinine 1.1(H) 0.5 - 1.0 mg/dL 05/11/2023 12:32 PM EDT [facility] 56-02 Estimated Glomerular Filtration Rate 50(L) >=60 mL/min 05/11/2023 12:32 PM EDT [place] [address] Comment:eGFR is calculated b ased on the CKD-EPI 2020 equation Sodium 140 135 - 146 mmol/L 05/11/2023 12:32 PM EDT [place] [address] Potassium 4.4 3.5 - 5.1 mmol/L 05/11/2023 12:32 PM EDT [place] [address] Chloride 106 98 - 107 mmol/L 05/11/2023 12:32 PM EDT [place] [address] CO2 26 22 - 32 mmol/L 05/11/2023 12:32 PM EDT [place] [address] Anion Gap 8 7 - 15 mmol/L 05/11/2023 12:32 PM EDT [place] [address] Glucose 106 70 - 120 mg/dL 05/11/2023 12:32 PM EDT [place] [address] Albumin 4.2 3.8 - 5.0 g/dL 05/11/2023 12:32 PM EDT [place] [address] AST 25 10 - 35 U/L 05/11/2023 12:32 PM T [place] [address] Alkaline Phosphatase 109 35 - 130 U/L 05/11/2023 12:32 PM EDT [place] [address] Bilirubin, Total 0.6 <=1.2 mg/dL 05/11/2023 12:32 PM EDT [place] [address] Calcium 9.2 8.4 - 10.2 mg/dL 05/11/2023 12:32 PM EDT [place] [address] Protein 6.6 6.0 - 8.3 g/dL 05/11/2023 12:32 PM EDT [place] [address] ALT 15 10 - 35 U/L 05/11/2023 12:32 PM T [place] [address] Blood Venous blood specimen / Unknown Venipuncture / Unknown 05/11/2023 12:00 PM EDT 05/11/2023 12:00 PM EDT Zenia Rajan MD LAB BLOOD ORDERA BLES [facility] 56-[address] [place] [address] * HEPATITIS B CORE ANTIBODIES IGG AND IGM (05/11/2023 12:00 PM EDT) Hepatitis B Core Antibodies IgG and IgM Negative Negative 05/11/2023 9:37 PM EDT [facility] Blood Venous blood specimen / Unknown Venipuncture / Unknown 05/11/2023 12:00 PM EDT 05/11/2023 12:00 PM EDT Zenia Rajan MD LAB BLOOD ORDERA BLES Performing Organization Address City/[facility]/ZIP Co de Phone Number [facility] [address] [place] [address] * HEPATITIS B SURFACE ANTIGEN (05/11/2023 12:00 PM EDT) Pathologist [facility] Hepatitis B Surface Antigen Negative Negative 05/11/2023 9:37 PM EDT [facility] Blood Venous blood specimen / Unknown Venipuncture / Unknown 05/11/2023 12:00 PM EDT 05/11/2023 12:00 PM EDT Zenia Rajan MD LAB BLOOD ORDERA BLES Performing Organization Address [facility] Co de Phone Number [facility] [address] [place] [address] * HEPATITIS B SURFACE ANTIBODY (05/11/2023 12:00 PM EDT) Hepatitis B Surface Antibody, Quantitative <3.5 mIU/mL 05/11/2023 9:37 PM EDT [facility] Hepatitis B Surface Antibody, Qualitative Negative 05/11/2023 9:37 PM EDT [facility] Hepatitis B Surface Antibody, Interpretation NOT immune to Hepatitis B Virus 05/11/2023 9:37 PM EDT [facility] Comment: POSITIVE: >=11.5 mIU/mL INDETERMINATE: 8.5-<11.5 mIU/mL NEGATIVE: <8.5 mIU/mL Blood Venous blood specimen / Unknown Venipuncture / Unknown 05/11/2023 12:00 PM EDT 05/11/2023 12:00 PM EDT Zenia Rajan MD LAB BLOOD ORDERA BLES [facility] [address] [place] [address] documented in this encounter Visit Diagnoses Diagnosis CLL (chronic lymphocytic leukemia) (HCC)- Primary Chronic lymphoid leukemia, without mention of having achieved remission Encounter for screening for viral disease documented in this encounter Care Teams Dry Pan Feeder Relationship Specialty Start Date End Date Lucas Mendez MD [address] [place] [address] PCP - General 07/12/00 documented as of this encounter
--- OUTSIDE RECORDS SUMMARY | 2023-08-24 15:03 | External Medical Summary | Summary of Care ---
Author Name Unknown Organization [facility] Address [address] [facility] [place] [address] Phone [phone] Care Team Providers Care Management Manager Name Role Phone Lucas Mendez MD Primary Care Provider [phone]- [phone] Reason for Visit * Reason Onset Date Comments Precert Future 05/11/2023 acalabrutinib Encounter Details Date Type Department Care Team Description 05/11/2023 Telephone Hematology/Oncology Treatment, [place] [address] [place] [phone] Zenia Rajan MD [address] [place] [address] Precert Future (acalabrutinib) Allergies Active Allergy Reactions Severity Noted Date Comments Codeine Nausea/vomiting 2011 Lisinopril 03/07/2008 Cough documented as of this encounter (statuses as of 05/13/2023) Medications Medication Sig Dispensed Refills Start Date [...] as of this encounter (statuses as of 05/13/2023) Active Problems Problem Noted Date Type 2 diabetes mellitus with hemoglobin A1c goal of less than 7.0% 12/02/2022 AICD (automatic cardioverter/defibrillat or) present 07/24/2022 Chronic kidney disease, stage 3b 022 Overview: Per CKD protocol Ischemic cardiomyopathy 08/15/2021 LBBB (left bundle branch block) 08/15/20 21 Chronic heart failure with r educed ejection fraction and diastolic dysfunction 08/15/2021 Coronary artery disease invo lving [place] coronary artery of [place] heart without angina pectoris 08/15/2021 Moderate mitral [...] as of this encounter (statuses as of 05/13/2023) Resolved Problems Problem Noted Date Resolved Date [...] as of this encounter (statuses as of 05/13/2023) Immunizations Name Administration Dates Next Due Pneumococcal [...] Miscellaneous Notes * Telephone Encounter - CLARICE Hernández - 05/13/2023 1:48 PM EDT Calquence denied, denial letter scanned. * Telephone Encounter - Silvia Chaudhary RN - 05/11/2023 11:23 AM EDT Order received for acalabrutinib (calquence). [facility] aware to build beacon plan. Waiting for auth/ pharmacy. Patient will need hep B labs. Nurse education done after office visit 05/11/23. documented in this encounter Plan of Treatment Upcoming Encounters Date Type Specialty Care Team Description 05/15/2023 Pharmacy Pharmacy [facility] [place] Hem/Onc [address] [place] [address] 05/27/2023 Office Visit Cardiology Tari Sutherland CRNP [address] [place] [address] 06/09/2023 Laboratory Laboratory [facility] Laboratory [address] [place] [address] 06/19/2023 Office Visit Family Medicine Lucas Mendez MD [address] [place] [address] 06/24/2023 Office Visit Hematology Oncology Zenia Rajan MD [address] [place] [address] 06/24/2023 Office Visit Hematology Oncology Zenia Rajan MD [address] [place] [address] 07/30/2023 Laboratory Laboratory [place], Laboratory [address] [place] [address] 10/22/2023 Office Visit Cardiology Nithin Smith, [address] [place] [address] Scheduled Procedures Name Priority Associated Diagnoses Date/Ti me COLONOSCOPY FLEXIBLE PROXIMA L DIAGNOSTIC Recall Special screening for malignant neoplasms, colon Health Maintenance Due Date Last Done Comments DIABETES-EYE EXAM 1963 DIABETES-FOOT EXAM 1961 Hepatitis C Screening 1963 DTaP,Tdap,and Td Vaccines (1 - Tdap) 02/13/2004 02/12/2004, 06/12/1994 COVID-19 Vaccine (3 - Pfizer risk series) 01/18/2021 12/21/2020, 11/30/2020 CKD PHOS USE SMARTSET 53557 02/05/2021 02/06/2020, 0 12/20/2008 Depression Screening, Annual [...] Ratio 12/13/2023 12/12/2022 CKD HGB USE SMARTSET 72611 05/11/202405/11, 05/11/2023, 04/23/2023, Additional history exists Pneumococcal [...] 20 mg/dL 05/11/2023 12:32 PM EDT LAB[facility]ATORY [place] [address] Creatinine 1.1(H) 0.5 - 1.0 mg/dL 05/11/2023 12:32 PM EDT [facility] 56 Estimated Glomerular Filtration Rate 50(L) >=60 mL/min 05/11/2023 12:32 PM EDT [facility] 56 Comment:eGFR is calculated b ased on the CKD-EPI 2020 equation Sodium 140 135 - 146 mmol/L 05/11/2023 12:32 PM EDT [facility] [place] 56 Potassium 4.4 3.5 - 5.1 mmol/L 05/11/2023 12:32 PM EDT [facility] 56 Chloride 106 98 - 107 mmol/L 05/11/2023 12:32 PM EDT [facility] 56- CO2 26 22 - 32 mmol/L 05/11/2023 12:32 PM EDT [facility] 56 Anion Gap 8 7 - 15 mmol/L 05/11/2023 12:32 PM EDT [facility] 56 Glucose 106 70 - 120 mg/dL 05/11/2023 12:32 PM EDT [facility] 56- Albumin 4.2 3.8 - 5.0 g/dL 05/11/2023 12:32 PM EDT [facility] 56- AST 25 10 - 35 U/L 05/11/2023 12:32 PM EDT [facility] [place] 56 Alkaline Phosphatase 109 35 - 130 U/L 05/11/2023 12:32 PM EDT [facility] 56- Bilirubin, Total 0.6 <=1.2 mg/dL 05/11/2023 12:32 PM EDT [facility] 56- Calcium 9.2 8.4 - 10.2 mg/dL 05/11/2023 12:32 PM EDT [facility] 56- Protein 6.6 6.0 - 8.3 g/dL 05/11/2023 12:32 PM EDT [facility] [place] 56-02 ALT 15 10 - 35 U/L 05/11/2023 12:32 PM EDT [facility] [place] 56-02 Blood Venous blood specimen / Unknown Venipuncture / Unknown 05/11/2023 12:00 PM EDT 05/11/2023 12:00 PM EDT Zenia Rajan MD LAB BLOOD ORDERA BLES [facility] 56-[address] [place] [address] * HEPATITIS B CORE ANTIBODIES IGG AND IGM (05/11/2023 12:00 PM EDT) Hepatitis B Core Antibodies IgG and IgM Negative Negative 05/11/2023 9:37 PM EDT LABORATORY [facility] Blood Venous blood specimen / Unknown Venipuncture / Unknown 05/11/2023 12:00 PM EDT 05/11/2023 12:00 PM EDT Zenia Rajan MD LAB BLOOD ORDERA BLES Performing Organization Address City/[facility]/ZIP Co de Phone Number LAB[facility]ATORY [facility] [address] [place] [address] * HEPATITIS B SURFACE ANTIGEN (05/11/2023 12:00 PM EDT) Hepatitis B Surface Antigen Negative Negative 05/11/2023 9:37 PM EDT [facility] Blood Venous blood specimen / Unknown Venipuncture / Unknown 05/11/2023 12:00 PM EDT 05/11/2023 12:00 PM EDT Zenia Rajan MD LAB BLOOD ORDERA BLES LAB[facility] [address] [place] [address] * HEPATITIS B SURFACE ANTIBODY (05/11/2023 12:00 PM EDT) Hepatitis B Surface Antibody, Quantitative <3.5 mIU/mL 05/11/2023 9:37 PM EDT LAB[facility]ORY [facility] Hepatitis B Surface Antibody, Qualitative Negative 05/11/2023 9:37 PM EDT [facility] Hepatitis B Surface Antibody, Interpretation NOT immune to Hepatitis B Virus 05/11/2023 9:37 PM EDT [facility] Comment: POSITIVE: >=11.5 mIU/mL INDETERMINATE: 8.5-<11.5 mIU/mL NEGATIVE: <8.5 mIU/mL Blood Venous blood specimen / Unknown Venipuncture / Unknown 05/11/2023 12:00 PM EDT 05/11/2023 12:00 PM EDT Zenia Rajan MD LAB BLOOD ORDERA BLES LAB[facility] [address] [place] [address] documented in this encounter Visit Diagnoses Diagnosis CLL (chronic lymphocytic leukemia) (HCC)- Primary Chronic lymphoid leukemia, without mention of having achieved remission Encounter for screening for viral disease documented in this encounter Care Teams Management Manager Relationship Specialty Start Date End Date Lucas Mendez MD [address] [place], [place] [phone] PCP - General 07/12/00 documented as of this encounter
--- OUTSIDE RECORDS SUMMARY | 2023-08-24 15:03 | External Medical Summary | Summary of Care ---
Author Name Unknown Organization [facility] Address [address] [facility] [place] [address] Phone [phone] Care Team Providers Care Tip Bander Name Role Phone Lucas Mendez MD Primary Care Provider +1- [phone] Reason for Visit * Reason Onset Date Comments Precert Future 05/11/2023 Zanubrutinib Encounter Details Date Type Department Care Team Description 05/11/2023 Telephone Hematology/Oncology Treatment, [place] [address] [place] [phone] Zenia Rajan MD [address] [place] [address] Precert Future (Zanubrutinib) Allergies Active Allergy Reactions [...] dysfunction 08/15/2021 Coronary artery disease invo lving [place] coronary artery of [place] heart without angina pectoris 08/15/2021 Moderate mitral [...] EDT Order received for acalabrutinib (calquence). [facility] aware to build beacon plan. Waiting for auth/ pharmacy. Patient will need hep B labs. Nurse education done after office visit 05/11/23. documented in this encounter Plan of Treatment Upcoming Encounters Date Type Specialty Care Team Description 05/15/2023 Pharmacy Pharmacy [facility] [place] [address] [facility] [address] 05/27/2023 Office Visit Cardiology Tari Sutherland CRNP [address] [place] [address] 06/09/2023 Laboratory Laboratory [address] [place] [address] 06/19/2023 Office Visit Family Medicine Lucas Mendez MD [address] [place] [address] 06/24/2023 Office Visit Hematology Oncology Zenia Rajan MD [address] [place] [address] 06/24/2023 Office Visit Hematology Oncology Zenia Rajan MD [address] [place] [address] 07/30/2023 Laboratory Laboratory [facility] Laboratory [address] [place] [address] 10/22/2023 Office Visit Cardiology Nithin Smith, [address] [place] [address] Scheduled Procedures Name Priority Associated Diagnoses Date/Ti me COLONOSCOPY FLEXIBLE PROXIMA L DIAGNOSTIC Recall Special screening for malignant neoplasms, colon Health Maintenance Due Date Last Done Comments DIABETES-EYE EXAM 1963 DIABETES-FOOT EXAM 1961 Hepatitis C Screening 1961 DTaP,Tdap,and Td Vaccines (1 - Tdap) 02/13/2004 02/12/2004, 06/12/1994 COVID-19 Vaccine (3 - Pfizer risk series) 01/18/2021 12/21/2020, 11/30/2020 CKD PHOS USE SMARTSET 00398 02/05/2021 02/06/2020, 0 12/20/2008 Depression Screening, Annual [...] Ratio 12/13/2023 12/12/2022 CKD HGB USE SMARTSET 56644 05/11/202405/11, 05/11/2023, 04/23/2023, Additional history exists Pneumococcal [...] - 20 mg/dL 05/11/2023 12:32 PM EDT [facility] 56-02 Creatinine 1.1(H) 0.5 - 1.0 mg/dL 05/11/2023 12:32 PM EDT [facility] 56-02 Estimated Glomerular Filtration Rate 50(L) >=60 mL/min 05/11/2023 12:32 PM EDT [facility] 56-02 Comment:eGFR is calculated b ased on the CKD-EPI 2020 equation Sodium 140 135 - 146 mmol/L 05/11/2023 12:32 PM EDT [facility] 56-02 Potassium 4.4 3.5 - 5.1 mmol/L 05/11/2023 12:32 PM EDT [facility] 56-02 Chloride 106 98 - 107 mmol/L 05/11/2023 12:32 PM EDT [address] CO2 26 22 - 32 mmol/L 05/11/2023 12:32 PM EDT [address] Anion Gap 8 7 - 15 mmol/L 05/11/2023 12:32 PM EDT [place] [address] Glucose 106 70 - 120 mg/dL 05/11/2023 12:32 PM EDT [address] Albumin 4.2 3.8 - 5.0 g/dL 05/11/2023 12:32 PM EDT [address] AST 25 10 - 35 U/L 05/11/2023 12:32 PM EDT [place] [address] Alkaline Phosphatase 109 35 - 130 U/L 05/11/2023 12:32 PM EDT [address] Bilirubin, Total 0.6 <=1.2 mg/dL 05/11/2023 12:32 PM EDT [place] [address] Calcium 9.2 8.4 - 10.2 mg/dL 05/11/2023 12:32 PM EDT [place] [address] Protein 6.6 6.0 - 8.3 g/dL 05/11/2023 12:32 PM EDT [place] [address] ALT 15 10 - 35 U/L 05/11/2023 12:32 PM EDT [place] [address] Blood Venous blood specimen / Unknown Venipuncture / Unknown 05/11/2023 12:00 PM EDT 05/11/2023 12:00 PM EDT Zenia Rajan MD LAB BLOOD ORDERA BLES [place] [address] [place] [address] * HEPATITIS B CORE ANTIBODIES IGG AND [...] [facility] [address] [place] [address] * HEPATITIS B SURFACE ANTIGEN (05/11/2023 12:00 PM EDT) Hepatitis B Surface Antigen Negative Negative 05/11/2023 9:37 PM EDT LABORATORY [facility] Blood Venous blood specimen / Unknown Venipuncture / Unknown 05/11/2023 12:00 PM EDT 05/11/2023 12:00 PM EDT Zenia Rajan MD LAB BLOOD ORDERA BLES Performing Organization Address [facility]/ZIP Co de Phone Number LABORATORY [facility] [address] [place] [address] * HEPATITIS B SURFACE ANTIBODY (05/11/2023 12:00 [...] City/[facility]/ZIP Co de Phone Number LABORATORY [facility] [address] [place] [address] documented in this encounter Visit Diagnoses Diagnosis CLL (chronic lymphocytic leukemia) (HCC)- Primary Chronic lymphoid leukemia, without mention of having achieved remission Encounter for screening for viral disease documented in this encounter Care Teams Tip Bander Relationship Specialty Start Date End Date Lucas Mendez MD [address] [place] [address] PCP - General 07/12/00 documented as of this encounter
--- OUTSIDE RECORDS SUMMARY | 2023-08-24 15:03 | External Medical Summary | Summary of Care ---
Author Name Unknown Organization [facility] Address [address] [facility] [place] [address] Phone [phone] Care Team Providers Care Chief Ophthalmic Technician Name Role Phone Lucas Mendez MD Primary Care Provider +1- [phone] Reason for Visit * Reason Onset Date Comments Precert Future 05/11/2023 acalabrutinib Encounter Details Date Type Department Care Team Description 05/11/2023 Telephone Hematology/Oncology Treatment, [place] [address] [place] [phone] Zenia Rajan MD [address] [place] [address] Precert Future (acalabrutinib) Allergies Active Allergy Reactions [...] dysfunction 08/15/2021 Coronary artery disease invo lving [place] coronary artery of [place] heart without angina pectoris 08/15/2021 Moderate mitral [...] Specialty Care Team Description 05/15/2023 Pharmacy Pharmacy [facility] [place] Hem/Onc [address] [place] [address] 05/27/2023 Office Visit Cardiology Tari Sutherland CRNP [address] [place] [address] 06/09/2023 Laboratory Laboratory [facility] [address] [place] [address] 06/19/2023 Office Visit Family Medicine Lucas Mendez MD [address] [place] [address] 06/24/2023 Office Visit Hematology Oncology Zenia Rajan MD [address] [place] [address] 06/24/2023 Office Visit Hematology Oncology Zenia Rajan MD [address] [place] [address] 07/30/2023 Laboratory [facility] [address] [place] [facility] [place] [address] 10/22/2023 Office Visit Cardiology Nithin Smith DO [address] [place] [address] Scheduled Procedures Name Priority Associated Diagnoses Date/Ti me COLONOSCOPY FLEXIBLE PROXIMA L DIAGNOSTIC Recall Special screening for malignant neoplasms, colon Health Maintenance Due Date Last Done Comments DIABETES-EYE EXAM 1963 DIABETES-FOOT EXAM 1961 Hepatitis C Screening 1963 DTaP,Tdap,and Td Vaccines (1 - Tdap) 02/13/2004 02/12/2004, 06/12/1994 COVID-19 Vaccine (3 - Pfizer risk series) 01/18/2021 12/21/2020, 11/30/2020 CKD PHOS USE SMARTSET 61929 02/05/2021 02/06/2020, 0 12/20/2008 Depression Screening, Annual [...] Ratio 12/13/2023 12/12/2022 CKD HGB USE SMARTSET 03295 05/11/202405/11, 05/11/2023, 04/23/2023, Additional history exists Pneumococcal [...] - 20 mg/dL 05/11/2023 12:32 PM EDT [facility] 56 Creatinine 1.1(H) 0.5 - 1.0 mg/dL 05/11/2023 12:32 PM EDT [address] Estimated Glomerular Filtration Rate 50(L) >=60 mL/min 05/11/2023 12:32 PM EDT [facility] 56- Comment:eGFR is calculated b ased on the CKD-EPI 2020 equation Sodium 140 135 - 146 mmol/L 05/11/2023 12:32 PM EDT [facility] [place] 56- Potassium 4.4 3.5 - 5.1 mmol/L 05/11/2023 12:32 PM EDT [facility] 56- Chloride 106 98 - 107 mmol/L 05/11/2023 12:32 PM EDT [facility] 56- CO2 26 22 - 32 mmol/L 05/11/2023 12:32 PM EDT [facility] [place] 56- Anion Gap 8 7 - 15 mmol/L 05/11/2023 12:32 PM EDT [facility] 56- Glucose 106 70 - 120 mg/dL 05/11/2023 12:32 PM EDT [facility] 56- Albumin 4.2 3.8 - 5.0 g/dL 05/11/2023 12:32 PM EDT [facility] 56- AST 25 10 - 35 U/L 05/11/2023 12:32 PM EDT [facility] 5602 Alkaline Phosphatase 109 35 - 130 U/L 05/11/2023 12:32 PM EDT [address] Bilirubin, Total 0.6 <=1.2 mg/dL 05/11/2023 12:32 PM EDT [place] [address] Calcium 9.2 8.4 - 10.2 mg/dL 05/11/2023 12:32 PM EDT [address] Protein 6.6 6.0 - 8.3 g/dL 05/11/2023 12:32 PM EDT [facility] 5602 ALT 15 10 - 35 U/L 05/11/2023 12:32 PM EDT [place] [address] Blood Venous blood specimen / Unknown Venipuncture / Unknown 05/11/2023 12:00 PM EDT 05/11/2023 12:00 PM EDT Zenia Rajan MD LAB BLOOD ORDERA BLES [facility] [address] [place] [address] * HEPATITIS B CORE ANTIBODIES IGG AND IGM (05/11/2023 12:00 PM EDT) Pathologist [facility] Hepatitis B Core Antibodies IgG and IgM Negative Negative 05/11/2023 9:37 PM EDT LAB[facility] Blood Venous blood specimen / Unknown Venipuncture / Unknown 05/11/2023 12:00 PM EDT 05/11/2023 12:00 PM EDT Zenia Rajan MD LAB BLOOD ORDERA BLES [facility] [address] [place] [address] * HEPATITIS B SURFACE ANTIGEN (05/11/2023 12:00 PM EDT) Hepatitis B Surface Antigen Negative Negative 05/11/2023 9:37 PM EDT [facility] Blood Venous blood specimen / Unknown Venipuncture / Unknown 05/11/2023 12:00 PM EDT 05/11/2023 12:00 PM EDT Zenia Rajan MD LAB BLOOD ORDERA BLES Performing Organization Address [facility] Co de Phone Number LABORATORY [address] [address] * HEPATITIS B SURFACE ANTIBODY (05/11/2023 12:00 PM EDT) Pathologist [facility] Hepatitis B Surface Antibody, Quantitative <3.5 mIU/mL 05/11/2023 9:37 PM EDT [facility] Hepatitis B Surface Antibody, Qualitative Negative 05/11/2023 9:37 PM EDT [facility] Hepatitis B Surface Antibody, Interpretation NOT immune to Hepatitis B Virus 05/11/2023 9:37 PM EDT [facility] Comment: POSITIVE: >=11.5 mIU/mL INDETERMINATE: 8.5-<11.5 mIU/mL NEGATIVE: <8.5 mIU/mL Blood Venous blood specimen / Unknown Venipuncture / Unknown 05/11/2023 12:00 PM EDT 05/11/2023 12:00 PM EDT Zenia Rajan MD LAB BLOOD ORDERA BLES Performing Organization Address [facility] Co de Phone Number LABORATORY [address] [address] documented in this encounter Visit Diagnoses Diagnosis CLL (chronic lymphocytic leukemia) (HCC)- Primary Chronic lymphoid leukemia, without mention of having achieved remission Encounter for screening for viral disease documented in this encounter Care Teams Chief Ophthalmic Technician Relationship Specialty Start Date End Date Lucas Mendez MD [address] [place] [address] PCP - General 07/12/00 documented as of this encounter
--- OUTSIDE RECORDS SUMMARY | 2023-08-24 15:03 | External Medical Summary | Summary of Care ---
Author Name Unknown Organization [facility] Address [address] [facility] [place] [address] Phone [phone] Care Team Providers Care Nursing Home Admissions Director Name Role Phone Lucas Mendez MD Primary Care Provider +1- [phone] Reason for Visit * Reason Onset Date Comments Precert Future 05/11/2023 acalabrutinib Encounter Details Date Type Department Care Team Description 05/11/2023 Telephone Hematology/Oncology Treatment, [place] [address] [place] [phone] Zenia Rajan MD [address] [place] [address] Precert Future (acalabrutinib) Allergies Active Allergy Reactions Severity Noted Date Comments Codeine Nausea/vomiting 2011 Lisinopril 03/07/2008 Cough documented as of this encounter (statuses as of 05/12/2023) Medications Medication Sig Dispensed Refills Start Date [...] as of this encounter (statuses as of 05/12/2023) Active Problems Problem Noted Date Type 2 diabetes mellitus with hemoglobin A1c goal of less than 7.0% 12/02/2022 AICD (automatic cardioverter/defibrillat or) present 07/24/2022 Chronic kidney disease, stage 3b 022 Overview: Per CKD protocol Ischemic cardiomyopathy 08/15/2021 LBBB (left bundle branch block) 08/15/20 21 Chronic heart failure with r educed ejection fraction and diastolic dysfunction 08/15/2021 Coronary artery disease invo lving [place] coronary artery of [place] heart without angina pectoris 08/15/2021 Moderate mitral [...] as of this encounter (statuses as of 05/12/2023) Resolved Problems Problem Noted Date Resolved Date [...] as of this encounter (statuses as of 05/12/2023) Immunizations Name Administration Dates Next Due Pneumococcal [...] Sutherland CRNP [address] [place] [address] 06/09/2023 Laboratory Laboratory [facility] [address] [place] [address] 06/19/2023 Office Visit Family Medicine Lucas Mendez MD [address] [place] [address] 06/24/2023 Office Visit Hematology Oncology Zenia Rajan MD [address] [place] [address] 06/24/2023 Office Visit Hematology Oncology Zenia Rajan MD [address] [place] [address] 07/30/2023 Laboratory Laboratory [facility] [address] [place] [address] 10/22/2023 Office Visit Cardiology Nithin Smith DO [address] [place] [address] Scheduled Procedures Name Priority Associated Diagnoses Date/Ti me COLONOSCOPY FLEXIBLE PROXIMA L DIAGNOSTIC Recall Special screening for malignant neoplasms, colon Health Maintenance Due Date Last Done Comments DIABETES-EYE EXAM 1961 DIABETES-FOOT EXAM 1961 Hepatitis C Screening 1961 DTaP,Tdap,and Td Vaccines (1 - Tdap) 02/13/2004 02/12/2004, 06/12/1994 COVID-19 Vaccine (3 - Pfizer risk series) 01/18/2021 12/21/2020, 11/30/2020 CKD PHOS USE SMARTSET 20999 02/05/2021 02/06/2020, 0 12/20/2008 Depression Screening, Annual [...] Ratio 12/13/2023 12/12/2022 CKD HGB USE SMARTSET 33168 05/11/202405/11, 05/11/2023, 04/23/2023, Additional history exists Pneumococcal [...] mg/dL 05/11/2023 12:32 PM EDT [facility] 56-02 Estimated Glomerular Filtration Rate 50(L) >=60 mL/min 05/11/2023 12:32 PM EDT [address] Comment:eGFR is calculated b ased on the CKD-EPI 2020 equation Sodium 140 135 - 146 mmol/L 05/11/2023 12:32 PM EDT [address] Potassium 4.4 3.5 - 5.1 mmol/L 05/11/2023 12:32 PM EDT [place] [address] Chloride 106 98 - 107 mmol/L 05/11/2023 12:32 PM EDT [place] [address] CO2 26 22 - 32 mmol/L 05/11/2023 12:32 PM EDT [place] [address] Anion Gap 8 7 - 15 mmol/L 05/11/2023 12:32 PM EDT [place] [address] Glucose 106 70 - 120 mg/dL 05/11/2023 12:32 PM EDT [place] [address] Albumin 4.2 3.8 - 5.0 g/dL 05/11/2023 12:32 PM EDT [place] [address] AST 25 10 - 35 U/L 05/11/2023 12:32 PM EDT [place] [address] Alkaline Phosphatase 109 35 - 130 U/L 05/11/2023 12:32 PM EDT [address] Bilirubin, Total 0.6 <=1.2 mg/dL 05/11/2023 12:32 PM EDT [place] [address] Calcium 9.2 8.4 - 10.2 mg/dL 05/11/2023 12:32 PM EDT [place] [address] Protein 6.6 6.0 - 8.3 g/dL 05/11/2023 12:32 PM EDT [place] [address] ALT 15 10 - 35 U/L 05/11/2023 12:32 PM EDT [place] [address] Blood Venous blood specimen / Unknown Venipuncture / Unknown 05/11/2023 12:00 PM EDT 05/11/2023 12:00 PM EDT Zenia Rajan MD LAB BLOOD ORDERA BLES [address] [place] [address] * HEPATITIS B CORE ANTIBODIES IGG AND IGM (05/11/2023 12:00 PM EDT) Pathologist [facility] Hepatitis B Core Antibodies IgG and IgM Negative Negative 05/11/2023 9:37 PM EDT [facility] Blood Venous blood specimen / Unknown Venipuncture / Unknown 05/11/2023 12:00 PM EDT 05/11/2023 12:00 PM EDT Zenia Rajan MD LAB BLOOD ORDERA BLES Performing Organization Address [facility] Co de Phone Number LAB[facility]ATORY [facility] [address] [place] [address] * HEPATITIS B SURFACE ANTIGEN (05/11/2023 12:00 PM EDT) Pathologist [facility] Hepatitis B Surface Antigen Negative Negative 05/11/2023 9:37 PM EDT [facility] Blood Venous blood specimen / Unknown Venipuncture / Unknown 05/11/2023 12:00 PM EDT 05/11/2023 12:00 PM EDT Zenia Rajan MD LAB BLOOD ORDERA BLES Performing Organization Address [facility]/[place] de Phone Number LABORATORY [facility] [address] [place] [address] * HEPATITIS B SURFACE ANTIBODY (05/11/2023 12:00 PM EDT) Pathologist [facility] Hepatitis B Surface Antibody, Quantitative <3.5 mIU/mL 05/11/2023 9:37 PM EDT [facility] Hepatitis B Surface Antibody, Qualitative Negative 05/11/2023 9:37 PM EDT [facility] Hepatitis B Surface Antibody, Interpretation NOT immune to Hepatitis B Virus 05/11/2023 9:37 PM EDT [facility] Comment: POSITIVE: >=11.5 mIU/mL INDETERMINATE: 8.5-<11.5 mIU/mL NEGATIVE: <8.5 mIU/mL Blood Venous blood specimen / Unknown Venipuncture / Unknown 05/11/2023 12:00 PM EDT 05/11/2023 12:00 PM EDT Zenia Rajan MD LAB BLOOD ORDERA BLES LAB[facility]ATORY [facility] [address] [place] [address] documented in this encounter Visit Diagnoses Diagnosis CLL (chronic lymphocytic leukemia) (HCC)- Primary Chronic lymphoid leukemia, without mention of having achieved remission Encounter for screening for viral disease documented in this encounter Care Teams Nursing Home Admissions Director Relationship Specialty Start Date End Date Lucas Mendez MD [address], [place] [phone] PCP - General 07/12/00 documented as of this encounter
--- OUTSIDE RECORDS SUMMARY | 2023-08-24 15:03 | External Medical Summary | Summary of Care ---
Author Name Unknown Organization [facility] Address [address] [place] [address] Phone [phone] Care Team Providers Care Wet Mix Operator Name Role Phone Lucas Mendez MD Primary Care Provider +1- [phone] Reason for Visit * Reason Comments Medication Management Encounter Details Date Type Department Care Team Description 05/13/2023 Pharmacy Pharmacy Hematology Oncology [facility] [address] [place], [place] [phone] [facility] [place] Hem/Onc [address] [place] [address] CLL (chronic lymphocytic leukemia) ([facility])* Allergies Active Allergy Reactions Severity Noted Date [...] dysfunction 08/15/2021 Coronary artery disease invo lving [place] coronary artery of [place] heart without angina pectoris 08/15/2021 Moderate mitral [...] encounter Progress Notes * Mayuri Boswell, [facility] - 05/13/2023 1:03 PM EDT MEDICATION THERAPY MANAGEMENT ACALBRUTINIB ([place]) TREATMENT STATUS NOTE HuongMelissa Rose [phone] Patient Phone Numbers Communication: Chart review Treatment: Medication: Acalabrutinib ([place]) Indication/Staging/Diagnosis Code: CLL/C91.10 Dose: 100mg BID Administration: -/+ food Start Date: TBD Primary Top Trimmer/Oncologist: Dr. Rajan Supportive Care Meds: None Assessment and Plan: Hepatitis B panel unremarkable - no further action needed Uric acid WNL MTM to follow up in 2 days to assess auth status Yes/no Date Action Taken [place] plan entered? Yes 05/11/23 Consent completed? Yes 05/11/23 Intro/med rec completed? Precert completed? Auth submitted 05/12/23 Test claim completed? Financial assistance needed? Physician signature? Yes 05/12/23 Rx released? Education completed? Follow up: 05/13 Mayuri Boswell, PharmD, BCOP Clinical Pharmacist, [facility] Oral Chemotherapy [facility] 05/13/2023, 1:10 PM Monitoring Parameters: Estimated CrCl Serum creatinine: [...] baseline CMP and as needed Treatment Parameters Per PI Pertinent Labs: Latest Reference Range & Units 05/11/23 12:00 LD <=250 U/L 268 (H) Uric Acid 2.4 - 5.7 mg/dL 4.2 Time Spent on Encounter: 6 - 10 minutes Encounter Group: Hematology Encounter Interventions Item Category: Oral Chemotherapy Acalabrutinib Problem/Rationale: Safety: Needs additional monitoring - Medication Requires monitoring [place] Plan Review: Clinical Review Pharmacist Intervention(s): Lab monitoring Magnitude of Intervention: Monitoring with direction (Level 1) documented in this encounter Plan of Treatment Upcoming Encounters Date Type Specialty Care Team Description 05/27/2023 Office Visit Cardiology Tari Sutherland CRNP [address] [place] [address] 06/09/2023 Laboratory Laboratory [facility] Blankens[facility] [address] [place] [address] 06/19/2023 Office Visit Family Medicine Lucas Mendez MD [address] [place] [address] 06/24/2023 Office Visit Hematology Oncology Zenia Rajan MD [address] [place] [address] 06/24/2023 Office Visit Hematology Oncology Zenia Rajan MD [address] [facility] [place] [address] 07/30/2023 Laboratory Laboratory [facility] [address] [place] [address] 10/22/2023 Office Visit Cardiology Nithin Smith, DO [address] [place] [address] Scheduled Procedures Name Priority Associated Diagnoses Date/Ti me COLONOSCOPY FLEXIBLE PROXIMA L DIAGNOSTIC Recall Special screening for malignant neoplasms, colon Health Maintenance Due Date Last Done Comments DIABETES-EYE EXAM 1961 DIABETES-FOOT EXAM 1961 Hepatitis C Screening 1961 DTaP,Tdap,and Td Vaccines (1 - Tdap) 02/13/2004 02/12/2004, 06/12/1994 COVID-19 Vaccine (3 - Pfizer risk series) 01/18/2021 12/21/2020, 11/30/2020 CKD PHOS USE SMARTSET 22583 02/05/2021 02/06/2020, 0 12/20/2008 Depression Screening, Annual [...] Ratio 12/13/2023 12/12/2022 CKD HGB USE SMARTSET 66274 05/11/202405/11, 05/11/2023, 04/23/2023, Additional history exists Pneumococcal [...] remission documented in this encounter Care Teams Wet Mix Operator Relationship Specialty Start Date End Date Lucas Mendez MD [address] [place], [place] [phone] PCP - General 07/12/00 documented as of this encounter
--- OUTSIDE RECORDS SUMMARY | 2023-08-24 15:03 | External Medical Summary | Summary of Care ---
Author Name Unknown Organization [facility] Address [address] [facility] [place] [address] Phone [phone] Care Team Providers Care Legal Records Clerk Name Role Phone Lucas Mendez MD Primary Care Provider +1- [phone] Reason for Visit * Reason Onset Date Comments Precert Future 05/11/2023 acalabrutinib Encounter Details Date Type Department Care Team Description 05/11/2023 Telephone Hematology/Oncology Treatment, [place] [address] [place] [phone] Zenia Rajan MD [address] [place] [address] Precert Future (acalabrutinib) Allergies Active Allergy Reactions [...] dysfunction 08/15/2021 Coronary artery disease invo lving [place] coronary artery of [place] heart without angina pectoris 08/15/2021 Moderate mitral [...] Cardiology Tari Sutherland CRNP [address] [place] [address] 06/09/2023 Laboratory Laboratory [place], Laboratory [address] [place] [address] 06/19/2023 Office Visit Family Medicine Lucas Mendez MD [address] [place] [address] 06/24/2023 Office Visit Hematology Oncology Zenia Rajan MD [address] [place] [address] 06/24/2023 Office Visit Hematology Oncology Zenia Rajan MD 200 [facility] [place] [address] 07/30/2023 Laboratory Laboratory [place] [facility] [address] [place] [address] 10/22/2023 Office Visit Cardiology Nithin Smith DO [address] [place] [address] Scheduled Procedures Name Priority Associated Diagnoses Date/Ti me COLONOSCOPY FLEXIBLE PROXIMA L DIAGNOSTIC Recall Special screening for malignant neoplasms, colon Health Maintenance Due Date Last Done Comments DIABETES-EYE EXAM 1961 DIABETES-FOOT EXAM 1961 Hepatitis C Screening 1961 DTaP,Tdap,and Td Vaccines (1 - Tdap) 02/13/2004 02/12/2004, 06/12/1994 COVID-19 Vaccine (3 - Pfizer risk series) 01/18/2021 12/21/2020, 11/30/2020 CKD PHOS USE SMARTSET 92491 02/05/2021 02/06/2020, 0 12/20/2008 Depression Screening, Annual [...] Ratio 12/13/2023 12/12/2022 CKD HGB USE SMARTSET 10651 05/11/202405/11, 05/11/2023, 04/23/2023, Additional history exists Pneumococcal [...] - 20 mg/dL 05/11/2023 12:32 PM EDT [place] [address] Creatinine 1.1(H) 0.5 - 1.0 mg/dL 05/11/2023 12:32 PM EDT [place] [address] Estimated Glomerular Filtration Rate 50(L) >=60 mL/min 05/11/2023 12:32 PM EDT [place] [address] Comment:eGFR is calculated b ased on the CKD-EPI 2020 equation Sodium 140 135 - 146 mmol/L 05/11/2023 12:32 PM EDT [place] [address] Potassium 4.4 3.5 - 5.1 mmol/L 05/11/2023 12:32 PM EDT [place] [address] Chloride 106 98 - 107 mmol/L 05/11/2023 12:32 PM EDT [place] [address] CO2 26 22 - 32 mmol/L 05/11/2023 12:32 PM EDT [place] [address] Anion Gap 8 7 - 15 mmol/L 05/11/2023 12:32 PM EDT [place] [address] Glucose 106 70 - 120 mg/dL 05/11/2023 12:32 PM EDT [place] [address] Albumin 4.2 3.8 - 5.0 g/dL 05/11/2023 12:32 PM EDT [place] [address] AST 25 10 - 35 U/L 05/11/2023 12:32 PM EDT [place] [address] Alkaline Phosphatase 109 35 - 130 U/L 05/11/2023 12:32 PM EDT [place] [address] Bilirubin, Total 0.6 <=1.2 mg/dL 05/11/2023 12:32 PM EDT [place] [address] Calcium 9.2 8.4 - 10.2 mg/dL 05/11/2023 12:32 PM EDT [place] [address] Protein 6.6 6.0 - 8.3 g/dL 05/11/2023 12:32 PM EDT [address] ALT 15 10 - 35 U/L 05/11/2023 12:32 PM EDT LAB[facility]ATORY [place] 56-02 Blood Venous blood specimen / Unknown Venipuncture / Unknown 05/11/2023 12:00 PM EDT 05/11/2023 12:00 PM EDT Zenia Rajan MD LAB BLOOD ORDERA BLES LAB[facility] [place] 56-[address] [place] [address] * HEPATITIS B CORE ANTIBODIES IGG AND IGM (05/11/2023 12:00 PM EDT) Hepatitis B Core Antibodies IgG and IgM Negative Negative 05/11/2023 9:37 PM EDT LABORATORY [facility] Blood Venous blood specimen / Unknown Venipuncture / Unknown 05/11/2023 12:00 PM EDT 05/11/2023 12:00 PM EDT Zenia Rajan MD LAB BLOOD ORDERA BLES Performing Organization Address [facility]/ZIP Co de Phone Number LABORATORY [facility] [address] [place] [address] * HEPATITIS B SURFACE ANTIGEN (05/11/2023 12:00 PM EDT) Pathologist [facility] [place] Hepatitis B Surface Antigen Negative Negative 05/11/2023 9:37 PM EDT LABORATORY [facility] Blood Venous blood specimen / Unknown Venipuncture / Unknown 05/11/2023 12:00 PM EDT 05/11/2023 12:00 PM EDT Zenia Rajan MD LAB BLOOD ORDERA BLES Performing Organization Address City/[facility]/ZIP Co de Phone Number LABORATORY [facility] [address] [place] [address] * HEPATITIS B SURFACE ANTIBODY (05/11/2023 12:00 PM EDT) Hepatitis B Surface Antibody, Quantitative <3.5 mIU/mL 05/11/2023 9:37 PM EDT LABORATORY [facility] Hepatitis B Surface Antibody, Qualitative Negative 05/11/2023 9:37 PM EDT LABORATORY [facility] Hepatitis B Surface Antibody, Interpretation NOT immune to Hepatitis B Virus 05/11/2023 9:37 PM EDT LABORATORY [facility] Comment: POSITIVE: >=11.5 mIU/mL INDETERMINATE: 8.5-<11.5 mIU/mL NEGATIVE: <8.5 mIU/mL Blood Venous blood specimen / Unknown Venipuncture / Unknown 05/11/2023 12:00 PM EDT 05/11/2023 12:00 PM EDT Zenia Rajan MD LAB BLOOD ORDERA BLES LABORATORY [facility] [address] [place] [address] documented in this encounter Visit Diagnoses Diagnosis CLL (chronic lymphocytic leukemia) (HCC)- Primary Chronic lymphoid leukemia, without mention of having achieved remission Encounter for screening for viral disease documented in this encounter Care Teams Legal Records Clerk Relationship Specialty Start Date End Date Lucas Mendez MD [address] [place], [place] [phone] PCP - General 07/12/00 documented as of this encounter
--- OUTSIDE RECORDS SUMMARY | 2023-08-24 15:03 | External Medical Summary | Summary of Care ---
Author Name Unknown Organization [facility] [address] [facility] [place] [address] Phone [phone] Care Team Providers Care Permastone Applicator Name Role Phone Lucas Mendez MD Primary Care Provider +1- [phone] Reason for Visit * Reason Onset Date Comments Precert Future 05/11/2023 acalabrutinib Encounter Details Date Type Department Care Team Description 05/11/2023 Telephone Hematology/Oncology Treatment, [place] [address] [place] [phone] Zenia Rajan MD [address] [place] [address] Precert Future (acalabrutinib) Allergies Active Allergy Reactions [...] dysfunction 08/15/2021 Coronary artery disease invo lving [place] coronary artery of [place] heart without angina pectoris 08/15/2021 Moderate mitral [...] Specialty Care Team Description 05/15/2023 Pharmacy Pharmacy [facility] Hem/Onc [address] [place] [address] 05/27/2023 Office Visit Cardiology Tari Sutherland CRNP [address] [place] [address] 06/09/2023 Laboratory Laboratory [facility] Laboratory [address] [place] [address] 06/19/2023 Office Visit Family Medicine Lucas Mendez MD [address] [place] [address] 06/24/2023 Office Visit Hematology Oncology Zenia Rajan MD [address] [place] [address] 06/24/2023 Office Visit Hematology Oncology Zenia Rajan MD [address] [facility] [place] [address] 07/30/2023 [facility] [address] [place] [facility] [place] [address] 10/22/2023 Office Visit Cardiology Nithin Smith DO [address] [place] [address] Scheduled Procedures Name Priority Associated Diagnoses Date/Ti me COLONOSCOPY FLEXIBLE PROXIMA L DIAGNOSTIC Recall Special screening for malignant neoplasms, colon Health Maintenance Due Date Last Done Comments DIABETES-EYE EXAM 1963 DIABETES-FOOT EXAM 1963 Hepatitis C Screening 1963 DTaP,Tdap,and Td Vaccines (1 - Tdap) 02/13/2004 02/12/2004, 06/12/1994 COVID-19 Vaccine (3 - Pfizer risk series) 01/18/2021 12/21/2020, 11/30/2020 CKD PHOS USE SMARTSET 70877 02/05/2021 02/06/2020, 0 12/20/2008 Depression Screening, Annual [...] Ratio 12/13/2023 12/12/2022 CKD HGB USE SMARTSET 69374 05/11/202405/11, 05/11/2023, 04/23/2023, Additional history exists Pneumococcal [...] - 20 mg/dL 05/11/2023 12:32 PM EDT [facility] 56 Creatinine 1.1(H) 0.5 - 1.0 mg/dL 05/11/2023 12:32 PM EDT [address] Estimated Glomerular Filtration Rate 50(L) >=60 mL/min 05/11/2023 12:32 PM EDT [facility] 56- Comment:eGFR is calculated b ased on the CKD-EPI 2020 equation Sodium 140 135 - 146 mmol/L 05/11/2023 12:32 PM EDT [facility] 56- Potassium 4.4 3.5 - 5.1 mmol/L 05/11/2023 12:32 PM EDT [facility] 56- Chloride 106 98 - 107 mmol/L 05/11/2023 12:32 PM EDT [facility] 56- CO2 26 22 - 32 mmol/L 05/11/2023 12:32 PM EDT [facility] [place] 56- Anion Gap 8 7 - 15 mmol/L 05/11/2023 12:32 PM EDT [facility] 56- Glucose 106 70 - 120 mg/dL 05/11/2023 12:32 PM EDT [facility] 56- Albumin 4.2 3.8 - 5.0 g/dL 05/11/2023 12:32 PM EDT [facility] 56- AST 25 10 - 35 U/L 05/11/2023 12:32 PM EDT [facility] 5602 Alkaline Phosphatase 109 35 - 130 U/L 05/11/2023 12:32 PM EDT [address] Bilirubin, Total 0.6 <=1.2 mg/dL 05/11/2023 12:32 PM EDT [place] [address] Calcium 9.2 8.4 - 10.2 mg/dL 05/11/2023 12:32 PM EDT [address] Protein 6.6 6.0 - 8.3 g/dL 05/11/2023 12:32 PM EDT [facility] 5602 ALT 15 10 - 35 U/L 05/11/2023 12:32 PM EDT [place] [address] Blood Venous blood specimen / Unknown Venipuncture / Unknown 05/11/2023 12:00 PM EDT 05/11/2023 12:00 PM EDT Zenia Rajan MD LAB BLOOD ORDERA BLES [facility] 5[address] [place] [address] * HEPATITIS B CORE ANTIBODIES IGG AND IGM (05/11/2023 12:00 PM EDT) Pathologist [facility] Hepatitis B Core Antibodies IgG and IgM Negative Negative 05/11/2023 9:37 PM EDT LAB[facility]ATORY [facility] Blood Venous blood specimen / Unknown Venipuncture / Unknown 05/11/2023 12:00 PM EDT 05/11/2023 12:00 PM EDT Zenia Rajan MD LAB BLOOD ORDERA BLES [facility] [address] [place] [address] * HEPATITIS B SURFACE ANTIGEN (05/11/2023 12:00 PM EDT) Hepatitis B Surface Antigen Negative Negative 05/11/2023 9:37 PM EDT [facility] Blood Venous blood specimen / Unknown Venipuncture / Unknown 05/11/2023 12:00 PM EDT 05/11/2023 12:00 PM EDT Zenia Rajan MD LAB BLOOD ORDERA BLES Performing Organization Address [facility] Co de Phone Number LABORATORY [address] [address] * HEPATITIS B SURFACE ANTIBODY (05/11/2023 12:00 PM EDT) Pathologist [facility] Hepatitis B Surface Antibody, Quantitative <3.5 mIU/mL 05/11/2023 9:37 PM EDT LAB[facility]ORY [facility] Hepatitis B Surface Antibody, Qualitative Negative 05/11/2023 9:37 PM EDT LAB[facility]ORY [facility] Hepatitis B Surface Antibody, Interpretation NOT immune to Hepatitis B Virus 05/11/2023 9:37 PM EDT [facility] Comment: POSITIVE: >=11.5 mIU/mL INDETERMINATE: 8.5-<11.5 mIU/mL NEGATIVE: <8.5 mIU/mL Blood Venous blood specimen / Unknown Venipuncture / Unknown 05/11/2023 12:00 PM EDT 05/11/2023 12:00 PM EDT Zenia Rajan MD LAB BLOOD ORDERA BLES Performing Organization Address [facility] Co de Phone Number LABORATORY [address] [address] documented in this encounter Visit Diagnoses Diagnosis CLL (chronic lymphocytic leukemia) (HCC)- Primary Chronic lymphoid leukemia, without mention of having achieved remission Encounter for screening for viral disease documented in this encounter Care Teams Permastone Applicator Relationship Specialty Start Date End Date Lucas Mendez MD [address] [place] [address] PCP - General 07/12/00 documented as of this encounter
--- OUTSIDE RECORDS SUMMARY | 2023-08-24 15:03 | External Medical Summary | Summary of Care ---
Author Name Unknown Organization [facility] Address [address] [facility] [place] [address] Phone [phone] Care Team Providers Care Stud Driver Name Role Phone Lucas Mendez MD Primary Care Provider +1- [phone] Reason for Visit * Reason Onset Date Comments Precert Future 05/11/2023 acalabrutinib Encounter Details Date Type Department Care Team Description 05/11/2023 Telephone Hematology/Oncology Treatment, [place] [address] [place] [phone] Zenia Rajan MD [address] [place] [address] Precert Future (acalabrutinib) Allergies Active Allergy Reactions [...] dysfunction 08/15/2021 Coronary artery disease invo lving [place] coronary artery of [place] heart without angina pectoris 08/15/2021 Moderate mitral [...] Sutherland CRNP [address] [place] [address] 06/09/2023 Laboratory Laboratory [facility] Laboratory [address] [place] [address] 06/19/2023 Office Visit Family Medicine Lucas Mendez MD [address] [place] [address] 06/24/2023 Office Visit Hematology Oncology Zenia Rajan MD [address] [place] [address] 06/24/2023 Office Visit Hematology Oncology Zenia Rajan MD 200 [place] [address] 07/30/2023 Laboratory Laboratory [facility] Laboratory [address] [place] [address] 10/22/2023 Office Visit Cardiology Nithin Smith DO [address] [place] [address] Scheduled Procedures Name Priority Associated Diagnoses Date/Ti me COLONOSCOPY FLEXIBLE PROXIMA L DIAGNOSTIC Recall Special screening for malignant neoplasms, colon Health Maintenance Due Date Last Done Comments DIABETES-EYE EXAM 1963 DIABETES-FOOT EXAM 1961 Hepatitis C Screening 1961 DTaP,Tdap,and Td Vaccines (1 - Tdap) 02/13/2004 02/12/2004, 06/12/1994 COVID-19 Vaccine (3 - Pfizer risk series) 01/18/2021 12/21/2020, 11/30/2020 CKD PHOS USE SMARTSET 33495 02/05/2021 02/06/2020, 0 12/20/2008 Depression Screening, Annual [...] Ratio 12/13/2023 12/12/2022 CKD HGB USE SMARTSET 46708 05/11/202405/11, 05/11/2023, 04/23/2023, Additional history exists Pneumococcal [...] mg/dL 05/11/2023 12:32 PM EDT [facility] 56-02 Estimated Glomerular Filtration Rate 50(L) >=60 mL/min 05/11/2023 12:32 PM EDT [address] Comment:eGFR is calculated b ased on the CKD-EPI 2020 equation Sodium 140 135 - 146 mmol/L 05/11/2023 12:32 PM EDT [address] Potassium 4.4 3.5 - 5.1 mmol/L 05/11/2023 12:32 PM EDT [place] [address] Chloride 106 98 - 107 mmol/L 05/11/2023 12:32 PM EDT [place] [address] CO2 26 22 - 32 mmol/L 05/11/2023 12:32 PM EDT [place] [address] Anion Gap 8 7 - 15 mmol/L 05/11/2023 12:32 PM EDT [place] [address] Glucose 106 70 - 120 mg/dL 05/11/2023 12:32 PM EDT [place] [address] Albumin 4.2 3.8 - 5.0 g/dL 05/11/2023 12:32 PM EDT [place] [address] AST 25 10 - 35 U/L 05/11/2023 12:32 PM EDT [place] [address] Alkaline Phosphatase 109 35 - 130 U/L 05/11/2023 12:32 PM EDT [address] Bilirubin, Total 0.6 <=1.2 mg/dL 05/11/2023 12:32 PM EDT [place] [address] Calcium 9.2 8.4 - 10.2 mg/dL 05/11/2023 12:32 PM EDT [place] [address] Protein 6.6 6.0 - 8.3 g/dL 05/11/2023 12:32 PM EDT [place] [address] ALT 15 10 - 35 U/L 05/11/2023 12:32 PM EDT [place] [address] Blood Venous blood specimen / Unknown Venipuncture / Unknown 05/11/2023 12:00 PM EDT 05/11/2023 12:00 PM EDT Zenia Rajan MD LAB BLOOD ORDERA BLES [address] [place] [address] * HEPATITIS B CORE ANTIBODIES IGG AND IGM (05/11/2023 12:00 PM EDT) Pathologist [facility] Hepatitis B Core Antibodies IgG and IgM Negative Negative 05/11/2023 9:37 PM EDT [facility] [place] Blood Venous blood specimen / Unknown Venipuncture / Unknown 05/11/2023 12:00 PM EDT 05/11/2023 12:00 PM EDT Zenia Rajan MD LAB BLOOD ORDERA BLES Performing Organization Address [facility] Co de Phone Number [facility] [place] [address] [place] [address] * HEPATITIS B SURFACE ANTIGEN (05/11/2023 12:00 PM EDT) Pathologist [facility] Hepatitis B Surface Antigen Negative Negative 05/11/2023 9:37 PM EDT [facility] [place] Blood Venous blood specimen / Unknown Venipuncture / Unknown 05/11/2023 12:00 PM EDT 05/11/2023 12:00 PM EDT Zenia Rajan MD LAB BLOOD ORDERA BLES Performing Organization Address [facility] de Phone Number [facility] [place] [address] [place] [address] * HEPATITIS B SURFACE ANTIBODY (05/11/2023 12:00 PM EDT) Pathologist [facility] Hepatitis B Surface Antibody, Quantitative <3.5 mIU/mL 05/11/2023 9:37 PM EDT [facility] [place] Hepatitis B Surface Antibody, Qualitative Negative 05/11/2023 9:37 PM EDT [facility] [place] Hepatitis B Surface Antibody, Interpretation NOT immune to Hepatitis B Virus 05/11/2023 9:37 PM EDT [facility] [place] Comment: POSITIVE: >=11.5 mIU/mL INDETERMINATE: 8.5-<11.5 mIU/mL NEGATIVE: <8.5 mIU/mL Blood Venous blood specimen / Unknown Venipuncture / Unknown 05/11/2023 12:00 PM EDT 05/11/2023 12:00 PM EDT Zenia Rajan MD LAB BLOOD ORDERA BLES [facility] [place] [address] [place] [address] documented in this encounter Visit Diagnoses Diagnosis CLL (chronic lymphocytic leukemia) (HCC)- Primary Chronic lymphoid leukemia, without mention of having achieved remission Encounter for screening for viral disease documented in this encounter Care Teams Stud Driver Relationship Specialty Start Date End Date Lucas Mendez MD [address], [place] [phone] PCP - General 07/12/00 documented as of this encounter
--- OUTSIDE RECORDS SUMMARY | 2023-08-24 15:03 | External Medical Summary | Summary of Care ---
Author Name Unknown Organization [facility] Address [address] [place] [address] Phone [phone] Care Team Providers Care Press Tender Smoke Signal Name Role Phone Lucas Mendez MD Primary Care Provider +1- [phone] Encounter Details Date Type Department Care Team Description 05/13/2023 Orders Only Hematology/Oncology, [facility] [address] [facility] [place] [address] Zenia Rajan MD 200 [place] [address] CLL (chronic lymphocytic leukemia) ([facility])* Allergies Active Allergy Reactions Severity Noted [...] dysfunction 08/15/2021 Coronary artery disease invo lving [place] coronary artery of [place] heart without angina pectoris 08/15/2021 Moderate mitral [...] Specialty Care Team Description 05/15/2023 Pharmacy [facility]acy [facility] Hem[facility]c [address] [place] [address] 05/27/2023 Office Visit Cardiology Tari Sutherland CRNP [address] [place] [address] 06/09/2023 Laboratory Laboratory [facility] [address] [place] [address] 06/19/2023 Office Visit Family Medicine Lucas Mendez MD [address] [place] [address] 06/24/2023 Office Visit Hematology Oncology Zenia Rajan MD [address] [place] [address] 06/24/2023 Office Visit Hematology Oncology Zenia Rajan MD 200 [facility] [place] [address] 07/30/2023 Laboratory Laboratory [facility] Laboratory [address] [place] [address] 10/22/2023 Office Visit Cardiology Nithin Smith, DO [address] [place] [address] Scheduled Procedures Name Priority Associated Diagnoses Date/Ti me COLONOSCOPY FLEXIBLE PROXIMA L DIAGNOSTIC Recall Special screening for malignant neoplasms, colon Health Maintenance Due Date Last Done Comments DIABETES-EYE EXAM 1963 DIABETES-FOOT EXAM 1961 Hepatitis C Screening 1963 DTaP,Tdap,and Td Vaccines (1 - Tdap) 02/13/2004 02/12/2004, 06/12/1994 COVID-19 Vaccine (3 - Pfizer risk series) 01/18/2021 12/21/2020, 11/30/2020 CKD PHOS USE SMARTSET 80140 02/05/2021 02/06/2020, 0 12/20/2008 Depression Screening, Annual [...] Ratio 12/13/2023 12/12/2022 CKD HGB USE SMARTSET 92197 05/11/202405/11, 05/11/2023, 04/23/2023, Additional history exists Pneumococcal [...] remission documented in this encounter Care Teams Press Tender Smoke Signal Relationship Specialty Start Date End Date Lucas Mendez MD [address], [place] [id number] PCP - General 07/12/00 documented as of this encounter
--- OUTSIDE RECORDS SUMMARY | 2023-08-24 15:03 | External Medical Summary | Summary of Care ---
Author Name Unknown Organization [facility] Address [address] [facility] [place] [address] Phone [phone] Care Team Providers Care Instrument Man Name Role Phone Lucas Mendez MD Primary Care Provider +1- [phone] Encounter Details Date Type Department Care Team Description 05/12/2023 Orders Only Hematology/Oncology [place] [address] [facility] [address] [place] [address] Zenia Rajan MD 200 [facility] [place] [address] Allergies Active Allergy Reactions Severity Noted Date [...] dysfunction 08/15/2021 Coronary artery disease invo lving [place] coronary artery of [place] heart without angina pectoris 08/15/2021 Moderate mitral [...] Encounters Date Type Specialty Care Team Description 05/13/2023 [facility] [address] [facility] [place] [address] 05/27/2023 Office Visit Cardiology Tari Sutherland CRNP [address] [place] [address] 06/09/2023 Laboratory Laboratory [address] [id number] 06/19/2023 Office Visit Family Medicine Lucas Mendez MD [address] [place] [address] 06/24/2023 Office Visit Hematology Oncology Zenia Rajan MD [address] [place] [address] 06/24/2023 Office Visit Hematology Oncology Zenia Rajan MD [address] [place] [address] 07/30/2023 Laboratory Laboratory [facility] Laboratory [address] [place] [address] 10/22/2023 Office Visit Cardiology Nithin Smith, [address] [place] [address] Scheduled Procedures Name Priority Associated Diagnoses Date/Ti me COLONOSCOPY FLEXIBLE PROXIMA L DIAGNOSTIC Recall Special screening for malignant neoplasms, colon Health Maintenance Due Date Last Done Comments DIABETES-EYE EXAM 1963 DIABETES-FOOT EXAM 1961 Hepatitis C Screening 1963 DTaP,Tdap,and Td Vaccines (1 - Tdap) 02/13/2004 02/12/2004, 06/12/1994 COVID-19 Vaccine (3 - Pfizer risk series) 01/18/2021 12/21/2020, 11/30/2020 CKD PHOS USE SMARTSET 70487 02/05/2021 02/06/2020, 0 12/20/2008 Depression Screening, Annual [...] Ratio 12/13/2023 12/12/2022 CKD HGB USE SMARTSET 18095 05/11/202405/11, 05/11/2023, 04/23/2023, Additional history exists Pneumococcal [...] filedocumented as of this encounter Care Teams Instrument Man Relationship Specialty Start Date End Date Lucas Mendez MD [address] [place] [address] PCP - General 07/12/00 documented as of this encounter
--- OUTSIDE RECORDS SUMMARY | 2023-08-24 15:04 | External Medical Summary | Summary of Care ---
Author Name Unknown Organization [facility] Address [address] [facility] [place] [address] Phone [phone] Care Team Providers Care Maintenance Assistant Name Role Phone Lucas Mendez MD Primary Care Provider +1- [phone] Encounter Details Date Type Department Care Team Description 05/11/2023 Education Visit Hematology/Oncology Treatment, [place] [address] [place] [address] Silvia Chaudhary, RN CLL (chronic lymphocytic leukemia) ([facility])* Allergies Active Allergy Reactions Severity Noted Date Comments Codeine Nausea/vomiting 2011 Lisinopril 03/07/2008 Cough documented as of this encounter (statuses as of 05/11/2023) Medications Medication Sig Dispensed Refills Start Date [...] as of this encounter (statuses as of 05/11/2023) Active Problems Problem Noted Date Type 2 diabetes mellitus with hemoglobin A1c goal of less than 7.0% 12/02/2022 AICD (automatic cardioverter/defibrillat or) present 07/24/2022 Chronic kidney disease, stage 3b 022 Overview: Per CKD protocol Ischemic cardiomyopathy 08/15/2021 LBBB (left bundle branch block) 08/15/20 21 Chronic heart failure with r educed ejection fraction and diastolic dysfunction 08/15/2021 Coronary artery disease invo lving [place] coronary artery of [place] heart without angina pectoris 08/15/2021 Moderate mitral [...] as of this encounter (statuses as of 05/11/2023) Resolved Problems Problem Noted Date Resolved Date [...] as of this encounter (statuses as of 05/11/2023) Immunizations Name Administration Dates Next Due Pneumococcal [...] Encounters Date Type Specialty Care Team Description 05/11/2023 [facility] [address] [facility] [place] [address] 05/27/2023 Office Visit Cardiology Tari Sutherland CRNP [address] [place] [address] 06/09/2023 Laboratory [address] [address] 06/19/2023 Office Visit Family Medicine Lucas Mendez MD [address] [place] [address] 06/24/2023 Office Visit Hematology Oncology Z[place] Rajan MD 200 [facility] [place] [address] 06/24/2023 Office Visit Hematology Oncology Zenia Rajan MD 200 [facility] [place] [address] 07/30/2023 Laboratory Laboratory [place], Laboratory [address] [place] [address] 10/22/2023 Office Visit Cardiology Nithin Smith, DO [address] [place] [address] Scheduled Procedures Name Priority Associated Diagnoses Date/Ti me COLONOSCOPY FLEXIBLE PROXIMA L DIAGNOSTIC Recall Special screening for malignant neoplasms, colon Health Maintenance Due Date Last Done Comments DIABETES-EYE EXAM 1961 DIABETES-FOOT EXAM 1961 Hepatitis C Screening 1963 DTaP,Tdap,and Td Vaccines (1 - Tdap) 02/13/2004 02/12/2004, 06/12/1994 COVID-19 Vaccine (3 - Pfizer risk series) 01/18/2021 12/21/2020, 11/30/2020 CKD PHOS USE SMARTSET 13148 02/05/2021 02/06/2020, 0 12/20/2008 Depression Screening, Annual for Pts 12 and Over 04/11/2021 04/11/2020 DXA Scan 04/02/2023 04/02/2016, 0411/2013, 01/11/2014, Additional history exists Influenza Vaccine (FLU shot) (#1) 2023 08/19/2021, 08/30/2019, 08/30/2019, Additional history exists HbA1c 06/14/2023 12/12/2022, 07/12, 01/27/2022 GFR 09/02/2023 03/02/2023, 01/10, 11/04/2022, Additional history exists TSH 10/24/2023 10/24/2022, 09/12, 04/11/2020, Additional history exists Albumin/Creatinine Ratio 12/13/2023 12/12/2022 CKD HGB USE SMARTSET 77438 05/11/202405/11, 05/11/2023, 04/23/2023, Additional history exists Pneumococcal [...] remission documented in this encounter Care Teams Maintenance Assistant Relationship Specialty Start Date End Date Lucas Mendez MD [address] [place] [address] PCP - General 07/12/00 documented as of this encounter
--- OUTSIDE RECORDS SUMMARY | 2023-08-24 15:04 | External Medical Summary | Summary of Care ---
Author Name Unknown Organization [facility] Address [address] [place] [address] Phone [phone] Care Team Providers Care Bite Block Maker Name Role Phone Lucas Mendez MD Primary Care Provider [phone]- [phone] Reason for Visit * Reason Comments Follow Up 3m Encounter Details Date Type Department Care Team Description 05/11/2023 Office Visit Hematology/Oncology State Faisal Vargas [address] [place] [address] Zenia Rajan MD [address] [place] [address] CLL (chronic lymphocytic leukemia) ([facility])* Allergies Active Allergy Reactions Severity Noted [...] dysfunction 08/15/2021 Coronary artery disease invo lving [place] coronary artery of [place] heart without angina pectoris 08/15/2021 Moderate mitral [...] Influenza, Split, I IV3, With Preserve, Inj 07/29/2014,06/27/2013,08/25/2012,07/12,07/23/2010,08/04/2009,10/31/19,08/29/2003 07/29/2015 Seasonal Influenza, Triv[place] t, Adjuvanted, 65+ [...] Sign Reading Time Taken Comments Blood Pressure 98/61 05/11/2023 11:21 AM EDT Pulse 73 05/11/2023 11:21 AM EDT Temperature - - Respiratory Rate 16 05/11/2023 11:21 AM EDT Oxygen Saturation 94% 05/11/2023 11:21 AM EDT Inhaled Oxygen Concentration - - Weight - - Height - - Body Mass Index - - documented in this encounter Progress Notes * Zenia Rajan MD - 05/11/2023 10:53 AM EDT Images from the original note were not included. Outpatient Consult Note Data Source: Patient, Epic record. Data Source: Patient, Epic record. 05/11/2023 10:53 AM Viri Ellison [id number] 77 year old Patient Encounter: HEMATOLOGY/ONCOLOGY [facility] Cancer Diagnosis: Chronic lymphocytic leukemia Current Treatment: Observation Previous Treatment: None Oncologic History : 76-year-old female was recently found to have leukocytosis. Further workup done and confirmed thediagnosis of chronic lymphocytic leukemia. She was referred [...] (SLL) in leukemia phase. The prognostic markers, [place]-70 and CD38, are both positive, which is the least favorable prognosticcategory. NEOtype analysis was done for CLL and shows as follow: Social history patient denies any smoking or drinking. Family history not significant for any hematologic oncology problem Interval History: Clinically she is stable without any new symptoms complain. She denies any fever, night sweats, weight loss, nausea, vomiting, headache, chest pain, palpitation abdominal pain or distention, bleeding, bruising, change in the bowel habits. LABS/IMAGING: Results for orders placed or performed in visit on 05/11/23 CBC Result Value Ref Range WBC 109.22 (HH) 4.00 - 10.80 K/uL RBC 3.16 3.85 - 5.15 M/uL HGB 10.2 (L) 12.0 - 15.3 g/dL HCT 33.0 (L) 36.0 - 45.2 % MCV 104.4 81.5 - 97.5 fL MCH 32.3 27.0 - 34.0 pg MCHC 30.9 32.0 - 36.0 g/dL RDW 16.6 11.5 - 15.5 % PLT 112 (L) 140 - 400 K/uL MPV 9.6 6.6 - 11.1 fL DIFFERENTIAL, TECHNOLOGIST REVIEW Result Value Ref Range WBC 109.22 (HH) 4.00 - 10.80 K/uL Neutrophils % 2.0 (L) 40.0 - 75.0 % Lymphocytes % 96.0 (H) 18.0 - 42.0 % Monocytes % 2.0 1.0 - 11.0 % Absolute Neutrophils 2.18 1.80 - 7.70 K/uL Absolute Lymphocytes 104.85 (H) 1.00 - 4.80 K/uL Absolute Monocytes 2.18 (H) 0.00 - 1.10 K/uL nRBCs Elliptocytes Moderate (A) None Seen Reactive Lymphocytes Present (A) None Seen Smudge Cells Present (A) None Seen Significant increase in the lymphocyte count with decreased hemoglobin and platelet counts. REVIEW OF SYSTEMS: General: No Fever, chills, night sweats, or weight loss. HEENT: No change in visual acuity, blurred or double vision. No epistaxis, facial pain, nasal discharge or change in hearing. Denies dysphagia, no muscosal ulceration, or sores noted. Cardiovascular: No chest pain, DUNN, or palpitations Respiratory: No shortness of breath, cough, hemoptysis, or pleuritic chest pain Gastrointestinal: No abdominal pain, nausea, vomiting, diarrhea, rectal pain or bleeding Genitourinary: Denies Hematuria or dysuria Musculoskeletal: No bone pain Skin: No skin rash or lesions noted Neurologic: No numbness, weakness, neuropathic pain or change in cognitive function Psychiatric: No vegetative signs of depression Endocrine: [...] needed for Pain, Mild. 30 Tablet 0 Levothyroxine Sodium 75 MCG Oral Tablet (Levoxyl) take one tablet by mouth daily at least 30 minutes before breakfast and other medications 90 Tablet 3 buPROPion HCl ER (SR) 100 MG Oral Tablet Extended Release 12 Hour (Wellbutrin SR) TAKE 1 TABLETBY MOUTH TWICE DAILY 180 Tablet 3 Atorvastatin Calcium 80 MG Oral Tablet (Lipitor) TAKE ONE TABLET BY MOUTH DAILY 90 Tablet 3 PARoxetine HCl 10 MG Oral Tablet (pAXil) Take 1 Tablet by mouth in the morning. 30 Tablet 5 Benzonatate 100 MG Oral Capsule (Tessalon Perles) Take 1 Capsule by mouth 3 times a day as needed for Cough. Do not cut, crush, or chew. 50 Capsule 1 Polyethylene Glycol 3350 17 GM Oral Packet (MiraLax) Take 1 Packet by mouth in the morning. Metoprolol Succinate ER 50 MG Oral Tablet Extended Release 24 Hour (toPROL XL) Take 0.5 Tabletsby mouth in the morning. 90 Tablet 3 No current facility-administered medications for this visit. Social History Tobacco Use Smoking status: Never Smokeless tobacco: Never Substance Use Topics Alcohol use: No Drug use: No Review of patient's allergies indicates: Allergen Reactions Codeine Nausea/vomiting Lisinopril Cough PHYSICAL EXAMINATION: General Appearance: Weak appearing patient in no acute distress There were no vitals taken for this visit. Vitals reviewed. HEENT: No oral or pharyngeal [...] of chronic lymphocytic leukemia currently under observation. Overall clinically she is stable without any new symptoms complain. On physical examination there are no palpable lymph nodes or organomegaly. On the recent blood test there is increase in the WBC count with lymphocytosis and decrease in the hemoglobin and platelet count. Most likely these changes are indicated of disease progression. She will benefit with the acalibrutinib. Discussed with her about the benefit, risk, side effects and toxicity of the treatment. After detailed discussion she agreed to proceed with treatment signed the consent form. She will also be followed by [facility] pharmacy. PLAN: As above. She will return to clinic for follow-up in 6 weeks with CBC and CMP. The patient voiced [...] Nursing Notes * Davina Zambrano CMA - 05/11/2023 11:21 AM EDT Patient identifed by name and birthdate Do you have any concerns about pain management for today's visit? Yes. Patient instructed to discuss pain concerns with provider during the visit today Living Will or Advance Directive for Health Care as noted on the problem list. [facility] is a way you can talk to your provider on line through e-mail. Would you like to sign up? I can activate it for you? ALREADY ACTIVE Filed Vitals: 05/11/23 1121 BP: 98/61 Pulse: 73 Resp: 16 SpO2: 94% Patient was instructed to not get up on the exam table/exam chair until directed and assisted by their provider; patient is to remain seated in the chair/ wheelchair/ exam table/ exam chair for fall prevention and safety reasons. Patient is aware to have assistance to step down off exam table/exam chair with personnel. Patient voiced full comprehension of instructions. documented in this encounter Miscellaneous Notes * Oncology Pathways Update - Zenia Rajan MD - 05/11/2023 10:55 AM EDT START ON PATHWAY REGIMEN - Lymphoma and CLL [id number]: Acalabrutinib 100 mg PO BID Until Progression or Unacceptable Toxicity A cycle is every 28 days: Acalabrutinib (Calquence) 100 mg flat dose orally twice daily approximately 12 hours apart on days 1 through 28 Always confirm dose/schedule in your pharmacy ordering system Citations: -Marcellus ROGER, Ethel P, Teto P, et al. Acalabrutinib Versus Ibrutinib in Previously Treated Chronic Lymphocytic Leukemia: Results of the First Randomized Phase III Trial. J Clin Oncol. Published online May 06, 2021:[id number]. doi:10.1200/JCO.21.78224 URL: https://pubmed.ncbi.nlm.nih.gov/13888299/ -Robson TOLLIVER, Damon M, Patricia W, et al. Acalabrutinib with or without obinutuzumab versus chlorambucil and obinutuzmab for treatment-naive chronic lymphocytic leukaemia ([facility] [place]): a randomised, controlled, phase 3 trial. Lancet. 2020;395(79461):3749-3049. doi:10.1016/H[address]221-[address]194(38)27500-6. URL: https://pubmed.ncbi.nlm.nih.gov/29913634/ Patient Characteristics: Chronic Lymphocytic Leukemia (CLL), Treatment Indicated, First Line Disease Type: Chronic Lymphocytic Leukemia (CLL) Disease Type: Not Applicable Disease Type: Not Applicable Treatment Indicated<= Treatment Indicated Line of Therapy: First Line Intent of Therapy: Non-Curative / Palliative Intent, Discussed with Patient * Oncology Pathways Notification - Zenia Rajan MD - 05/11/2023 10:55 AM EDT A new patient decision has been made in ClinicalPath. Details of this patient have been provided below: Patient Information: Name: VIRI ELLISON : 1945 Insurance Provider: MEDICARE A AND B Insurance Provider Name: Zenia Rajan Disease: Lymphoma and CLL Pathway Followed: Lymphoma and CLL, Chronic Lymphocytic Leukemia (CLL), Treatment Indicated, First Line Patient Characteristics: Chronic Lymphocytic Leukemia (CLL), Treatment Indicated, First Line Disease Type: Chronic Lymphocytic Leukemia (CLL) Disease Type: Not Applicable Disease Type: Not Applicable Treatment Indicated<= Treatment Indicated Line of Therapy: First Line Intent of Therapy: Non-Curative / Palliative Intent, Discussed with Patient Treatment Details: START ON PATHWAY REGIMEN [id number]: Acalabrutinib 100 mg PO BID Until Progression or Unacceptable Toxicity A cycle is every 28 days: Acalabrutinib (Calquence) 100 mg flat dose orally twice daily approximately 12 hours apart on days 1 through 28 Always confirm dose/schedule in your pharmacy ordering system Citations: -Marcellus ROGER, Ethel P, Teto P, et al. Acalabrutinib Versus Ibrutinib in Previously Treated Chronic Lymphocytic Leukemia: Results of the First Randomized Phase III Trial. J Clin Oncol. Published online May 06, 2021:[id number]. doi:10.1200/JCO.21.45684 URL: https://pubmed.ncbi.nlm.nih.gov/44633150/ -Robson TOLLIVER, Damon M, Patricia W, et al. Acalabrutinib with or without obinutuzumab versus chlorambucil and obinutuzmab for treatment-naive chronic lymphocytic leukaemia ([facility] [place]): a randomised, controlled, phase 3 trial. Lancet. 2020;395(40932):5338-0550. doi:10.1016/Z9595-8804460-8467(17)26137-2. URL: https://pubmed.ncbi.nlm.nih.gov/56456938/ documented in this encounter Plan of Treatment Upcoming Encounters Date Type Specialty Care Team Description 05/27/2023 Office Visit Cardiology Ena, MELISSA Hogan [address] [place] [address] 06/09/[address] [facility] [address] [place] [address] 06/19/2023 Office Visit Family Medicine Lucas Mendez MD [address] [place] [address] 06/24/2023 Office Visit Hematology Oncology Zenia Rajan MD [address] [place] [address] 06/24/2023 Office Visit Hematology Oncology Zenia Rajan MD [address] [place] [address] 07/30/2023 Laboratory Laboratory [facility] [address] [place] [address] 10/22/2023 Office Visit Cardiology Nithin Smith, DO [address] [place] [address] Pending Results Name Type Priority Associated Diagnoses Date /Time LD Lab Routine CLL (chronic lymphocytic leukemia) (HCC) 05/11/2023 12:00 PM EDT Scheduled Procedures Name Priority Associated Diagnoses Date/Ti me COLONOSCOPY FLEXIBLE PROXIMA L DIAGNOSTIC Recall Special screening for malignant neoplasms, colon Health Maintenance Due Date Last Done Comments DIABETES-EYE EXAM 1963 DIABETES-FOOT EXAM 1963 Hepatitis C Screening 1963 DTaP,Tdap,and Td Vaccines (1 - Tdap) 02/13/2004 02/12/2004, 06/12/1994 COVID-19 Vaccine (3 - Pfizer risk series) 01/18/2021 12/21/2020, 11/30/2020 CKD PHOS USE SMARTSET 56180 02/05/2021 02/06/2020, 0 12/20/2008 Depression Screening, Annual [...] Ratio 12/13/2023 12/12/2022 CKD HGB USE SMARTSET 38096 05/11/202405/11, 05/11/2023, 04/23/2023, Additional history exists Pneumococcal [...] Not on filedocumented as of this encounter Procedures Procedure Name Priority Date/Time Associated Diagnosis Comments RETICULOCYTE PANEL Routine 05/11/2023 12 :00 PM EDT CLL (chronic lymphocytic leukemia) (HCC) documented in this encounter Results * RETICULOCYTE PANEL (05/11/2023 12:00 PM EDT) Reticulocyte Percent 1.15 0.80 - 1.90 % 05/11/2023 6:02 PM EDT [facility] Absolute Reticulocyte 38.0 31.3 - 100.1 K/uL 05/11/2023 6:02 PM EDT [facility] Immature Reticuloctye Fraction 16.3 2.5 - 20.6 % 05/11/2023 6:02 PM EDT [facility] Reticulocyte Hemoglobin 36.3 29.7 - 37.4 pg 05/11/2023 6:02 PM EDT [facility] Blood Venous blood specimen / Unknown Venipuncture / Unknown 05/11/2023 12:00 PM EDT 05/11/2023 12:00 PM EDT Zenia Rajan MD LAB BLOOD ORDERA BLES [facility] [address] [place] [address] documented in this encounter Visit Diagnoses Diagnosis CLL (chronic lymphocytic leukemia) (HCC)- Primary Chronic lymphoid leukemia, without mention of having achieved remission documented in this encounter Care Teams Bite Block Maker Relationship Specialty Start Date End Date Lucas Mendez MD [address] [place] [address] PCP - General 07/12/00 documented as of this encounter
--- OUTSIDE RECORDS SUMMARY | 2023-08-24 15:04 | External Medical Summary | Summary of Care ---
Author Name Unknown Organization [facility] Address [address] [place] [address] Phone [phone] Care Team Providers Care Station Usher Name Role Phone Lucas Mendez MD Primary Care Provider +1- [phone] Reason for Visit * Reason Comments Follow Up 3m Encounter Details Date Type Department Care Team Description 05/11/2023 Office Visit Hematology/Oncology State Faisal Vargas [address] [place] [address] Zenia Rajan MD [address] [place] [address] CLL (chronic lymphocytic leukemia) ([facility])* Allergies Active Allergy Reactions Severity Noted Date [...] dysfunction 08/15/2021 Coronary artery disease invo lving [place] coronary artery of [place] heart without angina pectoris 08/15/2021 Moderate mitral [...] Epic record. 05/11/2023 10:53 AM Viri Ellison [id number] 77 year old Patient Encounter: HEMATOLOGY/ONCOLOGY [facility] Cancer Diagnosis: Chronic lymphocytic leukemia Current [...] (SLL) in leukemia phase. The prognostic markers, [place]-70 and CD38, are both positive, which is [...] form. She will also be followed by [facility] pharmacy. PLAN: As above. She will [...] ON PATHWAY REGIMEN - Lymphoma and CLL [id number]: Acalabrutinib 100 mg PO BID Until Progression or Unacceptable Toxicity A cycle is every 28 days: Acalabrutinib (Calquence) 100 mg flat dose orally twice daily approximately 12 hours apart on days 1 through 28 Always confirm dose/schedule in your pharmacy ordering system Citations: -Marcellus DURAN, Ethel P, Teto P, et al. Acalabrutinib Versus Ibrutinib in Previously Treated Chronic Lymphocytic Leukemia: Results of the First Randomized Phase III Trial. J Clin Oncol. Published online May 06, 2021:[id number]. doi:10.1200/JCO.21.65757 URL: https://pubmed.ncbi.nlm.nih.gov/79594341/ -Robson TOLLIVER, Damon M, Patricia W, et al. Acalabrutinib with or without obinutuzumab versus chlorambucil and obinutuzmab for treatment-naive chronic lymphocytic leukaemia ([facility] [place]): a randomised, controlled, phase 3 trial. Lancet. 2020;395(02447):7282-1215. doi:10.1016/I6577-0245(69)36038-2. URL: https://pubmed.ncbi.nlm.nih.gov/87905964/ Patient Characteristics: Chronic Lymphocytic Leukemia (CLL), Treatment [...] Patient Treatment Details: START ON PATHWAY REGIMEN [id number]: Acalabrutinib 100 mg PO BID Until Progression or Unacceptable Toxicity A cycle is every 28 days: Acalabrutinib (Calquence) 100 mg flat dose orally twice daily approximately 12 hours apart on days 1 through 28 Always confirm dose/schedule in your pharmacy ordering system Citations: -Marcellus DURAN, Ethel P, Teto P, et al. Acalabrutinib Versus Ibrutinib in Previously Treated Chronic Lymphocytic Leukemia: Results of the First Randomized Phase III Trial. J Clin Oncol. Published online May 06, 2021:[id number]. doi:10.1200/JCO.21.47981 URL: https://pubmed.ncbi.nlm.nih.gov/42860469/ -Robson TOLLIVER, Damon M, Patricia W, et al. Acalabrutinib with or without obinutuzumab versus chlorambucil and obinutuzmab for treatment-naive chronic lymphocytic leukaemia ([facility] [place]): a randomised, controlled, phase 3 trial. Lancet. 2020;395(32329):8485-7331. doi:10.1016/F4458-0073414-1380(87)44372-2. URL: https://pubmed.ncbi.nlm.nih.gov/02807440/ documented in this encounter Plan of Treatment Upcoming Encounters Date Type Specialty Care Team Description 05/11/2023 Pharmacy Pharm[place] [facility] [address] [place] [address] 05/27/2023 Office Visit Cardiology Ena, MELISSA Hoagn [address] [place] [address] 06/09/2023 Laboratory Laboratory [facility] [address] [place] [address] 06/19/2023 Office Visit Family Medicine Lucas Mendez MD [address] [place] [address] 06/24/2023 Office Visit Hematology Oncology Zenia Rajan MD [address] [place] [address] 06/24/2023 Office Visit Hematology Oncology Zenia Rajan MD [address] [place] [address] 07/30/2023 Laboratory Laboratory [facility] [place] [id number] [place] [address] 10/22/2023 Office Visit Cardiology Nithin Smith DO [address] [place] [address] Pending Results Name Type Priority Associated Diagnoses Date /Time LD Lab Routine CLL (chronic lymphocytic leukemia) (HCC) 05/11/2023 12:00 PM EDT RETICULOCYTE PANEL Lab Routine CLL (chronic lymphocytic leukemia) [...] 01/18/2021 12/21/2020, 11/30/2020 CKD PHOS USE SMARTSET 85119 02/05/2021 02/06/2020, 0 12/20/2008 Depression Screening, Annual [...] Ratio 12/13/2023 12/12/2022 CKD HGB USE SMARTSET 15120 05/11/202405/11, 05/11/2023, 04/23/2023, Additional history exists Pneumococcal [...] remission documented in this encounter Care Teams Station Usher Relationship Specialty Start Date End Date Lucas Mendez MD [address] [place] [address] PCP - General 07/12/00 documented as of this encounter
--- OUTSIDE RECORDS SUMMARY | 2023-08-24 15:04 | External Medical Summary ---
Author Name Unknown Address Unknown Organization K01:[facility] - [address] [place] [address] Laboratory Report Ordering Provider Test Date Status KRISS GRFIFIN 05/11/2023 12:00:01 Final Observation Date Value Abnormality Reference (Units ) Status LDH 05/11/2023 12:00:01 268 Above high normal <= 250 (U/L) Final Performing Location [facility] - [address] [place] [address]
--- OUTSIDE RECORDS SUMMARY | 2023-08-24 15:04 | External Medical Summary ---
Author Name Unknown Address Unknown Organization K09:[facility] [address] Laboratory Report Ordering Provider Test Date Status LOU CLAUDIO 05/11/2023 11:17:55 Final Observation Date Value Abnormality Reference (Units ) Status WBC, Total 05/11/2023 11:17:55 109.22 Above upper panic limits 4.00-10.80 (K/uL) Final Run on dilution. RBC 05/11/2023 11:17:55 3.16 3.85-5.15 (M/uL) Final Hemoglobin 05/11/2023 11:17:55 10.2 Below low normal 12 .0-15.3 (g/dL) Final Results rechecked. HCT 05/11/2023 11:17:55 33.0 Below low normal 36. 0-45.2 (%) Final MCV 05/11/2023 11:17:55 104.4 81.5-97.5 (fL) Final MCH 05/11/2023 11:17:55 32.3 27.0-34.0 (pg) Final MCHC 05/11/2023 11:17:55 30.9 32.0-36.0 (g/dL) Final RDW 05/11/2023 11:17:55 16.6 11.5-15.5 (%) Final Platelets 05/11/2023 11:17:55 112 Below low normal 140 -400 (K/uL) Final MPV 05/11/2023 11:17:55 9.6 6.6-11.1 ( fL) Final Performing Location [place] [address]
--- OUTSIDE RECORDS SUMMARY | 2023-08-24 15:04 | External Medical Summary ---
Author Name Unknown Address Unknown Organization K01:[facility] - [address] [place] [address] Laboratory Report Ordering Provider Test Date Status KRISS GRIFFIN 05/11/2023 12:00:01 Final Observation Date Value Abnormality Reference (Units ) Status Hep B surface Ag 05/11/2023 12:00:01 Negative Neg ative Final Performing Location [facility] - [address] [place] [address]
--- OUTSIDE RECORDS SUMMARY | 2023-08-24 15:04 | External Medical Summary | Summary of Care ---
Author Name Unknown Organization [facility] Address [address] [place] [address] Phone [phone] Care Team Providers Care Beer Cooler Name Role Phone Lucas Mendez MD Primary Care Provider +1- [phone] Reason for Visit * Reason Comments Medication Management Encounter Details Date Type Department Care Team Description 05/11/2023 Pharmacy Pharmacy Hematology Oncology [facility] [address], [place] [id number] [facility], [facility] Hem/Onc [address] [place] [address] CLL (chronic lymphocytic leukemia) ([facility])* Allergies Active Allergy Reactions Severity [...] dysfunction 08/15/2021 Coronary artery disease invo lving [place] coronary artery of [place] heart without angina pectoris 08/15/2021 Moderate mitral [...] as of this encounter Progress Notes * Orin Carpenter, [facility] - 05/11/2023 6:48 PM EDT MEDICATION THERAPY MANAGEMENT ACALBRUTINIB ([place]) INITIAL INTAKE NOTE Viri Rose [id number] Patient Phone Numbers Communication: Chart review Treatment: Medication: Acalabrutinib ([place]) Indication/Staging/Diagnosis Code: CLL/C91.10 Dose: 100mg BID Administration: -/+ food Start Date: TBD Primary Project Program Manager/Oncologist: Dr. Rajan Supportive Care Meds: Review of therapy: Line of therapy: First Previous therapy: None Reviewed dosage prescribed for appropriateness (based on indication, hepatic function,renal function, etc): no changes Are appropriate supportive care medications prescribed? No, Ask about Allopurinol Are appropriate prophylactic medications prescribed? No, None needed Have baseline labs/tests been obtained? Yes Has hepatitis B screening been completed? No, Obtained 05/11 and pending Potential drug-drug drug-herbal, drug-food, drug-disease interactions: Yes, Paroxetine/Acalabrutinib: Acalabrutinib may enhance the antiplatelet effect of Agents with Antiplatelet Properties o Recommendation: Consider the risks and benefits of coadministration of acalabrutinib and antiplatelet agents. Monitor for signs of bleeding if combined. o Action: Educate patient and monitor for signs of bleeding The Hematology/Oncology Oral Chemotherapy Clinic will assess medication compliance at each patient encounter Assessment and Plan: Hepatitis B Panel and LD pending Nurse education provided to patient 05/11/23 MTM to follow up for physician signature and precert Yes/no Date Action Taken [place] plan entered? Yes 05/11/23 Consent completed? Yes 05/11/23 Intro/med rec completed? Precert completed? Test claim completed? Financial assistance needed? Physician signature? Rx released? Education completed? Follow up: 05/13 Orin Carpenter, JesseniaD, BCOP Clinical Pharmacist [facility] 05/11/2023, 7:15 PM Monitoring Parameters: Estimated CrCl Serum creatinine: 1.1 mg/dL (H) 05/11/23 1200 Estimated creatinine clearance: 32.8 mL/min (A) Hepatitis panel Hepatitis B Panel pending 05/11/23 test N/A Suggested lab monitoring Suggested Labs: CBCd monthly, baseline CMP and as needed Treatment Parameters Per PI Pertinent Labs: Latest Reference Range & Units 05/11/23 11:17 WBC 4.00 - 10.80 K/uL 109.22 (HH) HGB 12.0 - 15.3 g/dL 10.2 (L) HCT 36.0 - 45.2 % 33.0 (L) MCV 81.5 - 97.5 fL 104.4 PLT 140 - 400 K/uL 112 (L) Absolute Neutrophils 1.80 - 7.70 K/uL 2.18 Absolute Lymphocytes 1.00 - 4.80 K/uL 104.85 (H) Absolute Monocytes 0.00 - 1.10 K/uL 2.18 (H) (HH): Data is critically high (L): Data is abnormally low (H): Data is abnormally high Latest Reference Range & Units 05/11/23 12:00 BUN 6 - 20 mg/dL 25 (H) Creatinine 0.5 - 1.0 mg/dL 1.1 (H) Estimated Glomerular Filtration Rate >=60 mL/min 50 (L) (H): Data is abnormally high (L): Data is abnormally low Latest Reference Range & Units 05/11/23 12:00 Albumin 3.8 - 5.0 g/dL 4.2 AST 10 - 35 U/L 25 ALT 10 - 35 U/L 15 Alkaline Phosphatase 35 - 130 U/L 109 Bilirubin, Total <=1.2 mg/dL 0.6 Time Spent on Encounter: 26 - 30 minutes Encounter Group: Hematology Encounter Interventions Item Category: Oral Chemotherapy Acalabrutinib Problem/Rationale: Indication: Needs additional medication therapy - Untreated condition [place] Plan Review: Initial Plan/upload Pharmacist Intervention(s): Drug Interaction Screen, Lab monitoring, Orders labs and Referral review Magnitude of Intervention: Monitoring with direction (Level 1) documented in this encounter Plan of Treatment Upcoming Encounters Date Type Specialty Care Team Description 05/27/2023 Office Visit Cardiology Tari Sutherland CRNP [address] [place] [address] 06/09/2023 Laboratory Laboratory [facility] [address] [place] [address] 06/19/2023 Office Visit Family Medicine Lucas Mendez MD [address], [place] [phone] 06/24/2023 Office Visit Hematology Oncology Zenia Rajan MD [address] [facility], [place] [id number] 06/24/2023 Office Visit Hematology Oncology [facility]an MD [address] [facility] [address] 07/30/2023 Laboratory Laboratory [place] [address] [place] [facility] [place] [address] 10/22/2023 Office Visit Cardiology Nithin Smith, DO [address] [place] [address] Scheduled Procedures Name Priority Associated Diagnoses Date/Ti me COLONOSCOPY FLEXIBLE PROXIMA L DIAGNOSTIC Recall Special screening for malignant neoplasms, colon Health Maintenance Due Date Last Done Comments DIABETES-EYE EXAM 1963 DIABETES-FOOT EXAM 1963 Hepatitis C Screening 1963 DTaP,Tdap,and Td Vaccines (1 - Tdap) 02/13/2004 02/12/2004, 06/12/1994 COVID-19 Vaccine (3 - Pfizer risk series) 01/18/2021 12/21/2020, 11/30/2020 CKD PHOS USE SMARTSET 08318 02/05/2021 02/06/2020, 0 12/20/2008 Depression Screening, Annual [...] Ratio 12/13/2023 12/12/2022 CKD HGB USE SMARTSET 22499 05/11/202405/11, 05/11/2023, 04/23/2023, Additional history exists Pneumococcal [...] remission documented in this encounter Care Teams Beer Cooler Relationship Specialty Start Date End Date Lucas Mendez MD [address], [place] [phone] PCP - General 07/12/00 documented as of this encounter
--- OUTSIDE RECORDS SUMMARY | 2023-08-24 15:04 | External Medical Summary | Summary of Care ---
Author Name Unknown Organization [facility] Address [address] [facility] [place] [address] Phone [phone] Care Team Providers Care Preliminary School Psychologist Name Role Phone Lucas Mendez MD Primary Care Provider +1- [phone] Encounter Details Date Type Department Care Team Description 05/06/2023 Result Scan Unspecified Department Nithin Smith, DO [address] [place] [address] <No scans attached> Allergies Active Allergy Reactions Severity Noted Date Comments Codeine Nausea/vomiting 2011 Lisinopril 03/07/2008 Cough documented as of this encounter (statuses as of 05/06/2023) Medications Medication Sig Dispensed Refills Start Date [...] as of this encounter (statuses as of 05/06/2023) Active Problems Problem Noted Date Type 2 diabetes mellitus with hemoglobin A1c goal of less than 7.0% 12/02/2022 AICD (automatic cardioverter/defibrillat or) present 07/24/2022 Chronic kidney disease, stage 3b 022 Overview: Per CKD protocol Ischemic cardiomyopathy 08/15/2021 LBBB (left bundle branch block) 08/15/20 Chronic heart failure with r educed ejection fraction and diastolic dysfunction 08/15/2021 Coronary artery disease invo lving [place] coronary artery of [place] heart without angina pectoris 08/15/2021 Moderate mitral [...] as of this encounter (statuses as of 05/06/2023) Resolved Problems Problem Noted Date Resolved Date [...] as of this encounter (statuses as of 05/06/2023) Immunizations Name Administration Dates Next Due Pneumococcal [...] Date Type Specialty Care Team Description 05/11/2023 Laboratory Laboratory [facility] [address] [place] [address] 05/11/2023 Office Visit Hematology Oncology Zenia Rajan MD [address] [place] [address] 05/27/2023 Office Visit Cardiology Tari Sutherland CRNP [address] [place] [address] 06/09/2023 Laboratory Laboratory [place], Laboratory [address] [place] [address] 06/19/2023 Office Visit Family Medicine Lucas Mendez MD [address] [place] [address] 06/24/2023 Office Visit Hematology Oncology Zenia Rajan MD [address] [facility] [place] [address] 07/30/2023 Laboratory Laboratory [place], Laboratory [address] [place] [address] 10/22/2023 Office Visit Cardiology Nithin Smith, [address] [place] [address] Scheduled Procedures Name Priority Associated Diagnoses Date/Ti me COLONOSCOPY FLEXIBLE PROXIMA L DIAGNOSTIC Recall Special screening for malignant neoplasms, colon Health Maintenance Due Date Last Done Comments DIABETES-EYE EXAM 1963 DIABETES-FOOT EXAM 1961 Hepatitis C Screening 1961 DTaP,Tdap,and Td Vaccines (1 - Tdap) 02/13/2004 02/12/2004, 06/12/1994 COVID-19 Vaccine (3 - Pfizer risk series) 01/18/2021 12/21/2020, 11/30/2020 CKD PHOS USE SMARTSET 01553 02/05/2021 02/06/2020, 0 12/20/2008 Depression Screening, Annual [...] Ratio 12/13/2023 12/12/2022 CKD HGB USE SMARTSET 94710 04/23/202404/23, 04/23/2023, 03/02/2023, Additional history exists Pneumococcal Vaccine: 65+ Years [...] Procedure Name Priority Date/Time Associated Diagnosis Comments CARDIOLOGY SCANNED RESULT 05/06/2023 documented in this encounter Results * CARDIOLOGY SCANNED RESULT (05/06/2023) 05/06/2023 Nithin BARNETT documented in this encounter Care Teams Preliminary School Psychologist Relationship Specialty Start Date End Date Lucas Mendez MD [address] [place] [address] PCP - General 07/12/00 documented as of this encounter
--- OUTSIDE RECORDS SUMMARY | 2023-08-24 15:04 | External Medical Summary ---
Author Name Unknown Address Unknown Organization K09:[facility] [place] [address] Laboratory Report Ordering Provider Test Date Status KRISS GRIFFIN 05/11/2023 12:00:01 Final Observation Date Value Abnormality Reference (Units ) Status BUN 05/11/2023 12:00:01 25 Above high normal 6-20 (mg/dL) Final Creatinine 05/11/2023 12:00:01 1.1 Above high normal 0.5-1.0 (mg/dL) Final Glomerular filtration rate/1.73 sq M.predicted [Volume Rate/Area] in Serum, Plasma or Blood by Creatinine-based formula (CKD-EPI) 05/11/2023 12:00:01 50 Below low normal >=60 (mL/min) Final eGFR is calculated based on the CKD-EPI 2020 equation SODIUM 05/11/2023 12:00:01 140 135-146 (m mol/L) Final Potassium 05/11/2023 12:00:01 4.4 3.5-5.1 (m mol/L) Final Cl 05/11/2023 12:00:01 106 98-107 (mm ol/L) Final CO2 05/11/2023 12:00:01 26 22-32 (mmo l/L) Final Anion gap 05/11/2023 12:00:01 8 7-15 (mmol /L) Final Glucose 05/11/2023 12:00:01 106 70-120 (mg /dL) Final Albumin 05/11/2023 12:00:01 4.2 3.8-5.0 (g /dL) Final AST (Aspartate aminotransferase) 05/11/2023 12:00:01 25 10-35 (U/L) Final Alk Phos 05/11/2023 12:00:01 109 35-130 (U/ L) Final Bilirubin, Total 05/11/2023 12:00:01 0.6 <=1 .2 (mg/dL) Final Calcium 05/11/2023 12:00:01 9.2 8.4-10.2 ( mg/dL) Final Protein 05/11/2023 12:00:01 6.6 6.0-8.3 (g /dL) Final ALT (Alanine aminotransferase) 05/11/2023 12:00:01 15 10-35 (U/L) Final Performing Location [facility] [address] [place] [address]
--- OUTSIDE RECORDS SUMMARY | 2023-08-24 15:04 | External Medical Summary ---
Author Name Unknown Address Unknown Organization K09:[facility] [address] [place] [address] Laboratory Report Ordering Provider Test Date Status LOU CLAUDIO 05/11/2023 11:17:55 Final Observation Date Value Abnormality Reference (Units ) Status SYNC LEUKOCYTES IN BLOOD BY AUTOMATED COUNT 05/11/2023 11:17:55 109.22 Above upper panic limits 4.00-10.80 (K/uL) Final Neutrophils/100 leukocytes in Blood by Manual count 05/11/2023 11:17:55 2.0 Below low normal 40.0-75.0 (%) Final Lymphocytes/100 leukocytes in Blood by Manual count 05/11/2023 11:17:55 96.0 Above high normal 18.0-42.0 (%) Final Monocytes/100 leukocytes in Blood by Manual count 05/11/2023 11:17:55 2.0 1.0-11.0 (%) Final Neutrophils [#/volume] in Blood by Manual count 05/11/2023 11:17:55 2.18 1.80-7.70 (K/uL) Final Lymphocytes [#/volume] in Blood by Manual count 05/11/2023 11:17:55 104.85 Above high normal 1.00-4.80 (K/uL) Final Monocytes [#/volume] in Blood by Manual count 05/11/2023 11:17:55 2.18 Above high normal 0.00-1.10 (K/uL) Final Nucleated erythrocytes/100 leukocytes [Ratio] in Blood by Automated count 05/11/2023 11:17:55 Final Elliptocytes [Presence] in Blood by Light microscopy 05/11/2023 11:17:55 Moderate Abnormal None Seen Final Variant lymphocytes [Presence] in Blood by Light microscopy 05/11/2023 11:17:55 Present Abnormal None Seen Final Smudge cells [Presence] in Blood by Light microscopy 05/11/2023 11:17:55 Present Abnormal None Seen Final Performing Location [facility] [address] [place] [address]
--- OUTSIDE RECORDS SUMMARY | 2023-08-24 15:04 | External Medical Summary ---
Author Name Unknown Address Unknown Organization K01:[facility] [place] [address] [place] [address] Laboratory Report Ordering Provider Test Date Status KRISS GRIFFIN 05/11/2023 12:00:01 Final Observation Date Value Abnormality Reference (Units) Status Hepatitis B virus surface Ab [Units/volume] in Serum or Plasma by Immunoassay 05/11/2023 12:00:01 <3.5 (mIU/mL) Final Hepatitis B virus surface Ab [Presence] in Serum by Immunoassay 05/11/2023 12:00:01 Negative Final HEPATITIS B SURFACE ANTIBODY, INTERPRETATION 05/11/2023 12:00:01 NOT immune to Hepatitis B Virus Final POSITIVE: >=11.5 mIU/mL
INDETERMINATE: 8.5-<11.5 mIU/mL
NEGATIVE: <8.5 mIU/mL Performing Location [facility] [place] [place] [address]
--- OUTSIDE RECORDS SUMMARY | 2023-08-24 15:04 | External Medical Summary | Summary of Care ---
Author Name Unknown Organization [facility] Address [address] [facility] [place] [address] Phone [phone] Care Team Providers Care Application Integration Engineer Name Role Phone Lucas Mendez MD Primary Care Provider +1- [phone] Reason for Visit * Reason Comments Outpatient Testing Encounter Details Date Type Department Care Team Description 05/11/2023 Laboratory Laboratory [facility] [place] [place] [address] [place] [address] [place], Lab [address] [place] [address] CLL (chronic lymphocytic leukemia) (HCC) Allergies Active Allergy Reactions Severity Noted Date [...] dysfunction 08/15/2021 Coronary artery disease invo lving [place] coronary artery of [place] heart without angina pectoris 08/15/2021 Moderate mitral [...] Specialty Care Team Description 05/11/2023 Pharmacy [facility]acy [facility] Hem[facility]Onc [address] [facility] [place] [address] 05/27/2023 Office Visit Cardiology Tari Sutherland CRNP [address] [place] [address] 06/09/2023 Laboratory Laboratory [address] [place] [address] 06/19/2023 Office Visit Family Medicine Lucas Mendez MD [address] [place] [address] 06/24/2023 Office Visit Hematology Oncology Zenia Rajan MD [address] [place] [address] 07/30/2023 Laboratory Laboratory [facility] Laboratory [address] [place] [address] 10/22/2023 Office Visit Cardiology Nithin Smith, DO [address] [place] [address] Pending Results Name Type Priority Associated Diagnoses Date /Time CBC WITH WBC DIFFERENTIAL Lab STAT CLL (chronic lymphocytic leukemia) ([facility]) 05/11/2023 11:17 AM EDT CBC Lab STAT CLL (chronic lymphocytic leukemia) ([facility]) 05/11/2023 11:17 AM EDT DIFFERENTIAL, AUTOMATED Lab STAT CLL (chronic lymphocytic leukemia) ([facility]) 05/11/2023 11:17 AM EDT Scheduled Procedures Name Priority Associated Diagnoses Date/Ti me COLONOSCOPY FLEXIBLE PROXIMA L DIAGNOSTIC Recall Special screening for malignant neoplasms, colon Health Maintenance Due Date Last Done Comments DIABETES-EYE EXAM 1963 DIABETES-FOOT EXAM 1961 Hepatitis C Screening 1961 DTaP,Tdap,and Td Vaccines (1 - Tdap) 02/13/2004 02/12/2004, 06/12/1994 COVID-19 Vaccine (3 - Pfizer risk series) 01/18/2021 12/21/2020, 11/30/2020 CKD PHOS USE SMARTSET 51847 02/05/2021 02/06/2020, 0 12/20/2008 Depression Screening, Annual [...] Ratio 12/13/2023 12/12/2022 CKD HGB USE SMARTSET 80395 04/23/202404/23, 04/23/2023, 03/02/2023, Additional history exists Pneumococcal [...] remission documented in this encounter Care Teams Application Integration Engineer Relationship Specialty Start Date End Date Lucas Mendez MD [address] [place] [address] PCP - General 07/12/00 documented as of this encounter
--- OUTSIDE RECORDS SUMMARY | 2023-08-24 15:04 | External Medical Summary | Summary of Care ---
Author Name Unknown Organization [facility] Address [address] [facility] [place] [address] Phone [phone] Care Team Providers Care Balance Weigher Name Role Phone Lucas Mendez MD Primary Care Provider +1- [phone] Reason for Visit * Reason Onset Date Comments Precert Future 05/11/2023 acalabrutinib Encounter Details Date Type Department Care Team Description 05/11/2023 Telephone Hematology/Oncology Treatment, [place] [address] [place] [id number] Zenia Rajan MD [address] [place] [address] Precert Future (acalabrutinib) Allergies Active Allergy Reactions [...] dysfunction 08/15/2021 Coronary artery disease invo lving [place] coronary artery of [place] heart without angina pectoris 08/15/2021 Moderate mitral [...] Specialty Care Team Description 05/11/2023 Pharmacy Pharmacy [facility] Hem/Onc [address] [place], [place] [id number] 05/27/2023 Office Visit Cardiology Tari Sutherland CRNP [address] [facility] [place] [address] 06/09/2023 Laboratory Laboratory [place], Laboratory [address] [place] [address] 06/19/2023 Office Visit Family Medicine Lucas Mendez MD [address] [place] [address] 06/24/2023 Office Visit Hematology Oncology Zenia Rajan MD [address] [place] [address] 07/30/2023 Laboratory Laboratory [place], Laboratory [address] [place] [address] 10/22/2023 Office Visit Cardiology Nithin Smith DO [address] [facility] [address] Scheduled Orders Name Type Priority Associated Diagnoses Orde r Schedule HEPATITIS B SURFACE ANTIBODY Lab STAT CLL (chronic lymphocytic leukemia) (HCC) Encounter for screening for viral disease Expected: 05/11/2023 (Approximate), Expires: 05/11/2024 HEPATITIS B SURFACE ANTIGEN Lab STAT CLL (chronic lymphocytic leukemia) (HCC) Encounter for screening for viral disease Expected: 05/11/2023 (Approximate), Expires: 05/11/2024 HEPATITIS B CORE ANTIBODIES IGG AND IGM Lab STAT CLL (chronic lymphocytic leukemia) (HCC) Encounter for screening for viral disease Expected: 05/11/2023 (Approximate), Expires: 05/11/2024 COMPREHENSIVE METABOLIC PANEL Lab STAT CLL (chronic lymphocytic leukemia) (HCC) Expected: 05/11/2023, Expires: 05/11/2024 Scheduled Procedures Name Priority Associated Diagnoses Date/Ti me COLONOSCOPY FLEXIBLE PROXIMA L DIAGNOSTIC Recall Special screening for malignant neoplasms, colon Health Maintenance Due Date Last Done Comments DIABETES-EYE EXAM 1963 DIABETES-FOOT EXAM 1961 Hepatitis C Screening 1961 DTaP,Tdap,and Td Vaccines (1 - Tdap) 02/13/2004 02/12/2004, 06/12/1994 COVID-19 Vaccine (3 - Pfizer risk series) 01/18/2021 12/21/2020, 11/30/2020 CKD PHOS USE SMARTSET 71111 02/05/2021 02/06/2020, 0 12/20/2008 Depression Screening, Annual [...] Ratio 12/13/2023 12/12/2022 CKD HGB USE SMARTSET 28736 04/23/202405/11, 05/11/2023, 04/23/2023, Additional history exists Pneumococcal Vaccine: [...] disease documented in this encounter Care Teams Balance Weigher Relationship Specialty Start Date End Date Lucas Mendez MD [address] [place] [address] PCP - General 07/12/00 documented as of this encounter
--- OUTSIDE RECORDS SUMMARY | 2023-08-24 15:04 | External Medical Summary | Summary of Care ---
Author Name Unknown Organization [facility] Address [address] [facility] [place] [address] Phone [phone] Care Team Providers Care Per Diem Clerk Name Role Phone Lucas Mendez MD Primary Care Provider +1- [phone] Reason for Visit * Reason Comments Outpatient Testing Encounter Details Date Type Department Care Team Description 05/11/2023 Laboratory Laboratory Scenery Theodora [address]t [address] [place] [address] Theodora, Lab Scenery [address] [place] [address] CLL (chronic lymphocytic leukemia) ([facility]); Encounter for screening for viral disease Allergies Active Allergy Reactions Severity Noted Date [...] dysfunction 08/15/2021 Coronary artery disease invo lving [place] coronary artery of [place] heart without angina pectoris 08/15/2021 Moderate mitral [...] [facility] [address] [facility] [place] [address] 05/27/2023 Office Visit Cardiology Ena, MELISSA Hogan [address] [place] [address] 06/09/2023 Laboratory Laboratory [facility] Laboratory [address] [place] [address] 06/19/2023 Office Visit Family Medicine Lucas Mendez MD [address] [place] [address] 06/24/2023 Office Visit Hematology Oncology Zenia Rajan MD [address] [facility] [address] 07/30/2023 Laboratory Laboratory [facility] Laboratory [address] [place] [address] 10/22/2023 Office Visit Cardiology Nithin Smith DO [address] [facility] [place] [address] Pending Results Name Type Priority Associated Diagnoses Date /Time HEPATITIS B SURFACE ANTIBODY Lab STAT CLL (chronic lymphocytic leukemia) (HCC) Encounter for screening for viral disease 05/11/2023 12:00 PM EDT HEPATITIS B SURFACE ANTIGEN Lab STAT CLL (chronic lymphocytic leukemia) (HCC) Encounter for screening for viral disease 05/11/2023 12:00 PM EDT HEPATITIS B CORE ANTIBODIES IGG AND IGM Lab STAT CLL (chronic lymphocytic leukemia) (HCC) Encounter for screening for viral disease 05/11/2023 12:00 PM EDT COMPREHENSIVE METABOLIC PANEL Lab STAT CLL (chronic lymphocytic leukemia) (HCC) 05/11/2023 12:00 [...] 01/18/2021 12/21/2020, 11/30/2020 CKD PHOS USE SMARTSET 19474 02/05/2021 02/06/2020, 0 12/20/2008 Depression Screening, Annual [...] Ratio 12/13/2023 12/12/2022 CKD HGB USE SMARTSET 73729 05/11/202405/11, 05/11/2023, 04/23/2023, Additional history exists Pneumococcal [...] Procedure Name Priority Date/Time Associated Diagnosis Comments DIFFERENTIAL, AUTOMATED STAT 05/11/2023 11:17 AM EDT CLL (chronic lymphocytic leukemia) (HCC) CBC WITH WBC DIFFERENTIAL STAT 05/11/2023 11:17 AM EDT CLL (chronic lymphocytic leukemia) (HCC) CBC STAT 05/11/2023 11:17 AM EDT CLL (chronic lymphocytic leukemia) (HCC) DIFFERENTIAL, TECHNOLOGIST REVIEW Routine 05/11/2023 11:17 AM EDT CLL (chronic lymphocytic leukemia) (HCC) documented in this encounter Results * (ABNORMAL) DIFFERENTIAL, TECHNOLOGIST REVIEW (05/11/2023 11:17 AM EDT) WBC 109.22(HH ) 4.00 - 10.80 K/uL 05/11/2023 11:50 AM EDT [facility] 56-02 Neutrophils % 2.0(L) 40.0 - 75.0 % 05/11/2023 11:50 AM EDT LAB[facility]ATORY N[facility] 56-02 Lymphocytes % 96.0(H) 18.0 - 42.0 % 05/11/2023 11:50 AM EDT [facility] 56-02 Monocytes % 2.0 1.0 - 11.0 % 05/11/2023 11:50 AM EDT LABORATORY NAB[place] 56-02 Absolute Neutrophils 2.18 1.80 - 7.70 K/uL 05/11/2023 11:50 AM EDT LABORATORY N[facility] 56-02 Absolute Lymphocytes 104.85(H) 1.00 - 4.80 K/uL 05/11/2023 11:50 AM EDT [facility] 56-02 Absolute Monocytes 2.18(H) 0.00 - 1.10 K/uL 05/11/2023 11:50 AM EDT LABORATORY [facility] 56-02 nRBCs 05/11/2023 11:50 AM EDT LAB[facility]ATORY [facility] 56-02 Elliptocytes Moderate( A) None Seen 05/11/2023 11:50 AM EDT [facility] 56-02 Reactive Lymphocytes Present(A ) None Seen 05/11/2023 11:50 AM EDT [facility] 56-02 Smudge Cells Present(A ) None Seen 05/11/2023 11:50 AM EDT [facility] 56-02 Blood Venous blood specimen / Unknown Venipuncture / Unknown 05/11/2023 11:17 AM EDT 05/11/2023 11:17 AM EDT Melia Weller MELISSA LAB BLOOD ORDER JESSE [facility] [address] [place] [address] * DIFFERENTIAL, AUTOMATED (05/11/2023 11:17 AM EDT) Blood Venous blood specimen / Unknown Venipuncture / Unknown 05/11/2023 11:17 AM EDT 05/11/2023 11:17 AM EDT Melia Weller MELISSA LAB BLOOD ORDER JESSE [facility] [address] [place] [address] * (ABNORMAL) CBC (05/11/2023 11:17 AM EDT) WBC 109.22(HH) 4.00 - 10.80 K/uL 05/11/2023 11:50 AM EDT [facility] Comment:Run on dilution. RBC 3.16 3.85 - 5.15 M/uL 05/11/2023 11:50 AM EDT [facility] 56 HGB 10.2(L) 12.0 - 15.3 g/dL 05/11/2023 11:50 AM EDT [facility] Comment:Results rechecked. HCT 33.0(L) 36.0 - 45.2 % 05/11/2023 11:50 AM EDT [facility] MCV 104.4 81.5 - 97.5 fL 05/11/2023 11:50 AM EDT [facility] MCH 32.3 27.0 - 34.0 pg 05/11/2023 11:50 AM EDT [facility] 56 MCHC 30.9 32.0 - 36.0 g/dL 05/11/2023 11:50 AM EDT [facility] RDW 16.6 11.5 - 15.5 % 05/11/2023 11:50 AM EDT [facility] 56 PLT 112(L) 140 - 400 K/uL 05/11/2023 11:50 AM EDT [facility] 56 MPV 9.6 6.6 - 11.1 fL 05/11/2023 11:50 AM EDT [facility] 56 Blood Venous blood specimen / Unknown Venipuncture / Unknown 05/11/2023 11:17 AM EDT 05/11/2023 11:17 AM EDT Melia TORRES LAB BLOOD ORDER JESSE [facility] [address] [place] [address] documented in this encounter Visit Diagnoses Diagnosis CLL (chronic lymphocytic leukemia) (HCC) Chronic lymphoid leukemia, without mention of having achieved remission Encounter for screening for viral disease documented in this encounter Care Teams Per Diem Clerk Relationship Specialty Start Date End Date Lucas Mendez MD [address], [place] [phone] PCP - General 07/12/00 documented as of this encounter
--- OUTSIDE RECORDS SUMMARY | 2023-08-24 15:04 | External Medical Summary ---
Author Name Unknown Address Unknown Organization K01:[place] [facility] [place] [address] [place] [address] Laboratory Report Ordering Provider Test Date Status KRISS GRIFFIN 05/11/2023 12:00:01 Final Observation Date Value Abnormality Reference (Units ) Status Retic, % (auto) 05/11/2023 12:00:01 1.15 0.80-1.90 (%) Final Reticulocytes, Absolute 05/11/2023 12:00:01 38.0 31.3-100.1 (K/uL) Final Reticulocyte fraction, immature 05/11/2023 12:00:01 16.3 2.5-20.6 (%) Final Reticulocyte HGB 05/11/2023 12:00:01 36.3 29.7-37.4 (pg) Final Performing Location [place] [facility] [place] [address] [place] [address]
--- OUTSIDE RECORDS SUMMARY | 2023-08-24 15:04 | External Medical Summary ---
Author Name Unknown Address Unknown Organization [id number][place] [facility] [place] [address] [place] [address] Laboratory Report Ordering Provider Test Date Status GRIFFIN,KRISS 05/11/2023 12:00:01 Final Observation Date Value Abnormality Reference (Units ) Status Uric Acid 05/11/2023 12:00:01 4.2 2.4-5.7 (m g/dL) Final Performing Location LABORATORY C - [address] [place] [address]
--- OUTSIDE RECORDS SUMMARY | 2023-08-24 15:04 | External Medical Summary ---
Author Name Unknown Address Unknown Organization K01:[facility]ATORY [facility] [place] - [address] [place] [address] Laboratory Report Ordering Provider Test Date Status KRISS GRIFFIN 05/11/2023 12:00:01 Final Observation Date Value Abnormality Reference (Units ) Status Hepatitis B virus core Ab [Presence] in Serum 05/11/2023 12:00:01 Negative Negative Final Performing Location LABORATORY [facility] - [address] [place] [address]
--- OUTSIDE RECORDS SUMMARY | 2023-08-24 15:05 | External Medical Summary | Summary of Care ---
Author Name Unknown Organization [facility] Address [address] [facility] [place] [address] Phone [phone] Care Team Providers Care Pipe Fitter Soft Copper Name Role Phone Lucas Mendez MD Primary Care Provider +1- [phone] Reason for Visit * Reason Comments Outpatient Testing Encounter Details Date Type Department Care Team Description 04/23/2023 Laboratory Laboratory, [place] [address] [place] [address] [place], Laboratory [address] [place] [address] CLL (chronic lymphocytic leukemia) (HCC) Allergies Active Allergy Reactions Severity Noted Date Comments Codeine Nausea/vomiting 2011 Lisinopril 03/07/2008 Cough documented as of this encounter (statuses as of 04/23/2023) Medications Medication Sig Dispensed Refills Start Date [...] as of this encounter (statuses as of 04/23/2023) Active Problems Problem Noted Date Type 2 diabetes mellitus with hemoglobin A1c goal of less than 7.0% 12/02/2022 AICD (automatic cardioverter/defibrillat or) present 07/24/2022 Chronic kidney disease, stage 3b 022 Overview: Per CKD protocol Ischemic cardiomyopathy 08/15/2021 LBBB (left bundle branch block) 08/15/20 Chronic heart failure with r educed ejection fraction and diastolic dysfunction 08/15/2021 Coronary artery disease invo lving [place] coronary artery of [place] heart without angina pectoris 08/15/2021 Moderate mitral [...] as of this encounter (statuses as of 04/23/2023) Resolved Problems Problem Noted Date Resolved Date [...] as of this encounter (statuses as of 04/23/2023) Immunizations Name Administration Dates Next Due Pneumococcal [...] Tari Sutherland CRNP [address] [place] [address] 06/09/2023 Laboratory Laboratory Jasiel Blankenship [address] [place] [address] [place] [address] 06/19/2023 Office Visit Family Medicine Lucas Mendez MD [address] [place] [address] 06/24/2023 Office Visit Hematology Oncology Zenia Rajan MD [address] [facility] [address] 07/30/2023 Laboratory Laboratory [facility] Laboratory [address] [place] [address] 10/22/2023 Office Visit Cardiology Nithin Smith DO [address] [place] [address] Pending Results Name Type Priority Associated Diagnoses Date /Time CBC WITH WBC DIFFERENTIAL Lab STAT CLL (chronic lymphocytic leukemia) ([facility]) 04/23/2023 1:46 PM EDT CBC Lab STAT CLL (chronic lymphocytic leukemia) ([facility]) 04/23/2023 1:46 PM EDT DIFFERENTIAL, AUTOMATED Lab STAT CLL (chronic lymphocytic leukemia) ([facility]) 04/23/2023 1:46 PM EDT Scheduled Procedures Name Priority Associated Diagnoses Date/Ti me COLONOSCOPY FLEXIBLE PROXIMA L DIAGNOSTIC Recall Special screening for malignant neoplasms, colon Health Maintenance Due Date Last Done Comments DIABETES-EYE EXAM 1963 DIABETES-FOOT EXAM 1963 Hepatitis C Screening 1963 DTaP,Tdap,and Td Vaccines (1 - Tdap) 02/13/2004 02/12/2004, 06/12/1994 COVID-19 Vaccine (3 - Pfizer risk series) 01/18/2021 12/21/2020, 11/30/2020 CKD PHOS USE SMARTSET 70610 02/05/2021 02/06/2020, 0 12/20/2008 Depression Screening, Annual [...] Ratio 12/13/2023 12/12/2022 CKD HGB USE SMARTSET 55429 03/02/202403/02, 03/02/2023, 01/28/2023, Additional history exists Pneumococcal Vaccine: 65+ Years [...] remission documented in this encounter Care Teams Pipe Fitter Soft Copper Relationship Specialty Start Date End Date Lucas Mendez MD [address] [place], [place] [phone] PCP - General 07/12/00 documented as of this encounter
--- OUTSIDE RECORDS SUMMARY | 2023-08-24 15:05 | External Medical Summary ---
Author Name Unknown Address Unknown Organization K01:LABORATORY [facility] [place] - [address] [facility] [address] Laboratory Report Ordering Provider Test Date Status LOU CLAUDIO 03/02/2023 13:49:10 Final Observation Date Value Abnormality Reference (Units ) Status WBC, Total 03/02/2023 13:49:10 91.54 Above upper panic limits 4.00-10.80 (K/uL) Final RBC 03/02/2023 13:49:10 3.66 3.85-5.15 (M/uL) Final Hemoglobin 03/02/2023 13:49:10 11.2 Below low normal 12.0-15.3 (g/dL) Final HCT 03/02/2023 13:49:10 37.0 36.0-45.2 (%) Final MCV 03/02/2023 13:49:10 101.1 81.5-97.5 (fL) Final MCH 03/02/2023 13:49:10 30.6 27.0-34.0 (pg) Final MCHC 03/02/2023 13:49:10 30.3 32.0-36.0 (g/dL) Final RDW 03/02/2023 13:49:10 15.6 11.5-15.5 (%) Final Platelets 03/02/2023 13:49:10 125 Below low normal 140-400 (K/uL) Final MPV 03/02/2023 13:49:10 11.0 6.6-11.1 (fL) Final Nucleated erythrocytes/100 leukocytes [Ratio] in Blood by Automated count 03/02/2023 13:49:10 0 <=0 (/100 WBCs) Final Performing Location LABORATORY [facility] [place] - [address] [place] [address]
--- OUTSIDE RECORDS SUMMARY | 2023-08-24 15:05 | External Medical Summary | Summary of Care ---
Author Name Unknown Organization [facility] Address [address] [facility] [place] [address] Phone [phone] Care Team Providers Care Marble Ceiling Installer Name Role Phone Lucas Mendez MD Primary Care Provider +1- [phone] Encounter Details Date Type Department Care Team Description 04/27/2023 Telephone Hematology/Oncology [facility] [address] [facility] [address] [facility] [place] [address] Allergies Active Allergy Reactions Severity Noted Date Comments Codeine Nausea/vomiting 2011 Lisinopril 03/07/2008 Cough documented as of this encounter (statuses as of 04/27/2023) Medications Medication Sig Dispensed Refills Start Date [...] as of this encounter (statuses as of 04/27/2023) Active Problems Problem Noted Date Type 2 diabetes mellitus with hemoglobin A1c goal of less than 7.0% 12/02/2022 AICD (automatic cardioverter/defibrillat or) present 07/24/2022 Chronic kidney disease, stage 3b 022 Overview: Per CKD protocol Ischemic cardiomyopathy 08/15/2021 LBBB (left bundle branch block) 08/15/20 21 Chronic heart failure with r educed ejection fraction and diastolic dysfunction 08/15/2021 Coronary artery disease invo lving [place] coronary artery of [place] heart without angina pectoris 08/15/2021 Moderate [...] as of this encounter (statuses as of 04/27/2023) Resolved Problems Problem Noted Date Resolved Date [...] as of this encounter (statuses as of 04/27/2023) Immunizations Name Administration Dates Next Due Pneumococcal [...] encounter Miscellaneous Notes * Telephone Encounter - MELISSA Armas - 04/27/2023 4:07 PM EDT Results for orders placed or performed in visit on 04/23/23 CBC Result Value Ref Range WBC 137.46 (HH) 4.00 - 10.80 K/uL RBC 3.19 3.85 - 5.15 M/uL HGB 10.2 (L) 12.0 - 15.3 g/dL HCT 32.5 (L) 36.0 - 45.2 % MCV 101.9 81.5 - 97.5 fL MCH 32.0 27.0 - 34.0 pg MCHC 31.4 32.0 - 36.0 g/dL RDW 16.5 11.5 - 15.5 % PLT 119 (L) 140 - 400 K/uL MPV 10.9 6.6 - 11.1 fL nRBCs 0 <=0 /100 WBCs DIFFERENTIAL, TECHNOLOGIST REVIEW Result Value Ref Range WBC 137.46 (HH) 4.00 - 10.80 K/uL Neutrophils % 2.0 (L) 40.0 - 75.0 % Lymphocytes % 96.0 (H) 18.0 - 42.0 % Monocytes % 2.0 1.0 - 11.0 % Absolute Neutrophils 2.75 1.80 - 7.70 K/uL Absolute Lymphocytes 131.96 (H) 1.00 - 4.80 K/uL Absolute Monocytes 2.75 (H) 0.00 - 1.10 K/uL Continued progression of patient's CLL. Reviewed with Dr. Rajan. Would like to move up patient's next follow up appointment to 2-3 weeks from today with repeat lab work prior. documented in this encounter Plan of Treatment Upcoming Encounters Date Type Specialty Care Team Description 05/27/2023 Office Visit Cardiology Tari Sutherland CRNP [address] [place] [address] 06/09/2023 Laboratory Laboratory [facility] Laboratory [address] [place] [address] 06/19/2023 Office Visit Family Medicine Lucas Mendez MD [address] [place] [address] 06/24/2023 Office Visit Hematology Oncology Zenia Rajan MD 200 [facility], [place] [address] 07/30/2023 Laboratory Laboratory [facility] Laboratory [address] [place] [address] 10/22/2023 Office Visit Cardiology Nithin Smith, DO [address] [place] [address] Scheduled Procedures Name Priority Associated Diagnoses Date/Ti me COLONOSCOPY FLEXIBLE PROXIMA L DIAGNOSTIC Recall Special screening for malignant neoplasms, colon Health Maintenance Due Date Last Done Comments DIABETES-EYE EXAM 1963 DIABETES-FOOT EXAM 1961 Hepatitis C Screening 1963 DTaP,Tdap,and Td Vaccines (1 - Tdap) 02/13/2004 02/12/2004, 06/12/1994 COVID-19 Vaccine (3 - Pfizer risk series) 01/18/2021 12/21/2020, 11/30/2020 CKD PHOS USE SMARTSET 51192 02/05/2021 02/06/2020, 0 12/20/2008 Depression Screening, Annual [...] Ratio 12/13/2023 12/12/2022 CKD HGB USE SMARTSET 71350 04/23/202404/23, 04/23/2023, 03/02/2023, Additional history exists Pneumococcal [...] filedocumented as of this encounter Care Teams Marble Ceiling Installer Relationship Specialty Start Date End Date Lucas Mendez MD [address] [place], [place] [phone] PCP - General 07/12/00 documented as of this encounter
--- OUTSIDE RECORDS SUMMARY | 2023-08-24 15:05 | External Medical Summary | Summary of Care ---
Author Name Unknown Organization [facility] Address [address] [facility] [place] [address] Phone [phone] Care Team Providers Care Heavy Duty Custodian Name Role Phone Lucas Mendez MD Primary Care Provider +1- [phone] Reason for Visit * Reason Onset Date Comments Appointment 04/27/2023 Encounter Details Date Type Department Care Team Description 04/27/2023 Telephone Hematology/Oncology [facility] [place] 200 [facility] [address] Melia Weller CRNP 400 [facility] [place] [address] Appointment Allergies Active Allergy Reactions Severity Noted Date Comments Codeine Nausea/vomiting 2011 Lisinopril 03/07/2008 Cough documented as of this encounter (statuses as of 04/28/2023) Medications Medication Sig Dispensed Refills Start Date [...] as of this encounter (statuses as of 04/28/2023) Active Problems Problem Noted Date Type 2 [...] as of this encounter (statuses as of 04/28/2023) Resolved Problems Problem Noted Date Resolved Date [...] as of this encounter (statuses as of 04/28/2023) Immunizations Name Administration Dates Next Due Pneumococcal [...] Miscellaneous Notes * Telephone Encounter - CLARICE Malloy - 04/28/2023 8:28 AM EDT Spoke to patient, scheduled with Dr Rajan 05/11 @11am, labs at 10:30 am * Telephone Encounter - MELISSA Armas - [...] Description 05/11/2023 Laboratory Laboratory [facility] Y[facility] [address] [place] [address] 05/11/2023 Office Visit Hematology Oncology Zenia Rajan MD [address] [place] [address] 05/27/2023 Office Visit Cardiology Tari Sutherland CRNP [address] [place] [address] 06/09/2023 Laboratory Laboratory [facility] Laboratory [address] [place] [address] 06/19/2023 Office Visit Family Medicine Lucas Mendez MD [address] [place] [address] 06/24/2023 Office Visit Hematology Oncology Zenia Rajan MD 200 [place] [address] 07/30/2023 Laboratory Laboratory [facility] Laboratory [address] [place] [address] 10/22/2023 Office Visit Cardiology Nithin Smith DO [address] [place] [address] Scheduled Procedures Name Priority Associated Diagnoses Date/Ti me COLONOSCOPY FLEXIBLE PROXIMA L DIAGNOSTIC Recall Special screening for malignant neoplasms, colon Health Maintenance Due Date Last Done Comments DIABETES-EYE EXAM 1961 DIABETES-FOOT EXAM 1961 Hepatitis C Screening 1961 DTaP,Tdap,and Td Vaccines (1 - Tdap) 02/13/2004 02/12/2004, 06/12/1994 COVID-19 Vaccine (3 - Pfizer risk series) 01/18/2021 12/21/2020, 11/30/2020 CKD PHOS USE SMARTSET 37202 02/05/2021 02/06/2020, 0 12/20/2008 Depression Screening, Annual [...] Ratio 12/13/2023 12/12/2022 CKD HGB USE SMARTSET 03598 04/23/202404/23, 04/23/2023, 03/02/2023, Additional history exists Pneumococcal [...] filedocumented as of this encounter Care Teams Heavy Duty Custodian Relationship Specialty Start Date End Date Lucas Mendez MD [address] [place] [address] PCP - General 07/12/00 documented as of this encounter
--- OUTSIDE RECORDS SUMMARY | 2023-08-24 15:05 | External Medical Summary ---
Author Name Unknown Address Unknown Organization K01:LAB[facility]ATORY [facility] - [address] [place] [address] Laboratory Report Ordering Provider Test Date Status LOU CLAUDIO 04/23/2023 13:46:20 Final Observation Date Value Abnormality Reference (Units ) Status SYNC LEUKOCYTES IN BLOOD BY AUTOMATED COUNT 04/23/2023 13:46:20 137.46 Above upper panic limits 4.00-10.80 (K/uL) Final Neutrophils/100 leukocytes in Blood by Manual count 04/23/2023 13:46:20 2.0 Below low normal 40.0-75.0 (%) Final Lymphocytes/100 leukocytes in Blood by Manual count 04/23/2023 13:46:20 96.0 Above high normal 18.0-42.0 (%) Final Monocytes/100 leukocytes in Blood by Manual count 04/23/2023 13:46:20 2.0 1.0-11.0 (%) Final Neutrophils [#/volume] in Blood by Manual count 04/23/2023 13:46:20 2.75 1.80-7.70 (K/uL) Final Lymphocytes [#/volume] in Blood by Manual count 04/23/2023 13:46:20 131.96 Above high normal 1.00-4.80 (K/uL) Final Monocytes [#/volume] in Blood by Manual count 04/23/2023 13:46:20 2.75 Above high normal 0.00-1.10 (K/uL) Final Performing Location LAB[facility]ATORY [facility] - [address] [place] [address]
--- OUTSIDE RECORDS SUMMARY | 2023-08-24 15:05 | External Medical Summary ---
Author Name Unknown Address Unknown Organization K01:LABORATORY [facility] [place] - [address] [place] [address] Laboratory Report Ordering Provider Test Date Status LOU CLAUDIO 04/23/2023 13:46:20 Final Observation Date Value Abnormality Reference (Units ) Status WBC, Total 04/23/2023 13:46:20 137.46 Above upper panic limits 4.00-10.80 (K/uL) Final Run on dilution.
RBC 04/23/2023 13:46:20 3.19 3.85-5.15 (M/uL) Final Hemoglobin 04/23/2023 13:46:20 10.2 Below low normal 12 .0-15.3 (g/dL) Final HCT 04/23/2023 13:46:20 32.5 Below low normal 36. 0-45.2 (%) Final MCV 04/23/2023 13:46:20 101.9 81.5-97.5 (fL) Final MCH 04/23/2023 13:46:20 32.0 27.0-34.0 (pg) Final MCHC 04/23/2023 13:46:20 31.4 32.0-36.0 (g/dL) Final RDW 04/23/2023 13:46:20 16.5 11.5-15.5 (%) Final Platelets 04/23/2023 13:46:20 119 Below low normal 140 -400 (K/uL) Final MPV 04/23/2023 13:46:20 10.9 6.6-11.1 ( fL) Final Nucleated erythrocytes/100 leukocytes [Ratio] in Blood by Automated count 04/23/2023 13:46:20 0 <=0 (/100 WBCs) Fi nal Performing Location LABORATORY [facility] [place] [facility] [address] [address]
--- OUTSIDE RECORDS SUMMARY | 2023-08-24 15:05 | External Medical Summary | Summary of Care ---
Author Name Unknown Organization [facility] Address [address] [place] [address] Phone [phone] Care Team Providers Care Second Floor Operator Name Role Phone Lucas Mendez MD Primary Care Provider +1- [phone] Reason for Visit * Reason Onset Date Comments Advice 04/02/2023 Encounter Details Date Type Department Care Team Description 04/02/2023 Telephone Cardiology, [facility] [address] [place] [address] Tari Sutherland CRNP [address] [address] Advice Allergies Active Allergy Reactions Severity Noted Date Comments Codeine Nausea/vomiting 2011 Lisinopril 03/07/2008 Cough documented as of this encounter (statuses as of 04/03/2023) Medications Medication Sig Dispensed Refills Start Date [...] by mouth in the morning. 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 heart failure with reduced ejection fraction and diastolic dysfunction (HCC),Ischemic cardiomyopathy,Prese nce of automatic cardioverter/defibri llator (AICD),HTN, goal below 140/90,LBBB (left bundle branch block),Dyslipidemia, goal LDL below 70,CLARICE on CPAP,Chronic systolic heart failure (HCC) Take 1/2 tablet twice daily 90 Tablet 3 01/22/2023 Active Metoprolol Succinate ER 50 MG Oral [...] as of this encounter (statuses as of 04/03/2023) Active Problems Problem Noted Date Type 2 diabetes mellitus with hemoglobin A1c goal of less than 7.0% 12/02/2022 AICD (automatic cardioverter/defibrillat or) present 07/24/2022 Chronic kidney disease, stage 3b 022 Overview: Per CKD protocol Ischemic cardiomyopathy 08/15/2021 LBBB (left bundle branch block) 08/15/20 Chronic heart failure with r educed ejection fraction and diastolic dysfunction 08/15/2021 Coronary artery disease invo lving [place] coronary artery of [place] heart without angina pectoris 08/15/2021 Moderate mitral [...] as of this encounter (statuses as of 04/03/2023) Resolved Problems Problem Noted Date Resolved Date Dementia without behavioral disturbance 10/14/1901/27/2023 Major depressive disorder wi th single episode, [...] as of this encounter (statuses as of 04/03/2023) Immunizations Name Administration Dates Next Due Pneumococcal [...] encounter Miscellaneous Notes * Telephone Encounter - Son Sheets LPN - 04/03/2023 3:25 PM EDT Hospice nurse called back and reported BP listed below. 04/02: 80/54 03/30: 92/65 03/26: 87/51 612: 78/58 68: 89/56 6: 103/72 6: 83/50 Patient had one fall on 03/01/23- Patient is confused and poor historian. Patient bent over to pick something up and when standing up either lost balance or had a syncopal episode but is unsure. Patient has complained of dizziness sometimes but could not answer how often or for how long. Patient is very lethargic and sleeps around 18 hours a day. * Telephone Encounter - Bang Feliciano RN - 04/03/2023 1:54 PM EDT Called the patient's hospice services and they will call us back. Their number is [phone] * Telephone Encounter - MELISSA Crowder - 04/03/2023 11:26 AM EDT What are patients home blood pressure readings and is she symptomatic- lightheadedness? Presyncope? -MELISSA Cardozo * Telephone Encounter - CLARICE Mohan - 04/02/2023 1:43 PM EDT Good afternoon, Mariela barreto CM from pt's hospice care calling to make Tari aware pt has been having consistent low BPreadings. Please advise. Thanks documented in this encounter Plan of Treatment Upcoming Encounters Date Type Specialty Care Team Description 04/22/2023 Imaging Radiology 04/23/2023 Laboratory Laboratory [facility] Laboratory [address] [place] [address] 05/27/2023 Office Visit Cardiology Tari Sutherland CRNP [address] [place] [address] 06/09/2023 Laboratory Laboratory [facility] Laboratory [address] [place] [address] 06/19/2023 Office Visit Family Medicine Lucas Mendez MD [address] [place] [address] 06/24/2023 Office Visit Hematology Oncology Zenia Rajan MD [address] [facility] [place] [address] 07/30/2023 Laboratory Laboratory [facility] Laboratory [address] [place] [address] 10/22/2023 Office Visit Cardiology Nithin Smith DO [address] [place] [address] Scheduled Procedures Name Priority Associated Diagnoses Date/Ti me COLONOSCOPY FLEXIBLE PROXIMA L DIAGNOSTIC Recall Special screening for malignant neoplasms, colon Health Maintenance Due Date Last Done Comments DIABETES-EYE EXAM 1963 DIABETES-FOOT EXAM 1963 Hepatitis C Screening 1963 DTaP,Tdap,and Td Vaccines (1 - Tdap) 02/13/2004 02/12/2004, 06/12/1994 COVID-19 Vaccine (3 - Pfizer risk series) 01/18/2021 12/21/2020, 11/30/2020 CKD PHOS USE SMARTSET 08110 02/05/2021 02/06/2020, 0 12/20/2008 Depression Screening, Annual for Pts 12 and Over 04/11/2021 04/11/2020 DXA Scan 04/02/2023 04/02/2016, 04/0 11/2013, 01/11/2014, Additional history exists Influenza Vaccine (FLU shot) (Season Ended) 2023 08/19/2021, 08/30/2019, 08/30/2019, Additional history exists HbA1c 06/14/2023 12/12/2022, 07/12, 01/27/2022 GFR 09/02/2023 03/02/2023, 01/10, 11/04/2022, Additional history exists TSH 10/24/2023 10/24/2022, 09/12, 04/11/2020, Additional history exists Albumin/Creatinine Ratio 12/13/2023 12/12/2022 CKD HGB USE SMARTSET [id number] 03/02/202403/02, 03/02/2023, 01/28/2023, Additional history exists Pneumococcal [...] filedocumented as of this encounter Care Teams Second Floor Operator Relationship Specialty Start Date End Date Lucas Mendez MD [address] [place] [address] PCP - General 07/12/00 documented as of this encounter
--- OUTSIDE RECORDS SUMMARY | 2023-08-24 15:05 | External Medical Summary | Summary of Care ---
Author Name Unknown Organization [facility] Address [address] [facility] [facility] [place] [address] Phone [phone] Care Team Providers Care Sexual Abuse Counsellor Name Role Phone Lucas Mendez MD Primary Care Provider +1- [phone] Reason for Visit * Reason Onset Date Comments Advice 04/02/2023 Encounter Details Date Type Department Care Team Description 04/02/2023 Telephone Cardiology, [facility] [address] [place] [address] Tari Sutherland CRNP [address] [place] [address] Advice Allergies Active Allergy Reactions Severity Noted [...] Oral Tablet (sacubitril-valsarta n 24-26 mg per tab)Indications: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 Their number is [phone] * Telephone Encounter - MELISSA Crowder - 04/03/2023 11:26 AM EDT What are patients home blood pressure readings and is she symptomatic- lightheadedness? Presyncope? -MELISSA Cardozo * Telephone Encounter - CLARICE Mohan - 04/02/2023 1:43 PM EDT Good katlin, Mariela barreto CM from pt's hospice care calling to make Tari aware pt has been having consistent low BPreadings. Please advise. Thanks documented in this encounter Plan of Treatment Upcoming Encounters Date Type Specialty Care Team Description 04/22/2023 Imaging Radiology 04/23/2023 Laboratory Laboratory [place], [facility] [address] [place] [address] 05/27/2023 Office Visit Cardiology Tari Sutherland CRNP [address] [facility] [place] [address] 06/09/2023 Laboratory Laboratory [place], Laboratory [address] [place] [address] 06/19/2023 Office Visit Family Medicine Lucas Mendez MD [address] [place] [address] 06/24/2023 Office Visit Hematology Oncology Zenia Rajan MD [address] [facility] [place] [address] 07/30/2023 Laboratory Laboratory [place], Laboratory [address] [place] [address] 10/22/2023 Office Visit Cardiology Nithin Smith, [address] [place] [address] Scheduled Procedures Name Priority Associated Diagnoses Date/Ti me COLONOSCOPY FLEXIBLE PROXIMA L DIAGNOSTIC Recall Special screening for malignant neoplasms, colon Health Maintenance Due Date Last Done Comments DIABETES-EYE EXAM 1963 DIABETES-FOOT EXAM 1961 Hepatitis C Screening 1961 DTaP,Tdap,and Td Vaccines (1 - Tdap) 02/13/2004 02/12/2004, 06/12/1994 COVID-19 Vaccine (3 - Pfizer risk series) 01/18/2021 12/21/2020, 11/30/2020 CKD PHOS USE SMARTSET 14195 02/05/2021 02/06/2020, 0 12/20/2008 Depression Screening, Annual for Pts 12 and Over 04/11/2021 04/11/2020 DXA Scan 04/02/2023 04/02/2016, 04/0 11/2013, 01/11/2014, Additional history exists Influenza Vaccine (FLU shot) (Season Ended) 2023 08/19/2021, 08/30/2019, 08/30/2019, Additional history exists HbA1c 06/14/2023 12/12/2022, 07/12, 01/27/2022 GFR 09/02/2023 03/02/2023, 01/10, 11/04/2022, Additional history exists TSH 10/24/2023 10/24/2022, 12/2 12/2020, 04/11/2020, Additional history exists Albumin/Creatinine Ratio 12/13/2023 12/12/2022 CKD HGB USE SMARTSET 18052 03/02/202403/02, 03/02/2023, 01/28/2023, Additional history exists Pneumococcal [...] filedocumented as of this encounter Care Teams Sexual Abuse Counsellor Relationship Specialty Start Date End Date Lucas Mendez MD [address] [place] [address] PCP - General 07/12/00 documented as of this encounter
--- OUTSIDE RECORDS SUMMARY | 2023-08-24 15:05 | External Medical Summary | Summary of Care ---
Author Name Unknown Organization [facility] Address [address] [facility] [place] [address] Phone [phone] Care Team Providers Care Filer Helper Name Role Phone Lucas Mendez MD Primary Care Provider +1- [phone] Reason for Visit * Reason Onset Date Comments Blood Pressure Readings 04/13/2023 Encounter Details Date Type Department Care Team Description 04/13/2023 Telephone Cardiology, 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 90 Tablet 3 3 Active Entresto 24-26 MG Oral Tablet (sacubitril-valsart an 24-26 mg per tab)Indications:Chr onic heart failure with reduced ejection fraction and diastolic dysfunction (HCC),Ischemic cardiomyopathy,Pres ence of automatic cardioverter/defibr illator (AICD),HTN, goal below 140/90,LBBB (left bundle branch block),Dyslipidemia , goal LDL below 70,CLARICE on CPAP,Chronic systolic heart failure (HCC) Take 1/2 tablet twice daily 90 Tablet 3 3 04/13/20 23 Discontinued documented as of this encounter (statuses as of 04/13/2023) Active Problems Problem Noted Date Type 2 [...] as of this encounter (statuses as of 04/13/2023) Resolved Problems Problem Noted Date Resolved Date [...] as of this encounter (statuses as of 04/13/2023) Immunizations Name Administration Dates Next Due Pneumococcal [...] Miscellaneous Notes * Telephone Encounter - MELISSA Crowder - 04/13/2023 11:44 AM EDT BP looks better. Remain off Entresto. MELISSA Cardozo * Telephone Encounter - Torrie Stroud LPN - 04/13/2023 11:41 AM EDT [facility] calling to report BP readings: 04/07 86/55 04/08 100/70 04/09 91/60 04/10 103/74 7 104/74 04/13 104/64 No new complaints at this time. Entresto has not been restarted [phone] For any new recommendations documented in this encounter Plan of Treatment Upcoming Encounters Date Type Specialty Care Team Description 04/22/2023 Imaging Radiology 04/23/2023 Laboratory Laboratory [place], Laboratory [address] [place] [address] 05/27/2023 Office Visit Cardiology Tari Sutherland CRNP [address] [facility] [place] [address] 06/09/2023 Laboratory Laboratory [place], Laboratory [address] [place] [address] 06/19/2023 Office Visit Family Medicine Lucas Mendez MD [address] [place] [address] 06/24/2023 Office Visit Hematology Oncology Zenia Rajan MD [address] [place] [address] 07/30/2023 Laboratory Laboratory [place], [facility] [address] [facility] [address] 10/22/2023 Office Visit Cardiology Nithin Smith, DO [address] [place] [address] Scheduled Procedures Name Priority Associated Diagnoses Date/Ti me COLONOSCOPY FLEXIBLE PROXIMA L DIAGNOSTIC Recall Special screening for malignant neoplasms, colon Health Maintenance Due Date Last Done Comments DIABETES-EYE EXAM 1961 DIABETES-FOOT EXAM 1961 Hepatitis C Screening 1961 DTaP,Tdap,and Td Vaccines (1 - Tdap) 02/13/2004 02/12/2004, 06/12/1994 COVID-19 Vaccine (3 - Pfizer risk series) 01/18/2021 12/21/2020, 11/30/2020 CKD PHOS USE SMARTSET 49618 02/05/2021 02/06/2020, 0 12/20/2008 Depression Screening, Annual for Pts 12 and Over 04/11/2021 04/11/2020 DXA Scan 04/02/2023 04/02/2016, 04/0 11/2013, 01/11/2014, Additional history exists Influenza Vaccine (FLU shot) (#1) 2023 08/19/2021, 08/30/2019, 08/30/2019, Additional history exists HbA1c 06/14/2023 12/12/2022, 07/12, 01/27/2022 GFR 09/02/2023 03/02/2023, 01/10, 11/04/2022, Additional history exists TSH 10/24/2023 10/24/2022, 12/12/2020, 04/11/2020, Additional history exists Albumin/Creatinine Ratio 12/13/2023 12/12/2022 CKD HGB USE SMARTSET 69257 03/02/202403/02, 03/02/2023, 01/28/2023, Additional history exists Pneumococcal [...] filedocumented as of this encounter Care Teams Filer Helper Relationship Specialty Start Date End Date Lucas Mendez MD [address] [place] [address] PCP - General 07/12/00 documented as of this encounter
--- OUTSIDE RECORDS SUMMARY | 2023-08-24 15:05 | External Medical Summary ---
Author Name Unknown Address Unknown Organization K01:[facility] - [address] [place] [address] Laboratory Report Ordering Provider Test Date Status LOU CLAUDIO 03/02/2023 13:49:10 Final Observation Date Value Abnormality Reference (Units ) Status SYNC LEUKOCYTES IN BLOOD BY AUTOMATED COUNT 03/02/2023 13:49:10 91.54 Above upper panic limits 4.00-10.80 (K/uL) Final Neutrophils/100 leukocytes in Blood by Manual count 03/02/2023 13:49:10 7.0 Below low normal 40.0-75.0 (%) Final Lymphocytes/100 leukocytes in Blood by Manual count 03/02/2023 13:49:10 91.0 Above high normal 18.0-42.0 (%) Final Monocytes/100 leukocytes in Blood by Manual count 03/02/2023 13:49:10 2.0 1.0-11.0 (%) Final Neutrophils [#/volume] in Blood by Manual count 03/02/2023 13:49:10 6.41 1.80-7.70 (K/uL) Final Lymphocytes [#/volume] in Blood by Manual count 03/02/2023 13:49:10 83.30 Above high normal 1.00-4.80 (K/uL) Final Monocytes [#/volume] in Blood by Manual count 03/02/2023 13:49:10 1.83 Above high normal 0.00-1.10 (K/uL) Final Performing Location [facility] - [address] [place] [address]
--- OUTSIDE RECORDS SUMMARY | 2023-08-24 15:05 | External Medical Summary ---
Author Name Unknown Address Unknown Organization K01:[facility] - [address] [facility] [place] [address] Laboratory Report Ordering Provider Test Date Status LOU CLAUDIO 03/02/2023 13:49:10 Final Observation Date Value Abnormality Reference (Units ) Status BUN 03/02/2023 13:49:10 27 Above high normal 6-20 (mg/dL) Final Creatinine 03/02/2023 13:49:10 1.3 Above high normal 0.5-1.0 (mg/dL) Final Glomerular filtration rate/1.73 sq M.predicted [Volume Rate/Area] in Serum, Plasma or Blood by Creatinine-based formula (CKD-EPI) 03/02/2023 13:49:10 42 Below low normal >=60 (mL/min) Final eGFR is calculated based on the CKD-EPI 2020 equation SODIUM 03/02/2023 13:49:10 141 135-146 (m mol/L) Final Potassium 03/02/2023 13:49:10 4.4 3.5-5.1 (m mol/L) Final Cl 03/02/2023 13:49:10 106 98-107 (mm ol/L) Final CO2 03/02/2023 13:49:10 27 22-32 (mmo l/L) Final Anion gap 03/02/2023 13:49:10 8 7-15 (mmol /L) Final Glucose 03/02/2023 13:49:10 54 Below low normal 70- 120 (mg/dL) Final Albumin 03/02/2023 13:49:10 3.9 3.8-5.0 (g /dL) Final AST (Aspartate aminotransferase) 03/02/2023 13:49:10 30 10-35 (U/L) Fin al Alk Phos 03/02/2023 13:49:10 110 35-130 (U/ L) Final Bilirubin, Total 03/02/2023 13:49:10 0.3 <=1 .2 (mg/dL) Final Calcium 03/02/2023 13:49:10 8.9 8.4-10.2 ( mg/dL) Final Protein 03/02/2023 13:49:10 6.2 6.0-8.3 (g /dL) Final ALT (Alanine aminotransferase) 03/02/2023 13:49:10 32 10-35 (U/L) Delmer lira Performing Location [facility] - [address] [facility] [address]
--- OUTSIDE RECORDS SUMMARY | 2023-08-24 15:05 | External Medical Summary | Summary of Care ---
Author Name Unknown Organization [facility] Address [address] [facility] [place] [address] Phone [phone] Care Team Providers Care Hamper Maker Machine Name Role Phone Lucas Mendez MD Primary Care Provider +1- [phone] Reason for Visit * Reason Comments Outpatient Testing Encounter Details Date Type Department Care Team Description 03/02/2023 Laboratory Laboratory, [facility] [place] [address] [place] [address] [place] [address] [place] [address] CLL (chronic lymphocytic leukemia) (HCC) Allergies Active Allergy Reactions Severity Noted Date Comments Codeine Nausea/vomiting 2011 Lisinopril 03/07/2008 Cough documented as of this encounter (statuses as of 03/02/2023) Medications Medication Sig Dispensed Refills Start Date [...] Oral Tablet (sacubitril-valsarta n 24-26 mg per tab)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: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 heart failure with reduced ejection fraction [...] as of this encounter (statuses as of 03/02/2023) Active Problems Problem Noted Date Type 2 diabetes mellitus with hemoglobin A1c goal of less than 7.0% 12/02/2022 AICD (automatic cardioverter/defibrillat or) present 07/24/2022 Chronic kidney disease, stage 3b 022 Overview: Per CKD protocol Ischemic cardiomyopathy 08/15/2021 LBBB (left bundle branch block) 08/15/20 Chronic heart failure with r educed ejection fraction and diastolic dysfunction 08/15/2021 Coronary artery disease invo lving [place] coronary artery of [place] heart without angina pectoris 08/15/2021 Moderate mitral [...] as of this encounter (statuses as of 03/02/2023) Resolved Problems Problem Noted Date Resolved Date [...] as of this encounter (statuses as of 03/02/2023) Immunizations Name Administration Dates Next Due Pneumococcal [...] Encounters Date Type Specialty Care Team Description 03/12/2023 Office Visit Hematology Oncology Meila Weller CRNP [address] [place] [address] 04/22/2023 Imaging Radiology 05/27/2023 Office Visit Cardiology Tari Sutherland CRNP [address] [place] [address] 06/19/2023 Office Visit Family Medicine Lucas Mendez MD [address], [place] [id number] 07/30/2023 Laboratory Laboratory [facility] Laboratory [address] [place] [address] 10/22/2023 Office Visit Cardiology Nithin Smith DO [address] [place] [address] Pending Results Name Type Priority Associated Diagnoses Date /Time CBC WITH WBC DIFFERENTIAL Lab STAT CLL (chronic lymphocytic leukemia) ([facility]) 03/02/2023 1:49 PM EDT COMPREHENSIVE METABOLIC PANEL Lab STAT CLL (chronic lymphocytic leukemia) ([facility]) 03/02/2023 1:49 PM EDT CBC Lab STAT CLL (chronic lymphocytic leukemia) ([facility]) 03/02/2023 1:49 PM EDT DIFFERENTIAL, AUTOMATED Lab STAT CLL (chronic lymphocytic leukemia) ([facility]) 03/02/2023 1:49 PM EDT Scheduled Procedures Name Priority Associated Diagnoses Date/Ti me COLONOSCOPY FLEXIBLE PROXIMA L DIAGNOSTIC Recall Special screening for malignant neoplasms, colon Health Maintenance Due Date Last Done Comments DIABETES-EYE EXAM 1963 DIABETES-FOOT EXAM 1961 Hepatitis C Screening 1963 DTaP,Tdap,and Td Vaccines (1 - Tdap) 02/13/2004 02/12/2004, 06/12/1994 COVID-19 Vaccine (3 - Pfizer risk series) 01/18/2021 12/21/2020, 11/30/2020 CKD PHOS USE SMARTSET 43664 02/05/2021 02/06/2020, 0 12/20/2008 Depression Screening, Annual for Pts 12 and Over 04/11/2021 04/11/2020 DXA Scan 04/02/2023 04/02/2016, 04/0 11/2013, 01/11/2014, Additional history exists Influenza Vaccine (FLU shot) (Season Ended) 2023 08/19/2021, 08/30/2019, 08/30/2019, Additional history exists HgA1C 06/14/2023 12/12/2022, 07/12, 01/27/2022 GFR - Renal Function 07/30/2023 01/28/2023, 11/04/2022, 10/24/2022, Additional history exists TSH FOR THYROID MEDICATION MONITORING YEARLY 10/24/2023 10/24/2022, 10/03/2021, 04/11/2020, Additional history exists Albumin/Creatinine Ratio 12/13/2023 12/12/2022 CKD HGB USE SMARTSET 90007 01/29/202401/28, 01/28/2023, 11/04/2022, Additional history exists Pneumococcal Vaccine: 65+ Years [...] remission documented in this encounter Care Teams Hamper Maker Machine Relationship Specialty Start Date End Date Lucas Mendez MD [address] [place] [address] PCP - General 07/12/00 documented as of this encounter
--- OUTSIDE RECORDS SUMMARY | 2023-08-24 15:05 | External Medical Summary | Summary of Care ---
Author Name Unknown Organization [facility] Address [address] [facility] [place] [address] Phone [phone] Care Team Providers Care Test Rider Name Role Phone Lucas Mendez MD Primary Care Provider [phone]- [phone] Reason for Visit * Reason Comments Follow Up 6m Encounter Details Date Type Department Care Team Description 03/12/2023 Office Visit Hematology/Oncology [facility] [place] [address] [facility] [address] Melia Weller CRNP [address] [place] [address] CLL (chronic lymphocytic leukemia) (HCC)*; Pulmonary nodules Allergies Active Allergy Reactions Severity Noted Date Comments Codeine Nausea/vomiting 2011 Lisinopril 03/07/2008 Cough documented as of this encounter (statuses as of 03/12/2023) Medications Medication Sig Dispensed Refills Start Date [...] Oral Tablet (sacubitril-valsarta n 24-26 mg per tab)Indications:Chinese Medicine Practitioner brittany heart failure with reduced ejection fraction [...] as of this encounter (statuses as of 03/12/2023) Active Problems Problem Noted Date Type 2 diabetes mellitus with hemoglobin A1c goal of less than 7.0% 12/02/2022 AICD (automatic cardioverter/defibrillat or) present 07/24/2022 Chronic kidney disease, stage 3b 02/14/2 022 Overview: Per CKD protocol Ischemic cardiomyopathy 08/15/2021 LBBB (left bundle branch block) 08/15/20 21 Chronic heart failure with r educed ejection fraction and diastolic dysfunction 08/15/2021 Coronary artery disease invo lving [place] coronary artery of [place] heart without angina pectoris 08/15/2021 Moderate mitral [...] as of this encounter (statuses as of 03/12/2023) Resolved Problems Problem Noted Date Resolved Date [...] as of this encounter (statuses as of 03/12/2023) Immunizations Name Administration Dates Next Due Pneumococcal [...] Sign Reading Time Taken Comments Blood Pressure 97/63 03/12/2023 3:24 PM EDT Pulse 89 03/12/2023 3:24 PM EDT Temperature 36.5 C (97.7 F) 03/12/2023 3:24 PM ED T Respiratory Rate 16 03/12/2023 3:24 PM EDT Oxygen Saturation 94% 03/12/2023 3:24 PM EDT Inhaled Oxygen Concentration - - Weight 56.6 kg (124 lb 12.8 oz) 03/12/2023 3:24 PM EDT Height - - Body Mass Index 22.83 12/12/2022 11:32 AM EST documented in this encounter Progress Notes * MELISSA Armas - 03/12/2023 3:30 PM EDT Images from the original note were not included. Hematology/Oncology Outpatient Clinic note [facility] 200 [facility] [place] [address] Name: Viri Rose Date: 03/12/2023 CHIEF COMPLAINT: Viri Rose is a 77 year old female patient of Dr. Knutson Mohini here today for f/u visit today. From Patient chart confirmed with patient. HEMATOLOGY/ONCOLOGY DIAGNOSIS: Chronic lymphocytic leukemia CURRENT TREATMENT: Observation ONCOLOGY HISTORY: 76-year-old female was recently found to have [...] (SLL) in leukemia phase. The prognostic markers, Donna-70 and CD38, are both positive, which is the least favorable prognosticcategory. NEOtype analysis was done for CLL and shows as follow: Social history patient denies any smoking or drinking. Family history not significant for any hematologic oncology problem HISTORY OF PRESENT ILLNESS: Viri Rose is a 77 year old female with a history as outlined above. Currently here for f/u visit today. Patient feeling well today. Has been gaining weight back. Trying to eat more and drinking two boost shakes a day. Denies any fevers or night sweats. Still has pretty significant fatigue but now that she is eating more seems to have minimally improved. Denies any lumps or bumps. Denies any abnormal bruising or bleeding. Past Medical History: Diagnosis Date Depressive disorder, [...] performed by Tom Astudillo MD at [facility] EGD, FLEXIBLE, DIAGNOSTIC 09/08/2018 eso stenosis, hiatal hernia, gastritis/ESOPHAGOGASTRODUODENOSCOPY (EGD), FLEXIBLE, TRANSORAL, DIAGNOSTIC performed by Tom Astudillo MD at ENDOSCOPY [facility] EGD, FLEXIBLE, INSERT WIRE, PASS DILATOR 07/06/09 done hiatal hernia, benign appearing esophageal stricture, dilated to 16 mm EGD, FLEXIBLE, W/BIOPSY 07/06/09 done mild gastric irritation LIGATE/CUT OVIDUCT(S) 1968 Tubal Ligation,Non Laparoscopic TOTAL HYSTERECTOMY 1986 MICHAEL (Total Abdominal Hysterectomy) UPPER ENDOSCOPY GI REFERRAL OP 2002 [place] Social History Tobacco Use Smoking status: Never Smokeless tobacco: Never Substance and Sexual Activity Alcohol use: No Drug use: No Sexual activity: Yes Partners: Male Review of patient's allergies indicates: Allergen Reactions Codeine Nausea/vomiting Lisinopril Cough Current Outpatient Medications Medication Sig [...] 1 Packet by mouth in the morning. Entresto 24-26 MG Oral Tablet (sacubitril-valsartan 24-26 mg per tab) Take 1/2 tablet twice daily 90 Tablet 3 Metoprolol Succinate ER 50 MG Oral Tablet Extended Release 24 Hour (toPROL XL) Take 0.5 Tabletsby mouth in the morning. 90 Tablet 3 No current facility-administered medications for this visit. REVIEW OF SYSTEMS: See HPI - otherwise negative OBJECTIVE: Filed Vitals: 03/12/23 1524 BP: 97/63 Pulse: 89 Resp: 16 Temp: 36.5 C (97.7 F) TempSrc: Oral SpO2: 94% Weight: 56.6 kg (124 lb 12.8 oz) Wt Readings from Last 5 Encounters: 03/12/23 56.6 kg (124 lb 12.8 oz) 01/22/23 54.3 kg (119 lb 12 oz) 12/12/22 56.9 kg (125 lb 8 oz) 12/02/22 56.7 kg (125 lb) 10/24/22 55.8 kg (123 lb) PHYSICAL EXAM: ECOG: Performance Status 1 = 80-90% Symptoms but nearly ambulatory General Appearance: No acute distress Lymph Nodes: Normal - No palpable lymph nodes in the neck, supraclavicular or axillary areas Lungs/Thorax: Normal - Clear to auscultation Heart: Normal - Regular rate and rhythm, normal S1, S2, no appreciable murmurs Pulses/Extremities: Normal - 2+ throughout and symmetrical, no edema Abdomen: Normal - Soft, nontender, bowel sounds present, no appreciable hepatosplenomegaly, no palpable masses Neurologic: Normal - Grossly intact LABS: Results for orders placed or performed in visit on 03/02/23 COMPREHENSIVE METABOLIC PANEL Result Value Ref Range BUN 27 (H) 6 - 20 mg/dL Creatinine 1.3 (H) 0.5 - 1.0 mg/dL Estimated Glomerular Filtration Rate 42 (L) >=60 mL/min Sodium 141 135 - 146 mmol/L Potassium 4.4 3.5 - 5.1 mmol/L Chloride 106 98 - 107 mmol/L CO2 27 22 - 32 mmol/L Anion Gap 8 7 - 15 mmol/L Glucose 54 (L) 70 - 120 mg/dL Albumin 3.9 3.8 - 5.0 g/dL AST 30 10 - 35 U/L Alkaline Phosphatase 110 35 - 130 U/L Bilirubin, Total 0.3 <=1.2 mg/dL Calcium 8.9 8.4 - 10.2 mg/dL Protein 6.2 6.0 - 8.3 g/dL ALT 32 10 - 35 U/L CBC Result Value Ref Range WBC 91.54 (HH) 4.00 - 10.80 K/uL RBC 3.66 3.85 - 5.15 M/uL HGB 11.2 (L) 12.0 - 15.3 g/dL HCT 37.0 36.0 - 45.2 % MCV 101.1 81.5 - 97.5 fL MCH 30.6 27.0 - 34.0 pg MCHC 30.3 32.0 - 36.0 g/dL RDW 15.6 11.5 - 15.5 % PLT 125 (L) 140 - 400 K/uL MPV 11.0 6.6 - 11.1 fL nRBCs 0 <=0 /100 WBCs DIFFERENTIAL, TECHNOLOGIST REVIEW Result Value Ref Range WBC 91.54 (HH) 4.00 - 10.80 K/uL Neutrophils % 7.0 (L) 40.0 - 75.0 % Lymphocytes % 91.0 (H) 18.0 - 42.0 % Monocytes % 2.0 1.0 - 11.0 % Absolute Neutrophils 6.41 1.80 - 7.70 K/uL Absolute Lymphocytes 83.30 (H) 1.00 - 4.80 K/uL Absolute Monocytes 1.83 (H) 0.00 - 1.10 K/uL IMPRESSION/PLAN: Chronic lymphocytic leukemia Pulmonary nodules Currently under observation Lab results reviewed: WBC 91.54, ALC 83.30 Doubling time currently approximately one year Mild anemia stable with Hgb of 11.2 Now with development of mild thrombocytopenia with platelet count of 125K Patient reports chronic fatigue which is stable Patient with 20 pound unintentional weight loss over the last year. This has stabalized over the last three months and now starting to gain some weight back. No LAD or splenomegaly noted on physical exam CT C/A/P 10/17/22 revealed no enlarged lymph nodes or splenomegaly. Did show a few small pulmonary nodules for which a six month follow up chest CT was ordered. Scheduled for 04/22/23. Will plan to repeat cbc/diff in six weeks RTC in three months with physician with cbc/diff, cmp and ldh MELISSA Lopez documented in this encounter Nursing Notes * Davina Zambrano CMA - 03/12/2023 3:24 PM EDT Patient identifed by name and [...] it for you? ALREADY ACTIVE Filed Vitals: 03/12/23 1524 BP: 97/63 Pulse: 89 Resp: 16 Temp: 36.5 C (97.7 F) TempSrc: Oral SpO2: 94% Weight: 56.6 kg (124 lb 12.8 oz) Patient was instructed to not get [...] Description 04/22/2023 Imaging Radiology 04/23/2023 Laboratory [facility] [place], [facility] [address] [place] [address] 05/27/2023 Office Visit Cardiology Tari Sutherland CRNP [address] [place] [address] 06/09/2023 Laboratory [facility] [place] [address] [place] [address] 06/19/2023 Office Visit Family Medicine Lucas Mendez MD [address] [place] [address] 06/24/2023 Office Visit Hematology Oncology Zenia Rajan MD [address] [place] [address] 07/30/2023 Laboratory [facility] [place] [address] [place] [address] 10/22/2023 Office Visit Cardiology Nithin Smith DO [address] [place] [address] Scheduled Orders Name Type Priority Associated Diagnoses Orde r Schedule CBC WITH WBC DIFFERENTIAL Lab STAT CLL (chronic lymphocytic leukemia) (HCC) Expected: 04/23/2023 (Approximate), Expires: 09/11/2023 CBC WITH WBC DIFFERENTIAL Lab STAT CLL (chronic lymphocytic leukemia) ([facility]) Expected: 06/12/2023 (Approximate), Expires: 09/11/2023 COMPREHENSIVE METABOLIC PANEL Lab STAT CLL (chronic lymphocytic leukemia) ([facility]) Expected: 06/12/2023 (Approximate), Expires: 09/11/2023 LD Lab STAT CLL (chronic lymphocytic leukemia) ([facility]) Expected: 06/12/2023 (Approximate), Expires: 09/11/2023 Scheduled Procedures Name Priority Associated Diagnoses Date/Ti me COLONOSCOPY FLEXIBLE PROXIMA L DIAGNOSTIC Recall Special screening for malignant neoplasms, colon Health Maintenance Due Date Last Done Comments DIABETES-EYE EXAM 1963 DIABETES-FOOT EXAM 1963 Hepatitis C Screening 1963 DTaP,Tdap,and Td Vaccines (1 - Tdap) 02/13/2004 02/12/2004, 06/12/1994 COVID-19 Vaccine (3 - Pfizer risk series) 01/18/2021 12/21/2020, 11/30/2020 CKD PHOS USE SMARTSET 76723 02/05/2021 02/06/2020, 0 12/20/2008 Depression Screening, Annual [...] Ratio 12/13/2023 12/12/2022 CKD HGB USE SMARTSET 64875 03/02/202403/02, 03/02/2023, 01/28/2023, Additional history exists Pneumococcal [...] leukemia, without mention of having achieved remission Pulmonary nodules Other nonspecific abnormal finding of lung field documented in this encounter Care Teams Test Rider Relationship Specialty Start Date End Date Lucas Mendez MD [address], [place] [id number] PCP - General 07/12/00 documented as of this encounter
--- OUTSIDE RECORDS SUMMARY | 2023-08-24 15:05 | External Medical Summary | Summary of Care ---
Author Name Unknown Organization [facility] Address [address] [facility] [place] [address] Phone [phone] Care Team Providers Care Self Storage Manager Name Role Phone Lucas Mendez MD Primary Care Provider +1- [phone] Reason for Visit * Reason Onset Date Comments Advice 04/02/2023 Encounter Details Date Type Department Care Team Description 04/02/2023 Telephone Cardiology, [facility] [address] [place] [address] Tari Sutherland CRNP [address] [facility] [address] Advice Allergies Active Allergy Reactions Severity Noted [...] Oral Tablet (sacubitril-valsarta n 24-26 mg per tab)Indications:Overhauler Helper brittany heart failure with reduced ejection [...] dysfunction 08/15/2021 Coronary artery disease invo lving [place] coronary artery of [place] heart without angina pectoris 08/15/2021 Moderate mitral [...] encounter Miscellaneous Notes * Telephone Encounter - Ángel Vigil PA-C - 04/03/2023 5:34 PM EDT Inbasket coverage. Hold Entresto Call with update and BP's in 5 days Ángel Vigil PA-C Department of Cardiology * Telephone Encounter - Son Sheets LPN - 04/03/2023 3:25 PM EDT Hospice nurse called back and reported BP listed below. 04/02: 80/54 6: 92/65 615: 87/51 612: 78/58 68: 89/56 6: 103/72 [...] will call us back. Their number is [phone] * Telephone Encounter - MELISSA Crowder - [...] Description 04/22/2023 Imaging Radiology 04/23/2023 Laboratory Laboratory [facility] [address] [place] [address] 05/27/2023 Office Visit Cardiology Tari Sutherland CRNP [address] [place] [address] 06/09/2023 Laboratory Laboratory [facility] [address] [place] [address] 06/19/2023 Office Visit Family Medicine Lucas Mendez MD [address] [place] [address] 06/24/2023 Office Visit Hematology Oncology Zenia Rajan MD [address] [place] [address] 07/30/2023 Laboratory Laboratory [place], Laboratory [address] [place] [address] 10/22/2023 Office Visit Cardiology Nithin Smith DO [address] [place] [address] Scheduled Procedures Name Priority Associated Diagnoses Date/Ti me COLONOSCOPY FLEXIBLE PROXIMA L DIAGNOSTIC Recall Special screening for malignant neoplasms, colon Health Maintenance Due Date Last Done Comments DIABETES-EYE EXAM 1963 DIABETES-FOOT EXAM 1961 Hepatitis C Screening 1961 DTaP,Tdap,and Td Vaccines (1 - Tdap) 02/13/2004 02/12/2004, 06/12/1994 COVID-19 Vaccine (3 - Pfizer risk series) 01/18/2021 12/21/2020, 11/30/2020 CKD PHOS USE SMARTSET 04108 02/05/2021 02/06/2020, 0 12/20/2008 Depression Screening, Annual [...] Ratio 12/13/2023 12/12/2022 CKD HGB USE SMARTSET 07146 03/02/202403/02, 03/02/2023, 01/28/2023, Additional history exists Pneumococcal [...] filedocumented as of this encounter Care Teams Self Storage Manager Relationship Specialty Start Date End Date Lucas Mendez MD [address], [place] [id number] PCP - General 07/12/00 documented as of this encounter
--- OUTSIDE RECORDS SUMMARY | 2023-08-24 15:05 | External Medical Summary | Summary of Care ---
Author Name Unknown Organization [facility] Address [address] [facility] [place] [address] Phone [phone] Care Team Providers Care Track Dresser Name Role Phone Lucas Mendez MD Primary Care Provider +1- [phone] Reason for Visit * Reason Onset Date Comments Advice 04/02/2023 Encounter Details Date Type Department Care Team Description 04/02/2023 Telephone Cardiology, [facility] [address] [place] [address] Tari Sutherland CRNP [address] [place] [address] Advice Allergies Active Allergy Reactions Severity Noted Date Comments Codeine Nausea/vomiting 2011 Lisinopril 03/07/2008 Cough documented as of this encounter (statuses as of 04/06/2023) Medications Medication Sig Dispensed Refills Start Date [...] Oral Tablet (sacubitril-valsarta n 24-26 mg per tab)Indications:Pile Trimmer brittany heart failure with reduced ejection fraction [...] as of this encounter (statuses as of 04/06/2023) Active Problems Problem Noted Date Type 2 diabetes mellitus with hemoglobin A1c goal of less than 7.0% 12/02/2022 AICD (automatic cardioverter/defibrillat or) present 07/24/2022 Chronic kidney disease, stage 3b 022 Overview: Per CKD protocol Ischemic cardiomyopathy 08/15/2021 LBBB (left bundle branch block) 08/15/20 Chronic heart failure with r educed ejection fraction and diastolic dysfunction 08/15/2021 Coronary artery disease invo lving [place] coronary artery of [place] heart without angina pectoris 08/15/2021 Moderate [...] as of this encounter (statuses as of 04/06/2023) Resolved Problems Problem Noted Date Resolved Date [...] as of this encounter (statuses as of 04/06/2023) Immunizations Name Administration Dates Next Due Pneumococcal [...] Telephone Encounter - Bang Feliciano RN - 04/06/2023 1:30 PM EDT Called the patient's hospice service and I reviewed with them the message from Ángel Vigil PA-C. They will updated in about 5 days. Hospice [phone] * Telephone Encounter - Ángel Vigil PA-C - 04/03/2023 5:34 PM EDT Inbasket coverage. Hold Entresto Call with update and BP's in 5 days Ángel Vigil PA-C Department of Cardiology * Telephone Encounter - Son Sheets LPN - 04/03/2023 3:25 PM EDT Hospice nurse called back and reported BP listed below. 04/02: 80/54 6: 92/65 615: 87/51 612: 78/58 6/8: 89/56 6/5: 103/72 6/1: 83/50 Patient had one fall on 03/01/23- [...] will call us back. Their number is [phone] * Telephone Encounter - MELISSA Crowder - [...] Description 04/22/2023 Imaging Radiology 04/23/2023 Laboratory [facility] [place], [facility] [address] [place] [address] 05/27/2023 Office Visit Cardiology Tari Sutherland CRNP [address] [place] [address] 06/09/2023 Laboratory [facility] [place], [facility] [address] [place] [address] 06/19/2023 Office Visit Family Medicine Lucas Mendez MD [address] [place] [address] 06/24/2023 Office Visit Hematology Oncology Zenia Rajan MD [address] [place] [address] 07/30/2023 Laboratory [facility] [place] [address] [facility] [place] [address] 10/22/2023 Office Visit Cardiology Nithin Smith, [address] [place] [address] Scheduled Procedures Name Priority Associated Diagnoses Date/Ti me COLONOSCOPY FLEXIBLE PROXIMA L DIAGNOSTIC Recall Special screening for malignant neoplasms, colon Health Maintenance Due Date Last Done Comments DIABETES-EYE EXAM 1961 DIABETES-FOOT EXAM 1961 Hepatitis C Screening 1961 DTaP,Tdap,and Td Vaccines (1 - Tdap) 02/13/2004 02/12/2004, 06/12/1994 COVID-19 Vaccine (3 - Pfizer risk series) 01/18/2021 12/21/2020, 11/30/2020 CKD PHOS USE SMARTSET 68513 02/05/2021 02/06/2020, 0 12/20/2008 Depression Screening, Annual [...] Ratio 12/13/2023 12/12/2022 CKD HGB USE SMARTSET 90922 03/02/202403/02, 03/02/2023, 01/28/2023, Additional history exists Pneumococcal [...] filedocumented as of this encounter Care Teams Track Dresser Relationship Specialty Start Date End Date Lucas Mendez MD [address] [place] [address] PCP - General 07/12/00 documented as of this encounter
--- NOTE | 2023-08-24 15:06 | Hospitalist Progress Note ---
Date of Service August 24, 2023 Assessment & Plan (1) Left displaced femoral neck fracture: Plan: Patient presented to the ED with mechanical fall. Imaging revealed left femoral neck fracture Status post left femoral hemiarthroplasty on August 21, 2023 Continue pain control with scheduled Tylenol, PRN oxycodone PT OT evaluation Aspirin twice daily for DVT prophylaxis. Started on Protonix once a day Continue Kimbrough for now; TOV once patient is more ambulatory Acute blood loss anemia Hemoglobin down trended to 6.8. Status post 1 unit of transfusion on August 23, 2023 Hgb 8.2 today Monitor CBC (2) UTI (urinary tract infection): Plan: UA grossly abnormal, Urine culture growing E. coli; pansensitive Blood culture no growth till date On IV ceftriaxone (day 3) (3) CLL (chronic lymphocytic leukemia): Plan: Elevated WBC and lymphocytic count secondary to CLL, Bchronic lymphocytic leuke baltazar, poor prognostic markers, follows with Dr. Rajan with oncology as outpatient Patient is being treated symptomatically, no current chemotherapy, elected hospice, CM to assist with discharge planning, reinitiation of hospice following discharge (4) CAD (coronary artery disease): Plan: Hx of AICD placement in 2021 Last Echo from Nov 2022 reviewed showing LVEF of 52%, normal, mild to moderate aortic stenosis, mild MR and TR. Continue metoprolol succinate 25 mg daily (5) IBS (irritable bowel syndrome): Plan: Chronically loose stools intermittently, probiotic added (6) CKD (chronic kidney disease) stage 3, GFR 30-59 ml/min: Plan: Cr. and BUN appear to be at baseline Chronic, stable (7) Hypothyroidism: Plan: Pt is no longer on levothyroxine due to hospice Chronic, stable DVT PROPHYLAXIS ASA 81 mg BID as per ortho Dispo - pending, PT/OT recommending rehab, rehab placement vs home with hospice, CM following Patient seen in collaboration with Dr. Faria. Admission and Anticipated Discharge Date Admission Date: August 20, 2023 Supervising Physician Co-Signing Physician Notes Patient seen and examined independently. Discussed with the provider. Patient working with physical therapy today. Pain well controlled on current medication. Trial of void today. Subjective Follow-up for left femoral neck fracture s/p left femoral hemiarthroplasty. Patient seen and examined. Reports pain is well controlled. Not participating much in therapy, feels "lazy". No chest pain or shortness of breath. Denies abdominal pain and nausea. Physical Exam Constitutional: WD/WN, vitals as above no acute distress Respiratory: normal respiratory effort, lungs clear to auscultation Cardiovascular: Rate/Rhythm: regular rate and regular rhythm Vessels: normal peripheral pulses Extremities: no edema Gastrointestinal (Abdomen): Percussion/Palpation: abdomen soft; abdomen nontender Musculoskeletal: S/p left hip surgery, dressing CDI, CSM checks intact LLE Skin: no rashes, warm and dry Neurologic: no focal motor deficits Psychiatric: A+Ox3, euthymic affect Results & Data Results & Data Vital Signs (Past 12 Hours) Vital Signs Temp Pulse Resp BP Pulse Ox O2 Del Method 08/24/23 14:47 36.7 C 84 16 94/65 L 94 Room Air 08/24/23 07:11 36.7 C 77 16 116/64 95 Room Air Laboratory Results Short CBC 08/24/23 Range/Units 08:24 WBC 79.23 H* (4.8-10.8) K/ul Hgb 8.2 L (12.0-16.0) g/dl Hct 25.8 L (37.0-47.0) % Plt Count 112 L (130-400) K/uL BMP 08/24/23 08:24 Sodium 137 Potassium 3.9 Chloride 105 Carbon Dioxide 26 BUN 16 Creatinine 0.66 Glucose 110 H Calcium 8.6
[2023-08-24] MEDS: BACLOFEN 10 MG TAB PO SCH (22:32)
[2023-08-24] MEDS: ATORVASTATIN 20 MG TAB PO SCH (22:33)
[2023-08-24] MEDS: SENNA 8.6 MG TAB PO SCH (22:34)
[2023-08-25] MEDS: ACETAMINOPHEN 500 MG TAB PO SCH ×3 (05:57→21:08)
[2023-08-25 06:29] LABS: Hemoglobin 7.6 g/dl (12.0-16.0); Mean Corpuscular Hemoglobin 31.4 pg (25.0-34.0); Mean Corpuscular Hgb Conc 31.7 g/dL (32.0-36.0); Mean Corpuscular Volume 99.2 fL (80.0-100.0); Mean Platelet Volume 10.7 fL (9.4-12.4); Platelet Count 110 K/uL (130-400); RDW Coefficient of Variation 17.1 % (11.5-14.5); RDW Standard Deviation 60.8 fL (36.4-46.3); Red Blood Count 2.42 M/uL (4.20-5.40); White Blood Count 76.47 K/ul (4.8-10.8)
[2023-08-25 06:34] LABS: BUN Creatinine Ratio 26.3 (10-20); Calcium 8.6 mg/dl (8.6-10.3); Creatinine Clr Calc Pharmacy 46.8 ml/min; Est GFR (African American) 86.5 ml/min; Est GFR (Non-African American) 74.6 ml/min; Potassium 3.3 mmol/L (3.5-5.1)
[2023-08-25 07:09] LABS: Basophils # (auto) 0.02 K/uL (0.00-0.20); Eosinophils # (auto) 0.06 K/uL (0.00-0.50); Eosinophils % (auto) 0.1 %; Immature Granulocytes # (auto) 0.07 K/uL (0.01-0.20); Immature Granulocytes % (auto) 0.1 %; Lymphocytes # (auto) 71.63 K/uL (1.20-3.40); Lymphocytes % (auto) 93.7 %; Monocytes # (auto) 1.76 K/uL (0.11-0.59); Monocytes % (auto) 2.3 %; Neutrophils # (auto) 2.93 K/uL (1.40-6.50); Neutrophils % (auto) 3.8 %; Smudge Cells Present
[2023-08-25] MEDS ORDERED: POTASSIUM CHLORIDE CRTAB 20 MEQ TABCR PO ONE (07:18)
[2023-08-25] MEDS: FERROUS GLUCONATE 324 MG TAB PO SCH ×2 (08:14→17:01)
[2023-08-25] MEDS: MULTIVITAMIN TAB PO SCH (08:15)
[2023-08-25] MEDS: METOPROLOL SUCC 25MG EXT REL TAB PO SCH (08:15)
[2023-08-25] MEDS: PANTOprazole 40 MG TAB PO SCH (08:15)
[2023-08-25] MEDS: PARoxetine HCL 10 MG TAB PO SCH (08:15)
[2023-08-25] MEDS: ASPIRIN 81 MG ECTAB PO SCH ×2 (08:15→20:38)
[2023-08-25] MEDS: ASCORBIC ACID 500 MG TAB PO SCH ×2 (08:15→17:01)
[2023-08-25] MEDS: DOCUSATE SODIUM 100 MG CAP PO SCH ×2 (08:16→20:39)
[2023-08-25] MEDS: buPROPion HCl 100 MG TABLET PO SCH ×2 (08:16→20:39)
--- NOTE | 2023-08-25 10:13 | Orthopedic Progress Note ---
Date of Service August 25, 2023 Assessment & Plan (1) Left displaced femoral neck fracture: Plan: Mutritional supplements given the patient's age and need for adequate nutrition particularly with her underlying leukemia. Physical therapy and Occupational Therapy daily. May shower with a Silverlon dressing in place. Weightbearing as tolerated with a walker and posterior hip precautions with maximal assist given that she is a fall risk. Pain medications per the internal medicine team. Continue to minimize or eliminate narcotics. DVT prophylaxis per the primary team. Follow-up as scheduled with GIO De La Rosa PA-C, at [facility] Any questions feel free to contact orthopedics. Admission and Anticipated Discharge Date Admission Date: August 20, 2023 Subjective This 77-year-old female is 4 days status post cemented left hip hemiarthroplasty. Patient states she is doing very well. She states she has no pain. She is very pleasant but slightly confused. Her Silverlon dressing is peeling off. Patient denies chest pain, shortness of breath, fever, chills, sweats or numbness or tingling in her left lower extremity. She states she is not able to lift the leg. She states that she is having conversations with her and understands that she will most likely need placement for rehab. Review of Systems Review of Systems: All systems reviewed & are unremarkable except as noted in Subjective Physical Exam Physical Exam: Left lower extremity: Silverlon is peeling off. I decided to apply a new 1. Her zipper line is still in place. There is no drainage from her incision site. Patient has no pain with logroll testing. She is unable to perform an active straight leg raise test. Quad strength is 3 out of 5. Patient has no diffic ulty actively dorsi or plantar flexing her foot. She has not no tenderness to palpation over the groin or lateral aspect of her hip. Patient tolerates passive hip flexion near 90 degrees. She has some aching type pain with light passive internal rotation but no pain with external rotation. She is neurovascular intact in the left lower extremity. Results & Data Vital Signs (Past 12 Hours) Vital Signs Temp Pulse Resp BP Pulse Ox O2 Del Method 08/25/23 08:00 36.4 C L 71 18 130/70 9 L Room Air Diagnostic Findings Laboratory Results WBC 76.47 K/ul (4.8-10.8) H* 08/25/23 05:38 RBC 2.42 M/uL (4.20-5.40) L 08/25/23 05:38 Hgb 7.6 g/dl (12.0-16.0) L 08/25/23 05:38 Hct 24.0 % (37.0-47.0) L 08/25/23 05:38 MCV 99.2 fL (80.0-100.0) 08/25/23 05:38 MCH 31.4 pg (25.0-34.0) 08/25/23 05:38 MCHC 31.7 g/dL (32.0-36.0) L 08/25/23 05:38 RDW Std Deviation 60.8 fL (36.4-46.3) H 08/25/23 05:38 RDW Coeff of Terri 17.1 % (11.5-14.5) H 08/25/23 05:38 Plt Count 110 K/uL (130-400) L 08/25/23 05:38 MPV 10.7 fL (9.4-12.4) 08/25/23 05:38 Immature Gran % (Auto) 0.1 % 08/25/23 05:38 Neut % (Auto) 3.8 % 08/25/23 05:38 Lymph % (Auto) 93.7 % 08/25/23 05:38 [place] % (Auto) 2.3 % 08/25/23 05:38 Eos % (Auto) 0.1 % 08/25/23 05:38 Baso % (Auto) 0.0 % 08/25/23 05:38 Neut # (Auto) 2.93 K/uL (1.40-6.50) 08/25/23 05:38 Lymph # (Auto) 71.63 K/uL (1.20-3.40) H 08/25/23 05:38 [place] # (Auto) 1.76 K/uL (0.11-0.59) H 08/25/23 05:38 Eos # (Auto) 0.06 K/uL (0.00-0.50) 08/25/23 05:38 Baso # (Auto) 0.02 K/uL (0.00-0.20) 08/25/23 05:38 Immature Gran # (Auto) 0.07 K/uL (0.01-0.20) 08/25/23 05:38 Absolute Nucleated RBC 0.03 K/uL (0.00-0.12) 08/20/23 14:12 Smudge Cells Present 08/25/23 05:38 Blood Smear Review Cancelled 08/20/23 14:12 RBC Morphology Unremarkable 08/22/23 08:05 Polychromasia 1+ 08/20/23 14:12 Ovalocytes 1+ 08/20/23 14:12 Sodium 138 mmol/L (136-145) 08/25/23 05:38 Potassium 3.3 mmol/L (3.5-5.1) L 08/25/23 05:38 Chloride 105 mmol/L (98-107) 08/25/23 05:38 Carbon Dioxide 29 mmol/L (21-32) 08/25/23 05:38 Anion Gap 4 (3-11) 08/25/23 05:38 BUN 20 mg/dl (6-23) 08/25/23 05:38 Creatinine 0.76 mg/dl (0.6-1.2) 08/25/23 05:38 Est Cr Clr Drug Dosing 46.8 ml/min 08/25/23 05:38 Est GFR ( Amer) 86.5 ml/min 08/25/23 05:38 Est GFR (Non-Af Amer) 74.6 ml/min 08/25/23 05:38 BUN/Creatinine Ratio 26.3 (10-20) H 08/25/23 05:38 Glucose 100 mg/dl (70-99(Fasting)) H 08/25/23 05:38 Calcium 8.6 mg/dl (8.6-10.3) 08/25/23 05:38 Magnesium 1.9 mg/dl (1.7-2.4) 08/25/23 05:38 Urine Color Dark Yellow 08/20/23 19:25 Urine Appearance Turbid (Clear) A 08/20/23 19:25 Urine pH 5.5 (4.5-7.5) 08/20/23 19:25 Ur Specific [place] 1.028 (1.000-1.030) 08/20/23 19:25 Urine Protein 1+ (Negative) H 08/20/23 19:25 Urine Glucose (UA) Negative (Negative) 08/20/23 19:25 Urine Ketones Trace (Negative) H 08/20/23 19:25 Urine Blood 1+ (Negative) H 08/20/23 19:25 Urine Nitrite Positive (Negative) A 08/20/23 19:25 Urine Bilirubin Negative (Negative) 08/20/23 19:25 Urine Urobilinogen Negative (Negative) 08/20/23 19:25 Ur Leukocyte Esterase 2+ (Negative) H 08/20/23 19:25 Urine WBC (Auto) >30 /hpf (0-5) H 08/20/23 19:25 Urine RBC (Auto) 0-4 /hpf (0-4) 08/20/23 19:25 U Hyaline Cast (Auto) 0 /lpf (0-5) 08/20/23 19:25 U Epithel Cells (Auto) 5-10 /lpf (0-5) H 08/20/23 19:25 Urine Bacteria (Auto) 4+ (Negative) H 08/20/23 19:25 Blood Type A Positive 08/20/23 19:35 Blood Type Recheck A Positive 08/23/23 08:03 Antibody Screen NEGATIVE 08/20/23 19:35 Crossmatch See Detail 08/20/23 19:35 Impressions Chest X-Ray 08/20/23 14:06 XR chest 1V not portable HISTORY: 77 years-old Female pre-op preoperative exam COMPARISON: Chest CT 07/11/2023 TECHNIQUE: AP view of the chest FINDINGS: Cardiac silhouette is enlarged. Left subclavian pacer/AICD. Large hiatal hernia. No pneumothorax, pleural effusion or overt pulmonary edema. The patient is rotated towards the left. Degenerative changes of the shoulders and spine. IMPRESSION: 1. Cardiomegaly without acute process. 2. Large hiatal hernia. ACT 112: Negative or not required by law. The above report was generated using voice recognition software. It may contain grammatical, syntax or spelling errors. Electronically signed by: Buddy Granados M.D. 08/20/2023 4:04 PM Hip/Pelvis X-Ray 08/21/23 18:13 SINGLE VIEW PELVIS; SINGLE VIEW LEFT HIP CLINICAL HISTORY: Postoperative examination. FINDINGS: An AP portable view of the hips and pelvis with a crosstable lateral portable view of the left hip are compared to study dated 08/20/2023. A left hip arthroplasty is in near-anatomic alignment. No acute fracture is identified. Soft tissue swelling and subcutaneous gas overlying the left hip are expected postsurgical changes. [id number] arthritic change and joint space narrowing is seen in the right hip. A Kimbrough catheter is in place. IMPRESSION: Expected postoperative findings status post left hip arthroplasty. No acute fracture is seen. ACT 112: Negative or not required by law. Electronically signed by: Baljeet Martini M.D. 08/21/2023 6:57 PM
[2023-08-25] MEDS: cefTRIAXone SODIUM 2,000 MG in DEXTROSE 5 % MINI-B 50 ML IV SCH (12:33)
--- NOTE | 2023-08-25 16:00 | Hospitalist Progress Note ---
Date of Service August 25, 2023 Assessment & Plan (1) Left displaced femoral neck fracture: Plan: Patient presented to the ED with mechanical fall. Imaging revealed left femoral neck fracture Status post left femoral hemiarthroplasty on August 21, 2023 Continue pain control with scheduled Tylenol, PRN oxycodone PT OT evaluation Aspirin twice daily for DVT prophylaxis. Started on Protonix once a day Kimbrough removed, PureWick in place Acute blood loss anemia Hemoglobin down trended to 6.8. Status post 1 unit of transfusion on August 23, 2023 Hgb 7.6 today Monitor CBC (2) UTI (urinary tract infection): Plan: UA grossly abnormal, Urine culture growing E. coli; pansensitive Blood culture no growth till date On IV ceftriaxone (day 4) (3) CLL (chronic lymphocytic leukemia): Plan: Elevated WBC and lymphocytic count secondary to CLL, Bchronic lymphocytic leukemia, poor prognostic markers, follows with Dr. Rajan with oncology as outpatient Patient is being treated symptomatically, no current chemotherapy, elected hospice, CM to assist with discharge planning, reinitiation of hospice following discharge (4) CAD (coronary artery disease): Plan: Hx of AICD placement in 2021 Last Echo from Nov 2022 reviewed showing LVEF of 52%, normal, mild to moderate aortic stenosis, mild MR and TR. Continue metoprolol succinate 25 mg daily (5) IBS (irritable bowel syndrome): Plan: Chronically loose stools intermittently, probiotic added (6) CKD (chronic kidney disease) stage 3, GFR 30-59 ml/min: Plan: Cr. and BUN appear to be at baseline Chronic, stable (7) Hypothyroidism: Plan: Pt is no longer on levothyroxine due to hospice Chronic, stable DVT PROPHYLAXIS ASA 81 mg BID as per ortho Dispo - pending, PT/OT recommending rehab, rehab placement vs home with hospice, CM following Patient seen in collaboration with Dr. Faria. Admission and Anticipated Discharge Date Admission Date: August 20, 2023 Subjective Follow-up for left femoral neck fracture s/p left femoral hemiarthroplasty. Patient seen and examined. Much more alert today. Offers no complaints, reports pain is well controlled. Good appetite. No abdominal pain or nausea. Physical Exam Constitutional: WD/WN, vitals as above no acute distress Respiratory: normal respiratory effort, lungs clear to auscultation Cardiovascular: Rate/Rhythm: regular rate and regular rhythm Heart Sounds: + murmur (Grade 3/6, systolic) Vessels: normal peripheral pulses Extremities: no edema Gastrointestinal (Abdomen): Percussion/Palpation: abdomen soft; abdomen nontender Musculoskeletal: S/p left hip surgery, dressing CDI Skin: no rashes, warm and dry Neurologic: no focal motor deficits Psychiatric: A+Ox3, euthymic affect Insight: + limited insight Results & Data Results & Data Vital Signs (Past 12 Hours) Vital Signs Temp Pulse Resp BP Pulse Ox O2 Del Method 08/25/23 11:43 36.6 C 72 18 107/68 96 Room Air 08/25/23 08:30 Room Air 08/25/23 08:00 36.4 C L 71 18 130/70 9 L Room Air Laboratory Results Short CBC 08/25/23 Range/Units 05:38 WBC 76.47 H* (4.8-10.8) K/ul Hgb 7.6 L (12.0-16.0) g/dl Hct 24.0 L (37.0-47.0) % Plt Count 110 L (130-400) K/uL BMP 08/25/23 05:38 Sodium 138 Potassium 3.3 L Chloride 105 Carbon Dioxide 29 BUN 20 Creatinine 0.76 Glucose 100 H Calcium 8.6
[2023-08-25] MEDS: BACLOFEN 10 MG TAB PO SCH (20:39)
[2023-08-25] MEDS: SENNA 8.6 MG TAB PO SCH (20:40)
[2023-08-25] MEDS: ATORVASTATIN 20 MG TAB PO SCH (20:40)
[2023-08-26] MEDS: ACETAMINOPHEN 500 MG TAB PO SCH ×3 (05:50→21:16)
[2023-08-26 06:57] LABS: BUN Creatinine Ratio 26.5 (10-20); Calcium 8.9 mg/dl (8.6-10.3); Creatinine Clr Calc Pharmacy 52.4 ml/min; Est GFR (African American) 96.4 ml/min; Est GFR (Non-African American) 83.2 ml/min
[2023-08-26 07:01] LABS: Hematocrit (blood only) 25.8 % (37.0-47.0); Hemoglobin 8.2 g/dl (12.0-16.0); Mean Corpuscular Hemoglobin 31.4 pg (25.0-34.0); Mean Corpuscular Hgb Conc 31.8 g/dL (32.0-36.0); Mean Corpuscular Volume 98.9 fL (80.0-100.0); Mean Platelet Volume 10.3 fL (9.4-12.4); Nucleated RBC # (auto) 0.02 K/uL (0.00-0.12); Platelet Count 139 K/uL (130-400); RDW Coefficient of Variation 16.7 % (11.5-14.5); RDW Standard Deviation 59.1 fL (36.4-46.3); Red Blood Count 2.61 M/uL (4.20-5.40); White Blood Count 85.44 K/ul (4.8-10.8)
[2023-08-26 07:36] LABS: Basophils # (auto) 0.02 K/uL (0.00-0.20); Eosinophils # (auto) 0.06 K/uL (0.00-0.50); Eosinophils % (auto) 0.1 %; Immature Granulocytes # (auto) 0.12 K/uL (0.01-0.20); Immature Granulocytes % (auto) 0.1 %; Lymphocytes # (auto) 79.67 K/uL (1.20-3.40); Lymphocytes % (auto) 93.2 %; Monocytes # (auto) 1.94 K/uL (0.11-0.59); Monocytes % (auto) 2.3 %; Neutrophils # (auto) 3.63 K/uL (1.40-6.50); Neutrophils % (auto) 4.3 %; Polychromasia 1+; Smudge Cells Present
[2023-08-26] MEDS: ASPIRIN 81 MG ECTAB PO SCH ×2 (07:44→20:16)
[2023-08-26] MEDS: PARoxetine HCL 10 MG TAB PO SCH (07:44)
[2023-08-26] MEDS: MULTIVITAMIN TAB PO SCH (07:44)
[2023-08-26] MEDS: ASCORBIC ACID 500 MG TAB PO SCH ×2 (07:45→16:54)
[2023-08-26] MEDS: FERROUS GLUCONATE 324 MG TAB PO SCH ×2 (07:45→16:54)
[2023-08-26] MEDS: buPROPion HCl 100 MG TABLET PO SCH ×2 (07:45→20:16)
[2023-08-26] MEDS: DOCUSATE SODIUM 100 MG CAP PO SCH ×2 (07:45→20:16)
[2023-08-26] MEDS: METOPROLOL SUCC 25MG EXT REL TAB PO SCH (07:45)
[2023-08-26] MEDS: PANTOprazole 40 MG TAB PO SCH (07:45)
--- NOTE | 2023-08-26 10:04 | Orthopedic Progress Note ---
Date of Service August 26, 2023 Assessment & Plan (1) Left displaced femoral neck fracture: Plan: Nutritional supplements given the patient's age and need for adequate nutrition particularly with her underlying leukemia. Physical therapy and Occupational Therapy daily. May shower with a Silverlon dressing in place. Weightbearing as tolerated with a walker and posterior hip precautions with maximal assist given that she is a fall risk. abduction pillow while in bed Pain medications per the internal medicine team. Continue to minimize or eliminate narcotics. DVT prophylaxis per the primary team. Follow-up as scheduled with GIO De La Rosa PA-C, at [facility] Any questions feel free to contact orthopedics. Admission and Anticipated Discharge Date Admission Date: August 20, 2023 Subjective Patient is seen and examined at bedside. She says that she is doing okay but she is moving slow this morning. She is having pain but it is managed with her medications. She cannot recall if she has worked with physical therapy. Physical Exam Physical Exam: Patient is awake, alert and oriented. She is sitting up eating breakfast. Dressing is clean, dry and intact. Thigh and calf are supple. She is able to wiggle her toes and pump her ankle up and down. She is unable to do straight leg raise. Passively abduct her and slightly flex her about 30 degrees. Results & Data Vital Signs (Past 12 Hours) Vital Signs Temp Pulse Resp BP Pulse Ox O2 Del Method 08/26/23 07:12 36.6 C 69 14 103/63 95 Room Air 08/25/23 22:50 Room Air
[2023-08-26] MEDS: cefTRIAXone SODIUM 2,000 MG in DEXTROSE 5 % MINI-B 50 ML IV SCH (13:38)
--- NOTE | 2023-08-26 19:17 | Hospitalist Progress Note ---
Date of Service August 26, 2023 Assessment & Plan (1) Left displaced femoral neck fracture: Plan: Patient presented to the ED with mechanical fall. Imaging revealed left femoral neck fracture S/P left femoral hemiarthroplasty on August 21, 2023 Continue pain control with scheduled Tylenol, PRN oxycodone PT OT evaluation Weightbearing as tolerated Posterior hip precautions, fall precautions Aspirin twice daily for DVT prophylaxis. Started on Protonix once a day Kimbrough removed, PureWick in place on Aspirin 81 mg BID Plan to discharge to rehab facility as able Needs follow-up with orthopedics upon discharge Acute blood loss anemia Hemoglobin down trended to 6.8. Hb 8.2 today S/P 1 unit PRBCs of transfusion on August 23, 2023 Monitor CBC (2) UTI (urinary tract infection): Plan: UA grossly abnormal, Urine culture growing E. coli; pansensitive Blood culture no growth till date On IV ceftriaxone Will complete IV antibiotic course tomorrow (3) CLL (chronic lymphocytic leukemia): Plan: Elevated WBC and lymphocytic count secondary to CLL, Bchronic lymphocytic leukemia, poor prognostic markers, follows with Dr. Rajan with oncology as outpatient Patient is being treated symptomatically, no current chemotherapy, elected hospice, CM to assist with discharge planning, reinitiation of hospice following d ischarge (4) CAD (coronary artery disease): Plan: Hx of AICD placement in 2021 Last Echo from Nov 2022 reviewed showing LVEF of 52%, normal, mild to moderate aortic stenosis, mild MR and TR. Continue metoprolol succinate 25 mg daily (5) IBS (irritable bowel syndrome): Plan: Chronically loose stools intermittently, probiotic added (6) CKD (chronic kidney disease) stage 3, GFR 30-59 ml/min: Plan: Cr. and BUN appear to be at baseline Chronic, stable (7) Hypothyroidism: Plan: Pt is no longer on levothyroxine due to hospice Chronic, stable DVT Px ASA 81 mg BID Disposition Rehab as able Admission and Anticipated Discharge Date Admission Date: August 20, 2023 Subjective Patient is seen and examined at bedside Left hip pain is controlled Sitting in chair during my encounter Discussed with patient's family at bedside Denies any chest pain, dyspnea, dizziness No other complaints Waiting for rehab placement Review of Systems Review of Systems: All systems reviewed & are unremarkable except as noted in Subjective Physical Exam Physical Exam: Physical Exam: Vitals signs as noted above General Appearance:Thin, frail, no apparent distress Head: normocephalic, Atraumatic Eyes: normal inspection, EOMI Neck: supple, Trachea midline Respiratory/Chest: Normal breath sounds, CTA, No accessory muscle use Cardiovascular: S1, S2, +murmur Abdomen/GI:Soft, Non tender, Bowel sounds present Extremities/Musculoskeletal:normal inspection, no edema, L hip in dressing Neurologic/Psych:AAOX3, grossly no focal neurological deficits Skin: normal color, warm Results & Data Results & Data Vital Signs (Past 12 Hours) Vital Signs Temp Pulse Resp BP BP Pulse Ox O2 Del Method 08/26/23 14:36 36.8 C 78 14 97/64 L 95 Room Air 08/26/23 07:12 36.6 C 69 14 103/63 95 Room Air Laboratory Results Short CBC 08/26/23 Range/Units 06:10 WBC 85.44 H* (4.8-10.8) K/ul Hgb 8.2 L (12.0-16.0) g/dl Hct 25.8 L (37.0-47.0) % Plt Count 139 (130-400) K/uL BMP 08/26/23 06:10 Sodium 136 Potassium 4.0 D Chloride 101 Carbon Dioxide 29 BUN 18 Creatinine 0.68 Glucose 103 H Calcium 8.9
[2023-08-26] MEDS: BACLOFEN 10 MG TAB PO SCH (20:15)
[2023-08-26] MEDS: ATORVASTATIN 20 MG TAB PO SCH (20:16)
[2023-08-26] MEDS: SENNA 8.6 MG TAB PO SCH (20:17)
[2023-08-27] MEDS: ACETAMINOPHEN 500 MG TAB PO SCH (05:27)
[2023-08-27 08:05] LABS: Hematocrit (blood only) 25.1 % (37.0-47.0); Hemoglobin 7.9 g/dl (12.0-16.0); Mean Corpuscular Hemoglobin 30.7 pg (25.0-34.0); Mean Corpuscular Hgb Conc 31.5 g/dL (32.0-36.0); Mean Corpuscular Volume 97.7 fL (80.0-100.0); Mean Platelet Volume 10.3 fL (9.4-12.4); Nucleated RBC # (auto) 0.02 K/uL (0.00-0.12); Platelet Count 154 K/uL (130-400); RDW Coefficient of Variation 16.5 % (11.5-14.5); RDW Standard Deviation 57.5 fL (36.4-46.3); Red Blood Count 2.57 M/uL (4.20-5.40); White Blood Count 78.76 K/ul (4.8-10.8)
[2023-08-27 08:25] LABS: BUN Creatinine Ratio 28.2 (10-20); Calcium 8.8 mg/dl (8.6-10.3); Creatinine Clr Calc Pharmacy 45.6 ml/min; Est GFR (African American) 83.8 ml/min; Est GFR (Non-African American) 72.3 ml/min; Potassium 3.9 mmol/L (3.5-5.1)
[2023-08-27 08:52] LABS: Basophils # (auto) 0.05 K/uL (0.00-0.20); Basophils % (auto) 0.1 %; Eosinophils # (auto) 0.07 K/uL (0.00-0.50); Eosinophils % (auto) 0.1 %; Immature Granulocytes # (auto) 0.14 K/uL (0.01-0.20); Immature Granulocytes % (auto) 0.2 %; Lymphocytes # (auto) 73.04 K/uL (1.20-3.40); Lymphocytes % (auto) 92.7 %; Monocytes # (auto) 1.59 K/uL (0.11-0.59); Neutrophils # (auto) 3.87 K/uL (1.40-6.50); Neutrophils % (auto) 4.9 %; RBC Morphology Unremarkable
[2023-08-27] MEDS: ASPIRIN 81 MG ECTAB PO SCH (09:31)
[2023-08-27] MEDS: PARoxetine HCL 10 MG TAB PO SCH (09:31)
[2023-08-27] MEDS: PANTOprazole 40 MG TAB PO SCH (09:31)
[2023-08-27] MEDS: DOCUSATE SODIUM 100 MG CAP PO SCH (09:31)
[2023-08-27] MEDS: METOPROLOL SUCC 25MG EXT REL TAB PO SCH (09:32)
[2023-08-27] MEDS: MULTIVITAMIN TAB PO SCH (09:32)
[2023-08-27] MEDS: buPROPion HCl 100 MG TABLET PO SCH (09:32)
[2023-08-27] MEDS: FERROUS GLUCONATE 324 MG TAB PO SCH (09:32)
[2023-08-27] MEDS: ASCORBIC ACID 500 MG TAB PO SCH (09:32)
[2023-08-27] MEDS ORDERED: cefTRIAXone SODIUM 2,000 MG in DEXTROSE 5 % MINI-B 50 ML IV SCH (10:30)
--- NOTE | 2023-08-27 11:35 | Orthopedic Progress Note ---
Date of Service August 27, 2023 Assessment & Plan (1) Left displaced femoral neck fracture: Plan: The patient was educated regarding today's findings. Her dressing does not require changing at this time. Chart review reveals she has been working with physical therapy. She does not like to place weight on the left leg, and would benefit from additional skilled therapy. From an orthopedic standpoint, she is fine to be transferred to [facility]. They reportedly had a bed available yesterday. I will contact Dr. Davenport for hospitalist input on transfer. She is DNR/DNI and was previously on hospice due to her CLL. Elevated white count today is consistent with her baseline. She should follow-up in the office in approximately 1 week for evaluation and staple removal. Appointment has already been made. Hopefully she can be transferred today if the bed is still available. Otherwise we will continue to follow while she is admitted. Continue aspirin for DVT prophylaxis. Admission and Anticipated Discharge Date Admission Date: August 20, 2023 Subjective This 77-year-old female is seen today in her room. She is 6 days status post left hip hemiarthroplasty. She states she has no pain today. She is sitting in bed. She denies any chest pain or shortness of breath. No abdominal pain. She has not required any narcotic medication since the morning of the . She does not believe she has worked with physical therapy yet. No additional complaints. Physical Exam Physical Exam: General: Frail, elderly female, in no acute distress. Sitting in her bed. Alert and conversive. Skin: Warm and dry with good turgor. No rashes. She has an intact Silverlon dressing on her left hip. It is dry. No drainage. Musculoskeletal: The patient has intact motor function of her hip, knee, ankle, and toes. Hip motion is minimal both actively and passively. She denies any discomfort with logrolling of the hip or gentle hip flexion. She is sore with palpation around her surgical incision. Neurologic: Gross sensation is intact across the left leg by soft touch. Peripheral pulses are 2+. Results & Data Vital Signs (Past 12 Hours) Vital Signs Temp Pulse Resp BP Pulse Ox O2 Del Method 08/27/23 10:53 36.6 C 81 16 108/64 97 Room Air 08/27/23 07:23 36.6 C 67 12 113/65 97 Room Air Laboratory Results CBC obtained today shows a white count of 78.76. H&H of 7.9 and 25.1. Platelets are 154,000. PRP shows potassium 3.9, chloride 101, anion gap of 5. BUN of 22 with creatinine 0.78. Glucose today 110.
--- NOTE | 2023-08-27 12:47 | Hospitalist Progress Note ---
Date of Service August 27, 2023 Assessment & Plan (1) Left displaced femoral neck fracture: Plan: Patient presented to the ED with mechanical fall. Imaging revealed left femoral neck fracture S/P left femoral hemiarthroplasty on August 21, 2023 Continue pain control with scheduled Tylenol, PRN oxycodone PT OT evaluation Weightbearing as tolerated Posterior hip precautions, fall precautions Aspirin twice daily for DVT prophylaxis. Started on Protonix once a day Kimbrough removed, PureWick in place on Aspirin 81 mg BID Needs follow-up with orthopedics upon discharge Discharge to acute rehab today Acute blood loss anemia Hemoglobin down trended to 6.8. Hb 7.9 today S/P 1 unit PRBCs of transfusion on August 23, 2023 Monitor CBC Stable Hb (2) UTI (urinary tract infection): Plan: UA grossly abnormal, Urine culture growing E. coli; pansensitive Blood culture no growth Completed IV ceftriaxone course (3) CLL (chronic lymphocytic leukemia): Plan: Elevated WBC and lymphocytic count secondary to CLL, Bchronic lymphocytic leukemia, poor prognostic markers, follows with Dr. Rajan with oncology as outpatient Patient is being treated symptomatically, no current chemotherapy, elected hospice, CM to assist with discharge planning, reinitiation of hospice following discharge (4) CAD (coronary artery disease): Plan: Hx of AICD placement in 2021 Last Echo from Nov 2022 reviewed showing LVEF of 52%, normal, mild to moderate aortic stenosis, mild MR and TR. Continue metoprolol succinate 25 mg daily (5) IBS (irritable bowel syndrome): Plan: Chronically loose stools intermittently, probiotic added (6) CKD (chronic kidney disease) stage 3, GFR 30-59 ml/min: Plan: Cr. and BUN appear to be at baseline Chronic, stable (7) Hypothyroidism: Plan: Pt is no longer on levothyroxine due to hospice Chronic, stable DVT Px ASA 81 mg BID Disposition Rehab Admission and Anticipated Discharge Date Admission Date: August 20, 2023 Subjective Patient is seen and examined at bedside States feeling very tired today Had physical therapy evaluation this morning No significant hip pain at surgical site Discussed with orthopedics today Denies any chest pain, dyspnea, dizziness, nausea, vomiting Plan to be discharged to rehab facility today Review of Systems Review of Systems: All systems reviewed & are unremarkable except as noted in Subjective Physical Exam Physical Exam: Physical Exam: Vitals signs as noted above General Appearance:Thin, frail, no apparent distress Head: normocephalic, Atraumatic Eyes: normal inspection, EOMI Neck: supple, Trachea midline Respiratory/Chest: Normal breath sounds, CTA, No accessory muscle use Cardiovascular: S1, S2, +murmur Abdomen/GI:Soft, Non tender, Bowel sounds present Extremities/Musculoskeletal:normal inspection, no edema, L hip in dressing Neurologic/Psych:AAOX3, grossly no focal neurological deficits Skin: normal color, warm Results & Data Results & Data Vital Signs (Past 12 Hours) Vital Signs Temp Pulse Resp BP Pulse Ox O2 Del Method 08/27/23 10:53 36.6 C 81 16 108/64 97 Room Air 08/27/23 07:23 36.6 C 67 12 113/65 97 Room Air Laboratory Results Short CBC 08/27/23 Range/Units 07:31 WBC 78.76 H* (4.8-10.8) K/ul Hgb 7.9 L (12.0-16.0) g/dl Hct 25.1 L (37.0-47.0) % Plt Count 154 (130-400) K/uL BMP 08/27/23 07:31 Sodium 136 Potassium 3.9 Chloride 101 Carbon Dioxide 30 BUN 22 Creatinine 0.78 Glucose 110 H Calcium 8.8
--- NOTE | 2023-08-27 13:00 | Discharge Summary ---
Date of Service August 27, 2023 Admission HPI Per Admitting Provider This is a 77-year-old female with history of CLL currently not on therapy, elected for hospice, dementia, gait disturbance, hypothyroidism, IBS and depression who presents to the hospital after an acute fall she sustained today. Imaging reveals a left femoral neck fracture. The patient , her and daughter are present at bedside. Patient has difficulty explaining how she sustained a fall. Her reports that she was in the bathroom and that he left to go warm up something for supper, and 1 he was in the kitchen and heard a thud, and came back to the bathroom she was on the floor. Denies any injury to the head or LOC. Patient states that her feet just slipped out from underneath her. She does ambulate and uses a walker at baseline. Patient's pain is well controlled presently when she is not moving, however with minimal movement it is significantly painful. Daughter manages her medications and states that she took all her routine things this morning. She also notes that she has not eaten much today, and was not interested in drinking after the fall today. DNR/DNI was discussed and they are in agreement that she is a no code except for within the surgical suite during hip fracture fixation. Admission Exam Per Admitting Provider General: awake, alert, no apparent distress, elderly white female with BMI of 23 Head: Normocephalic, atraumatic ENT: PERRL, EOMI, no pharyngeal exudate, mucous membranes appear dry Chest: Clear to auscultation, on room air, no adventitious breath sounds Cardiac: Regular rate and rhythm, + loud systolic murmur, no JVD, normal peripheral pulses, good capillary refill Abdominal: NABS x 4 quadrants, soft, nondistended, nontender to palpation, no rebound or guarding Extremities: LLE shortened and externally rotated, normal inspection, no peripheral edema or erythema, calfs nontender to palpation Psych: Normal mood and affect Neuro: AAO x 3, strength intact bilaterally and rated 5/5, no motor deficits, speech is clear, no peripheral sensory deficits Principal Diagnosis Left hip s/p hemiarthroplasty Acute blood loss anemia--post operative Urinary Tract Infection Chronic lymphocytic leukemia Irritable bowel syndrome Discharge Data Allergies Allergy/AdvReac Type Severity Reaction Status Date / Time codeine AdvReac Mild GI UPSET Verified 09/23/21 15:25 lisinopril AdvReac Mild COUGH Verified 09/23/21 15:25 Procedures Performed Operation Date: 08/21/23 14:50 Actual Procedures p Left Femoral Neck Hemiarthroplasty Cemented(Left) - Juan Chauhan MD Ordered Studies Laboratory Results WBC 78.76 K/ul (4.8-10.8) H* 08/27/23 07:31 RBC 2.57 M/uL (4.20-5.40) L 08/27/23 07:31 Hgb 7.9 g/dl (12.0-16.0) L 08/27/23 07:31 Hct 25.1 % (37.0-47.0) L 08/27/23 07:31 MCV 97.7 fL (80.0-100.0) 08/27/23 07:31 MCH 30.7 pg (25.0-34.0) 08/27/23 07:31 MCHC 31.5 g/dL (32.0-36.0) L 08/27/23 07:31 RDW Std Deviation 57.5 fL (36.4-46.3) H 08/27/23 07:31 RDW Coeff of Terri 16.5 % (11.5-14.5) H 08/27/23 07:31 Plt Count 154 K/uL (130-400) 08/27/23 07:31 MPV 10.3 fL (9.4-12.4) 08/27/23 07:31 Immature Gran % (Auto) 0.2 % 08/27/23 07:31 Neut % (Auto) 4.9 % 08/27/23 07:31 Lymph % (Auto) 92.7 % 08/27/23 07:31 [place] % (Auto) 2.0 % 08/27/23 07:31 Eos % (Auto) 0.1 % 08/27/23 07:31 Baso % (Auto) 0.1 % 08/27/23 07:31 Neut # (Auto) 3.87 K/uL (1.40-6.50) 08/27/23 07:31 Lymph # (Auto) 73.04 K/uL (1.20-3.40) H 08/27/23 07:31 [place] # (Auto) 1.59 K/uL (0.11-0.59) H 08/27/23 07:31 Eos # (Auto) 0.07 K/uL (0.00-0.50) 08/27/23 07:31 Baso # (Auto) 0.05 K/uL (0.00-0.20) 08/27/23 07:31 Immature Gran # (Auto) 0.14 K/uL (0.01-0.20) 08/27/23 07:31 Absolute Nucleated RBC 0.02 K/uL (0.00-0.12) 08/27/23 07:31 Smudge Cells Present 08/26/23 06:10 Blood Smear Review Cancelled 08/20/23 14:12 RBC Morphology Unremarkable 08/27/23 07:31 Polychromasia 1+ 08/26/23 06:10 Ovalocytes 1+ 08/20/23 14:12 Sodium 136 mmol/L (136-145) 08/27/23 07:31 Potassium 3.9 mmol/L (3.5-5.1) 08/27/23 07:31 Chloride 101 mmol/L (98-107) 08/27/23 07:31 Carbon Dioxide 30 mmol/L (21-32) 08/27/23 07:31 Anion Gap 5 (3-11) 08/27/23 07:31 BUN 22 mg/dl (6-23) 08/27/23 07:31 Creatinine 0.78 mg/dl (0.6-1.2) 08/27/23 07:31 Est Cr Clr Drug Dosing 45.6 ml/min 08/27/23 07:31 Est GFR ( Amer) 83.8 ml/min 08/27/23 07:31 Est GFR (Non-Af Amer) 72.3 ml/min 08/27/23 07:31 BUN/Creatinine Ratio 28.2 (10-20) H 08/27/23 07:31 Glucose 110 mg/dl (70-99(Fasting)) H 08/27/23 07:31 Calcium 8.8 mg/dl (8.6-10.3) 08/27/23 07:31 Magnesium 1.9 mg/dl (1.7-2.4) 08/25/23 05:38 Urine Color Dark Yellow 08/20/23 19:25 Urine Appearance Turbid (Clear) A 08/20/23 19:25 Urine pH 5.5 (4.5-7.5) 08/20/23 19:25 Ur Specific Tyler 1.028 (1.000-1.030) 08/20/23 19:25 Urine Protein 1+ (Negative) H 08/20/23 19:25 Urine Glucose (UA) Negative (Negative) 08/20/23 19:25 Urine Ketones Trace (Negative) H 08/20/23 19:25 Urine Blood 1+ (Negative) H 08/20/23 19:25 Urine Nitrite Positive (Negative) A 08/20/23 19:25 Urine Bilirubin Negative (Negative) 08/20/23 19:25 Urine Urobilinogen Negative (Negative) 08/20/23 19:25 Ur Leukocyte Esterase 2+ (Negative) H 08/20/23 19:25 Urine WBC (Auto) >30 /hpf (0-5) H 08/20/23 19:25 Urine RBC (Auto) 0-4 /hpf (0-4) 08/20/23 19:25 U Hyaline Cast (Auto) 0 /lpf (0-5) 08/20/23 19:25 U Epithel Cells (Auto) 5-10 /lpf (0-5) H 08/20/23 19:25 Urine Bacteria (Auto) 4+ (Negative) H 08/20/23 19:25 Blood Type A Positive 08/20/23 19:35 Blood Type Recheck A Positive 08/23/23 08:03 Antibody Screen NEGATIVE 08/20/23 19:35 Crossmatch See Detail 08/20/23 19:35 Impressions Chest X-Ray 08/20/23 14:06 XR chest 1V not portable HISTORY: 77 years-old Female pre-op preoperative exam COMPARISON: Chest CT 07/11/2023 TECHNIQUE: AP view of the chest FINDINGS: Cardiac silhouette is enlarged. Left subclavian pacer/AICD. Large hiatal hernia. No pneumothorax, pleural effusion or overt pulmonary edema. The patient is rotated towards the left. Degenerative changes of the shoulders and spine. IMPRESSION: 1. Cardiomegaly without acute process. 2. Large hiatal hernia. ACT 112: Negative or not required by law. The above report was generated using voice recognition software. It may contain grammatical, syntax or spelling errors. Electronically signed by: Buddy Grnaados M.D. 08/20/2023 4:04 PM Hip/Pelvis X-Ray 08/21/23 18:13 SINGLE VIEW PELVIS; SINGLE VIEW LEFT HIP CLINICAL HISTORY: Postoperative examination. FINDINGS: An AP portable view of the hips and pelvis with a crosstable lateral portable view of the left hip are compared to study dated 08/20/2023. A left hip arthroplasty is in near-anatomic alignment. No acute fracture is identified. Soft tissue swelling and subcutaneous gas overlying the left hip are expected postsurgical changes. Tiqa-fi-vieovqog arthritic change and joint space narrowing is seen in the right hip. A Kimbrough catheter is in place. IMPRESSION: Expected postoperative findings status post left hip arthroplasty. No acute fracture is seen. ACT 112: Negative or not required by law. Electronically signed by: Baljeet Martini M.D. 08/21/2023 6:57 PM Hospital Course (1) Left displaced femoral neck fracture: Patient presented to the ED with mechanical fall. Imaging revealed left femoral neck fracture S/P left femoral hemiarthroplasty on August 21, 2023 Continue pain control with scheduled Tylenol, PRN oxycodone PT OT evaluation Weightbearing as tolerated Posterior hip precautions, fall precautions Aspirin twice daily for DVT prophylaxis. Started on Protonix once a day Kimbrough removed, PureWick in place on Aspirin 81 mg BID Needs follow-up with orthopedics upon discharge Discharge to acute rehab today Acute blood loss anemia Hemoglobin down trended to 6.8. Hb 7.9 today S/P 1 unit PRBCs of transfusion on August 23, 2023 Monitor CBC Stable Hb (2) UTI (urinary tract infection): UA grossly abnormal, Urine culture growing E. coli; pansensitive Blood culture no growth Completed IV ceftriaxone course (3) CLL (chronic lymphocytic leukemia): Elevated WBC and lymphocytic count secondary to CLL, Bchronic lymphocytic leukemia, poor prognostic markers, follows with Dr. Rajan with oncology as outpatient Patient is being treated symptomatically, no current chemotherapy, elected hospice, CM to assist with discharge planning, reinitiation of hospice following discharge (4) CAD (coronary artery disease): Hx of AICD placement in 2021 Last Echo from Nov 2022 reviewed showing LVEF of 52%, normal, mild to moderate aortic stenosis, mild MR and TR. Continue metoprolol succinate 25 mg daily (5) IBS (irritable bowel syndrome): Chronically loose stools intermittently, probiotic added (6) CKD (chronic kidney disease) stage 3, GFR 30-59 ml/min: Cr. and BUN appear to be at baseline Chronic, stable (7) Hypothyroidism: Pt is no longer on levothyroxine due to hospice Chronic, stable DVT Px ASA 81 mg BID Disposition Rehab Total Time Total Time Spent Total Time Spent (In Minutes): 50 minutes Discharge Plan Discharge Items Patient Disposition: Transfer Inpatient Rehab Fac Reason For Visit: LEFT FEMORAL NECK FRACTURE Discharge Diagnosis: Left hip s/p hemiarthroplasty Acute blood loss anemia--post operative Urinary Tract Infection Chronic lymphocytic leukemia Irritable bowel syndrome Condition on Discharge: Good Activity: Per Instructions section Lifting: Wait until after follow-up appointment Bathing: Keep incision dry Exercise/Sports: As tolerated Weightbearing: Full weightbearing Non-emergency contact: Primary Care Provider and Surgeon Call non-emergency contact if: you have any medication questions, your pain is not controlled, your temperature is above 101, your wound has increased redness, your wound has increased drainage and your wound pain has increased Follow-up/Referrals: Khalif De La Rosa PA-C [Physician Bath Solution Maker] - 09/11/23 11:30 am Lucas Mendez MD [Primary Care Provider] - Diet: Heart Healthy Addtl Attending Provider Instructions: Pain: * The immediate post-operative period after hip replacement surgery is often quite painful. * You are given a prescription for pain medicine. You should take it, as directed, when you need it, especially before physical therapy and before going to bed. Pain that interferes with sleep is very common and can last several months. * You will likely need pain medicine for the first two to four weeks. It will not stop all of the pain. The pain will lessen and as you feel better, you may change to milder pain medicine such as Tylenol. * The most common side effects of pain medicine are nausea and constipation, so don't take more than you need. Physical Therapy: * Follow the "Hip Precautions Instructions." * In some cases, the social service worker at the hospital will arrange to have a therapist come to your house for the first couple of weeks to help you learn these skills. * You need to practice on your own or with the help of a family member as needed. * When you learn these skills, most of the therapy can be done on your own. Home Exercise: * You were shown a series of exercises in the hospital. Do these exercises three to four times each day including the exercises you were shown in physical therapy. Walking: * Get up and walk several times each day. For the first four weeks, try not to stand or walk for more than one hour at a time. If you do stand or walk for more than one hour, you will not hurt anything, but your leg will likely swell. * As you feel comfortable, you may change from the walker or crutches to a cane and then to independent walking. SELF CARE INSTRUCTIONS AFTER TOTAL HIP REPLACEMENT Until the incision and soft tissues around your hip have healed, there is a possibility that the hip prosthesis could dislocate. A. Observe the following precautions to prevent dislocation: 1. Don't bend your hip greater than 90 degrees. 2. Avoid crossing your legs or ankles while standing or lying. 3. Sit with your feet placed 6 inches apart. 4. When sitting, keep your knees below your hips. Sit on a firm surface, avoid deep, soft chairs and couches. Use an elevated toilet seat in the bathroom. 5. Don't bend over at the waist. Use a long handled shoehorn and a sock aid to help you put on your shoes and socks. A plastic design applier can help you lemon picker objects that are too high or too low to reach. 6. Keep car riding to a minimum for at least one month after surgery. B. Your balance may be shaky for a while. Use crutches or a walker until directed by your doctor. C. Use hand rails when walking on stairs. D. Wear low heeled shoes with non-slip soles. E. Be sure that your floors are free of things that could trip you - throw rugs, electrical cords, small objects. Avoid wet and waxed floors, especially with crutches and canes. F. Try to walk several times a day with rest periods between. G. Continue with all the exercises taught to you in the hospital. Again, make walking a part of your daily routine. VERY IMPORTANT TO READ AND REVIEW A. There are a few signs you need to watch for after you are home. If you notice any of the followin. Increased severe hip pain. Some pain is expected especially when you exercise. 2. Increased swelling in your leg or knee; pain or swelling of the calf muscle in either lower leg. 3. Any fluid drainage from the incision. 4. Shortness of breath or chest pain. TEDs/Elastic Stockings: * The white elastic stockings help limit swelling and prevent blood clots from forming in your legs. The more you wear them, the more they work. * Wear them for six weeks. Prevention of Infection: * Take antibiotics one hour before any dental cleaning, dental work, urological procedure, gastrointestinal procedure or any invasive surgery in order to prevent your new joint from getting infected. * You may get the antibiotics from the doctor performing the procedure or we will call in a prescription to the pharmacy of your choice. Call the office for a prescription at least 2 days prior to your appointment. Things to Watch For: * Drainage from the incision site that occurs more than one week after your surgery. * Severely increased leg pain or swelling. * Increased redness at the incision site. * Fever above 101 degrees Fahrenheit. * Unusual chest pain or shortness of breath. * Unusual pain or burning with urination. Follow up in the office in a week as scheduled with [facility] [employer]ocom[employer] Observer Provider Instructions: Follow-up with your primary care physician in 1 week upon discharge from rehab facility Follow-up with your orthopedic surgeon as scheduled Seek immediate medical attention if your symptoms reoccur or worsen Please take all medications as instructed on discharge list below. Please call if you have any questions or problems. You can reach a [facility] hospitalist on duty at [facility] 24 hours a day by calling [phone] Pending Studies at Discharge: No Stand-Alone Forms: My [facility] Skilled Items Patient informed of condition?: Yes DNR: Yes Discharge Level of Care: Acute rehab Communicable Disease: No Discharge Prognosis: Improving Lines: None Urinary Catheter: No Medications and DC Order Prescriptions: New ferrous gluconate 324 mg (38 mg iron) Tablet 324 mg PO DAILY Qty: 30 0RF ascorbic acid (vitamin C) [Vitamin C] 500 mg Tablet 500 mg PO DAILY Qty: 0 0RF docusate sodium 100 mg Capsule 100 mg PO BID Qty: 0 0RF multivitamin with folic acid [Daily-Maria D (with folic acid)] 400 mcg Tablet 1 tab PO QAM Qty: 0 0RF oxycodone 5 mg Tablet 5 mg PO Q4H PRNQty: 0 0RF pantoprazole 40 mg Tablet,Delayed Release (Dr/Ec) 40 mg PO QAM Qty: 0 0RF sennosides [Senokot] 8.6 mg Tablet 17.2 mg PO HS Qty: 0 0RF aspirin 81 mg Tablet,Delayed Release (Dr/Ec) 81 mg PO BID Qty: 0 0RF Continued atorvastatin [Lipitor] 20 mg Tablet 20 mg PO HS bupropion HCl 100 mg Tablet 100 mg PO BID metoprolol succinate 50 mg Tablet Extended Release 24 Hr 25 mg PO QAM acetaminophen [Tylenol] 325 mg Capsule 325 mg PO QID PRN (Reason: Pain) paroxetine HCl 10 mg tablet 10 mg PO QAM baclofen 10 mg 10 mg PO HS Discharge Orders: Discharge Order (Routine); Ordered 08/27/23 Ordered By: Butch Davenport Admission Data Admit Date/Time: 08/20/23 16:57 Attending Provider: Butch Davenport Admit Provider: Jose Elias Bryant Primary Care Provider: Lucas Mendez Other Providers: Jennie Mcfarland; [facility] Other Interventions: Discharge Summary Assessment (RN) Last Done: 08/27/23 12:44
== END 2023-08-27 14:12 | DRG 522 ==
LOC: ED 13:46 → SUATTDRO 16:57 → 3W 16:57
DX: W06.XXXA Fall from bed, initial encounter; F03.90 Unspecified dementia, unspecified severity, without behavioral disturbance, psychotic disturbance, mood disturbance, and anxiety; N39.0 Urinary tract infection, site not specified; Z86.718 Personal history of other venous thrombosis and embolism; Z66 Do not resuscitate; E03.9 Hypothyroidism, unspecified; N18.30 Chronic kidney disease, stage 3 unspecified; I12.9 Hypertensive chronic kidney disease with stage 1 through stage 4 chronic kidney disease, or unspecified chronic kidney disease; K58.9 Irritable bowel syndrome, unspecified; B96.20 Unspecified Escherichia coli [E. coli] as the cause of diseases classified elsewhere; D62 Acute posthemorrhagic anemia; I35.0 Nonrheumatic aortic (valve) stenosis; Z95.810 Presence of automatic (implantable) cardiac defibrillator; I25.10 Atherosclerotic heart disease of native coronary artery without angina pectoris; Y92.013 Bedroom of single-family (private) house as the place of occurrence of the external cause; C91.Z0 Other lymphoid leukemia not having achieved remission; M80.052A Age-related osteoporosis with current pathological fracture, left femur, initial encounter for fracture